=== PATIENT | female | born 1935 | race Caucasian/White ===

== ENCOUNTER 2016-05-03 14:49 | Emergency (ER) | payer MEDICARE, BC ==
[2016-05-03] MEDS ORDERED: Sodium Chloride 0.9% 10 ML Syringe FLUSH PRN ×2 (15:26)
--- NOTE | 2016-05-03 15:37 | EDM.PDOC ---
ED HISTORY OF PRESENT ILLNESS - General Chief Complaint: Respiratory Problem Stated Complaint: OXYGEN LEVELS/SHORT OF BREATH Time Seen by Provider: 05/03/16 15:07 Source: Reports: Patient, Family, Old records, RN notes reviewed History Limitations: Reports: No limitations - History of Present Illness INITIAL COMMENTS - FREE TEXT/NARRATIVE: 80-year-old female presents emergency department today with complaint of increasing shortness of breath and weak again she was recently admitted to the [facility] including intubation for hypoxia and respiratory failure thought to be due to pneumonia also new diagnosed atrial fibrillation and possible small segmental pulmonary embolism she is currently on anticoagulation medication of apixaban. She states she has had about a 40 pound weight gain over the last month and particularly over the last couple of days it has been 20 pounds predominantly in her lower extremities, she denies any pain only complains of shortness of breath and increasing oxygen demand, echocardiogram done March of 2016 shows overall ejection fraction 60-65% however moderate enlarged left atrium with left ventricular diastolic dysfunction grade 1 - Related Data Allergies/ADRs: Allergies Allergy/AdvReac Type Severity Reaction Status Date / Time nickel Allergy Itching Verified 04/05/16 12:45 Sulfa (Sulfonamide Allergy Swelling Verified 04/05/16 12:05 Antibiotics) Home Meds: Home Meds Zolpidem [Ambien] 1 tab PO BEDTIME 04/05/16 [History] Apixaban [Eliquis] 5 mg PO BID 05/03/16 [History] Ascorbic Acid 500 mg PO DAILY 05/03/16 [History] Cholecalciferol (Vitamin D3) [Vitamin D] 1,000 unit PO DAILY 05/03/16 [History] Garlic 1,000 mg PO DAILY 05/03/16 [History] Metoprolol Tartrate 12.5 mg PO DAILY 05/03/16 [History] Nystatin 100,000 units PO QID 05/03/16 [History] [place]-3 Fatty Acids [Fish Oil] 1,000 mg PO DAILY 05/03/16 [History] Past Medical History HEENT History: Reports: Impaired vision Cardiovascular History: Reports: Hypertension Respiratory History: Reports: Intubation, previous, Pneumonia, recurrent Musculoskeletal History: Reports: Fracture Endocrine/Metabolic History: Reports: Obesity/BMI 30+ Oncologic (Cancer) History: Reports: Breast - Past Surgical History Musculoskeletal Surgical History: Reports: Knee replacement Oncologic Surgical History: Reports: Mastectomy Social & Family History - Tobacco Use Smoking Status *Q: Never Smoker - Caffeine Use Caffeine Use: Reports: None - Recreational Drug Use Recreational Drug Use: No ED ROS GENERAL - Review of Systems Review Of Systems: See Below Constitutional: Reports: weight gain. Denies: fever, chills Respiratory: Reports: shortness of breath. Denies: wheezing, cough, sputum Cardiovascular: Reports: Dyspnea on exertion. Denies: Chest pain GI/Abdominal: Reports: No symptoms : Reports: no symptoms Musculoskeletal: Reports: no symptoms Skin: Reports: no symptoms Neurological: Reports: no symptoms ED EXAM, GENERAL - Physical Exam Exam: See Below Free Text/Narrative:: General: Obese female, not in any distress, alert and oriented x3 HEENT: head is atraumatic normocephalic, eyes pupils equal round reactive to light and accommodation sclera clear no conjunctivitis appreciated. Ears tympanic membranes clear and oh landmarks and light reflex are present bilaterally canals are clear. Nose no septal deviation, nares are clear, no blood present. Mouth mucosa is moist and pink no erythema or exudate noted in soft palate, tongue is midline uvula is midline, dentition is intact. Neck: Supple no thyromegaly no tracheal deviation. Nodes: Cervical nodes subclavicular nodes nontender no palpable lymphadenopathy noted. Lungs: Breath sounds decreased with crackles in the bases bilaterally CV: Irregularly irregular rate and rhythm S1 and S2 appreciated no murmurs rubs or gallops noted. Abdomen: Soft, nontender, obese, no palpable masses or organomegaly appreciated , no distention no guarding bowel sounds are present, Neuro: Cranial nerves II through XII grossly intact Skin: Warm and dry, intact Extremities: +3 edema noted bilaterally, +2 pedal pulses bilaterally Course - Vital Signs Last Recorded V/S: Last Vital Signs Temp 97.7 F 05/03/16 15:10 Pulse 93 05/03/16 15:10 Resp 16 05/03/16 15:10 BP 122/64 05/03/16 15:53 Pulse Ox 70 L 05/03/16 15:10 - Orders/Labs/Meds Orders: Active Orders 24 hr Category Date Time Status EKG Documentation Completion [RC] ASDIRECTED Care 05/03/16 15:28 Active Peripheral IV Care [RC] . DIRECTED Care 05/03/16 15:27 Active Chest 1V Frontal [CR] Urgent Exams 05/03/16 15:26 Taken Sodium Chloride 0.9% [Saline Flush] Med 05/03/16 15:26 Active 10 ml FLUSH ASDIRECTED PRN Sodium Chloride 0.9% [Saline Flush] Med 05/03/16 15:26 Active 10 ml FLUSH ASDIRECTED PRN Peripheral IV Insertion Adult [OM.PC] Urgent Oth 05/03/16 15:26 Ordered EKG 12 Lead [EK] Urgent Ther 05/03/16 15:26 Ordered Medication Orders Sodium Chloride (Saline Flush) 10 ml FLUSH ASDIRECTED PRN PRN Reason: Keep Vein Open Last Admin: 05/03/16 15:55 Dose: 10 ml Sodium Chloride (Saline Flush) 10 ml FLUSH ASDIRECTED PRN PRN Reason: Keep Vein Open Last Admin: 05/03/16 15:55 Dose: 10 ml Labs: Laboratory Tests 05/03/16 05/03/16 05/03/16 Range/Units 15:39 15:39 15:39 WBC 6.8 (4.5-11.0) K/uL RBC 3.95 (3.30-5.50) M/uL Hgb 11.4 L (12.0-15.0) g/dL Hct 37.0 (36.0-48.0) % MCV 94 (80-98) fL MCH 29 (27-31) pg MCHC 31 L (32-36) % Plt Count 181 (150-400) K/uL Neut % (Auto) 68 H (36-66) % Lymph % (Auto) 19 L (24-44) % [place] % (Auto) 9 H (2-6) % Eos % (Auto) 3 (2-4) % Baso % (Auto) 1 (0-1) % Sodium 137 L (140-148) mmol/L Potassium 4.5 (3.6-5.2) mmol/L Chloride 103 (100-108) mmol/L Carbon Dioxide 28 (21-32) mmol/L Anion Gap 10.5 (5.0-14.0) mmol/L BUN 13 (7-18) mg/dL Creatinine 1.0 (0.6-1.0) mg/dL Est Cr Clr Drug Dosing 35.49 mL/min Estimated GFR (MDRD) 53 L (>60) Glucose 106 (74-106) mg/dL Calcium 8.2 L (8.5-10.1) mg/dL Total Bilirubin 0.5 D (0.2-1.0) mg/dL AST 20 (15-37) U/L ALT 21 (12-78) U/L Alkaline Phosphatase 69 (46-116) U/L Troponin I < 0.017 (0.000-0.056) ng/mL [id number] Pept 3919 H (5-450) pg/mL Total Protein 6.5 (6.4-8.2) g/dL Albumin 2.7 L (3.4-5.0) g/dL Globulin 3.8 H (2.3-3.5) g/dL Albumin/Globulin Ratio 0.7 L (1.2-2.2) Urine Color Urine Appearance Urine pH (4.5-8.0) Ur Specific [place] (1.008-1.030) Urine Protein (NEGATIVE) mg/dL Urine Glucose (UA) (NEGATIVE) mg/dL Urine Ketones (NEGATIVE) mg/dL Urine Occult Blood (NEGATIVE) Urine Nitrite (NEGATIVE) Urine Bilirubin (NEGATIVE) Urine Urobilinogen (NORMAL) mg/dL Ur Leukocyte Esterase (NEGATIVE) Urine RBC (0-5) Urine WBC (0-5) Ur Epithelial Cells Amorphous Sediment Urine Bacteria Urine Mucus 05/03/16 Range/Units 16:39 WBC (4.5-11.0) K/uL RBC (3.30-5.50) M/uL Hgb (12.0-15.0) g/dL Hct (36.0-48.0) % MCV (80-98) fL MCH (27-31) pg MCHC (32-36) % Plt Count (150-400) K/uL Neut % (Auto) (36-66) % Lymph % (Auto) (24-44) % [place] % (Auto) (2-6) % Eos % (Auto) (2-4) % Baso % (Auto) (0-1) % Sodium (140-148) mmol/L Potassium (3.6-5.2) mmol/L Chloride (100-108) mmol/L Carbon Dioxide (21-32) mmol/L Anion Gap (5.0-14.0) mmol/L BUN (7-18) mg/dL Creatinine (0.6-1.0) mg/dL Est Cr Clr Drug Dosing mL/min Estimated GFR (MDRD) (>60) Glucose (74-106) mg/dL Calcium (8.5-10.1) mg/dL Total Bilirubin (0.2-1.0) mg/dL AST (15-37) U/L ALT (12-78) U/L Alkaline Phosphatase (46-116) U/L Troponin I (0.000-0.056) ng/mL Oic-Z-Kxyrjjujpxu Pept (5-450) pg/mL Total Protein (6.4-8.2) g/dL Albumin (3.4-5.0) g/dL Globulin (2.3-3.5) g/dL Albumin/Globulin Ratio (1.2-2.2) Urine Color Yellow Urine Appearance Clear Urine pH 5.0 (4.5-8.0) Ur Specific [place] 1.015 (1.008-1.030) Urine Protein Negative (NEGATIVE) mg/dL Urine Glucose (UA) Normal (NEGATIVE) mg/dL Urine Ketones Negative (NEGATIVE) mg/dL Urine Occult Blood Negative (NEGATIVE) Urine Nitrite Negative (NEGATIVE) Urine Bilirubin Negative (NEGATIVE) Urine Urobilinogen Normal (NORMAL) mg/dL Ur Leukocyte Esterase Negative (NEGATIVE) Urine RBC 0-5 (0-5) Urine WBC 0-5 (0-5) Ur Epithelial Cells Many Amorphous Sediment Not seen Urine Bacteria Not seen Urine Mucus Not seen Meds: Medications Generic Name Dose Route Start Last Admin Trade Name Freq PRN Reason Stop Dose Admin Sodium Chloride 10 ml 05/03/16 15:26 05/03/16 15:55 Saline Flush FLUSH 10 ml ASDIRECTED PRN Administration Keep Vein Open Sodium Chloride 10 ml 05/03/16 15:26 05/03/16 15:55 Saline Flush FLUSH 10 ml ASDIRECTED PRN Administration Keep Vein Open Discontinued Medications Generic Name Dose Route Start Last Admin Trade Name Freq PRN Reason Stop Dose Admin Furosemide 40 mg 05/03/16 15:38 05/03/16 15:53 Lasix IVPUSH 05/03/16 15:39 40 mg ONETIME ONE Administration Furosemide 20 mg 05/03/16 16:44 Lasix IVPUSH 05/03/16 16:45 ONETIME ONE Departure - Departure Time of Disposition: 16:53 Disposition: Home, Self-Care 01 Condition: good Clinical Impression: Heart failure with preserved ejection fraction Forms: ED Department Discharge Additional Instructions: Take Lasix 40 mg in the morning and then about 6 hours later and take another 20 mg, plan is to recheck your potassium on Tuesday at which time you should have a quick review with the nurse practitioner, call or return to the ED with worsening symptoms continue using oxygen - My Orders Last 24 Hours: My Active Orders 05/03/16 15:26 Chest 1V Frontal [CR] Urgent Sodium Chloride 0.9% [Saline Flush] 10 ml FLUSH ASDIRECTED PRN Sodium Chloride 0.9% [Saline Flush] 10 ml FLUSH ASDIRECTED PRN Peripheral IV Insertion Adult [OM.PC] Urgent EKG 12 Lead [EK] Urgent 05/03/16 15:27 Peripheral IV Care [RC] . DIRECTED 05/03/16 15:28 EKG Documentation Completion [RC] ASDIRECTED - Assessment/Plan Last 24 Hours: My Active Orders 05/03/16 15:26 Chest 1V Frontal [CR] Urgent Sodium Chloride 0.9% [Saline Flush] 10 ml FLUSH ASDIRECTED PRN Sodium Chloride 0.9% [Saline Flush] 10 ml FLUSH ASDIRECTED PRN Peripheral IV Insertion Adult [OM.PC] Urgent EKG 12 Lead [EK] Urgent 05/03/16 15:27 Peripheral IV Care [RC] . DIRECTED 05/03/16 15:28 EKG Documentation Completion [RC] ASDIRECTED Plan: Assessment Acuity = acute Site and laterality = fluid overload secondary to preserved ejection fraction heart failure diastolic dysfunction Etiology = medications had been stopped after discharge from hospital of [facility] Manifestations = hypoxia, shortness of breath, weight gain Location of injury = home Lab values = hemoglobin 11.4 consistent normochromic anemia sodium low at 137 consistent hyponatremia BNP elevated at 3919 albumin low at 2.7 consistent hypoalbuminemia urinalysis unremarkable EKG demonstrates atrial fibrillation chest x-ray consistent with fluid overload resolving ARDS pattern Plan She had good response to 60 mg Lasix provided IV plan is to discharge home 40 mg of Lasix in the morning 20 mg in the p.m. recheck electrolytes on Tuesday followed by the nurse practitioner to reevaluate on Tuesday Patient was in agreement with the plan all questions were answered, they were instructed to return to the emergency department or call for worsening symptoms. This note was dictated using [employer] voice recognition software please call with any questions.
[2016-05-03] MEDS ORDERED: Furosemide 40 MG/4 ML VIAL IVPUSH ONE (15:38)
[2016-05-03] MEDS ORDERED: Furosemide 20 MG/2 ML VIAL IVPUSH ONE (16:44)
[2016-05-03 17:33] VITALS: BP 138/83
--- NOTE | 2016-05-04 09:04 | CR ---
Portable chest Comparison: 05 April 2016. There is cardiac enlargement with pulmonary vascular engorgement. There is diffuse increase of the i nterstitial markings. There are no significant effusions. Impression: 1. CHF with interstitial edema.
== END 2016-05-03 17:30 | disposition home or self-care (01) ==
LOC: JP.ED 14:49
DX: I11.0 Hypertensive heart disease with heart failure (principal); I50.30 Unspecified diastolic (congestive) heart failure; Z88.2 Allergy status to sulfonamides; Z79.899 Other long term (current) drug therapy; Z98.890 Other specified postprocedural states
CPT/HCPCS: 36415; 71010; 80053; 81001; 83880; 84484; 85025; 87804; 93005; 96374; 96376; 99285; J1940; J7050; 93010; 99284

== ENCOUNTER 2016-07-11 07:36 | Emergency (ER) | payer MEDICARE, BC ==
--- NOTE | 2016-07-11 08:40 | EDM.PDOC ---
ED HPI GENERAL MEDICAL PROBLEM - General Chief Complaint: Lower Extremity Injury/Pain Stated Complaint: LT LEG PAIN/HAS BLOOD CLOT ISSUES Time Seen by Provider: 07/11/16 08:29 Source of Information: Reports: Patient, Old Records, RN Notes Reviewed History Limitations: Reports: No Limitations - History of Present Illness INITIAL COMMENTS - FREE TEXT/NARRATIVE: 80-year-old female presents emergency department day complaint of pain in her left knee, it started early this morning pain will wax and wane it is in the anterior portion of the knee she denies any trauma however she is concerned about a blood clot she is on anticoagulation medication Left Leg Pain Score (Numeric/FACES): 8 - Related Data Allergies Allergy/AdvReac Type Severity Reaction Status Date / Time nickel Allergy Itching Verified 07/11/16 08:02 Sulfa (Sulfonamide Allergy Swelling Verified 07/11/16 08:02 Antibiotics) Home Meds: Home Meds Zolpidem [Ambien] 1 tab PO BEDTIME 04/05/16 [History] Apixaban [Eliquis] 5 mg PO BID 05/03/16 [History] Ascorbic Acid 500 mg PO DAILY 05/03/16 [History] Cholecalciferol (Vitamin D3) [Vitamin D] 1,000 unit PO DAILY 05/03/16 [History] Garlic 1,000 mg PO DAILY 05/03/16 [History] Metoprolol Tartrate 12.5 mg PO DAILY 05/03/16 [History] Nystatin 100,000 units PO QID 05/03/16 [History] [place]-3 Fatty Acids [Fish Oil] 1,000 mg PO DAILY 05/03/16 [History] Furosemide [Lasix] 40 mg PO BID 07/11/16 [History] Omeprazole 20 mg PO ASDIRECTED 07/11/16 [History] Potassium Chloride [Klor-Con 10] 30 meq PO BID 07/11/16 [History] Past Medical History HEENT History: Reports: Impaired Vision Cardiovascular History: Reports: Afib, Blood Clots/VTE/DVT, Heart Failure, Hypertension, Other (See Below) Other Cardiovascular History: mitral regurgitation Respiratory History: Reports: Intubation, Previous, PE, Pneumonia, Recurrent, Sleep Apnea, Other (See Below) 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: Reports: Musculoskeletal History: Reports: Arthritis, Fracture Other Musculoskeletal History: left arm Other Psychiatric History: insomnia Endocrine/Metabolic History: Reports: Obesity/BMI 30+ Oncologic (Cancer) History: Reports: Breast - Infectious Disease History Infectious Disease History: Reports: C-Difficile, Measles - Past Surgical History Musculoskeletal Surgical History: Reports: Knee Replacement Other Musculoskeletal Surgeries/Procedures:: right and left Oncologic Surgical History: Reports: Mastectomy Other Oncologic Surgeries/Procedures: right Social & Family History - Tobacco Use Smoking Status *Q: Never Smoker - Caffeine Use Caffeine Use: Reports: Coffee - Recreational Drug Use Recreational Drug Use: No Review of Systems - Review of Systems Review Of Systems: See Below Respiratory: Reports: No Symptoms Cardiovascular: Reports: No Symptoms Musculoskeletal: Reports: Joint Pain (Knee pain left) Trauma Exam - Physical Exam Exam: See Below Text/Narrative:: Examination of left lower extremity I appreciate any erythema she has marked edema in the lower extremity ,pedal pulses 2+ full range of motion of the knee she is tender to palpation of the inferior aspect of the patella no significant joint line tenderness varus valgus maneuvers are negative Exam Limited By: No Limitations General Appearance: Reports: Alert, WD/WN, No Apparent Distress Course - Vital Signs Last Recorded V/S: Last Vital Signs Temp 96.8 F 07/11/16 07:57 Pulse 82 07/11/16 07:57 Resp 20 07/11/16 07:57 BP 180/97 H 07/11/16 07:57 Pulse Ox 97 07/11/16 07:57 - Orders/Labs/Meds Orders: Active Orders 24 hr Category Date Time Status Knee 3V Lt [CR] Stat Exams 07/11/16 08:38 Taken Labs: Laboratory Tests 07/11/16 07/11/16 07/11/16 Range/Units 08:38 09:00 09:00 WBC 7.3 (4.5-11.0) K/uL RBC 4.75 (3.30-5.50) M/uL Hgb 13.8 D (12.0-15.0) g/dL Hct 42.7 (36.0-48.0) % MCV 90 (80-98) fL MCH 29 (27-31) pg MCHC 32 (32-36) % Plt Count 173 (150-400) K/uL Neut % (Auto) 63 (36-66) % Lymph % (Auto) 25 (24-44) % [place] % (Auto) 9 H (2-6) % Eos % (Auto) 3 (2-4) % Baso % (Auto) 1 (0-1) % D-Dimer, Quantitative 193 (0.0-400.0) ng/mL Sodium 139 L (140-148) mmol/L Potassium 4.2 (3.6-5.2) mmol/L Chloride 102 (100-108) mmol/L Carbon Dioxide 31 (21-32) mmol/L Anion Gap 10.2 (5.0-14.0) mmol/L BUN 22 H (7-18) mg/dL Creatinine 1.1 H (0.6-1.0) mg/dL Est Cr Clr Drug Dosing 38.19 mL/min Estimated GFR (MDRD) 48 L (>60) Glucose 120 H (74-106) mg/dL Calcium 8.7 (8.5-10.1) mg/dL Meds: Medications Discontinued Medications Generic Name Dose Route Start Last Admin Trade Name [place] PRN Reason Stop Dose Admin Acetaminophen 650 mg 07/11/16 08:56 07/11/16 09:08 Tylenol PO 07/11/16 08:57 650 mg NOW ONE Administration Ketorolac Tromethamine 60 mg 07/11/16 09:47 07/11/16 09:56 Toradol IM 07/11/16 09:48 60 mg ONETIME ONE Administration Departure - Departure Time of Disposition: 10:04 Disposition: Home, Self-Care 01 Condition: good Clinical Impression: Knee pain Qualifiers: Laterality: left Chronicity: acute Qualified Code(s): M25.562 - Pain in left knee - Discharge Information Forms: ED Department Discharge Additional Instructions: Continue to use Tylenol for main pain control supplement with ibuprofen if needed, Please followup with your primary care provider in 3-5 days if not better, please call return to the emergency department with worsening of symptoms. - My Orders Last 24 Hours: My Active Orders 07/11/16 08:38 Knee 3V Lt [CR] Stat - Assessment/Plan Last 24 Hours: My Active Orders 07/11/16 08:38 Knee 3V Lt [CR] Stat Plan: Assessment Acuity = acute Site and laterality = left knee pain complicated patient with known history of knee replacement as well as congestive heart failure and history of pulmonary embolism Etiology = unclear etiology Manifestations = none Location of injury = home Lab values = CBC unremarkable, creatinine elevated at 1.1 consistent chronic renal failure stage GIIIB knee film I did review films myself I cannot appreciate any acute process, the official read from radiology is pending Plan I did review blood work and x-ray results with her she received good relief from a combination of Toradol and Tylenol she is going to try NSAIDs and Tylenol at home followup with primary care in 3-5 days if no improvement Patient was in agreement with the plan all questions were answered, they were instructed to return to the emergency department or call for worsening symptoms. This note was dictated using [employer] voice recognition software please call with any questions.
[2016-07-11] MEDS ORDERED: Acetaminophen 325 MG Tab PO ONE (08:56)
[2016-07-11] MEDS ORDERED: Ketorolac 60 MG/2 ML SDV IM ONE (09:47)
[2016-07-11 10:04] VITALS: BP 161/89
--- NOTE | 2016-07-12 09:50 | CR ---
Knee 3V Lt HISTORY: ant pain FINDINGS: Bony structures are diffusely osteopenic. No acute fracture or dislocation is identified. Left total knee arthroplasty is demonstrated with patellar resurfacing. No loosening other complicat ion can be seen. There is no evidence for joint effusion. IMPRESSION: Left total knee arthroplasty. Osteopenia. No fracture or other acute left knee abnormali ty is identified.
== END 2016-07-11 10:27 | disposition home or self-care (01) ==
LOC: JP.ED 07:36
DX: M25.562 Pain in left knee (principal); I50.9 Heart failure, unspecified; I10 Essential (primary) hypertension; I48.91 Unspecified atrial fibrillation; K21.9 Gastro-esophageal reflux disease without esophagitis; E66.9 Obesity, unspecified; Z68.41 Body mass index [BMI] 40.0-44.9, adult; Z86.711 Personal history of pulmonary embolism; Z85.3 Personal history of malignant neoplasm of breast; Z86.718 Personal history of other venous thrombosis and embolism; Z96.651 Presence of right artificial knee joint; Z96.652 Presence of left artificial knee joint; Z90.11 Acquired absence of right breast and nipple; Z79.899 Other long term (current) drug therapy; Z88.2 Allergy status to sulfonamides; Z91.048 Other nonmedicinal substance allergy status
CPT/HCPCS: 36415; 73562; 80048; 85025; 85379; 96372; 99284; A9270; J1885; 99283

== ENCOUNTER 2016-09-10 18:01 | Emergency (ER) | payer MEDICARE, BC ==
[2016-09-10 18:19] VITALS: BP 149/93
[2016-09-10] MEDS ORDERED: Diphtheria,Pertussis(Acell),Tetanus Vaccine 0.5 ML SDV IM ONE (18:51)
[2016-09-10] MEDS ORDERED: Lidocaine 1% with EPINEPHrine 1:100,000 50 ML MDV INFILT ONE (18:53)
[2016-09-10] MEDS ORDERED: Bacitracin Oint 1 GM U/D Packet TOP ONE (18:54)
--- NOTE | 2016-09-10 19:02 | EDM.PDOC ---
ED HPI GENERAL MEDICAL PROBLEM - General Chief Complaint: Laceration Stated Complaint: FELL, LACERATION TO BACK OF LEFT HAND Time Seen by Provider: 09/10/16 18:40 Source of Information: Reports: Patient History Limitations: Reports: No Limitations - History of Present Illness INITIAL COMMENTS - FREE TEXT/NARRATIVE: 81 yo female presents to ER post fall causing skin tear to her left hand and left arm. She did not hit her head. She tripped while walking up stairs and carrying photo albums. Radha is anticoagulanted. bleeding is controled. She is in need of tetanus update Left Hand Pain Score (Numeric/FACES): 5 - Related Data Allergies Allergy/AdvReac Type Severity Reaction Status Date / Time nickel Allergy Itching Verified 07/11/16 08:02 Sulfa (Sulfonamide Allergy Swelling Verified 07/11/16 08:02 Antibiotics) Home Meds: Home Meds Zolpidem [Ambien] 1 tab PO BEDTIME 04/05/16 [History] Apixaban [Eliquis] 5 mg PO BID 05/03/16 [History] Ascorbic Acid 500 mg PO DAILY 05/03/16 [History] Cholecalciferol (Vitamin D3) [Vitamin D] 1,000 unit PO DAILY 05/03/16 [History] Garlic 1,000 mg PO DAILY 05/03/16 [History] Metoprolol Tartrate 12.5 mg PO DAILY 05/03/16 [History] Nystatin 100,000 units PO QID 05/03/16 [History] [place]-3 Fatty Acids [Fish Oil] 1,000 mg PO DAILY 05/03/16 [History] Furosemide [Lasix] 40 mg PO BID 07/11/16 [History] Omeprazole 20 mg PO ASDIRECTED 07/11/16 [History] Potassium Chloride [Klor-Con 10] 30 meq PO BID 07/11/16 [History] Past Medical History HEENT History: Reports: Impaired Vision Cardiovascular History: Reports: Afib, Blood Clots/VTE/DVT, Heart Failure, Hypertension, Other (See Below) Other Cardiovascular History: mitral regurgitation Respiratory History: Reports: Intubation, Previous, PE, Pneumonia, Recurrent, Sleep Apnea, Other (See Below) 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: Musculoskeletal History: Reports: Arthritis, Fracture Other Musculoskeletal History: left arm Other Psychiatric History: insomnia Endocrine/Metabolic History: Reports: Obesity/BMI 30+ Oncologic (Cancer) History: Reports: Breast - Infectious Disease History Infectious Disease History: Reports: C-Difficile, Measles - Past Surgical History Musculoskeletal Surgical History: Reports: Knee Replacement Other Musculoskeletal Surgeries/Procedures:: right and left Oncologic Surgical History: Reports: Mastectomy Other Oncologic Surgeries/Procedures: right Social & Family History - Tobacco Use Smoking Status *Q: Never Smoker - Caffeine Use Caffeine Use: Reports: Coffee - Recreational Drug Use Recreational Drug Use: No ED ROS GENERAL - Review of Systems Review Of Systems: See Below Constitutional: Denies: Fever, Chills Respiratory: Denies: Shortness of Breath, Wheezing Cardiovascular: Denies: Chest Pain ED EXAM, SKIN/RASH Exam: See Below Exam Limited By: No Limitations General Appearance: Alert, WD/WN, No Apparent Distress Respiratory/Chest: No Respiratory Distress Skin: Warm, Dry, No Rash Location, Skin: Upper Extremity, Left (pie shaped skin tear dorsum of hand and posterior distal lower arm) ED SKIN PROCEDURES - Laceration/Wound Repair Left Posterior Hand Lac/Wound length In cm: 10 (5cm x 5 cm pie shape) Appearance: Superficial Distal NVT: Neuro & Vascular Intact Anesthetic Type: Local Local Anesthesia - Lidocaine (Xylocaine): 1% With EPI Local Anesthetic Volume: 3cc Skin Prep: Chlorhexidine (Hibiciens), Saline, Sterile Drape Saline Irrigation (cc's): 250 Exploration/Debridement/Repair: Wound Explored, in a Bloodless Field, Explored to Base, Minimal Debridement, Foreign Material Removed (grass and dirt) Closed with: Sutures Suture Size: other (5-0) # of Sutures: 12 Suture Type: Nylon, Interrupted, Simple Sterile Dressing Applied: Nurse Tetanus Status Addressed: Yes Complications: No Course - Vital Signs Last Recorded V/S: Last Vital Signs Temp 37.1 C 09/10/16 18:21 Pulse 70 09/10/16 18:21 Resp 16 09/10/16 18:21 BP 149/93 H 09/10/16 18:21 Pulse Ox 93 L 09/10/16 18:21 - Orders/Labs/Meds Orders: Active Orders 24 hr Category Date Time Status Vaccines to be Administered [RC] PER UNIT ROUTINE Care 09/10/16 18:51 Active Meds: Medications Discontinued Medications Generic Name Dose Route Start Last Admin Trade Name Eneida PRN Reason Stop Dose Admin Bacitracin 1 dose 09/10/16 18:54 Bacitracin Oint 1 Gm TOP 09/10/16 18:55 ONETIME ONE Diphtheria/Tetanus/Acell Pertussis 0.5 ml 09/10/16 18:51 Adacel IM 09/10/16 18:52 .ONCE ONE Lidocaine/Epinephrine 3 ml 09/10/16 18:53 Xylocaine 1% With Epinephrine 1:100,000 INFILT 09/10/16 18:54 ONETIME ONE - Re-Assessments/Exams Free Text/Narrative Re-Assessment/Exam: 09/10/16 20:07 as pt sits on trauma cot she has mild stiff bilateral knees, she was able to walk without difficulty after fall. Departure - Departure Time of Disposition: 20:11 Disposition: Home, Self-Care 01 Condition: Good Clinical Impression: Skin tear of forearm without complication Qualifiers: Encounter type: initial encounter Laterality: left Qualified Code(s): S51.812A - Laceration without foreign body of left forearm, initial encounter Laceration of hand Qualifiers: Encounter type: initial encounter Foreign body presence: with foreign body Laterality: left Qualified Code(s): S61.422A - Laceration with foreign body of left hand, initial encounter - Discharge Information Forms: ED Department Discharge Additional Instructions: sutures out in 7 days ice hand and knees for pain observe for signs of infection - fire engine red, purulent drainage or increase in pain no soaking hand or swimming until sutures removed - My Orders Last 24 Hours: My Active Orders 09/10/16 18:51 Vaccines to be Administered [RC] PER UNIT ROUTINE - Assessment/Plan Last 24 Hours: My Active Orders 09/10/16 18:51 Vaccines to be Administered [RC] PER UNIT ROUTINE
[2016-09-10] MEDS ORDERED: Acetaminophen 500 MG Tab PO ONE (20:34)
== END 2016-09-10 20:50 | disposition home or self-care (01) ==
LOC: JP.ED 18:01
DX: S61.412A Laceration without foreign body of left hand, initial encounter (principal); S51.812A Laceration without foreign body of left forearm, initial encounter; W10.9XXA Fall (on) (from) unspecified stairs and steps, initial encounter; Z23 Encounter for immunization; I50.9 Heart failure, unspecified; I48.91 Unspecified atrial fibrillation; I10 Essential (primary) hypertension; I34.0 Nonrheumatic mitral (valve) insufficiency; G47.30 Sleep apnea, unspecified; K21.9 Gastro-esophageal reflux disease without esophagitis; Z86.711 Personal history of pulmonary embolism; Z87.01 Personal history of pneumonia (recurrent); Z85.3 Personal history of malignant neoplasm of breast; Z87.09 Personal history of other diseases of the respiratory system; Z79.01 Long term (current) use of anticoagulants; Z79.899 Other long term (current) drug therapy; Z91.09 Other allergy status, other than to drugs and biological substances; Z88.2 Allergy status to sulfonamides
CPT/HCPCS: 12004; 90471; 90715; 99283; A9270; 12002

== ENCOUNTER 2017-01-28 14:59 | Emergency (ER) | payer MEDICARE, BC ==
--- NOTE | 2017-01-28 15:35 | EDM.PDOC ---
ED HPI GENERAL MEDICAL PROBLEM - General Chief Complaint: Respiratory Problem Stated Complaint: CHEST PAIN, SOB Time Seen by Provider: 01/28/17 15:26 Source of Information: Reports: Patient, Family, RN Notes Reviewed History Limitations: Reports: No Limitations - History of Present Illness INITIAL COMMENTS - FREE TEXT/NARRATIVE: 81-year-old female presents emergency department day complaint of shortness of breath she states over the last week or so she's been increasingly more short of breath was being evaluated in clinic today by the heart failure clinic and was sent to the emergency department for further evaluation. She denies any fevers nausea vomiting chest pain no other or GI symptomatology, she does not feel she has gained any significant weight has noticed increased edema around her ankles does have a history of diastolic heart failure uses Lasix 40 mg by mouth twice a day was recently started on metolazone - Related Data Allergies Allergy/AdvReac Type Severity Reaction Status Date / Time nickel Allergy Itching Verified 07/11/16 08:02 Sulfa (Sulfonamide Allergy Swelling Verified 07/11/16 08:02 Antibiotics) Home Meds: Home Meds Zolpidem [Ambien] 1 tab PO BEDTIME 04/05/16 [History] Apixaban [Eliquis] 5 mg PO BID 05/03/16 [History] Ascorbic Acid 500 mg PO DAILY 05/03/16 [History] Cholecalciferol (Vitamin D3) [Vitamin D] 1,000 unit PO DAILY 05/03/16 [History] Garlic 1,000 mg PO DAILY 05/03/16 [History] Metoprolol Tartrate 12.5 mg PO BID 05/03/16 [History] Nystatin 100,000 units PO QID 05/03/16 [History] [place]-3 Fatty Acids [Fish Oil] 1,000 mg PO DAILY 05/03/16 [History] Furosemide [Lasix] 40 mg PO BID 07/11/16 [History] Omeprazole 20 mg PO ASDIRECTED 07/11/16 [History] Potassium Chloride [Klor-Con 10] 30 meq PO BID 07/11/16 [History] Metolazone 5 mg PO DAILY 01/28/17 [History] Past Medical History HEENT History: Reports: Impaired Vision Cardiovascular History: Reports: Afib, Blood Clots/VTE/DVT, Heart Failure, Hypertension, Other (See Below) Other Cardiovascular History: mitral regurgitation Respiratory History: Reports: Intubation, Previous, PE, Pneumonia, Recurrent, Sleep Apnea, Other (See Below) 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: Musculoskeletal History: Reports: Arthritis, Fracture Other Musculoskeletal History: left arm Other Psychiatric History: insomnia Endocrine/Metabolic History: Reports: Obesity/BMI 30+ Oncologic (Cancer) History: Reports: Breast - Infectious Disease History Infectious Disease History: Reports: Chicken Pox, Measles, Mumps - Past Surgical History Musculoskeletal Surgical History: Reports: Knee Replacement Other Musculoskeletal Surgeries/Procedures:: right and left Oncologic Surgical History: Reports: Mastectomy Other Oncologic Surgeries/Procedures: right Social & Family History - Tobacco Use Smoking Status *Q: Never Smoker - Caffeine Use Caffeine Use: Reports: Coffee - Recreational Drug Use Recreational Drug Use: No ED ROS GENERAL - Review of Systems Review Of Systems: See Below Constitutional: Reports: No Symptoms HEENT: Reports: No Symptoms Respiratory: Reports: Shortness of Breath Cardiovascular: Reports: Dyspnea on Exertion, Edema. Denies: Chest Pain GI/Abdominal: Reports: No Symptoms : Reports: No Symptoms Musculoskeletal: Reports: No Symptoms Skin: Reports: No Symptoms Neurological: Reports: No Symptoms Psychiatric: Reports: No Symptoms ED EXAM, GENERAL - Physical Exam Exam: See Below Free Text/Narrative:: General: Female, not in any distress, alert and oriented x3 HEENT: head is atraumatic normocephalic, eyes pupils equal round reactive to light, sclera clear no conjunctivitis appreciated. Ears tympanic membranes clear and oh landmarks and light reflex are present bilaterally canals are clear. Nose no septal deviation, nares are clear, no blood present. Mouth mucosa is moist and pink no erythema or exudate noted in soft palate, tongue is midline uvula is midline, dentures in place. Neck: Supple no thyromegaly no tracheal deviation. Nodes: Cervical nodes subclavicular nodes nontender no palpable lymphadenopathy noted. Lungs: clear to auscultation bilaterally with symmetrical respirations, no adventitious noise appreciated. CV: Irregularly irregular rate and rhythm S1 and S2 appreciated no murmurs rubs or gallops noted. Abdomen: Soft, nontender, no palpable masses or organomegaly appreciated, no distention no guarding bowel sounds are present . Neuro: Cranial nerves II through XII grossly intact Skin: Warm and dry, intact Extremities: +2 pitting edema bilaterally Course - Vital Signs Last Recorded V/S: Last Vital Signs Temp 97.5 F 01/28/17 15:15 Pulse 70 01/28/17 17:55 Resp 13 01/28/17 17:55 BP 137/89 01/28/17 17:55 Pulse Ox 97 01/28/17 17:55 - Orders/Labs/Meds Orders: Active Orders 24 hr Category Date Time Status Cardiac Monitoring [RC] .As Directed Care 01/28/17 15:31 Active EKG Documentation Completion [RC] ASDIRECTED Care 01/28/17 15:32 Active Peripheral IV Care [RC] . DIRECTED Care 01/28/17 16:19 Active Chest 2V [CR] Stat Exams 01/28/17 15:32 Taken Potassium Chloride 20 meq Med 01/28/17 16:45 Active Lidocaine 1% [Xylocaine 1%] 2 ml Sodium Chloride 0.9% [Normal Saline] 100 ml IV ONETIME Potassium Chloride [Klor-Con M20] Med 01/28/17 19:00 Ordered 40 meq PO ONETIME Sodium Chloride 0.9% [Saline Flush] Med 01/28/17 16:18 Active 10 ml FLUSH ASDIRECTED PRN Peripheral IV Insertion Adult [OM.PC] Urgent Oth 01/28/17 16:18 Ordered EKG 12 Lead [EK] Stat Ther 01/28/17 15:32 Ordered Medication Orders Potassium Chloride 20 meq/Lidocaine HCl 2 ml/ Sodium Chloride 112 mls @ 56 mls/ hr IV ONETIME ONE Stop: 01/28/17 18:44 Last Admin: 01/28/17 16:39 Dose: 56 mls/hr Potassium Chloride (Klor-Con M20) 40 meq PO ONETIME TYLER Sodium Chloride (Saline Flush) 10 ml FLUSH ASDIRECTED PRN PRN Reason: Keep Vein Open Last Admin: 01/28/17 16:48 Dose: 10 ml Labs: Laboratory Tests 01/28/17 01/28/17 01/28/17 Range/Units 15:31 15:43 16:18 WBC 8.4 (4.5-11.0) K/uL RBC 4.65 (3.30-5.50) M/uL Hgb 13.8 (12.0-15.0) g/dL Hct 42.0 (36.0-48.0) % MCV 90 (80-98) fL MCH 30 (27-31) pg MCHC 33 (32-36) % Plt Count 190 (150-400) K/uL Neut % (Auto) 66 (36-66) % Lymph % (Auto) 20 L (24-44) % [place] % (Auto) 11 H (2-6) % Eos % (Auto) 2 (2-4) % Baso % (Auto) 0 (0-1) % Sodium 137 L (140-148) mmol/L Potassium 2.5 L* (3.6-5.2) mmol/L Chloride 93 L (100-108) mmol/L Carbon Dioxide 36 H (21-32) mmol/L Anion Gap 10.5 (5.0-14.0) mmol/L BUN 24 H (7-18) mg/dL Creatinine 1.4 H (0.6-1.0) mg/dL Est Cr Clr Drug Dosing 28.36 mL/min Estimated GFR (MDRD) 36 L (>60) Glucose 216 H (74-106) mg/dL Calcium 9.1 (8.5-10.1) mg/dL Magnesium 2.3 (1.8-2.4) mg/dL Total Bilirubin 0.6 (0.2-1.0) mg/dL AST 28 (15-37) U/L ALT 26 (12-78) U/L Alkaline Phosphatase 109 (46-116) U/L Troponin I < 0.017 (0.000-0.056) ng/mL NT-Pro-B Natriuret Pep 2488 H (5-450) pg/mL Total Protein 7.3 (6.4-8.2) g/dL Albumin 3.2 L (3.4-5.0) g/dL Globulin 4.1 H (2.3-3.5) g/dL Albumin/Globulin Ratio 0.8 L (1.2-2.2) Meds: Medications Generic Name Dose Route Start Last Admin Trade Name Freq PRN Reason Stop Dose Admin Potassium Chloride 20 meq/ 112 mls @ 56 mls/hr 01/28/17 16:45 01/28/17 16:39 Lidocaine HCl 2 ml/ Sodium IV 01/28/17 18:44 56 mls/hr Chloride ONETIME ONE Administration Potassium Chloride 40 meq 12/01/17 19:00 Klor-Con M20 PO ONETIME TYLER Sodium Chloride 10 ml 01/28/17 16:18 01/28/17 16:48 Saline Flush FLUSH 10 ml ASDIRECTED PRN Administration Keep Vein Open Discontinued Medications Generic Name Dose Route Start Last Admin Trade Name Freq PRN Reason Stop Dose Admin Bumetanide 2 mg 01/28/17 16:18 01/28/17 16:36 Bumex IVPUSH 01/28/17 16:19 2 mg ONETIME ONE Administration Bumetanide Confirm 01/28/17 16:33 01/28/17 16:35 Bumex Administered 01/28/17 16:34 Not Given Dose 1 mg .ROUTE .STK-MED ONE Potassium Chloride 40 meq 01/28/17 16:22 01/28/17 16:36 Klor-Con M20 PO 01/28/17 16:23 40 meq ONETIME ONE Administration Potassium Chloride 40 meq 01/28/17 17:46 01/28/17 17:54 Klor-Con M20 PO 01/28/17 17:47 40 meq ONETIME ONE Administration Departure - Departure Time of Disposition: 18:03 Disposition: Home, Self-Care 01 Condition: Fair Clinical Impression: Heart failure with preserved ejection fraction - Discharge Information Referrals: Franc Skelton MD [Primary Care Provider] - Forms: ED Department Discharge Additional Instructions: Continue on your regular medications, start your metolazone that has been prescribed increase your potassium from 30 mEq twice a day to 40 mEq twice a day , follow-up with your primary care provider next week to recheck electrolytes - My Orders Last 24 Hours: My Active Orders 01/28/17 15:31 Cardiac Monitoring [RC] .As Directed 01/28/17 15:32 EKG Documentation Completion [RC] ASDIRECTED Chest 2V [CR] Stat EKG 12 Lead [EK] Stat 01/28/17 16:18 Sodium Chloride 0.9% [Saline Flush] 10 ml FLUSH ASDIRECTED PRN Peripheral IV Insertion Adult [OM.PC] Urgent 01/28/17 16:19 Peripheral IV Care [RC] . DIRECTED 01/28/17 16:45 Potassium Chloride 20 meq Lidocaine 1% [Xylocaine 1%] 2 ml Sodium Chloride 0.9 % [Normal Saline] 100 ml IV ONETIME 01/28/17 19:00 Potassium Chloride [Klor-Con M20] 40 meq PO ONETIME - Assessment/Plan Last 24 Hours: My Active Orders 01/28/17 15:31 Cardiac Monitoring [RC] .As Directed 01/28/17 15:32 EKG Documentation Completion [RC] ASDIRECTED Chest 2V [CR] Stat EKG 12 Lead [EK] Stat 01/28/17 16:18 Sodium Chloride 0.9% [Saline Flush] 10 ml FLUSH ASDIRECTED PRN Peripheral IV Insertion Adult [OM.PC] Urgent 01/28/17 16:19 Peripheral IV Care [RC] . DIRECTED 01/28/17 16:45 Potassium Chloride 20 meq Lidocaine 1% [Xylocaine 1%] 2 ml Sodium Chloride 0.9 % [Normal Saline] 100 ml IV ONETIME 01/28/17 19:00 Potassium Chloride [Klor-Con M20] 40 meq PO ONETIME Plan: Assessment Acuity = acute Site and laterality = exacerbation of diastolic heart failure Etiology = fluid overload Manifestations = none Location of injury = Home Lab values = CBC within normal limits potassium low at 2.5 consistent hypokalemia creatinine elevated at 1.4 consistent with chronic renal failure stage G IIIB BNP elevated at 2488 consistent with fluid overload type pattern albumin low at 3.2 consistent hypoalbuminemia EKG demonstrates atrial fibrillation there is no ST changes, chest x-ray shows no acute process I did review films myself I cannot appreciate any acute process, the official read from radiology is pending Plan I did review lab work and EKG results with her she did receive 40 mEq potassium over the period time that she was here 3 also received 20 mEq potassium IV and 2 mg of Lasix. Keep follow appointment with primary care provider in 3-5 days if not better . Currently on potassium 30 mEq twice a day will increase this to 40 mEq twice a day have her follow-up with her primary care provider next week to recheck lab work Patient was in agreement with the plan all questions were answered, they were instructed to return to the emergency department or call for worsening symptoms. This note was dictated using [employer] voice recognition software please call with any questions.
[2017-01-28] MEDS ORDERED: Potassium Chloride 20 MEQ in Premix Bag 1 BAG IV ONE (16:18)
[2017-01-28] MEDS ORDERED: Sodium Chloride 0.9% 10 ML Syringe FLUSH PRN (16:18)
[2017-01-28] MEDS ORDERED: Bumetanide 1 MG/4 ML MDV IVPUSH ONE (16:18)
[2017-01-28] MEDS ORDERED: Potassium Chloride 20 MEQ Tab.ER PO ONE ×2 (16:22→17:46)
[2017-01-28] MEDS ORDERED: Bumetanide 1 MG/4 ML MDV ONE (16:33)
[2017-01-28] MEDS ORDERED: Potassium Chloride 20 MEQ, Lidocaine 1% 2 ML in Sodium Chloride 0.9% 100 ML IV ONE (16:45)
[2017-01-28 17:55] VITALS: BP 137/89
[2017-01-28] MEDS ORDERED: Potassium Chloride 20 MEQ Tab.ER PO SCH (19:00)
--- NOTE | 2017-01-31 08:42 | CR ---
Chest 2V INDICATION: Chest Pain COMPARISON: CT 08/11/2016 FINDINGS: Two views. Cardiomegaly unchanged. No infiltrates or pleural effusions. No signs of pulm onary edema. IMPRESSION: Nothing acute. Stable cardiomegaly.
== END 2017-01-28 19:25 | disposition home or self-care (01) ==
LOC: JP.ED 14:59
DX: I11.0 Hypertensive heart disease with heart failure (principal); I50.30 Unspecified diastolic (congestive) heart failure; Z88.2 Allergy status to sulfonamides; Z91.09 Other allergy status, other than to drugs and biological substances; Z79.899 Other long term (current) drug therapy
CPT/HCPCS: 36415; 71020; 80053; 83735; 83880; 84484; 85025; 93005; 96361; 96374; 99285; A9270; J3480; J7030; J7050; 93010; S0171

== ENCOUNTER 2017-06-23 09:15 | Inpatient (IN) | payer MEDICARE, BC ==
[2017-06-23] MEDS ORDERED: Sodium Chloride 0.9% 10 ML Syringe FLUSH PRN (10:11)
[2017-06-23] MEDS ORDERED: Ondansetron 4 MG Tab.DIS PO ONE (10:12)
--- NOTE | 2017-06-23 10:19 | EDM.PDOC ---
ED HPI GENERAL MEDICAL PROBLEM - General Chief Complaint: Respiratory Problem Stated Complaint: NAUSea Time Seen by Provider: 06/23/17 10:05 Source of Information: Reports: Patient, Family, Old Records, RN History Limitations: Reports: No Limitations - History of Present Illness INITIAL COMMENTS - FREE TEXT/NARRATIVE: 81 yo female here with increased SOB, and pain with inspiration in her back. Has not had a fever. Is using her oxygen around the clock, was just at night before. Cough was once productive of some blood tinged sputum. No recent injury. More weak than normal. Has nausea, vomiting, and diarrhea also since last night. Has not communicated with her provider. Here with her son. Lives alone and was doing well alone until her recent illness. Onset: Gradual Onset Date: 06/21/17 Duration: Day(s): (2), Constant Location: Reports: Chest (pain in back with breathing) Quality: Reports: Pressure Severity: Moderate Improves with: Reports: Other (not breathing) Worsens with: Reports: Breathing Context: Reports: Other (unknown) Associated Symptoms: Reports: Cough, Loss of Appetite, Nausea/Vomiting, Shortness of Breath, Other (diarrhea). Denies: Fever/Chills, Rash Treatments GROCERY MANAGER: Reports: Other (see below) (none) Back Pain Score (Numeric/FACES): 5 - Related Data Allergies Allergy/AdvReac Type Severity Reaction Status Date / Time nickel Allergy Itching Verified 07/11/16 08:02 Sulfa (Sulfonamide Allergy Swelling Verified 07/11/16 08:02 Antibiotics) Home Meds: Home Meds Zolpidem [Ambien] 1 tab PO BEDTIME 04/05/16 [History] Apixaban [Eliquis] 5 mg PO BID 05/03/16 [History] Ascorbic Acid 500 mg PO DAILY 05/03/16 [History] Cholecalciferol (Vitamin D3) [Vitamin D] 1,000 unit PO DAILY 05/03/16 [History] Garlic 1,000 mg PO DAILY 05/03/16 [History] Metoprolol Tartrate 12.5 mg PO BID 05/03/16 [History] Nystatin 100,000 units PO QID 05/03/16 [History] [place]-3 Fatty Acids [Fish Oil] 1,000 mg PO DAILY 05/03/16 [History] Furosemide [Lasix] 40 mg PO BID 07/11/16 [History] Omeprazole 20 mg PO ASDIRECTED 07/11/16 [History] Potassium Chloride [Klor-Con 10] 30 meq PO BID 07/11/16 [History] Metolazone 5 mg PO DAILY 01/28/17 [History] Past Medical History HEENT History: Reports: Impaired Vision, Other (See Below) Other HEENT History: sore throat Cardiovascular History: Reports: Afib, Blood Clots/VTE/DVT, Heart Failure, Hypertension, Other (See Below) Other Cardiovascular History: mitral regurgitation Respiratory History: Reports: Intubation, Previous, PE, Pneumonia, Recurrent, Sleep Apnea, Other (See Below) 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: Musculoskeletal History: Reports: Arthritis, Fracture Other Musculoskeletal History: left arm Other Psychiatric History: insomnia Endocrine/Metabolic History: Reports: Obesity/BMI 30+ Oncologic (Cancer) History: Reports: Breast Dermatologic History: Reports: Other (See Below) Other Dermatologic History: reddness lower L leg - Infectious Disease History Infectious Disease History: Reports: Chicken Pox, Measles, Mumps - Past Surgical History Musculoskeletal Surgical History: Reports: Knee Replacement Other Musculoskeletal Surgeries/Procedures:: right and left Oncologic Surgical History: Reports: Mastectomy Other Oncologic Surgeries/Procedures: right Social & Family History - Tobacco Use Smoking Status *Q: Never Smoker - Caffeine Use Caffeine Use: Reports: None - Recreational Drug Use Recreational Drug Use: No ED ROS GENERAL - Review of Systems Review Of Systems: See Below Constitutional: Reports: Malaise, Weakness, Decreased Appetite HEENT: Reports: No Symptoms Respiratory: Reports: Shortness of Breath, Pleuritic Chest Pain, Cough, Hemoptysis (small amount.) Cardiovascular: Reports: No Symptoms Endocrine: Reports: No Symptoms GI/Abdominal: Reports: Diarrhea, Nausea, Vomiting. Denies: Black Stool, Bloody Stool, Constipation, Distension, Flatus, Hematemesis, Hematochezia, Melena : Reports: No Symptoms Musculoskeletal: Reports: Back Pain Skin: Reports: No Symptoms Neurological: Reports: No Symptoms ED EXAM, GENERAL - Physical Exam Exam: See Below Exam Limited By: No Limitations General Appearance: Alert, WD/WN, No Apparent Distress, Obese Eye Exam: Bilateral Eye: Normal Inspection Ears: Normal External Exam, Normal Canal, Hearing Grossly Normal Ear Exam: Bilateral Ear: Auricle Normal, Canal Normal Nose: Normal Inspection, Normal Mucosa Throat/Mouth: Normal Inspection, Normal Lips, Normal Teeth, Normal Oropharynx, Normal Voice, No Airway Compromise Head: Atraumatic, Normocephalic Neck: Normal Inspection Respiratory/Chest: No Respiratory Distress, No Accessory Muscle Use, Rales (at bases) Cardiovascular: Regular Rate, Rhythm GI/Abdominal: Normal Bowel Sounds, Soft, Non-Tender, No Distention Back Exam: Normal Inspection. No: CVA Tenderness (R), CVA Tenderness (L) Extremities: Normal Inspection, Normal Range of Motion, Non-Tender, Pedal Edema (bilaterally, chronic) Neurological: Alert, Oriented, CN II-XII Intact, Normal Cognition Psychiatric: Normal Affect, Normal Mood Skin Exam: Warm, Dry, Intact, Normal Color, No Rash EKG INTERPRETATION EKG Date: 06/23/17 Time: 10:50 Rhythm: A-Fib Rate (Beats/Min): 88 [place]: Normal P-Wave: Absent QRS: Normal ST-T: Normal QT: Normal Comparison: Change From Previous EKG (Rate increase is the only change.) Course - Vital Signs Text/Narrative:: Good pain relief with Toradol 15 mg IV, good nausea relief with Zofran ODT [address] Javier here to assess 12:30p Last Recorded V/S: Last Vital Signs Temp 37.2 C 06/23/17 09:36 Pulse 66 06/23/17 11:12 Resp 16 06/23/17 11:12 BP 84/27 L 06/23/17 11:12 Pulse Ox 92 L 06/23/17 11:12 - Orders/Labs/Meds Orders: Active Orders 24 hr Category Date Time Status EKG Documentation Completion [RC] ASDIRECTED Care 06/23/17 10:21 Active CULTURE URINE [RM] Stat Lab 06/23/17 12:26 Ordered UA W/MICROSCOPIC [URIN] Stat Lab 06/23/17 12:26 Ordered Lactated Ringers [Ringers, Lactated] 1,000 ml Med 06/23/17 11:15 Active IV ASDIRECTED Sodium Chloride 0.9% [Saline Flush] Med 06/23/17 10:11 Active 10 ml FLUSH ASDIRECTED PRN Saline Lock Insert [OM.PC] Routine Oth 06/23/17 10:11 Ordered EKG 12 Lead [EK] Routine Ther 06/23/17 10:21 Ordered Medication Orders Lactated Ringer's (Ringers, Lactated) 1,000 mls @ 125 mls/hr IV ASDIRECTED TYLER Last Admin: 06/23/17 11:09 Dose: 125 mls/hr Sodium Chloride (Saline Flush) 10 ml FLUSH ASDIRECTED PRN PRN Reason: Keep Vein Open Last Admin: 06/23/17 10:22 Dose: 10 ml Labs: Laboratory Tests 06/23/17 06/23/17 06/23/17 Range/Units 10:25 10:25 10:25 WBC 26.3 H (4.5-11.0) K/uL RBC 3.83 (3.30-5.50) M/uL Hgb 11.1 L D (12.0-15.0) g/dL Hct 36.3 (36.0-48.0) % MCV 95 (80-98) fL MCH 29 (27-31) pg MCHC 31 L (32-36) % Plt Count 170 (150-400) K/uL D-Dimer, Quantitative 2550 H (0.0-400.0) ng/mL Sodium 136 L (140-148) mmol/L Potassium 4.5 (3.6-5.2) mmol/L Chloride 100 (100-108) mmol/L Carbon Dioxide 23 (21-32) mmol/L Anion Gap 17.5 H (5.0-14.0) mmol/L BUN 31 H (7-18) mg/dL Creatinine 2.5 H D (0.6-1.0) mg/dL Est Cr Clr Drug Dosing 15.88 mL/min Estimated GFR (MDRD) 18 L (>60) Glucose 175 H (74-106) mg/dL Calcium 8.4 L (8.5-10.1) mg/dL Troponin I 0.047 (0.000-0.056) ng/mL C-Reactive Protein (0.0-0.3) mg/dL 06/23/17 Range/Units 10:48 WBC (4.5-11.0) K/uL RBC (3.30-5.50) M/uL Hgb (12.0-15.0) g/dL Hct (36.0-48.0) % MCV (80-98) fL MCH (27-31) pg MCHC (32-36) % Plt Count (150-400) K/uL D-Dimer, Quantitative (0.0-400.0) ng/mL Sodium (140-148) mmol/L Potassium (3.6-5.2) mmol/L Chloride (100-108) mmol/L Carbon Dioxide (21-32) mmol/L Anion Gap (5.0-14.0) mmol/L BUN (7-18) mg/dL Creatinine (0.6-1.0) mg/dL Est Cr Clr Drug Dosing mL/min Estimated GFR (MDRD) (>60) Glucose (74-106) mg/dL Calcium (8.5-10.1) mg/dL Troponin I (0.000-0.056) ng/mL C-Reactive Protein 5.14 H (0.0-0.3) mg/dL Meds: Medications Generic Name Dose Route Start Last Admin Trade Name Freq PRN Reason Stop Dose Admin Lactated Ringer's 1,000 mls @ 125 mls/hr 06/23/17 11:15 06/23/17 11:09 Ringers, Lactated IV 125 mls/hr ASDIRECTED TYLER Administration Sodium Chloride 10 ml 06/23/17 10:11 06/23/17 10:22 Saline Flush FLUSH 10 ml ASDIRECTED PRN Administration Keep Vein Open Discontinued Medications Generic Name Dose Route Start Last Admin Trade Name Freq PRN Reason Stop Dose Admin Ketorolac Tromethamine 15 mg 06/23/17 10:46 06/23/17 11:05 Toradol IVPUSH 06/23/17 10:47 15 mg ONETIME ONE Administration Ondansetron HCl 4 mg 06/23/17 10:12 06/23/17 10:18 Zofran Odt PO 06/23/17 10:13 4 mg ONETIME ONE Administration - Radiology Interpretation Free Text/Narrative:: CXR-cardiomegaly, no failure, no infiltrates Bilateral venous dopplers-negative for DVT Departure - Departure Time of Disposition: 12:45 Disposition: Admitted As Inpatient 66 Condition: Fair Clinical Impression: Elevated d-dimer UTI (urinary tract infection) Qualifiers: Urinary tract infection type: site unspecified Hematuria presence: without hematuria Qualified Code(s): N39.0 - Urinary tract infection, site not specified Elevated WBC count Qualifiers: Leukocytosis type: unspecified Qualified Code(s): D72.829 - Elevated white blood cell count, unspecified Chronic renal failure Qualifiers: Chronic kidney disease stage: stage 4 (severe) Qualified Code(s): N18.4 - Chronic kidney disease, stage 4 (severe) - Discharge Information Referrals: Franc Skelton MD [Primary Care Provider] - Forms: ED Department Discharge - My Orders Last 24 Hours: My Active Orders 06/23/17 10:11 Sodium Chloride 0.9% [Saline Flush] 10 ml FLUSH ASDIRECTED PRN Saline Lock Insert [OM.PC] Routine 06/23/17 10:21 EKG Documentation Completion [RC] ASDIRECTED EKG 12 Lead [EK] Routine 06/23/17 11:15 Lactated Ringers [Ringers, Lactated] 1,000 ml IV ASDIRECTED 06/23/17 12:26 CULTURE URINE [RM] Stat UA W/MICROSCOPIC [URIN] Stat - Assessment/Plan Last 24 Hours: My Active Orders 06/23/17 10:11 Sodium Chloride 0.9% [Saline Flush] 10 ml FLUSH ASDIRECTED PRN Saline Lock Insert [OM.PC] Routine 06/23/17 10:21 EKG Documentation Completion [RC] ASDIRECTED EKG 12 Lead [EK] Routine 06/23/17 11:15 Lactated Ringers [Ringers, Lactated] 1,000 ml IV ASDIRECTED 06/23/17 12:26 CULTURE URINE [RM] Stat UA W/MICROSCOPIC [URIN] Stat
[2017-06-23] MEDS ORDERED: Ketorolac 30 MG/ML SDV IVPUSH ONE (10:46)
--- NOTE | 2017-06-23 11:09 | CR ---
Chest 1V Frontal HISTORY: SOB, pain with breathing COMPARISON: 07/14/2012 FINDINGS: Lungs appear clear and normally aerated. Heart size appears mildly enlarged. This may be accentuated by the AP technique. No vascular redistribution or pleural fluid can be seen. 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 Anterolateral osteophytes can seen along the thoracic s pine. IMPRESSION: Possible mild cardiomegaly without evidence for decompensation. No other acute chest abnormality is i dentified. Chronic rotator cuff tear changes both shoulders are noted.
[2017-06-23] MEDS ORDERED: Lactated Ringers 1,000 ML IV SCH (11:15)
--- NOTE | 2017-06-23 12:04 | US ---
VL Duplex Lwr Ext Veins Comp HISTORY: high d-dimer FINDINGS: Deep venous system of the right and left lower extremity demonstrates normal blood flow and compressi bility throughout. Normal Doppler waveform variation is seen with respiration and calf compression. N o color flow abnormality can be seen. IMPRESSION: No sonographic evidence for DVT in either the right or left lower extremity.
[2017-06-23] MEDS ORDERED: cefTRIAXone 1 GM in Sodium Chloride 0.9% 50 ML IV ONE ×2 (12:27→13:45)
[2017-06-23] MEDS ORDERED: Sodium Chloride 0.9% 500 ML IV SCH (13:15)
--- NOTE | 2017-06-23 13:27 | PCM.HP ---
H&P History of Present Illness - General Date of Service: 06/23/17 Admit Problem/Dx: Admission Diagnosis/Problem Admission Diagnosis/Problem Acute cystitis without hematuria Source of Information: Patient, Provider History Limitations: Reports: No Limitations - History of Present Illness Initial Comments - Free Text/Narative: Radha presents to the emergency room today with right-sided upper back pain as well as nausea with vomiting and diarrhea. She first noticed a deep achy moderate pain in her right upper back yesterday. She did not take anything at home. Pain has been stable and not getting any worse. Worse when she does take a deep breath. Last night she had onset of nausea with vomiting and diarrhea but she has not had any abdominal pain. Nausea and vomiting are better now that she's in the emergency room. She hasn't noticed any fevers. She does feel more short of breath than usual. She has noticed increased urinary frequency but no dysuria. She has also noticed increased discoloration of her left leg over the past few days. The leg does not hurt. Workup in the emergency room was suggestive of a urinary tract infection. She has significant leukocytosis and acute kidney injury. Blood pressure is on the low side but is responding to fluids. She is not tachycardic. She will be admitted for further management. Back Pain Score (Numeric/FACES): 5 - Related Data Allergies/Adverse Reactions: Allergies Allergy/AdvReac Type Severity Reaction Status Date / Time nickel Allergy Itching Verified 07/11/16 08:02 Sulfa (Sulfonamide Allergy Swelling Verified 07/11/16 08:02 Antibiotics) Home Medications: Home Meds Zolpidem [Ambien] 10 mg PO BEDTIME PRN 04/05/16 [History] Apixaban [Eliquis] 5 mg PO BID 05/03/16 [History] Ascorbic Acid 500 mg PO DAILY 05/03/16 [History] Cholecalciferol (Vitamin D3) [Vitamin D] 1,000 unit PO DAILY 05/03/16 [History] Garlic 1,000 mg PO DAILY 05/03/16 [History] Metoprolol Tartrate 12.5 mg PO BID 05/03/16 [History] Nystatin 100,000 units PO QID PRN 05/03/16 [History] [place]-3 Fatty Acids [Fish Oil] 1,000 mg PO DAILY 05/03/16 [History] Furosemide [Lasix] 80 mg PO DAILY 07/11/16 [History] Omeprazole 20 mg PO ASDIRECTED 07/11/16 [History] Potassium Chloride [Klor-Con 10] 10 meq PO ASDIRECTED 07/11/16 [History] Metolazone 5 mg PO DAILY 01/28/17 [History] Spironolactone [Aldactone] 12.5 mg PO DAILY 06/23/17 [History] Past Medical History HEENT History: Reports: Impaired Vision, Other (See Below) Other HEENT History: sore throat Cardiovascular History: Reports: Afib, Blood Clots/VTE/DVT, Heart Failure, Hypertension, Other (See Below) Other Cardiovascular History: mitral regurgitation Respiratory History: Reports: Intubation, Previous, PE, Pneumonia, Recurrent, Sleep Apnea, Other (See Below) 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: Musculoskeletal History: Reports: Arthritis, Fracture Other Musculoskeletal History: left arm Other Psychiatric History: insomnia Endocrine/Metabolic History: Reports: Obesity/BMI 30+ Oncologic (Cancer) History: Reports: Breast Dermatologic History: Reports: Other (See Below) Other Dermatologic History: reddness lower L leg - Infectious Disease History Infectious Disease History: Reports: Chicken Pox, Measles, Mumps - Past Surgical History Musculoskeletal Surgical History: Reports: Knee Replacement Other Musculoskeletal Surgeries/Procedures:: right and left Oncologic Surgical History: Reports: Mastectomy Other Oncologic Surgeries/Procedures: right Social & Family History - Family History Cardiac: Reports: CAD (dad in his late 80's) - Tobacco Use Smoking Status *Q: Never Smoker - Caffeine Use Caffeine Use: Reports: None - Alcohol Use Alcohol Use History: No - Recreational Drug Use Recreational Drug Use: No H&P Review of Systems - Review of Systems: Review Of Systems: See Below Free Text/Narrative: A complete 12 point review of systems was obtained. Pertinent positives and negatives are noted in the history of present illness. All other systems were reviewed and were negative except as noted. Exam - Exam Exam: See Below - Vital Signs Vital Signs: Last Vital Signs Temp 37.2 C 06/23/17 09:36 Pulse 66 06/23/17 11:12 Resp 16 06/23/17 11:12 BP 84/27 L 06/23/17 11:12 Pulse Ox 92 L 06/23/17 11:12 Weight: 139.2 kg - Exam Quality Assessment: Supplemental Oxygen General: Alert, Oriented, Cooperative. No: Mild Distress HEENT: Conjunctiva Clear. No: Mucosa Moist & [place] (dry), Scleral Icterus Neck: Supple, Trachea Midline. No: Lymphadenopathy Lungs: Clear to Auscultation, Normal Respiratory Effort Cardiovascular: Regular Rate, Regular Rhythm. No: Gallop/S3 GI/Abdominal Exam: Normal Bowel Sounds, Soft, Non-Tender, No Distention Back Exam: Muscle Spasm. No: Normal Inspection, Full Range of Motion Extremities: Redness (left leg), Other (massive lymphedema both legs). No: Increased Warmth Skin: Warm, Dry Neuro Extensive - Mental Status: Alert, Oriented x3, Nl Response to Commands Neuro Extensive - Motor, Sensory, Reflexes: CN II-XII Intact. No: Dysarthria, Abnormal Motor, Tremor Psychiatric: Alert, Normal Affect - Patient Data Lab Results Last 24 hrs: Laboratory Results - last 24 hr 06/23/17 06/23/17 06/23/17 Range/Units 10:25 10:25 10:25 WBC 26.3 H (4.5-11.0) K/uL RBC 3.83 (3.30-5.50) M/uL Hgb 11.1 L D (12.0-15.0) g/dL Hct 36.3 (36.0-48.0) % MCV 95 (80-98) fL MCH 29 (27-31) pg MCHC 31 L (32-36) % Plt Count 170 (150-400) K/uL D-Dimer, Quantitative 2550 H (0.0-400.0) ng/mL Sodium 136 L (140-148) mmol/L Potassium 4.5 (3.6-5.2) mmol/L Chloride 100 (100-108) mmol/L Carbon Dioxide 23 (21-32) mmol/L Anion Gap 17.5 H (5.0-14.0) mmol/L BUN 31 H (7-18) mg/dL Creatinine 2.5 H D (0.6-1.0) mg/dL Est Cr Clr Drug Dosing 15.88 mL/min Estimated GFR (MDRD) 18 L (>60) Glucose 175 H (74-106) mg/dL Calcium 8.4 L (8.5-10.1) mg/dL Troponin I 0.047 (0.000-0.056) ng/mL C-Reactive Protein (0.0-0.3) mg/dL Urine Color Urine Appearance Urine pH (4.5-8.0) Ur Specific [place] (1.008-1.030) Urine Protein (NEGATIVE) mg/dL Urine Glucose (UA) (NEGATIVE) mg/dL Urine Ketones (NEGATIVE) mg/dL Urine Occult Blood (NEGATIVE) Urine Nitrite (NEGATIVE) Urine Bilirubin (NEGATIVE) Urine Urobilinogen (NORMAL) mg/dL Ur Leukocyte Esterase (NEGATIVE) Urine RBC (0-5) Urine WBC (0-5) Ur Epithelial Cells Amorphous Sediment Urine Bacteria Urine Mucus 06/23/17 06/23/17 Range/Units 10:48 12:30 WBC (4.5-11.0) K/uL RBC (3.30-5.50) M/uL Hgb (12.0-15.0) g/dL Hct (36.0-48.0) % MCV (80-98) fL MCH (27-31) pg MCHC (32-36) % Plt Count (150-400) K/uL D-Dimer, Quantitative (0.0-400.0) ng/mL Sodium (140-148) mmol/L Potassium (3.6-5.2) mmol/L Chloride (100-108) mmol/L Carbon Dioxide (21-32) mmol/L Anion Gap (5.0-14.0) mmol/L BUN (7-18) mg/dL Creatinine (0.6-1.0) mg/dL Est Cr Clr Drug Dosing mL/min Estimated GFR (MDRD) (>60) Glucose (74-106) mg/dL Calcium (8.5-10.1) mg/dL Troponin I (0.000-0.056) ng/mL C-Reactive Protein 5.14 H (0.0-0.3) mg/dL Urine Color Yellow Urine Appearance Turbid Urine pH 5.0 (4.5-8.0) Ur Specific [place] 1.020 (1.008-1.030) Urine Protein 30 H (NEGATIVE) mg/dL Urine Glucose (UA) Normal (NEGATIVE) mg/dL Urine Ketones Negative (NEGATIVE) mg/dL Urine Occult Blood Large (NEGATIVE) Urine Nitrite Positive H (NEGATIVE) Urine Bilirubin Negative (NEGATIVE) Urine Urobilinogen Normal (NORMAL) mg/dL Ur Leukocyte Esterase Large (NEGATIVE) Urine RBC 40-50 H (0-5) Urine WBC Packed H (0-5) Ur Epithelial Cells Not seen Amorphous Sediment Not seen Urine Bacteria Many Urine Mucus Few Result Diagrams: 06/23/17 10:25 06/23/17 10:25 Imaging Impressions Last 24 hrs: Chest x-ray - images personally reviewed - cardiomegaly is noted. There is no mass, infiltrate or effusion. *Q Meaningful Use (ADM) - VTE Risk Assess *Q Each Risk Factor Represents 1 Point: Swollen Legs, Current, Obesity ( BMI > 25 kg/m2), Congestive heart failure (CHF) Total Score 1 Point Risk Factors: 3 Each Risk Factor Represents 2 Points: None Total Score 2 Point Risk Factors: 0 Each Risk Factor Represents 3 Points: Age 75 Years or Greater Total Score 3 Point Risk Factors: 3 Each Risk Factor Represents 5 Points: None Total Score 5 Point Risk Factors: 0 Venous Thromboembolism Risk Factor Score *Q: 6 - Problem List (1) UTI (urinary tract infection) SNOMED Code(s): 29868065 ICD Code: N39.0 - URINARY TRACT INFECTION, SITE NOT SPECIFIED Status: Acute Current Visit: Yes Qualifiers: Urinary tract infection type: site unspecified Hematuria presence: without hematuria Qualified Code(s): N39.0 - Urinary tract infection, site not specified (2) Acute kidney injury SNOMED Code(s): 13780774 ICD Code: N17.9 - ACUTE KIDNEY FAILURE, UNSPECIFIED Status: Acute Current Visit: Yes (3) Heart failure with preserved ejection fraction SNOMED Code(s): 96169172 ICD Code: I50.30 - UNSPECIFIED DIASTOLIC (CONGESTIVE) HEART FAILURE Status : Chronic Current Visit: No Problem List Initiated/Reviewed/Updated: Yes Orders Last 24hrs: Active Orders 24 hr Category Date Time Status Patient Status Manage Transfer [TRANSFER] Routine ADT 06/23/17 13:09 Active EKG Documentation Completion [RC] ASDIRECTED Care 06/23/17 10:21 Active CULTURE URINE [RM] Stat Lab 06/23/17 12:30 Ordered UA W/MICROSCOPIC [URIN] Stat Lab 06/23/17 12:30 Ordered Lactated Ringers [Ringers, Lactated] 1,000 ml Med 06/23/17 11:15 Active IV ASDIRECTED Sodium Chloride 0.9% [Normal Saline] 500 ml Med 06/23/17 13:15 Active IV ASDIRECTED Sodium Chloride 0.9% [Saline Flush] Med 06/23/17 10:11 Active 10 ml FLUSH ASDIRECTED PRN Saline Lock Insert [OM.PC] Routine Oth 06/23/17 10:11 Ordered Resuscitation Status Routine Resus Stat 06/23/17 13:13 Ordered EKG 12 Lead [EK] Routine Ther 06/23/17 10:21 Ordered Medication Orders Lactated Ringer's (Ringers, Lactated) 1,000 mls @ 125 mls/hr IV ASDIRECTED TYLER Last Admin: 06/23/17 11:09 Dose: 125 mls/hr Sodium Chloride (Normal Saline) 500 mls @ 500 mls/hr IV ASDIRECTED TYLER Stop: 06/23/17 14:16 Sodium Chloride (Saline Flush) 10 ml FLUSH ASDIRECTED PRN PRN Reason: Keep Vein Open Last Admin: 06/23/17 10:22 Dose: 10 ml Assessment/Plan Comment:: ASSESSMENT AND PLAN - Acute cystitis without hematuria - preceding symptoms including increased frequency. She is hypotensive but I suspect this is from over diuresis rather than sepsis. No recent antibiotics. Nausea and vomiting likely secondary to the infection. -Ceftriaxone -Gentle IV fluids -Follow-up cultures Acute kidney injury - I suspect this is secondary to overdiuresis and intravascular volume depletion. I don't believe that she is septic at this time. -IV fluids -Hold diuretics -Repeat labs in the morning Heart failure with preserved ejection fraction - Most recent echocardiogram was one month ago. Patient has obvious increase in total body water but appears to be intravascularly volume depleted. Swelling is more likely lymphedema then heart failure edema. -Hold diuretics as above -Wrap legs with Jose Alfredo wraps -Continue beta teresa Pleuritic right upper back pain - significant muscle spasm noted on examination. D-dimer is elevated and pulmonary embolism was considered but extremely unlikely given that she is on a DOAC. Unable to perform CT pulmonary angiogram because of kidney function. She is not significantly hypoxic or tachycardic at this time. -Heating pad -Pain control Chronic atrial fibrillation - Currently rate controlled. She is on apixaban. -Continue home medications Maintenance issues - - DVT prophylaxis - apixaban - GI prophylaxis - PPI - Nutrition - low sodium - Abdullahi catheter - not indicated CODE STATUS - full code Admission justification - This patient will be admitted for inpatient services and is medically appropriate meeting medical necessity for inpatient admission as outlined in my documentation. I reasonably expect the patient will require inpatient services that span a period time over 2 midnights. I reasonably expect this patient to be discharged or transferred within 96 hours after admission to the [facility]. Disposition - anticipate discharge home after the hospital stay Primary care physician - Dr. Costa Javier M.D.
[2017-06-23] MEDS ORDERED: Ondansetron 4 MG Tab.DIS PO PRN (13:43)
[2017-06-23] MEDS ORDERED: Ondansetron 4 MG/2 ML SDV IV PRN (13:43)
[2017-06-23] MEDS ORDERED: Acetaminophen 325 MG Tab PO PRN (13:43)
[2017-06-23] MEDS: Sodium Chloride 0.9% 1,000 ML IV SCH (14:25)
[2017-06-23] MEDS ORDERED: Nystatin Topical Powder 15 GM Bottle TOP SCH (16:45)
[2017-06-23] MEDS: oxyCODONE 5 MG Tab PO PRN (18:48)
[2017-06-23] MEDS: Metoprolol Tartrate 25 MG Tab PO SCH (20:44)
[2017-06-23] MEDS: Apixaban 5 MG Tab PO SCH (20:44)
[2017-06-23] MEDS: Nystatin Topical Powder 15 GM Bottle TOP SCH (20:52)
[2017-06-23] MEDS: Zolpidem 5 MG Tab PO PRN (22:58)
[2017-06-24] MEDS: Sodium Chloride 0.9% 1,000 ML IV SCH ×2 (01:31→11:09)
[2017-06-24] MEDS ORDERED: Sodium Chloride 0.9% 1,000 ML IV ONE (02:51)
[2017-06-24] MEDS: Apixaban 5 MG Tab PO SCH (08:07)
[2017-06-24] MEDS: Metoprolol Tartrate 25 MG Tab PO SCH ×2 (08:07→20:50)
[2017-06-24] MEDS: Nystatin Topical Powder 15 GM Bottle TOP SCH ×3 (08:07→20:52)
[2017-06-24] MEDS: cefTRIAXone 1 GM in Sodium Chloride 0.9% 50 ML IV SCH (13:31)
--- NOTE | 2017-06-24 13:42 | PCM.PN ---
- General Info Date of Service: 06/24/17 Functional Status: Reports: Pain Controlled, Tolerating Diet - Review of Systems General: Reports: Weakness. Denies: Fever Musculoskeletal: Denies: Neck Pain Systems Review Comment:: There were no acute events overnight. Urine output has been minimal and blood pressure has remained on the low side but does seem to get a little better each time she gets a fluid bolus. She feels tired. She does not have abdominal pain. Leg swelling is similar to baseline. She has not had fevers. Urine culture is growing a gram-negative rylie with identification pending. - Patient Data Vitals - Most Recent: Last Vital Signs Temp 37.3 C 06/24/17 12:00 Pulse 88 06/24/17 12:00 Resp 20 06/24/17 12:00 BP 101/47 L 06/24/17 12:00 Pulse Ox 92 L 06/24/17 12:00 Weight - Most Recent: 139.2 kg I&O - Last 24 Hours: Intake & Output 06/23/17 06/24/17 06/24/17 22:59 06:59 14:59 Intake Total 240 2405 Output Total 450 Balance -210 2405 Lab Results Last 24 Hours: Laboratory Results - last 24 hr 06/24/17 06/24/17 Range/Units 05:48 05:48 WBC 24.8 H (4.5-11.0) K/uL RBC 3.37 (3.30-5.50) M/uL Hgb 9.8 L (12.0-15.0) g/dL Hct 32.3 L (36.0-48.0) % MCV 96 (80-98) fL MCH 29 (27-31) pg MCHC 30 L (32-36) % Plt Count 127 L (150-400) K/uL Sodium 130 L (140-148) mmol/L Potassium 4.8 (3.6-5.2) mmol/L Chloride 98 L (100-108) mmol/L Carbon Dioxide 24 (21-32) mmol/L Anion Gap 12.8 (5.0-14.0) mmol/L BUN 46 H (7-18) mg/dL Creatinine 3.3 H (0.6-1.0) mg/dL Est Cr Clr Drug Dosing 12.03 mL/min Estimated GFR (MDRD) 13 L (>60) Glucose 122 H (74-106) mg/dL Calcium 8.0 L (8.5-10.1) mg/dL [facility] Results Last 24 Hours: Microbiology 06/23/17 12:30 Urine Culture - Preliminary Urine, Catheterized Med Orders - Current: Current Medications Acetaminophen (Tylenol) 650 mg PO Q4H PRN PRN Reason: Pain (Mild 1-3)/fever Apixaban (Eliquis) 2.5 mg PO BID [facility] Ceftriaxone Sodium 1 gm/ (Sodium Chloride) 50 mls @ 100 mls/hr IV Q24H [facility] Last Admin: 06/24/17 13:31 Dose: 100 mls/hr Sodium Chloride (Normal Saline) 1,000 mls @ 125 mls/hr IV ASDIRECTED [facility] Last Admin: 06/24/17 11:09 Dose: 125 mls/hr Sodium Chloride (Normal Saline) 500 [facility]ls [facility]: 06/24/17 14:46 Metoprolol Tartrate (Lopressor) 12.5 mg PO BID [facility] Last Admin: 06/24/17 08:07 Dose: 12.5 mg Nystatin (Nystop) 0 gm TOP TID [facility] Last Admin: 06/24/17 08:07 Dose: 1 applic Ondansetron HCl (Zofran Odt) 4 mg PO Q6H PRN PRN Reason: Nausea able to take PO Ondansetron HCl (Zofran) 4 mg IV Q6H PRN PRN Reason: Nausea/Vomiting Last Admin: 06/23/17 16:29 Dose: 4 mg Oxycodone HCl (Oxycodone) 5 mg PO Q4H PRN PRN Reason: Pain (moderate 4-6) Last Admin: 06/23/17 18:48 Dose: 5 mg Zolpidem Tartrate (Ambien) 10 mg PO BEDTIME PRN PRN Reason: Sleep Last Admin: 06/23/17 22:58 Dose: 10 mg Discontinued Medications Apixaban (Eliquis) 5 mg PO BID [facility] Last Admin: 06/24/17 08:07 Dose: 5 mg Lactated Ringer's (Ringers, Lactated) 1,000 mls @ 125 mls/hr IV ASDIRECTED [facility] Last Admin: 06/23/17 11:09 Dose: 125 mls/hr Sodium Chloride (Normal Saline) 500 mls @ 500 mls/hr IV ASDIRECTED [facility] Stop: 06/23/17 14:16 Ceftriaxone Sodium 1 gm/ (Sodium Chloride) 50 mls @ 100 mls/hr IV ONETIME ONE Stop: 06/23/17 14:14 Last Admin: 06/23/17 14:26 Dose: 100 mls/hr Sodium Chloride (Normal Saline) 1,000 mls @ 500 mls/hr IV .BOLUS ONE Stop: 06/24/17 04:50 Last Admin: 06/24/17 03:08 Dose: 500 mls/hr Ketorolac Tromethamine (Toradol) 15 mg IVPUSH ONETIME ONE Stop: 06/23/17 10:47 Last Admin: 06/23/17 11:05 Dose: 15 mg Nystatin (Nystop) 0 gm TOP TID [facility] Ondansetron HCl (Zofran Odt) 4 mg PO ONETIME ONE Stop: 06/23/17 10:13 Last Admin: 06/23/17 10:18 Dose: 4 mg Sodium Chloride (Saline Flush) 10 ml FLUSH ASDIRECTED PRN PRN Reason: Keep Vein Open Last Admin: 06/23/17 10:22 Dose: 10 ml - Exam Quality Assessment: Supplemental Oxygen General: Alert, Oriented, Cooperative, No Acute Distress Neck: Supple Lungs: Clear to Auscultation, Normal Respiratory Effort Cardiovascular: Regular Rate, Regular Rhythm GI/Abdominal Exam: Soft, No Distention Extremities: Pedal Edema (massive bilateral lymphedema), Increased Warmth (left leg to the knee) Psy/Mental Status: Alert, Normal Affect - Problem List & Annotations (1) UTI (urinary tract infection) SNOMED Code(s): 01705403 Code(s): N39.0 - URINARY TRACT INFECTION, SITE NOT SPECIFIED Status: Acute Current Visit: Yes Qualifiers: Urinary tract infection type: site unspecified Hematuria presence: without hematuria Qualified Code(s): N39.0 - Urinary tract infection, site not specified (2) Acute kidney injury SNOMED Code(s): 99641844 Code(s): N17.9 - ACUTE KIDNEY FAILURE, UNSPECIFIED Status: Acute Current Visit: Yes (3) Heart failure with preserved ejection fraction SNOMED Code(s): 82959143 Code(s): I50.30 - UNSPECIFIED DIASTOLIC (CONGESTIVE) HEART FAILURE Status: Chronic Current Visit: No - Problem List Review Problem List Initiated/Reviewed/Updated: Yes - My Orders Last 24 Hours: My Active Orders 06/23/17 13:13 Resuscitation Status Routine 06/23/17 13:43 Patient Status [ADT] Routine Jose Alfredo Bandage [RC] DAILY Communication Order [RC] DAILY Intake and Output [RC] QSHIFT Notify Provider Vital Signs [RC] ASDIRECTED Oxygen Therapy [RC] PRN Up With Assistance [RC] ASDIRECTED Vital Signs [RC] Q4H Acetaminophen [Tylenol] 650 mg PO Q4H PRN Ondansetron [Zofran ODT] 4 mg PO Q6H PRN Ondansetron [Zofran] 4 mg IV Q6H PRN Sodium Chloride 0.9% [Normal Saline] 1,000 ml IV ASDIRECTED Zolpidem [Ambien] 10 mg PO BEDTIME PRN oxyCODONE 5 mg PO Q4H PRN Heat Therapy [OM.PC] Routine 06/23/17 16:45 Nystatin [Nystop] 0 gm TOP TID 06/23/17 21:00 Metoprolol Tartrate [Lopressor] 12.5 mg PO BID 06/23/17 Dinner 2 Gram Sodium Diet [DIET] 06/24/17 07:00 PT Evaluation and Treatment [CONS] Routine 06/24/17 13:00 cefTRIAXone [Rocephin] 1 gm Sodium Chloride 0.9% [Normal Saline] 50 ml IV Q24H 06/24/17 13:45 Sodium Chloride 0.9% [Normal Saline] 500 ml IV ASDIRECTED 06/24/17 21:00 Apixaban [Eliquis] 2.5 mg PO BID 06/25/17 05:00 BASIC METABOLIC PANEL,BMP [CHEM] Timed CBC W/O DIFF,HEMOGRAM [HEME] Timed (1) - Plan Plan:: ASSESSMENT AND PLAN - Acute cystitis without hematuria - preceding symptoms including increased frequency. Blood pressure slowly improving. Fatigue likely secondary to infection. Culture has a gram-negative rylie growing but identification is pending. -Ceftriaxone -Gentle IV fluids -Follow-up cultures Acute kidney injury - I suspect this is secondary to overdiuresis and intravascular volume depletion. Creatinine up a bit today and UOP has not been great. -IV fluid bolus -continue gentle IV fluids -Hold diuretics -Repeat labs in the morning Heart failure with preserved ejection fraction - Patient has obvious increase in total body water but appears to be intravascularly volume depleted. Swelling is more likely massive chronic lymphedema then heart failure edema. -Hold diuretics as above -Wrap legs with Jose Alfredo wraps -Continue beta teresa Pleuritic right upper back pain - significant muscle spasm noted on examination. Patient has not had additional discomfort after one dose of pain medication yesterday. -Heating pad -Pain control Chronic atrial fibrillation - Currently rate controlled. She is on apixaban. -Continue home medications -Dose of apixaban will be decreased based on renal function Maintenance issues - - DVT prophylaxis - apixaban - GI prophylaxis - PPI - Nutrition - low sodium - Abdullahi catheter - not indicated Disposition - anticipate discharge home vs possibly the NH after the hospital stay Bennie Javier M.D.
[2017-06-24] MEDS ORDERED: Sodium Chloride 0.9% 500 ML IV SCH (13:45)
[2017-06-24] MEDS ORDERED: Sodium Chloride 0.9% 1,000 ML IV SCH (16:45)
[2017-06-24] MEDS: Apixaban 2.5 MG Tab PO SCH (20:52)
[2017-06-24] MEDS: Zolpidem 5 MG Tab PO PRN (22:46)
[2017-06-25] MEDS: Sodium Chloride 0.9% 1,000 ML IV SCH (03:43)
[2017-06-25] MEDS: Nystatin Topical Powder 15 GM Bottle TOP SCH ×3 (10:08→21:27)
[2017-06-25] MEDS: Apixaban 2.5 MG Tab PO SCH ×2 (10:09→21:27)
--- NOTE | 2017-06-25 10:13 | PCM.PN ---
- General Info Date of Service: 06/25/17 Functional Status: Reports: Pain Controlled, Tolerating Diet - Review of Systems General: Reports: Weakness, Fatigue. Denies: Fever Cardiovascular: Reports: Edema Systems Review Comment:: There were no acute events overnight. Blood pressure remains on the low side of normal. Urine output has been minimal but she is having some small incontinent voids. Heart rate stable. Patient feels tired but does not endorse any pain. Creatinine level has risen again from yesterday. - Patient Data Vitals - Most Recent: Last Vital Signs Temp 36.9 C 06/25/17 07:59 Pulse 82 06/25/17 07:59 Resp 20 06/25/17 07:59 BP 105/70 06/25/17 07:59 Pulse Ox 99 06/25/17 07:59 Weight - Most Recent: 139.2 kg I&O - Last 24 Hours: Intake & Output 06/24/17 06/25/17 06/25/17 22:59 06:59 14:59 Intake Total 4623 2012 Output Total 100 Balance 4623 2012 Lab Results Last 24 Hours: Laboratory Results - last 24 hr 06/25/17 06/25/17 Range/Units 04:50 04:50 WBC 22.9 H (4.5-11.0) K/uL RBC 3.49 (3.30-5.50) M/uL Hgb 10.0 L (12.0-15.0) g/dL Hct 33.2 L (36.0-48.0) % MCV 95 (80-98) fL MCH 29 (27-31) pg MCHC 30 L (32-36) % Plt Count 132 L (150-400) K/uL Sodium 131 L (140-148) mmol/L Potassium 5.1 (3.6-5.2) mmol/L Chloride 97 L (100-108) mmol/L Carbon Dioxide 21 (21-32) mmol/L Anion Gap 18.1 H (5.0-14.0) mmol/L BUN 56 H (7-18) mg/dL Creatinine 4.1 H* (0.6-1.0) mg/dL Est Cr Clr Drug Dosing 9.67 mL/min Estimated GFR (MDRD) 10 L (>60) Glucose 127 H (74-106) mg/dL Calcium 8.2 L (8.5-10.1) mg/dL [facility] Results Last 24 Hours: Microbiology 06/23/17 12:30 Urine Culture - Final Urine, Catheterized Escherichia Coli Med Orders - Current: Current Medications Acetaminophen (Tylenol) 650 mg PO Q4H PRN PRN Reason: Pain (Mild 1-3)/fever Apixaban (Eliquis) 2.5 mg PO BID [facility] Last Admin: 06/25/17 10:09 Dose: 2.5 mg Ceftriaxone Sodium 1 gm/ (Sodium Chloride) 50 mls @ 100 mls/hr IV Q24H [facility] Stop: 06/25/17 15:00 Last Admin: 06/24/17 13:31 Dose: 100 mls/hr Metoprolol Tartrate (Lopressor) 12.5 mg PO BID [facility] Last Admin: 06/24/17 20:50 Dose: 12.5 mg Nystatin (Nystop) 0 gm TOP TID [facility] Last Admin: 06/25/17 10:08 Dose: 1 applic Ondansetron HCl (Zofran Odt) 4 mg PO Q6H PRN PRN Reason: Nausea able to take PO Last Admin: 06/24/17 15:10 Dose: 4 mg Ondansetron HCl (Zofran) 4 mg IV Q6H PRN PRN Reason: Nausea/Vomiting Last Admin: 06/23/17 16:29 Dose: 4 mg Oxycodone HCl (Oxycodone) 5 mg PO Q4H PRN PRN Reason: Pain (moderate 4-6) Last Admin: 06/23/17 18:48 Dose: 5 mg Zolpidem Tartrate (Ambien) 10 mg PO BEDTIME PRN PRN Reason: Sleep Last Admin: 06/24/17 22:46 Dose: 10 mg Discontinued Medications Apixaban (Eliquis) 5 mg PO BID [facility] Last Admin: 06/24/17 08:07 Dose: 5 mg Lactated Ringer's (Ringers, Lactated) 1,000 mls @ 125 mls/hr IV ASDIRECTED [facility] Last Admin: 06/23/17 11:09 Dose: 125 mls/hr Sodium Chloride (Normal Saline) 500 mls @ 500 mls/hr IV ASDIRECTED [facility] Stop: 06/23/17 14:16 Ceftriaxone Sodium 1 gm/ (Sodium Chloride) 50 mls @ 100 mls/hr IV ONETIME ONE Stop: 06/23/17 14:14 Last Admin: 06/23/17 14:26 Dose: 100 mls/hr Sodium Chloride (Normal Saline) 1,000 mls @ 125 mls/hr IV ASDIRECTED [facility] Last Admin: 06/25/17 03:43 Dose: 125 mls/hr Sodium Chloride (Normal Saline) 1,000 mls @ 500 mls/hr IV .BOLUS ONE Stop: 06/24/17 04:50 Last Admin: 06/24/17 03:08 Dose: 500 mls/hr Sodium Chloride (Normal Saline) 500 mls @ 500 mls/hr IV ASDIRECTED [facility] Stop: 06/24/17 14:46 Last Admin: 06/24/17 13:51 Dose: 500 mls/hr Sodium Chloride (Normal Saline) 1,000 mls @ 500 mls/hr IV ASDIRECTED [facility] Stop: 06/24/17 18:46 Last Admin: 06/24/17 16:53 Dose: 500 mls/hr Ketorolac Tromethamine (Toradol) 15 mg IVPUSH ONETIME ONE Stop: 06/23/17 10:47 Last Admin: 06/23/17 11:05 Dose: 15 mg Nystatin (Nystop) 0 gm TOP TID [facility] Ondansetron HCl (Zofran Odt) 4 mg PO ONETIME ONE Stop: 06/23/17 10:13 Last Admin: 06/23/17 10:18 Dose: 4 mg Sodium Chloride (Saline Flush) 10 ml FLUSH ASDIRECTED PRN PRN Reason: Keep Vein Open Last Admin: 06/23/17 10:22 Dose: 10 ml - Exam Quality Assessment: Supplemental Oxygen General: Alert, Oriented, Cooperative, No Acute Distress Neck: Supple Lungs: Clear to Auscultation, Normal Respiratory Effort Cardiovascular: Regular Rate, Regular Rhythm GI/Abdominal Exam: Soft, No Distention Extremities: Pedal Edema Skin: Warm, Dry, Other (venous stasis changes left leg) Psy/Mental Status: Alert, Normal Affect - Problem List & Annotations (1) UTI (urinary tract infection) SNOMED Code(s): 52557755 Code(s): N39.0 - URINARY TRACT INFECTION, SITE NOT SPECIFIED Status: Acute Current Visit: Yes Qualifiers: Urinary tract infection type: site unspecified Hematuria presence: without hematuria Qualified Code(s): N39.0 - Urinary tract infection, site not specified (2) Acute kidney injury SNOMED Code(s): 54963337 Code(s): N17.9 - ACUTE KIDNEY FAILURE, UNSPECIFIED Status: Acute Current Visit: Yes (3) Heart failure with preserved ejection fraction SNOMED Code(s): 82832045 Code(s): I50.30 - UNSPECIFIED DIASTOLIC (CONGESTIVE) HEART FAILURE Status: Chronic Current Visit: No - Problem List Review Problem List Initiated/Reviewed/Updated: Yes - My Orders Last 24 Hours: My Active Orders 06/24/17 13:00 cefTRIAXone [Rocephin] 1 gm Sodium Chloride 0.9% [Normal Saline] 50 ml IV Q24H 06/24/17 21:00 Apixaban [Eliquis] 2.5 mg PO BID 06/25/17 10:09 Renal Ltd [US] Routine Convert IV to Saline Lock [OM.PC] Routine 06/25/17 10:10 Urinary Catheter Assessment [RC] ASDIRECTED 06/25/17 10:11 SEDIMENTATION RATE MANUAL [HEME] Routine 06/25/17 10:15 Insert Abdullahi Catheter [Insert Urinary Catheter] [OM.PC] Q24H 06/26/17 05:00 BASIC METABOLIC PANEL,BMP [CHEM] Timed CBC W/O DIFF,HEMOGRAM [HEME] Timed (1) - Plan Plan:: ASSESSMENT AND PLAN - Acute cystitis without hematuria - preceding symptoms including increased frequency. Fatigue likely secondary to infection. Culture growing pansensitive Escherichia coli. -Ceftriaxone for one more dose then discontinue antibiotics Acute kidney injury - I suspect this is secondary to overdiuresis and intravascular volume depletion with acute tubular necrosis. Urine output seems to be slowly picking up. We have provided adequate volume resuscitation and IV fluids will be discontinued today. -Place Abdullahi catheter for strict intake and output monitoring -Renal ultrasound to rule out bilateral obstruction -Hold diuretics -Repeat labs in the morning Heart failure with preserved ejection fraction - Patient has obvious increase in total body water but appears to be intravascularly volume depleted. Swelling is more likely massive chronic lymphedema rather than heart failure edema. -Hold diuretics as above -Wrap legs with Jose Alfredo wraps -Hold beta teresa today Pleuritic right upper back pain - significant muscle spasm noted on examination. Pain has not recurred. -Heating pad -Pain control Chronic atrial fibrillation - Currently rate controlled. She is on apixaban. -Continue home medications -Dose of apixaban will be decreased based on renal function Maintenance issues - - DVT prophylaxis - apixaban - GI prophylaxis - not indicated - Nutrition - low sodium - Abdullahi catheter - not indicated Disposition - anticipate discharge home vs possibly the NH after the hospital stay. If kidney function has not improved she may need transfer for nephrology evaluation and possibly dialysis. Bennie Javier M.D.
[2017-06-25] MEDS: Metoprolol Tartrate 25 MG Tab PO SCH (10:16)
[2017-06-25] MEDS: cefTRIAXone 1 GM in Sodium Chloride 0.9% 50 ML IV SCH (12:25)
[2017-06-25] MEDS: Zolpidem 5 MG Tab PO PRN (21:29)
[2017-06-26] MEDS ORDERED: Benzocaine/Cetylpyridinium/Menthol Lozenge MUCMEM PRN (02:44)
[2017-06-26] MEDS: Nystatin Topical Powder 15 GM Bottle TOP SCH ×3 (10:22→20:30)
[2017-06-26] MEDS: Apixaban 2.5 MG Tab PO SCH ×2 (10:22→20:30)
--- NOTE | 2017-06-26 11:20 | PCM.PN ---
- General Info Date of Service: 06/26/17 Functional Status: Reports: Pain Controlled, Tolerating Diet - Review of Systems General: Reports: Fatigue Gastrointestinal: Denies: Abdominal Pain Systems Review Comment:: There were no acute events overnight. Urine output has picked up nicely and she had 1.5 L of fluid in less than 24 hours. She has not received any diuretics. She continues to feel fatigued. She does not complain of shortness of breath or abdominal pain. Edema is stable. Creatinine is slightly better today. Blood pressure still on the low side of normal. - Patient Data Vitals - Most Recent: Last Vital Signs Temp 37.9 C 06/26/17 07:14 Pulse 88 06/26/17 07:14 Resp 18 06/26/17 07:14 BP 104/54 L 06/26/17 07:14 Pulse Ox 92 L 06/26/17 07:14 Weight - Most Recent: 139.2 kg I&O - Last 24 Hours: Intake & Output 06/25/17 06/26/17 06/26/17 22:59 06:59 14:59 Intake Total 1080 Output Total 100 825 Balance 980 -825 Lab Results Last 24 Hours: Laboratory Results - last 24 hr 06/26/17 06/26/17 Range/Units 04:32 04:32 WBC 19.1 H (4.5-11.0) K/uL RBC 3.44 (3.30-5.50) M/uL Hgb 10.0 L (12.0-15.0) g/dL Hct 32.1 L (36.0-48.0) % MCV 93 (80-98) fL MCH 29 (27-31) pg MCHC 31 L (32-36) % Plt Count 126 L (150-400) K/uL Sodium 131 L (140-148) mmol/L Potassium 4.7 (3.6-5.2) mmol/L Chloride 100 (100-108) mmol/L Carbon Dioxide 22 (21-32) mmol/L Anion Gap 13.7 (5.0-14.0) mmol/L BUN 61 H (7-18) mg/dL Creatinine 3.5 H (0.6-1.0) mg/dL Est Cr Clr Drug Dosing 11.32 mL/min Estimated GFR (MDRD) 13 L (>60) Glucose 120 H (74-106) mg/dL Calcium 7.9 L (8.5-10.1) mg/dL [facility] Results Last 24 Hours: Microbiology 06/23/17 12:30 Urine Culture - Final Urine, Catheterized Escherichia Coli Med Orders - Current: Current Medications Acetaminophen (Tylenol) 650 mg PO Q4H PRN PRN Reason: Pain (Mild 1-3)/fever Apixaban (Eliquis) 2.5 mg PO BID [facility] Last Admin: 06/26/17 10:22 Dose: 2.5 mg Benzocaine/Menthol (Cepacol Sore Throat) 1 lozenge MUCMEM Q1H PRN PRN Reason: Sore Throat Last Admin: 06/26/17 03:11 Dose: 1 lozenge Metoprolol Tartrate (Lopressor) 12.5 mg PO BID [facility] Last Admin: 06/25/17 10:16 Dose: Not Given Nystatin (Nystop) 0 gm TOP TID [facility] Last Admin: 06/26/17 10:22 Dose: 1 applic Ondansetron HCl (Zofran Odt) 4 mg PO Q6H PRN PRN Reason: Nausea able to take PO Last Admin: 06/24/17 15:10 Dose: 4 mg Ondansetron HCl (Zofran) 4 mg IV Q6H PRN PRN Reason: Nausea/Vomiting Last Admin: 06/23/17 16:29 Dose: 4 mg Oxycodone HCl (Oxycodone) 5 mg PO Q4H PRN PRN Reason: Pain (moderate 4-6) Last Admin: 06/23/17 18:48 Dose: 5 mg Discontinued Medications Apixaban (Eliquis) 5 mg PO BID [facility] Last Admin: 06/24/17 08:07 Dose: 5 mg Lactated Ringer's (Ringers, Lactated) 1,000 mls @ 125 mls/hr IV ASDIRECTED [facility] Last Admin: 06/23/17 11:09 Dose: 125 mls/hr Sodium Chloride (Normal Saline) 500 mls @ 500 mls/hr IV ASDIRECTED [facility] Stop: 06/23/17 14:16 Ceftriaxone Sodium 1 gm/ (Sodium Chloride) 50 mls @ 100 mls/hr IV ONETIME ONE Stop: 06/23/17 14:14 Last Admin: 06/23/17 14:26 Dose: 100 mls/hr Ceftriaxone Sodium 1 gm/ (Sodium Chloride) 50 mls @ 100 mls/hr IV Q24H [facility] Stop: 06/25/17 15:00 Last Admin: 06/25/17 12:25 Dose: 100 mls/hr Sodium Chloride (Normal Saline) 1,000 mls @ 125 mls/hr IV ASDIRECTED [facility] Last Admin: 06/25/17 03:43 Dose: 125 mls/hr Sodium Chloride (Normal Saline) 1,000 mls @ 500 mls/hr IV .BOLUS ONE Stop: 06/24/17 04:50 Last Admin: 06/24/17 03:08 Dose: 500 mls/hr Sodium Chloride (Normal Saline) 500 mls @ 500 mls/hr IV ASDIRECTED [facility] Stop: 06/24/17 14:46 Last Admin: 06/24/17 13:51 Dose: 500 mls/hr Sodium Chloride (Normal Saline) 1,000 mls @ 500 mls/hr IV ASDIRECTED [facility] Stop: 06/24/17 18:46 Last Admin: 06/24/17 16:53 Dose: 500 mls/hr Ketorolac Tromethamine (Toradol) 15 mg IVPUSH ONETIME ONE Stop: 06/23/17 10:47 Last Admin: 06/23/17 11:05 Dose: 15 mg Nystatin (Nystop) 0 gm TOP TID [facility] Ondansetron HCl (Zofran Odt) 4 mg PO ONETIME ONE Stop: 06/23/17 10:13 Last Admin: 06/23/17 10:18 Dose: 4 mg Sodium Chloride (Saline Flush) 10 ml FLUSH ASDIRECTED PRN PRN Reason: Keep Vein Open Last Admin: 06/23/17 10:22 Dose: 10 ml Zolpidem Tartrate (Ambien) 10 mg PO BEDTIME PRN PRN Reason: Sleep Last Admin: 06/25/17 21:29 Dose: 10 mg - Exam Quality Assessment: Supplemental Oxygen General: Alert, Oriented, Cooperative, No Acute Distress Neck: Supple Lungs: Clear to Auscultation, Normal Respiratory Effort Cardiovascular: Regular Rate, Regular Rhythm GI/Abdominal Exam: No Distention, Other (obese) Extremities: Pedal Edema (Lymphedema from feet to the waist bilaterally), Increased Warmth (Left leg) Skin: Warm, Dry. No: Rash Psy/Mental Status: Alert, Normal Affect - Problem List & Annotations (1) UTI (urinary tract infection) SNOMED Code(s): 75104120 Code(s): N39.0 - URINARY TRACT INFECTION, SITE NOT SPECIFIED Status: Acute Current Visit: Yes Qualifiers: Urinary tract infection type: site unspecified Hematuria presence: without hematuria Qualified Code(s): N39.0 - Urinary tract infection, site not specified (2) Acute kidney injury SNOMED Code(s): 31867046 Code(s): N17.9 - ACUTE KIDNEY FAILURE, UNSPECIFIED Status: Acute Current Visit: Yes (3) Heart failure with preserved ejection fraction SNOMED Code(s): 87452665 Code(s): I50.30 - UNSPECIFIED DIASTOLIC (CONGESTIVE) HEART FAILURE Status: Chronic Current Visit: No - Problem List Review Problem List Initiated/Reviewed/Updated: Yes - My Orders Last 24 Hours: My Active Orders 06/26/17 02:44 Benzocaine/Cetylpyrd/Menthol [Cepacol Sore Throat] 1 lozenge MUCMEM Q1H PRN 06/26/17 11:16 Zolpidem [Ambien] 5 mg PO BEDTIME PRN 06/27/17 05:00 BASIC METABOLIC PANEL,BMP [CHEM] Timed CBC W/O DIFF,HEMOGRAM [HEME] Timed (1) - Plan Plan:: ASSESSMENT AND PLAN - Acute cystitis without hematuria - preceding symptoms including increased frequency. Fatigue likely secondary to infection. Culture growing pansensitive Escherichia coli. -Course of antibiotics has been completed Acute kidney injury - I suspect this is secondary to overdiuresis and intravascular volume depletion with acute tubular necrosis. Urine output improved overnight and creatinine level is now trending down. Sedimentation rate is elevated and does raise some concern for vasculitis though could be related to the urinary tract infection. No strong evidence for vasculitis at this time. No evidence for obstruction based on renal ultrasound yesterday. -Continue Abdullahi catheter, try to remove tomorrow -Hold diuretics -Repeat labs in the morning Heart failure with preserved ejection fraction - Patient has obvious increase in total body water but was intravascularly volume depleted. Swelling is more likely massive chronic lymphedema rather than heart failure edema. She is now volume replete. -Hold diuretics as above -Wrap legs with Jose Alfredo wraps -Hold beta teresa today Pleuritic right upper back pain - significant muscle spasm noted on examination. Pain has not recurred. -Heating pad -Pain control Chronic atrial fibrillation - Currently rate controlled. She is on apixaban. -Continue home medications -Dose of apixaban will be decreased based on renal function Maintenance issues - - DVT prophylaxis - apixaban - GI prophylaxis - not indicated - Nutrition - low sodium - Abdullahi catheter - not indicated Disposition - anticipate discharge home vs possibly the NH after the hospital stay. If kidney function does not continue to improve she may need transfer for nephrology evaluation and possibly dialysis. Bennie Javier M.D.
[2017-06-26] MEDS: Zolpidem 5 MG Tab PO PRN (20:32)
[2017-06-26] MEDS ORDERED: Magnesium Hydroxide 400 MG/5 ML Susp 30 ML Cup PO PRN (23:24)
[2017-06-27] MEDS: Apixaban 2.5 MG Tab PO SCH ×2 (08:04→20:34)
[2017-06-27] MEDS: Metoprolol Tartrate 25 MG Tab PO SCH ×2 (08:04→20:34)
[2017-06-27] MEDS: Nystatin Topical Powder 15 GM Bottle TOP SCH ×3 (08:05→20:35)
--- NOTE | 2017-06-27 10:12 | US ---
Renal Comp CLINICAL HISTORY: Acute kidney injury, rule out obstruction. COMPARISON: None. TECHNIQUE: Multiple sonographic images were obtained through the kidneys in the sagittal and transver se projections. Right kidney measures 10.3 x 4.4 x 5.0 cm. Cortical thickness is 1.5 cm. There is a 1.2 x 1.4 x 1.1 c m cyst in the upper pole. Left kidney measures 12.3 x 5.6 x 5.5 cm. Cortical thickness is 1.6 cm. There is no mass, stones or hydronephrosis. Bladder was empty. There is a Abdullahi catheter in place. IMPRESSION: Small simple cyst upper pole right kidney
--- NOTE | 2017-06-27 12:22 | PCM.PN ---
- General Info Date of Service: 06/27/17 Subjective Update: Ms. Saleh has remained stable overnight, renal function has further improved since yesterday. Remains very weak and has significant difficulty with transfers. Denies significant shortness of breath, appetite has been good. Functional Status: Reports: Tolerating Diet, Urinating - Review of Systems General: Reports: Weakness. Denies: Fever, Chills Pulmonary: Reports: No Symptoms Cardiovascular: Reports: Edema. Denies: Chest Pain, Palpitations, Dyspnea on Exertion, Orthopnea, PND, Lightheadedness Gastrointestinal: Reports: No Symptoms - Patient Data Vitals - Most Recent: Last Vital Signs Temp 99.8 F 06/27/17 07:00 Pulse 84 06/27/17 08:04 Resp 20 06/27/17 07:00 BP 128/67 06/27/17 08:04 Pulse Ox 96 06/27/17 07:00 Weight - Most Recent: 336 lb 1.6 oz I&O - Last 24 Hours: Intake & Output 06/26/17 06/27/17 06/27/17 22:59 06:59 14:59 Intake Total 960 237 Output Total 500 1000 Balance 460 -763 Lab Results Last 24 Hours: Laboratory Results - last 24 hr 06/27/17 06/27/17 Range/Units 05:40 05:40 WBC 15.4 H (4.5-11.0) K/uL RBC 3.52 (3.30-5.50) M/uL Hgb 10.2 L (12.0-15.0) g/dL Hct 32.7 L (36.0-48.0) % MCV 93 (80-98) fL MCH 29 (27-31) pg MCHC 31 L (32-36) % Plt Count 144 L (150-400) K/uL Sodium 135 L (140-148) mmol/L Potassium 4.4 (3.6-5.2) mmol/L Chloride 102 (100-108) mmol/L Carbon Dioxide 23 (21-32) mmol/L Anion Gap 14.4 H (5.0-14.0) mmol/L BUN 49 H (7-18) mg/dL Creatinine 2.2 H (0.6-1.0) mg/dL Est Cr Clr Drug Dosing 18.02 mL/min Estimated GFR (MDRD) 21 L (>60) Glucose 118 H (74-106) mg/dL Calcium 8.2 L (8.5-10.1) mg/dL Med Orders - Current: Current Medications Acetaminophen (Tylenol) 650 mg PO Q4H PRN PRN Reason: Pain (Mild 1-3)/fever Apixaban (Eliquis) 2.5 mg PO BID [facility] [place] Last Admin: 06/27/17 08:04 Dose: 2.5 mg Benzocaine/Menthol (Cepacol Sore Throat) 1 lozenge MUCMEM Q1H PRN PRN Reason: Sore Throat Last Admin: 06/26/17 03:11 Dose: 1 lozenge Furosemide (Lasix) 80 mg PO DAILY [facility] [place] Magnesium Hydroxide (Milk Of Magnesia) 30 ml PO BID PRN PRN Reason: Constipation Last Admin: 06/26/17 23:48 Dose: 30 ml Metoprolol Tartrate (Lopressor) 12.5 mg PO BID [facility] [place] Last Admin: 06/27/17 08:04 Dose: 12.5 mg Nystatin (Nystop) 0 gm TOP TID [facility] [place] Last Admin: 06/27/17 08:05 Dose: 1 applic Ondansetron HCl (Zofran Odt) 4 mg PO Q6H PRN PRN Reason: Nausea able to take PO Last Admin: 06/24/17 15:10 Dose: 4 mg Ondansetron HCl (Zofran) 4 mg IV Q6H PRN PRN Reason: Nausea/Vomiting Last Admin: 06/23/17 16:29 Dose: 4 mg Oxycodone HCl (Oxycodone) 5 mg PO Q4H PRN PRN Reason: Pain (moderate 4-6) Last Admin: 06/23/17 18:48 Dose: 5 mg Zolpidem Tartrate (Ambien) 5 mg PO BEDTIME PRN PRN Reason: Sleep Last Admin: 06/26/17 20:32 Dose: 5 mg Discontinued Medications Apixaban (Eliquis) 5 mg PO BID [facility] [place] Last Admin: 06/24/17 08:07 Dose: 5 mg Lactated Ringer's (Ringers, Lactated) 1,000 mls @ 125 mls/hr IV ASDIRECTED [facility] [place] Last Admin: 06/23/17 11:09 Dose: 125 mls/hr Sodium Chloride (Normal Saline) 500 mls @ 500 mls/hr IV ASDIRECTED [facility] Stop: 06/23/17 14:16 Ceftriaxone Sodium 1 gm/ (Sodium Chloride) 50 mls @ 100 mls/hr IV ONETIME ONE Stop: 06/23/17 14:14 Last Admin: 06/23/17 14:26 Dose: 100 mls/hr Ceftriaxone Sodium 1 gm/ (Sodium Chloride) 50 mls @ 100 mls/hr IV Q24H [facility] Stop: 06/25/17 15:00 Last Admin: 06/25/17 12:25 Dose: 100 mls/hr Sodium Chloride (Normal Saline) 1,000 mls @ 125 mls/hr IV ASDIRECTED [facility] [place] Last Admin: 06/25/17 03:43 Dose: 125 mls/hr Sodium Chloride (Normal Saline) 1,000 mls @ 500 mls/hr IV .BOLUS ONE Stop: 06/24/17 04:50 Last Admin: 06/24/17 03:08 Dose: 500 mls/hr Sodium Chloride (Normal Saline) 500 mls @ 500 mls/hr IV ASDIRECTED [facility] [place] Stop: 06/24/17 14:46 Last Admin: 06/24/17 13:51 Dose: 500 mls/hr Sodium Chloride (Normal Saline) 1,000 mls @ 500 mls/hr IV ASDIRECTED [facility] [place] Stop: 06/24/17 18:46 Last Admin: 06/24/17 16:53 Dose: 500 mls/hr Ketorolac Tromethamine (Toradol) 15 mg IVPUSH ONETIME ONE Stop: 06/23/17 10:47 Last Admin: 06/23/17 11:05 Dose: 15 mg Nystatin (Nystop) 0 gm TOP TID [facility] [place] Ondansetron HCl (Zofran Odt) 4 mg PO ONETIME ONE Stop: 06/23/17 10:13 Last Admin: 06/23/17 10:18 Dose: 4 mg Sodium Chloride (Saline Flush) 10 ml FLUSH ASDIRECTED PRN PRN Reason: Keep Vein Open Last Admin: 06/23/17 10:22 Dose: 10 ml Zolpidem Tartrate (Ambien) 10 mg PO BEDTIME PRN PRN Reason: Sleep Last Admin: 06/25/17 21:29 Dose: 10 mg - Exam Quality Assessment: DVT Prophylaxis General: Alert, Oriented, Cooperative, No Acute Distress Lungs: Clear to Auscultation, Normal Respiratory Effort Cardiovascular: Regular Rate, No Murmurs, Irregular Rhythm GI/Abdominal Exam: Soft, Non-Tender, No Organomegaly, No Distention Extremities: Pedal Edema. No: Non-Tender Skin: Warm, Dry - Problem List Review Problem List Initiated/Reviewed/Updated: Yes - My Orders Last 24 Hours: My Active Orders 06/27/17 09:42 Consult to Physical Therapy [PT Evaluation and Treatment] [CONS] Routine 06/27/17 12:15 Furosemide [Lasix] 80 mg PO DAILY 06/28/17 05:00 BASIC METABOLIC PANEL,BMP [CHEM] Timed CBC WITH AUTO DIFF [HEME] Timed - Plan Plan:: ASSESSMENT AND PLAN - Acute cystitis without hematuria - preceding symptoms including increased frequency. Fatigue likely secondary to infection. Culture growing pansensitive Escherichia coli. -Course of antibiotics has been completed Acute kidney injury - I suspect this is secondary to overdiuresis and intravascular volume depletion with acute tubular necrosis. Urine output has remained fairly good since yesterday, with further improvement in creatinine. -Continue Abdullahi catheter, try to remove tomorrow -Resume furosemide 80 mg by mouth daily -Repeat labs in the morning Lymphedema - Patient has obvious increase in total body water but was intravascularly volume depleted. Swelling is more likely massive chronic lymphedema rather than heart failure edema. She is now volume replete. -PT consult for assistance in management of lymphedema -Resume furosemide -Wrap legs with Jose Alfredo wraps Pleuritic right upper back pain- resolved Chronic atrial fibrillation - Currently rate controlled. She is on apixaban. -Continue home medications -Dose of apixaban will be decreased based on renal function Maintenance issues - - DVT prophylaxis - apixaban - GI prophylaxis - not indicated - Nutrition - low sodium - Abdullahi catheter - not indicated Disposition - anticipate discharge home vs possibly the NH after the hospital stay. If kidney function does not continue to improve she may need transfer for nephrology evaluation and possibly dialysis.
[2017-06-27] MEDS: Furosemide 40 MG Tab PO SCH (13:19)
[2017-06-28] MEDS: Zolpidem 5 MG Tab PO PRN ×2 (00:31→21:48)
[2017-06-28] MEDS: oxyCODONE 5 MG Tab PO PRN ×3 (00:31→21:48)
[2017-06-28] MEDS: Furosemide 40 MG Tab PO SCH (08:24)
[2017-06-28] MEDS: Apixaban 2.5 MG Tab PO SCH ×2 (08:24→21:45)
[2017-06-28] MEDS: Metoprolol Tartrate 25 MG Tab PO SCH ×2 (08:26→21:45)
[2017-06-28] MEDS: Nystatin Topical Powder 15 GM Bottle TOP SCH ×3 (08:26→21:46)
[2017-06-28] MEDS: Potassium Chloride 10 MEQ Cap.ER PO SCH ×2 (08:31→17:34)
[2017-06-28] MEDS: Pantoprazole 40 MG Tab.CR PO SCH (08:31)
[2017-06-28] MEDS: Metolazone 2.5 MG Tab PO SCH (08:32)
--- NOTE | 2017-06-28 12:35 | PCM.PN ---
- General Info Date of Service: 06/28/17 Subjective Update: Ms. Saleh has been stable overnight, excellent diuresis yesterday with resumption of diuretic therapy. Further improvement today noted in creatinine and GFR. Denies significant shortness of breath, appetite has been adequate. - Review of Systems General: Reports: Weakness. Denies: Fever, Chills Cardiovascular: Reports: Edema. Denies: Chest Pain, Palpitations, Dyspnea on Exertion, Orthopnea, PND, Lightheadedness Gastrointestinal: Reports: No Symptoms - Patient Data Vitals - Most Recent: Last Vital Signs Temp 99.2 F 06/28/17 11:05 Pulse 73 06/28/17 11:05 Resp 18 06/28/17 11:05 BP 139/65 06/28/17 11:05 Pulse Ox 98 06/28/17 11:05 Weight - Most Recent: 336 lb 1.6 oz I&O - Last 24 Hours: Intake & Output 06/27/17 06/28/17 06/28/17 22:59 06:59 14:59 Intake Total 600 480 210 Output Total 1300 1750 25 Balance -700 -1270 185 Lab Results Last 24 Hours: Laboratory Results - last 24 hr 06/28/17 06/28/17 Range/Units 04:45 04:45 WBC 11.9 H (4.5-11.0) K/uL RBC 3.39 (3.30-5.50) M/uL Hgb 9.8 L (12.0-15.0) g/dL Hct 31.3 L (36.0-48.0) % MCV 92 (80-98) fL MCH 29 (27-31) pg MCHC 31 L (32-36) % Plt Count 157 (150-400) K/uL Neut % (Auto) 80 H (36-66) % Lymph % (Auto) 10 L (24-44) % Bremer % (Auto) 9 H (2-6) % Eos % (Auto) 1 L (2-4) % Baso % (Auto) 0 (0-1) % Sodium 136 L (140-148) mmol/L Potassium 4.0 (3.6-5.2) mmol/L Chloride 102 (100-108) mmol/L Carbon Dioxide 26 (21-32) mmol/L Anion Gap 12.0 (5.0-14.0) mmol/L BUN 42 H (7-18) mg/dL Creatinine 1.7 H (0.6-1.0) mg/dL Est Cr Clr Drug Dosing 23.32 mL/min Estimated GFR (MDRD) 29 L (>60) Glucose 108 H (74-106) mg/dL Calcium 7.9 L (8.5-10.1) mg/dL Med Orders - Current: Current Medications Acetaminophen (Tylenol) 650 mg PO Q4H PRN PRN Reason: Pain (Mild 1-3)/fever Apixaban (Eliquis) 2.5 mg PO BID [facility] Last Admin: 06/28/17 08:24 Dose: 2.5 mg Benzocaine/Menthol (Cepacol Sore Throat) 1 lozenge MUCMEM Q1H PRN PRN Reason: Sore Throat Last Admin: 06/26/17 03:11 Dose: 1 lozenge Furosemide (Lasix) 80 mg PO DAILY [facility] Last Admin: 06/28/17 08:24 Dose: 80 mg Magnesium Hydroxide (Milk Of Magnesia) 30 ml PO BID PRN PRN Reason: Constipation Last Admin: 06/26/17 23:48 Dose: 30 ml Metolazone (Zaroxolyn) 5 mg PO DAILY [facility] Last Admin: 06/28/17 08:32 Dose: 5 mg Metoprolol Tartrate (Lopressor) 12.5 mg PO BID [facility] Last Admin: 06/28/17 08:26 Dose: 12.5 mg Nystatin (Nystop) 0 gm TOP TID [facility] Last Admin: 06/28/17 08:26 Dose: 1 applic Ondansetron HCl (Zofran Odt) 4 mg PO Q6H PRN PRN Reason: Nausea able to take PO Last Admin: 06/24/17 15:10 Dose: 4 mg Ondansetron HCl (Zofran) 4 mg IV Q6H PRN PRN Reason: Nausea/Vomiting Last Admin: 06/23/17 16:29 Dose: 4 mg Oxycodone HCl (Oxycodone) 5 mg PO Q4H PRN PRN Reason: Pain (moderate 4-6) Last Admin: 06/28/17 10:59 Dose: 5 mg Pantoprazole Sodium (Protonix) 40 mg PO DAILY@0730 [facility] Last Admin: 06/28/17 08:31 Dose: 40 mg Potassium Chloride (Potassium Chloride) 10 meq PO BIDMEALS [facility] Last Admin: 06/28/17 08:31 Dose: 10 meq Zolpidem Tartrate (Ambien) 5 mg PO BEDTIME PRN PRN Reason: Sleep Last Admin: 06/28/17 00:31 Dose: 5 mg Discontinued Medications Apixaban (Eliquis) 5 mg PO BID [facility] Last Admin: 06/24/17 08:07 Dose: 5 mg Lactated Ringer's (Ringers, Lactated) 1,000 mls @ 125 mls/hr IV ASDIRECTED [facility] Last Admin: 06/23/17 11:09 Dose: 125 mls/hr Sodium Chloride (Normal Saline) 500 mls @ 500 mls/hr IV ASDIRECTED [facility] Stop: 06/23/17 14:16 Ceftriaxone Sodium 1 gm/ (Sodium Chloride) 50 mls @ 100 mls/hr IV ONETIME ONE Stop: 06/23/17 14:14 Last Admin: 06/23/17 14:26 Dose: 100 mls/hr Ceftriaxone Sodium 1 gm/ (Sodium Chloride) 50 mls @ 100 mls/hr IV Q24H [facility] Stop: 06/25/17 15:00 Last Admin: 06/25/17 12:25 Dose: 100 mls/hr Sodium Chloride (Normal Saline) 1,000 mls @ 125 mls/hr IV ASDIRECTED [facility] Last Admin: 06/25/17 03:43 Dose: 125 mls/hr Sodium Chloride (Normal Saline) 1,000 mls @ 500 mls/hr IV .BOLUS ONE Stop: 06/24/17 04:50 Last Admin: 06/24/17 03:08 Dose: 500 mls/hr Sodium Chloride (Normal Saline) 500 mls @ 500 mls/hr IV ASDIRECTED [facility] Stop: 06/24/17 14:46 Last Admin: 06/24/17 13:51 Dose: 500 mls/hr Sodium Chloride (Normal Saline) 1,000 mls @ 500 mls/hr IV ASDIRECTED [facility] Stop: 06/24/17 18:46 Last Admin: 06/24/17 16:53 Dose: 500 mls/hr Ketorolac Tromethamine (Toradol) 15 mg IVPUSH ONETIME ONE Stop: 06/23/17 10:47 Last Admin: 06/23/17 11:05 Dose: 15 mg Nystatin (Nystop) 0 gm TOP TID [facility] Ondansetron HCl (Zofran Odt) 4 mg PO ONETIME ONE Stop: 06/23/17 10:13 Last Admin: 06/23/17 10:18 Dose: 4 mg Sodium Chloride (Saline Flush) 10 ml FLUSH ASDIRECTED PRN PRN Reason: Keep Vein Open Last Admin: 06/23/17 10:22 Dose: 10 ml Zolpidem Tartrate (Ambien) 10 mg PO BEDTIME PRN PRN Reason: Sleep Last Admin: 06/25/17 21:29 Dose: 10 mg - Exam Quality Assessment: DVT Prophylaxis General: Alert, Oriented, Cooperative, No Acute Distress Lungs: Clear to Auscultation, Normal Respiratory Effort Cardiovascular: Regular Rate, Regular Rhythm, No Murmurs GI/Abdominal Exam: Soft, Non-Tender, No Organomegaly, No Distention Extremities: Pedal Edema. No: Non-Tender Skin: Warm, Dry, Intact - Problem List Review Problem List Initiated/Reviewed/Updated: Yes - My Orders Last 24 Hours: My Active Orders 06/27/17 12:15 Furosemide [Lasix] 80 mg PO DAILY 06/28/17 09:00 Metolazone [Zaroxolyn] 5 mg PO DAILY Pantoprazole [ProTONIX] 40 mg PO DAILY@0730 Potassium Chloride 10 meq PO BIDMEALS 06/29/17 05:00 BASIC METABOLIC PANEL,BMP [CHEM] Timed CBC WITH AUTO DIFF [HEME] Timed - Plan Plan:: ASSESSMENT AND PLAN - Acute cystitis without hematuria - preceding symptoms including increased frequency. Fatigue likely secondary to infection. Culture growing pansensitive Escherichia coli. -Course of antibiotics has been completed Acute kidney injury - I suspect this is secondary to overdiuresis and intravascular volume depletion with acute tubular necrosis. Excellent urine output over the past 24 hours, further improvement in creatinine and GFR. -Continue Abdullahi catheter, try to remove tomorrow -Furosemide 80 mg by mouth daily -Resume Metolozone 5 mg by mouth daily -Repeat labs in the morning Lymphedema - Patient has obvious increase in total body water but was intravascularly volume depleted. Swelling is more likely massive chronic lymphedema rather than heart failure edema. She is now volume replete. -PT consult for assistance in management of lymphedema, will need to be obtained as an outpatient -Resume furosemide -Wrap legs with Jose Alfredo wraps Pleuritic right upper back pain- resolved Chronic atrial fibrillation - Currently rate controlled. She is on apixaban. -Continue home medications -Dose of apixaban will be decreased based on renal function Maintenance issues - - DVT prophylaxis - apixaban - GI prophylaxis - not indicated - Nutrition - low sodium - Abdullahi catheter - not indicated Disposition - anticipate discharge to custodial tomorrow
[2017-06-29] MEDS: Nystatin Topical Powder 15 GM Bottle TOP SCH (08:27)
[2017-06-29] MEDS: Potassium Chloride 10 MEQ Cap.ER PO SCH (08:28)
[2017-06-29] MEDS: Metolazone 2.5 MG Tab PO SCH (08:28)
[2017-06-29] MEDS: Apixaban 2.5 MG Tab PO SCH (08:28)
[2017-06-29] MEDS: Pantoprazole 40 MG Tab.CR PO SCH (08:28)
[2017-06-29] MEDS: Furosemide 40 MG Tab PO SCH (08:28)
[2017-06-29] MEDS: Metoprolol Tartrate 25 MG Tab PO SCH (08:29)
[2017-06-29] MEDS ORDERED: Potassium Chloride 20 MEQ Tab.ER PO ONE (09:00)
[2017-06-29] MEDS ORDERED: Spironolactone 25 MG Tab PO SCH (09:00)
[2017-06-29] MEDS: oxyCODONE 5 MG Tab PO PRN (10:19)
--- NOTE | 2017-06-29 10:50 | PCM.DCSUM1 ---
Discharge Summary - Hospital Course Brief History: Ms. Saleh is an 81-year-old woman who was admitted through the emergency department with nausea, vomiting, diarrhea and increased weakness with acute kidney injury. - Discharge Data Discharge Date: 06/29/17 Discharge Disposition: DC/Tfer to SNF 03 Condition: Fair - Discharge Diagnosis/Problem(s) (1) Lymphedema of both lower extremities SNOMED Code(s): 94573423281118479 ICD Code: I89.0 - LYMPHEDEMA, NOT ELSEWHERE CLASSIFIED Status: Acute Current Visit: Yes (2) UTI (urinary tract infection) SNOMED Code(s): 81635619 ICD Code: N39.0 - URINARY TRACT INFECTION, SITE NOT SPECIFIED Status: Acute Current Visit: Yes Qualifiers: Urinary tract infection type: site unspecified Hematuria presence: without hematuria Qualified Code(s): N39.0 - Urinary tract infection, site not specified (3) Chronic renal failure SNOMED Code(s): 97311490, 624000875 ICD Code: N18.9 - CHRONIC KIDNEY DISEASE, UNSPECIFIED Status: Acute Current Visit: Yes Qualifiers: Chronic kidney disease stage: stage 4 (severe) Qualified Code(s): N18.4 - Chronic kidney disease, stage 4 (severe) (4) Acute kidney injury SNOMED Code(s): 61855707 ICD Code: N17.9 - ACUTE KIDNEY FAILURE, UNSPECIFIED Status: Acute Current Visit: Yes (5) Heart failure with preserved ejection fraction SNOMED Code(s): 09296262 ICD Code: I50.30 - UNSPECIFIED DIASTOLIC (CONGESTIVE) HEART FAILURE Status : Chronic Current Visit: No (6) Morbid obesity with BMI of 50.0-59.9, adult SNOMED Code(s): 251464119 ICD Code: E66.01 - MORBID (SEVERE) OBESITY DUE TO EXCESS CALORIES; Z68.43 - BODY MASS INDEX (BMI) 50-59.9 , ADULT Status: Chronic Current Visit: No - Patient Summary/Data Consults: Consultations 06/24/17 07:00 PT Evaluation and Treatment [CONS] Routine Please Evaluate and Treat. PT Reason for Consult: Strengthening This query below is only for informational purposes and is not editable. 06/27/17 09:42 Consult to Physical Therapy [PT Evaluation and Treatment] [CONS] Routine Please Evaluate and Treat. PT Reason for Consult: Lymphedema This query below is only for informational purposes and is not editable. Admission Diagnosis/Problem: Acute cystitis without hematuria Hospital Course: Radha presented to the emergency room with right-sided upper back pain as well as nausea with vomiting and diarrhea. She first noticed a deep achy moderate pain in her right upper back 24 hours prior to admission. She did not take anything at home. Pain has been stable and not getting any worse. Worse when she does take a deep breath. On the evening prior to admission, she had onset of nausea with vomiting and diarrhea but she has not had any abdominal pain. Nausea and vomiting are better in the emergency room. She hasn't noticed any fevers. She does feel more short of breath than usual. She has noticed increased urinary frequency but no dysuria. She has also noticed increased discoloration of her left leg over the past few days. The leg does not hurt. Workup in the emergency room was suggestive of a urinary tract infection. She has significant leukocytosis and acute kidney injury. Blood pressure is on the low side but is responding to fluids. She is not tachycardic. She was admitted for further management. She was initially given IV fluids for hydration because of the acute kidney injury, took a few days for renal function to improve and then she was placed back on diuretic therapy because of her marked peripheral and lymphedema both lower extremities. By the time of discharge renal function had returned to baseline. She was treated with 3 days of IV Rocephin for management of her urinary tract infection, culture grew out pansensitive Escherichia coli. And back on diuretic therapy she had an excellent diuresis over. 2 days prior to discharge and will be discharged with the same regimen. She will be scheduled for an outpatient appointment with physical therapy for further management of her significant lymphedema in both lower extremities. White blood cell count had normalized by the time of discharge. Follow-up labs including a BMP and magnesium will be obtained in 5 days after discharge. She will remain on a low- sodium diet and activity will be as tolerated. Follow-up with primary care will be at the long term as needed. - Patient Instructions Diet: Low Sodium Activity: As Tolerated Other/Special Instructions: Daily physical therapy and occupational therapy while at the long term. Follow-up lab on Tuesday, July 04; BMP and magnesium levels. - Discharge Plan Home Medications: Home Meds Zolpidem [Ambien] 10 mg PO BEDTIME PRN 04/05/16 [History] Apixaban [Eliquis] 5 mg PO BID 05/03/16 [History] Ascorbic Acid 500 mg PO DAILY 05/03/16 [History] Cholecalciferol (Vitamin D3) [Vitamin D] 1,000 unit PO DAILY 05/03/16 [History] Garlic 1,000 mg PO DAILY 05/03/16 [History] Metoprolol Tartrate 12.5 mg PO BID 05/03/16 [History] Nystatin 100,000 units PO QID PRN 05/03/16 [History] [place]-3 Fatty Acids [Fish Oil] 1,000 mg PO DAILY 05/03/16 [History] Furosemide [Lasix] 80 mg PO DAILY 07/11/16 [History] Omeprazole 20 mg PO ASDIRECTED 07/11/16 [History] Potassium Chloride [Klor-Con 10] 10 meq PO ASDIRECTED 07/11/16 [History] Metolazone 5 mg PO DAILY 01/28/17 [History] Spironolactone [Aldactone] 12.5 mg PO DAILY 06/23/17 [History] Referrals: Franc Skelton MD [Primary Care Provider] - - Discharge Summary/Plan Comment DC Time >30 min.: No - Patient Data Vitals - Most Recent: Last Vital Signs Temp 96.5 F 06/29/17 09:04 Pulse 81 06/29/17 09:04 Resp 12 06/29/17 09:04 BP 132/74 06/29/17 09:04 Pulse Ox 90 L 06/29/17 09:04 Weight - Most Recent: 315 lb 12.8 oz I&O - Last 24 hours: Intake & Output 06/28/17 06/29/17 06/29/17 22:59 06:59 14:59 Intake Total 840 880 Output Total 2150 300 200 Balance -1310 -300 680 Lab Results - Last 24 hrs: Laboratory Results - last 24 hr 06/29/17 06/29/17 Range/Units 05:55 05:55 WBC 11.2 H (4.5-11.0) K/uL RBC 3.62 (3.30-5.50) M/uL Hgb 10.6 L (12.0-15.0) g/dL Hct 33.7 L (36.0-48.0) % MCV 93 (80-98) fL MCH 29 (27-31) pg MCHC 32 (32-36) % Plt Count 192 (150-400) K/uL Neut % (Auto) 78 H (36-66) % Lymph % (Auto) 9 L (24-44) % Charlton % (Auto) 10 H (2-6) % Eos % (Auto) 2 (2-4) % Baso % (Auto) 0 (0-1) % Sodium 137 L (140-148) mmol/L Potassium 3.4 L (3.6-5.2) mmol/L Chloride 100 (100-108) mmol/L Carbon Dioxide 30 (21-32) mmol/L Anion Gap 10.4 (5.0-14.0) mmol/L BUN 38 H (7-18) mg/dL Creatinine 1.6 H (0.6-1.0) mg/dL Est Cr Clr Drug Dosing 24.77 mL/min Estimated GFR (MDRD) 31 L (>60) Glucose 139 H (74-106) mg/dL Calcium 8.2 L (8.5-10.1) mg/dL Med Orders - Current: Current Medications Acetaminophen (Tylenol) 650 mg PO Q4H PRN PRN Reason: Pain (Mild 1-3)/fever Last Admin: 06/29/17 10:20 Dose: 650 mg Apixaban (Eliquis) 2.5 mg PO BID COUNTS INCLUDE 234 BEDS AT THE [facility] Last Admin: 06/29/17 08:28 Dose: 2.5 mg Benzocaine/Menthol (Cepacol Sore Throat) 1 lozenge MUCMEM Q1H PRN PRN Reason: Sore Throat Last Admin: 06/26/17 03:11 Dose: 1 lozenge Furosemide (Lasix) 80 mg PO DAILY COUNTS INCLUDE 234 BEDS AT THE [facility] Last Admin: 06/29/17 08:28 Dose: 80 mg Magnesium Hydroxide (Milk Of Magnesia) 30 ml PO BID PRN PRN Reason: Constipation Last Admin: 06/26/17 23:48 Dose: 30 ml Metolazone (Zaroxolyn) 5 mg PO DAILY COUNTS INCLUDE 234 BEDS AT THE [facility] Last Admin: 06/29/17 08:28 Dose: 5 mg Metoprolol Tartrate (Lopressor) 12.5 mg PO BID COUNTS INCLUDE 234 BEDS AT THE [facility] Last Admin: 06/29/17 08:29 Dose: 12.5 mg Nystatin (Nystop) 0 gm TOP TID COUNTS INCLUDE 234 BEDS AT THE [facility] Last Admin: 06/29/17 08:27 Dose: 1 applic Ondansetron HCl (Zofran Odt) 4 mg PO Q6H PRN PRN Reason: Nausea able to take PO Last Admin: 06/24/17 15:10 Dose: 4 mg Ondansetron HCl (Zofran) 4 mg IV Q6H PRN PRN Reason: Nausea/Vomiting Last Admin: 06/23/17 16:29 Dose: 4 mg Oxycodone HCl (Oxycodone) 5 mg PO Q4H PRN PRN Reason: Pain (moderate 4-6) Last Admin: 06/29/17 10:19 Dose: 5 mg Pantoprazole Sodium (Protonix) 40 mg PO DAILY@0730 COUNTS INCLUDE 234 BEDS AT THE [facility] Last Admin: 06/29/17 08:28 Dose: 40 mg Potassium Chloride (Potassium Chloride) 10 meq PO BIDMEALS COUNTS INCLUDE 234 BEDS AT THE [facility] Last Admin: 06/29/17 08:28 Dose: 10 meq Spironolactone (Aldactone) 12.5 mg PO DAILY COUNTS INCLUDE 234 BEDS AT THE [facility] Last Admin: 06/29/17 08:28 Dose: 12.5 mg Zolpidem Tartrate (Ambien) 5 mg PO BEDTIME PRN PRN Reason: Sleep Last Admin: 06/28/17 21:48 Dose: 5 mg Discontinued Medications Apixaban (Eliquis) 5 mg PO BID COUNTS INCLUDE 234 BEDS AT THE [facility] Last Admin: 06/24/17 08:07 Dose: 5 mg Lactated Ringer's (Ringers, Lactated) 1,000 mls @ 125 mls/hr IV ASDIRECTED COUNTS INCLUDE 234 BEDS AT THE [facility] Last Admin: 06/23/17 11:09 Dose: 125 mls/hr Sodium Chloride (Normal Saline) 500 mls @ 500 mls/hr IV ASDIRECTED COUNTS INCLUDE 234 BEDS AT THE [facility] Stop: 06/23/17 14:16 Ceftriaxone Sodium 1 gm/ (Sodium Chloride) 50 mls @ 100 mls/hr IV ONETIME ONE Stop: 06/23/17 14:14 Last Admin: 06/23/17 14:26 Dose: 100 mls/hr Ceftriaxone Sodium 1 gm/ (Sodium Chloride) 50 mls @ 100 mls/hr IV Q24H COUNTS INCLUDE 234 BEDS AT THE [facility] Stop: 06/25/17 15:00 Last Admin: 06/25/17 12:25 Dose: 100 mls/hr Sodium Chloride (Normal Saline) 1,000 mls @ 125 mls/hr IV ASDIRECTED TYLER Last Admin: 06/25/17 03:43 Dose: 125 mls/hr Sodium Chloride (Normal Saline) 1,000 mls @ 500 mls/hr IV .BOLUS ONE Stop: 06/24/17 04:50 Last Admin: 06/24/17 03:08 Dose: 500 mls/hr Sodium Chloride (Normal Saline) 500 mls @ 500 mls/hr IV ASDIRECTED TYLER Stop: 06/24/17 14:46 Last Admin: 06/24/17 13:51 Dose: 500 mls/hr Sodium Chloride (Normal Saline) 1,000 mls @ 500 mls/hr IV ASDIRECTED TYLER Stop: 06/24/17 18:46 Last Admin: 06/24/17 16:53 Dose: 500 mls/hr Ketorolac Tromethamine (Toradol) 15 mg IVPUSH ONETIME ONE Stop: 06/23/17 10:47 Last Admin: 06/23/17 11:05 Dose: 15 mg Nystatin (Nystop) 0 gm TOP TID TYLER Ondansetron HCl (Zofran Odt) 4 mg PO ONETIME ONE Stop: 06/23/17 10:13 Last Admin: 06/23/17 10:18 Dose: 4 mg Potassium Chloride (Klor-Con M20) 40 meq PO ONETIME ONE Stop: 06/29/17 09:01 Last Admin: 06/29/17 08:27 Dose: 40 meq Sodium Chloride (Saline Flush) 10 ml FLUSH ASDIRECTED PRN PRN Reason: Keep Vein Open Last Admin: 06/23/17 10:22 Dose: 10 ml Zolpidem Tartrate (Ambien) 10 mg PO BEDTIME PRN PRN Reason: Sleep Last Admin: 06/25/17 21:29 Dose: 10 mg - Exam Quality Assessment: Reports: DVT Prophylaxis General: Reports: Alert, Oriented, Cooperative Lungs: Reports: Clear to Auscultation, Normal Respiratory Effort Cardiovascular: Reports: Regular Rate, No Murmurs, Irregular Rhythm GI/Abdominal Exam: Soft, Non-Tender, No Organomegaly, No Distention Extremities: Pedal Edema. No: Non-Tender Skin: Reports: Warm, Dry
[2017-06-29 11:18] VITALS: BP 128/75
== END 2017-06-29 11:35 | DRG 690 ==
LOC: JP.ED 09:15 → JP.MS 13:09
PROVIDERS: ADMIT Internal Medicine; ATTEND Hospitalist
DX: N39.0 Urinary tract infection, site not specified (principal); D72.829 Elevated white blood cell count, unspecified; I13.0 Hypertensive heart and chronic kidney disease with heart failure and stage 1 through stage 4 chronic kidney disease, or unspecified chronic kidney disease; I50.30 Unspecified diastolic (congestive) heart failure; N18.4 Chronic kidney disease, stage 4 (severe); N17.9 Acute kidney failure, unspecified; B96.20 Unspecified Escherichia coli [E. coli] as the cause of diseases classified elsewhere; I48.2 Chronic atrial fibrillation; R79.1 Abnormal coagulation profile; R11.2 Nausea with vomiting, unspecified; Z99.81 Dependence on supplemental oxygen; M54.89 Other dorsalgia; E66.01 Morbid (severe) obesity due to excess calories; I89.0 Lymphedema, not elsewhere classified; Z85.3 Personal history of malignant neoplasm of breast; M19.90 Unspecified osteoarthritis, unspecified site; K21.9 Gastro-esophageal reflux disease without esophagitis; Z87.01 Personal history of pneumonia (recurrent); Z86.718 Personal history of other venous thrombosis and embolism; H54.7 Unspecified visual loss; Z96.653 Presence of artificial knee joint, bilateral; Z90.11 Acquired absence of right breast and nipple; Z88.2 Allergy status to sulfonamides; Z79.01 Long term (current) use of anticoagulants; Z91.048 Other nonmedicinal substance allergy status
CPT/HCPCS: 36415; 71045 ×2; 80048; 81001; 84484; 85027; 85379; 86140; 87086; 87088; 87186; 93005; 93970 ×2; 99284; 99285; A9270; J1885; J7050; J7120; 76770; 76770-26; 85025; 85651; 93010; 97110-GP; 97162-GP; 97530-GP; J0696; J2405; J7040

== ENCOUNTER 2017-11-14 08:33 | Inpatient (IN) | payer MEDICARE, BC ==
[2017-11-14] MEDS ORDERED: Sodium Chloride 0.9% 10 ML Syringe FLUSH PRN ×2 (09:45→14:22)
--- NOTE | 2017-11-14 09:52 | EDM.PDOC ---
ED HPI GENERAL MEDICAL PROBLEM - General Chief Complaint: Respiratory Problem Stated Complaint: URINARY PROBLEMS Time Seen by Provider: 11/14/17 09:35 Source of Information: Reports: Patient, Family, Old Records, RN Notes Reviewed History Limitations: Reports: No Limitations - History of Present Illness INITIAL COMMENTS - FREE TEXT/NARRATIVE: 82-year-old female presents to the emergency department today with complaint of shortness of breath she has a known history of atrial fibrillation on Eliquis as well as congestive heart failure and bilateral lymphedema. She states over the last couple days she's had increasing more short of breath and has a 40 pound weight gain as well did have fever last night up to 99.0 continues to have cough - Related Data Allergies Allergy/AdvReac Type Severity Reaction Status Date / Time nickel Allergy Itching Verified 07/11/16 08:02 Sulfa (Sulfonamide Allergy Swelling Verified 07/11/16 08:02 Antibiotics) Home Meds: Home Meds Zolpidem [Ambien] 10 mg PO BEDTIME PRN 04/05/16 [History] Apixaban [Eliquis] 5 mg PO BID 05/03/16 [History] Ascorbic Acid 500 mg PO DAILY 05/03/16 [History] Cholecalciferol (Vitamin D3) [Vitamin D] 1,000 unit PO DAILY 05/03/16 [History] Garlic 1,000 mg PO DAILY 05/03/16 [History] Metoprolol Tartrate 12.5 mg PO BID 05/03/16 [History] Nystatin 100,000 units PO QID PRN 05/03/16 [History] [place]-3 Fatty Acids [Fish Oil] 1,000 mg PO DAILY 05/03/16 [History] Furosemide [Lasix] 80 mg PO DAILY 07/11/16 [History] Omeprazole 20 mg PO BEDTIME 07/11/16 [History] Potassium Chloride [Klor-Con 10] 30 meq PO BID 07/11/16 [History] metOLazone [Metolazone] 5 mg PO DAILY 01/28/17 [History] Spironolactone [Aldactone] 12.5 mg PO DAILY 06/23/17 [History] Past Medical History HEENT History: Reports: Impaired Vision, Other (See Below) Other HEENT History: sore throat Cardiovascular History: Reports: Afib, Blood Clots/VTE/DVT, Heart Failure, Hypertension, Other (See Below) Other Cardiovascular History: mitral regurgitation Respiratory History: Reports: Intubation, Previous, PE, Pneumonia, Recurrent, Sleep Apnea, Other (See Below) 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 2L Gastrointestinal History: Reports: GERD [employer] History: Reports: Musculoskeletal History: Reports: Arthritis, Fracture Other Musculoskeletal History: left arm Other Psychiatric History: insomnia Endocrine/Metabolic History: Reports: Obesity/BMI 30+ Oncologic (Cancer) History: Reports: Breast Dermatologic History: Reports: Other (See Below) Other Dermatologic History: reddness lower L leg - Infectious Disease History Infectious Disease History: Reports: Chicken Pox, Measles, Mumps - Past Surgical History Musculoskeletal Surgical History: Reports: Knee Replacement Other Musculoskeletal Surgeries/Procedures:: right and left Oncologic Surgical History: Reports: Mastectomy Other Oncologic Surgeries/Procedures: right Social & Family History - Family History Cardiac: Reports: CAD - Tobacco Use Smoking Status *Q: Never Smoker - Caffeine Use Caffeine Use: Reports: Coffee Other Caffeine Use: regular coffee in a.m. - one cup - Recreational Drug Use Recreational Drug Use: No ED ROS GENERAL - Review of Systems Review Of Systems: See Below (Rhythm) Constitutional: Reports: Fever, Weakness HEENT: Reports: No Symptoms Respiratory: Reports: Shortness of Breath, Cough Cardiovascular: Reports: Dyspnea on Exertion GI/Abdominal: Reports: No Symptoms : Reports: No Symptoms Musculoskeletal: Reports: No Symptoms Skin: Reports: No Symptoms Neurological: Reports: No Symptoms ED EXAM, GENERAL - Physical Exam Exam: See Below Free Text/Narrative:: General: Obese female, not in any distress, alert and oriented x3 HEENT: head is atraumatic normocephalic, eyes pupils equal round reactive to light, sclera clear no conjunctivitis appreciated. Ears right tympanic membranes clear and oh left tympanic memory blocked by cerumen. Nose no septal deviation, nares are clear, no blood present. Mouth mucosa is dry and pink no erythema or exudate noted in soft palate, tongue is midline uvula is midline, dentition is intact. Neck: Supple no thyromegaly no tracheal deviation. Nodes: Cervical nodes subclavicular nodes nontender no palpable lymphadenopathy noted. Lungs: clear to auscultation bilaterally with symmetrical respirations, no adventitious noise appreciated. CV: Regular rate and rhythm S1 and S2 appreciated no murmurs rubs or gallops noted. Abdomen: Soft, obese, nontender, no palpable masses or organomegaly appreciated , no distention no guarding bowel sounds are present, [scars ]. Neuro: Cranial nerves II through XII grossly intact Skin: Warm and dry, intact Extremities: Marked edema lower extremities +4, pedal pulse is +2. Course - Vital Signs Last Recorded V/S: Last Vital Signs Temp 96.7 F 11/14/17 09:25 Pulse 73 11/14/17 09:25 Resp 20 11/14/17 09:25 BP 106/63 11/14/17 09:25 Pulse Ox 97 11/14/17 09:25 - Orders/Labs/Meds Orders: Active Orders 24 hr Category Date Time Status Cardiac Monitoring [RC] .As Directed Care 11/14/17 09:45 Active EKG Documentation Completion [RC] ASDIRECTED Care 11/14/17 09:47 Active Peripheral IV Care [RC] . DIRECTED Care 11/14/17 09:46 Active CLOSTRIDIUM DIFFICILE BY PCR [RM] Stat Lab 11/14/17 11:52 Ordered CULTURE STOOL + SHIGATOX [RM] Stat Lab 11/14/17 11:52 Ordered WBC, STOOL [OP] Stat Lab 11/14/17 11:52 Ordered Lactated Ringers [Ringers, Lactated] 1,000 ml Med 11/14/17 11:59 Ordered IV BOLUS Sodium Chloride 0.9% [Saline Flush] Med 11/14/17 09:45 Active 10 ml FLUSH ASDIRECTED PRN Peripheral IV Insertion Adult [OM.PC] Stat Oth 11/14/17 09:45 Ordered Saline Lock Insert [OM.PC] Stat Oth 11/14/17 09:45 Ordered EKG 12 Lead [EK] Stat Ther 11/14/17 09:47 Ordered Medication Orders Lactated Ringer's (Ringers, Lactated) 1,000 mls @ 999 mls/hr IV BOLUS ONE Stop: 11/14/17 12:59 Sodium Chloride (Saline Flush) 10 ml FLUSH ASDIRECTED PRN PRN Reason: Keep Vein Open Last Admin: 11/14/17 09:55 Dose: 10 ml Labs: Laboratory Tests 11/14/17 11/14/17 11/14/17 Range/Units 09:55 09:55 09:55 WBC 24.4 H (4.5-11.0) K/uL RBC 3.81 (3.30-5.50) M/uL Hgb 10.9 L (12.0-15.0) g/dL Hct 34.6 L (36.0-48.0) % MCV 91 (80-98) fL MCH 29 (27-31) pg MCHC 32 (32-36) % Plt Count 177 (150-400) K/uL Add Manual Diff Yes Neutrophils % (Manual) 83 H (36-66) % Band Neutrophils % 12 H (5-11) % Lymphocytes % (Manual) 3 L (24-44) % Monocytes % (Manual) 2 (2-6) % Puncture Site Lt radial ABG pH 7.399 (7.350-7.450) ABG pCO2 34.1 L (35.0-42.0) mmHg ABG pO2 79.3 (75.0-100.0) mmHg ABG HCO3 20.6 L (22.0-26.0) mmol/L ABG Total CO2 19.1 L (21.0-25.0) mmol/L ABG O2 Saturation 95.4 (95.0-98.0) % ABG O2 Content 13.8 L (15.0-23.0) %vol ABG Base Excess -3.1 mm/L ABG Hemoglobin 10.5 L (12.0-16.0) g/dL ABG Oxyhemoglobin 93.4 % ABG Carboxyhemoglobin 1.4 (0.0-1.6) % ABG Methemoglobin 0.7 % Wilson Test Pass O2 Delivery Device Nasal cannula Oxygen Flow Rate L Sodium 132 L (140-148) mmol/L Potassium 4.8 (3.6-5.2) mmol/L Chloride 99 L (100-108) mmol/L Carbon Dioxide 25 (21-32) mmol/L Anion Gap 12.8 (5.0-14.0) mmol/L BUN 37 H (7-18) mg/dL Creatinine 3.0 H D (0.6-1.0) mg/dL Est Cr Clr Drug Dosing 13.01 mL/min Estimated GFR (MDRD) 15 L (>60) Glucose 116 H (74-106) mg/dL Lactic Acid (0.4-2.0) mmol/L Calcium 8.7 (8.5-10.1) mg/dL Total Bilirubin 1.7 H D (0.2-1.0) mg/dL AST 28 (15-37) U/L ALT 17 (12-78) U/L Alkaline Phosphatase 88 (46-116) U/L Troponin I 0.045 (0.000-0.056) ng/mL NT-Pro-B Natriuret Pep 10926 H (5-450) pg/mL Total Protein 7.2 (6.4-8.2) g/dL Albumin 3.0 L (3.4-5.0) g/dL Globulin 4.2 H (2.3-3.5) g/dL Albumin/Globulin Ratio 0.7 L (1.2-2.2) Urine Color Urine Appearance Urine pH (4.5-8.0) Ur Specific Perkins (1.008-1.030) Urine Protein (NEGATIVE) mg/dL Urine Glucose (UA) (NEGATIVE) mg/dL Urine Ketones (NEGATIVE) mg/dL Urine Occult Blood (NEGATIVE) Urine Nitrite (NEGATIVE) Urine Bilirubin (NEGATIVE) Urine Urobilinogen (NORMAL) mg/dL Ur Leukocyte Esterase (NEGATIVE) Urine RBC (0-5) Urine WBC (0-5) Ur Epithelial Cells Amorphous Sediment Urine Bacteria Urine Mucus 11/14/17 11/14/17 Range/Units 09:55 11:29 WBC (4.5-11.0) K/uL RBC (3.30-5.50) M/uL Hgb (12.0-15.0) g/dL Hct (36.0-48.0) % MCV (80-98) fL MCH (27-31) pg MCHC (32-36) % Plt Count (150-400) K/uL Add Manual Diff Neutrophils % (Manual) (36-66) % Band Neutrophils % (5-11) % Lymphocytes % (Manual) (24-44) % Monocytes % (Manual) (2-6) % Puncture Site ABG pH (7.350-7.450) ABG pCO2 (35.0-42.0) mmHg ABG pO2 (75.0-100.0) mmHg ABG HCO3 (22.0-26.0) mmol/L ABG Total CO2 (21.0-25.0) mmol/L ABG O2 Saturation (95.0-98.0) % ABG O2 Content (15.0-23.0) %vol ABG Base Excess mm/L ABG Hemoglobin (12.0-16.0) g/dL ABG Oxyhemoglobin % ABG Carboxyhemoglobin (0.0-1.6) % ABG Methemoglobin % Wilson Test O2 Delivery Device Oxygen Flow Rate L Sodium (140-148) mmol/L Potassium (3.6-5.2) mmol/L Chloride (100-108) mmol/L Carbon Dioxide (21-32) mmol/L Anion Gap (5.0-14.0) mmol/L BUN (7-18) mg/dL Creatinine (0.6-1.0) mg/dL Est Cr Clr Drug Dosing mL/min Estimated GFR (MDRD) (>60) Glucose (74-106) mg/dL Lactic Acid 1.8 (0.4-2.0) mmol/L Calcium (8.5-10.1) mg/dL Total Bilirubin (0.2-1.0) mg/dL AST (15-37) U/L ALT (12-78) U/L Alkaline Phosphatase (46-116) U/L Troponin I (0.000-0.056) ng/mL NT-Pro-B Natriuret Pep (5-450) pg/mL Total Protein (6.4-8.2) g/dL Albumin (3.4-5.0) g/dL Globulin (2.3-3.5) g/dL Albumin/Globulin Ratio (1.2-2.2) Urine Color Yellow Urine Appearance Turbid Urine pH 5.0 (4.5-8.0) Ur Specific [place] 1.020 (1.008-1.030) Urine Protein 500 H (NEGATIVE) mg/dL Urine Glucose (UA) Normal (NEGATIVE) mg/dL Urine Ketones Negative (NEGATIVE) mg/dL Urine Occult Blood Negative (NEGATIVE) Urine Nitrite Negative (NEGATIVE) Urine Bilirubin Small (NEGATIVE) Urine Urobilinogen 1 (NORMAL) mg/dL Ur Leukocyte Esterase Negative (NEGATIVE) Urine RBC Not seen (0-5) Urine WBC 0-5 (0-5) Ur Epithelial Cells Many Amorphous Sediment Many Urine Bacteria Many Urine Mucus Few Meds: Medications Generic Name Dose Route Start Last Admin Trade Name Freq PRN Reason Stop Dose Admin Lactated Ringer's 1,000 mls @ 999 mls/hr 11/14/17 11:59 Ringers, Lactated IV 11/14/17 12:59 BOLUS ONE Sodium Chloride 10 ml 11/14/17 09:45 11/14/17 09:55 Saline Flush FLUSH 10 ml ASDIRECTED PRN Administration Keep Vein Open Departure - Departure Time of Disposition: 12:07 Disposition: Admitted As Inpatient 66 Condition: Fair Clinical Impression: SOB (shortness of breath) - Discharge Information Referrals: Franc Skelton MD [Primary Care Provider] - Forms: ED Department Discharge - My Orders Last 24 Hours: My Active Orders 11/14/17 09:45 Cardiac Monitoring [RC] .As Directed Sodium Chloride 0.9% [Saline Flush] 10 ml FLUSH ASDIRECTED PRN Peripheral IV Insertion Adult [OM.PC] Stat Saline Lock Insert [OM.PC] Stat 11/14/17 09:46 Peripheral IV Care [RC] . DIRECTED 11/14/17 09:47 EKG Documentation Completion [RC] ASDIRECTED EKG 12 Lead [EK] Stat 11/14/17 11:52 CLOSTRIDIUM DIFFICILE BY PCR [RM] Stat CULTURE STOOL + SHIGATOX [RM] Stat WBC, STOOL [OP] Stat 11/14/17 11:59 Lactated Ringers [Ringers, Lactated] 1,000 ml IV BOLUS - Assessment/Plan Last 24 Hours: My Active Orders 11/14/17 09:45 Cardiac Monitoring [RC] .As Directed Sodium Chloride 0.9% [Saline Flush] 10 ml FLUSH ASDIRECTED PRN Peripheral IV Insertion Adult [OM.PC] Stat Saline Lock Insert [OM.PC] Stat 11/14/17 09:46 Peripheral IV Care [RC] . DIRECTED 11/14/17 09:47 EKG Documentation Completion [RC] ASDIRECTED EKG 12 Lead [EK] Stat 11/14/17 11:52 CLOSTRIDIUM DIFFICILE BY PCR [RM] Stat CULTURE STOOL + SHIGATOX [RM] Stat WBC, STOOL [OP] Stat 11/14/17 11:59 Lactated Ringers [Ringers, Lactated] 1,000 ml IV BOLUS Plan: Assessment Acuity = acute Site and laterality = shortness of breath with weight gain concern for exacerbation of congestive heart failure also new onset diarrhea of unclear etiology Etiology = unknown etiology Manifestations = none Location of injury = Home Lab values = WBC elevated at 24.4 consistent leukocytosis hemoglobin low at 10.9 consistent normochromic anemia ABG reveals pH 7.39 PCO2 34.1 and a bicarbonate of 20.6 sodium low at 132 consistent hyponatremia creatinine elevated 3.0 with a WN a 37 consistent with acute renal failure stage G for lactic acid normal at 1.8 total bilirubin elevated 1.7 consistent hyperbilirubinemia BNP elevated 20,000 158 consistent fluid overload type pattern albumin low at 3.0 consistent hypoalbuminemia urinalysis reveals many bacteria however no WBCs, EKG reveals atrial fibrillation, chest x-ray reveals pulmonary hypertension versus congestive heart failure type pattern Plan Called discussed case with hospitalist crown ironer he agreed to come and evaluate the patient emergency department for admission This note was dictated using [employer] voice recognition software please call with any questions on syntax or grammar.
--- NOTE | 2017-11-14 10:13 | CR ---
CHEST: Portable CLINICAL HISTORY:SOB COMPARISON:May FINDINGS: Heart is enlarged. Pulmonary vascularity is mildly cephalized. There is mild prominence in interstitial markings. No effusions are seen.. IMPRESSION: Cardiomegaly with pulmonary vascular cephalization may represent some pulmonary venous h ypertension and mild CHF
[2017-11-14] MEDS ORDERED: Lactated Ringers 1,000 ML IV ONE (11:59)
--- NOTE | 2017-11-14 12:35 | PCM.HP ---
H&P History of Present Illness - General Date of Service: 11/14/17 Admit Problem/Dx: Admission Diagnosis/Problem Admission Diagnosis/Problem Colitis Source of Information: Patient, Old Records, Provider, RN Notes Reviewed History Limitations: Reports: No Limitations - History of Present Illness Initial Comments - Free Text/Narative: Ms. Saleh is an 82-year-old woman who was admitted through the emergency department with weakness, diarrhea, and nausea secondary to colitis. She felt well until a few days ago when she developed progressive symptoms of weakness associated with profuse watery diarrhea, intermittent nausea with vomiting. On evaluation in the emergency department there is no evidence of urinary tract infection or pulmonary infection. White blood cell count is elevated and stool studies are pending. Her creatinine is elevated from baseline and she is felt to have dehydration with intravascular volume depletion. White blood cell count is also found to be elevated, she reports low-grade temperature elevation last night at home. - Related Data Allergies/Adverse Reactions: Allergies Allergy/AdvReac Type Severity Reaction Status Date / Time nickel Allergy Itching Verified 07/11/16 08:02 Sulfa (Sulfonamide Allergy Swelling Verified 07/11/16 08:02 Antibiotics) Home Medications: Home Meds Zolpidem [Ambien] 10 mg PO BEDTIME PRN 04/05/16 [History] Apixaban [Eliquis] 5 mg PO BID 05/03/16 [History] Ascorbic Acid 500 mg PO DAILY 05/03/16 [History] Cholecalciferol (Vitamin D3) [Vitamin D] 1,000 unit PO DAILY 05/03/16 [History] Garlic 1,000 mg PO DAILY 05/03/16 [History] Metoprolol Tartrate 12.5 mg PO BID 05/03/16 [History] [place]-3 Fatty Acids [Fish Oil] 1,000 mg PO DAILY 05/03/16 [History] Furosemide [Lasix] 80 mg PO DAILY 07/11/16 [History] Omeprazole 20 mg PO BEDTIME 07/11/16 [History] Potassium Chloride [Klor-Con 10] 30 meq PO BID 07/11/16 [History] metOLazone [Metolazone] 5 mg PO DAILY 01/28/17 [History] Spironolactone [Aldactone] 12.5 mg PO DAILY 06/23/17 [History] Past Medical History HEENT History: Reports: Impaired Vision, Other (See Below) Other HEENT History: sore throat Cardiovascular History: Reports: Afib, Blood Clots/VTE/DVT, Heart Failure, Hypertension, Other (See Below) Other Cardiovascular History: mitral regurgitation Respiratory History: Reports: Intubation, Previous, PE, Pneumonia, Recurrent, Sleep Apnea, Other (See Below) 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 2L Gastrointestinal History: Reports: [employer] History: Reports: Musculoskeletal History: Reports: Arthritis, Fracture Other Musculoskeletal History: left arm Other Psychiatric History: insomnia Endocrine/Metabolic History: Reports: Obesity/BMI 30+ Oncologic (Cancer) History: Reports: Breast Dermatologic History: Reports: Other (See Below) Other Dermatologic History: reddness lower L leg - Infectious Disease History Infectious Disease History: Reports: Chicken Pox, Measles, Mumps - Past Surgical History Musculoskeletal Surgical History: Reports: Knee Replacement Other Musculoskeletal Surgeries/Procedures:: right and left Oncologic Surgical History: Reports: Mastectomy Other Oncologic Surgeries/Procedures: right Social & Family History - Family History Cardiac: Reports: CAD - Tobacco Use Smoking Status *Q: Never Smoker - Caffeine Use Caffeine Use: Reports: Coffee Other Caffeine Use: regular coffee in a.m. - one cup - Recreational Drug Use Recreational Drug Use: No H&P Review of Systems - Review of Systems: Review Of Systems: See Below General: Reports: Fever, Chills, Weakness, Diaphoresis, Decreased Appetite HEENT: Reports: No Symptoms Pulmonary: Reports: No Symptoms Cardiovascular: Reports: Edema. Denies: Chest Pain, Palpitations, Dyspnea on Exertion, Orthopnea, PND, Lightheadedness Gastrointestinal: Reports: Diarrhea, Decreased Appetite, Nausea, Vomiting. Denies: Abdominal Pain, Black Stool, Bloody Stool, Difficulty Swallowing, Distension, Hematemesis Genitourinary: Reports: No Symptoms Musculoskeletal: Reports: No Symptoms Skin: Reports: No Symptoms Psychiatric: Reports: No Symptoms Neurological: Reports: No Symptoms Hematologic/Lymphatic: Reports: No Symptoms Immunologic: Reports: No Symptoms Exam - Exam Exam: See Below - Vital Signs Vital Signs: Last Vital Signs Temp 96.7 F 11/14/17 09:25 Pulse 73 11/14/17 09:25 Resp 20 11/14/17 09:25 BP 106/63 11/14/17 09:25 Pulse Ox 97 11/14/17 09:25 Weight: 250 lb - Exam Quality Assessment: DVT Prophylaxis General: Alert, Oriented, Mild Distress HEENT: Conjunctiva Clear, Hearing Intact, Normal Nasal Septum, Posterior Pharynx Clear, Pupils Equal. No: Mucosa Moist & [place] Neck: Supple, Trachea Midline, +2 Carotid Pulse wo Bruit Lungs: Clear to Auscultation, Normal Respiratory Effort Cardiovascular: Regular Rate, Normal S1, Normal S2, Irregular Rhythm. No: Systolic Murmur, Diastolic Murmur GI/Abdominal Exam: Soft, Non-Tender, No Organomegaly, No Distention Back Exam: Normal Inspection, Full Range of Motion Extremities: Non-Tender, Pedal Edema Skin: Warm, Dry Neurological: Cranial Nerves Intact, Strength Equal Bilateral, Normal Speech, Normal Tone, Sensation Intact. No: Focal Deficit Neuro Extensive - Mental Status: Alert, Oriented x3, Normal Mood/Affect, Normal Cognition, Memory Intact - Patient Data Lab Results Last 24 hrs: Laboratory Results - last 24 hr 11/14/17 11/14/17 11/14/17 Range/Units 09:55 09:55 09:55 WBC 24.4 H (4.5-11.0) K/uL RBC 3.81 (3.30-5.50) M/uL Hgb 10.9 L (12.0-15.0) g/dL Hct 34.6 L (36.0-48.0) % MCV 91 (80-98) fL MCH 29 (27-31) pg MCHC 32 (32-36) % Plt Count 177 (150-400) K/uL Add Manual Diff Yes Neutrophils % (Manual) 83 H (36-66) % Band Neutrophils % 12 H (5-11) % Lymphocytes % (Manual) 3 L (24-44) % Monocytes % (Manual) 2 (2-6) % Puncture Site Lt radial ABG pH 7.399 (7.350-7.450) ABG pCO2 34.1 L (35.0-42.0) mmHg ABG pO2 79.3 (75.0-100.0) mmHg ABG HCO3 20.6 L (22.0-26.0) mmol/L ABG Total CO2 19.1 L (21.0-25.0) mmol/L ABG O2 Saturation 95.4 (95.0-98.0) % ABG O2 Content 13.8 L (15.0-23.0) %vol ABG Base Excess -3.1 mm/L ABG Hemoglobin 10.5 L (12.0-16.0) g/dL ABG Oxyhemoglobin 93.4 % ABG Carboxyhemoglobin 1.4 (0.0-1.6) % ABG Methemoglobin 0.7 % Wilson Test Pass O2 Delivery Device Nasal cannula Oxygen Flow Rate L Sodium 132 L (140-148) mmol/L Potassium 4.8 (3.6-5.2) mmol/L Chloride 99 L (100-108) mmol/L Carbon Dioxide 25 (21-32) mmol/L Anion Gap 12.8 (5.0-14.0) mmol/L BUN 37 H (7-18) mg/dL Creatinine 3.0 H D (0.6-1.0) mg/dL Est Cr Clr Drug Dosing 13.01 mL/min Estimated GFR (MDRD) 15 L (>60) Glucose 116 H (74-106) mg/dL Lactic Acid (0.4-2.0) mmol/L Calcium 8.7 (8.5-10.1) mg/dL Total Bilirubin 1.7 H D (0.2-1.0) mg/dL AST 28 (15-37) U/L ALT 17 (12-78) U/L Alkaline Phosphatase 88 (46-116) U/L Troponin I 0.045 (0.000-0.056) ng/mL NT-Pro-B Natriuret Pep 55941 H (5-450) pg/mL Total Protein 7.2 (6.4-8.2) g/dL Albumin 3.0 L (3.4-5.0) g/dL Globulin 4.2 H (2.3-3.5) g/dL Albumin/Globulin Ratio 0.7 L (1.2-2.2) Urine Color Urine Appearance Urine pH (4.5-8.0) Ur Specific Lexa (1.008-1.030) Urine Protein (NEGATIVE) mg/dL Urine Glucose (UA) (NEGATIVE) mg/dL Urine Ketones (NEGATIVE) mg/dL Urine Occult Blood (NEGATIVE) Urine Nitrite (NEGATIVE) Urine Bilirubin (NEGATIVE) Urine Urobilinogen (NORMAL) mg/dL Ur Leukocyte Esterase (NEGATIVE) Urine RBC (0-5) Urine WBC (0-5) Ur Epithelial Cells Amorphous Sediment Urine Bacteria Urine Mucus 11/14/17 11/14/17 Range/Units 09:55 11:29 WBC (4.5-11.0) K/uL RBC (3.30-5.50) M/uL Hgb (12.0-15.0) g/dL Hct (36.0-48.0) % MCV (80-98) fL MCH (27-31) pg MCHC (32-36) % Plt Count (150-400) K/uL Add Manual Diff Neutrophils % (Manual) (36-66) % Band Neutrophils % (5-11) % Lymphocytes % (Manual) (24-44) % Monocytes % (Manual) (2-6) % Puncture Site ABG pH (7.350-7.450) ABG pCO2 (35.0-42.0) mmHg ABG pO2 (75.0-100.0) mmHg ABG HCO3 (22.0-26.0) mmol/L ABG Total CO2 (21.0-25.0) mmol/L ABG O2 Saturation (95.0-98.0) % ABG O2 Content (15.0-23.0) %vol ABG Base Excess mm/L ABG Hemoglobin (12.0-16.0) g/dL ABG Oxyhemoglobin % ABG Carboxyhemoglobin (0.0-1.6) % ABG Methemoglobin % Wilson Test O2 Delivery Device Oxygen Flow Rate L Sodium (140-148) mmol/L Potassium (3.6-5.2) mmol/L Chloride (100-108) mmol/L Carbon Dioxide (21-32) mmol/L Anion Gap (5.0-14.0) mmol/L BUN (7-18) mg/dL Creatinine (0.6-1.0) mg/dL Est Cr Clr Drug Dosing mL/min Estimated GFR (MDRD) (>60) Glucose (74-106) mg/dL Lactic Acid 1.8 (0.4-2.0) mmol/L Calcium (8.5-10.1) mg/dL Total Bilirubin (0.2-1.0) mg/dL AST (15-37) U/L ALT (12-78) U/L Alkaline Phosphatase (46-116) U/L Troponin I (0.000-0.056) ng/mL NT-Pro-B Natriuret Pep (5-450) pg/mL Total Protein (6.4-8.2) g/dL Albumin (3.4-5.0) g/dL Globulin (2.3-3.5) g/dL Albumin/Globulin Ratio (1.2-2.2) Urine Color Yellow Urine Appearance Turbid Urine pH 5.0 (4.5-8.0) Ur Specific Lexa 1.020 (1.008-1.030) Urine Protein 500 H (NEGATIVE) mg/dL Urine Glucose (UA) Normal (NEGATIVE) mg/dL Urine Ketones Negative (NEGATIVE) mg/dL Urine Occult Blood Negative (NEGATIVE) Urine Nitrite Negative (NEGATIVE) Urine Bilirubin Small (NEGATIVE) Urine Urobilinogen 1 (NORMAL) mg/dL Ur Leukocyte Esterase Negative (NEGATIVE) Urine RBC Not seen (0-5) Urine WBC 0-5 (0-5) Ur Epithelial Cells Many Amorphous Sediment Many Urine Bacteria Many Urine Mucus Few Result Diagrams: 11/14/17 09:55 11/14/17 09:55 [place] Results Last 24 hrs: Microbiology 11/14/17 11:53 Stool for WBCs - Final Stool / Feces *Q Meaningful Use (ADM) - VTE *Q VTE Pharmacological Contraindications *Q: High INR Value - VTE Risk Assess *Q Each Risk Factor Represents 1 Point: Swollen Legs, Current, Obesity ( BMI > 25 kg/m2) Total Score 1 Point Risk Factors: 2 Each Risk Factor Represents 2 Points: None Total Score 2 Point Risk Factors: 0 Each Risk Factor Represents 3 Points: Age 75 Years or Greater Total Score 3 Point Risk Factors: 3 Each Risk Factor Represents 5 Points: None Total Score 5 Point Risk Factors: 0 Venous Thromboembolism Risk Factor Score *Q: 5 Problem List Initiated/Reviewed/Updated: Yes Orders Last 24hrs: Active Orders 24 hr Category Date Time Status Patient Status Manage Transfer [TRANSFER] Routine ADT 11/14/17 12:27 Active Cardiac Monitoring [RC] .As Directed Care 11/14/17 09:45 Active EKG Documentation Completion [RC] ASDIRECTED Care 11/14/17 09:47 Active Peripheral IV Care [RC] . DIRECTED Care 11/14/17 09:46 Active CLOSTRIDIUM DIFFICILE BY PCR [] Stat Lab 11/14/17 11:53 Received CULTURE STOOL + SHIGATOX [RM] Stat Lab 11/14/17 11:53 Received Ciprofloxacin in D5W [Cipro in D5W 400 MG/200 ML] 400 Med 11/14/17 13:00 Active mg Premix Bag 1 bag IV Q12H Lactated Ringers [Ringers, Lactated] 1,000 ml Med 11/14/17 11:59 Active IV BOLUS Sodium Chloride 0.9% [Saline Flush] Med 11/14/17 09:45 Active 10 ml FLUSH ASDIRECTED PRN metroNIDAZOLE/Normal Saline [Flagyl 500 MG in NS 100 ML Med 11/14/17 14:00 Active ] 500 mg Premix Bag 1 bag IV Q8HR Peripheral IV Insertion Adult [OM.PC] Stat Oth 11/14/17 09:45 Ordered Saline Lock Insert [OM.PC] Stat Oth 11/14/17 09:45 Ordered Resuscitation Status Routine Resus Stat 11/14/17 12:29 Ordered EKG 12 Lead [EK] Stat Ther 11/14/17 09:47 Ordered Medication Orders Lactated Ringer's (Ringers, Lactated) 1,000 mls @ 999 mls/hr IV BOLUS ONE Stop: 11/14/17 12:59 Last Admin: 11/14/17 12:14 Dose: 999 mls/hr Ciprofloxacin/Dextrose 400 mg/ (Premix) 200 mls @ 200 mls/hr IV Q12H [facility] Metronidazole 500 mg/ Premix 100 mls @ 100 mls/hr IV Q8HR [facility] Sodium Chloride (Saline Flush) 10 ml FLUSH ASDIRECTED PRN PRN Reason: Keep Vein Open Last Admin: 11/14/17 09:55 Dose: 10 ml Assessment/Plan Comment:: ASSESSMENT AND PLAN COLITIS-likely cause of current symptoms including diarrhea with associated dehydration, intermittent nausea and vomiting. She reports low-grade temperature elevation at home last night and on evaluation in the emergency department his found to have moderate leukocytosis. -IV fluids for hydration -Stool studies pending -IV ciprofloxacin and metronidazole ACUTE ON CHRONIC RENAL INSUFFICIENCY-at baseline has chronic kidney disease stage III, creatinine elevated from baseline, likely secondary to dehydration and intravascular volume depletion. -IV fluids for hydration -Closely monitor urine output -Reassess creatinine level in a.m. CHRONIC LYMPHEDEMA -Hold diuretic therapy until renal function stabilizes -IV diuretics when renal function returns to baseline ATRIAL FIBRILLATION WITH CONTROLLED VENTRICULAR RESPONSE -Continue outpatient management including chronic anticoagulation MAINTENANCE ISSUES -DVT prophylaxis; anticoagulation for atrial fibrillation should provide adequate DVT prophylaxis -GI prophylaxis; not indicated -Abdullahi catheter; not indicated -Nutrition; 2 g sodium diet -Nicotine dependence; not required CODE STATUS-FULL CODE ADMISSION STATUS-patient will be admitted to inpatient status, expect at least a 2 night hospital stay for evaluation and management of problems as outlined above. At the time of this admission I do not reasonably expected evaluation and management of this problem will require more than a 96 hour hospital stay. DISPOSITION-anticipate discharge to home after the hospital stay. PRIMARY CARE PROVIDER-Dr. Skelton
[2017-11-14] MEDS ORDERED: Ciprofloxacin in D5W 400 MG in Premix Bag 1 BAG IV SCH ×2 (13:00)
[2017-11-14] MEDS ORDERED: metroNIDAZOLE/Normal Saline 500 MG in Premix Bag 1 BAG IV SCH (14:00)
[2017-11-14] MEDS ORDERED: Ondansetron 4 MG/2 ML SDV IV PRN (14:22)
[2017-11-14] MEDS: Metoprolol Tartrate 25 MG Tab PO SCH (20:44)
[2017-11-14] MEDS: Apixaban 2.5 MG Tab PO SCH (20:44)
[2017-11-14] MEDS: Pantoprazole 40 MG Tab.CR PO SCH (20:45)
[2017-11-14] MEDS ORDERED: Apixaban 5 MG Tab PO SCH (21:00)
[2017-11-14] MEDS: metroNIDAZOLE/Normal Saline 500 MG in Premix Bag 1 BAG IV SCH (21:09)
[2017-11-14] MEDS: Acetaminophen 325 MG Tab PO PRN (22:15)
[2017-11-14] MEDS: Zolpidem 5 MG Tab PO PRN (22:16)
[2017-11-14] MEDS: Sodium Chloride 0.9% 1,000 ML IV SCH (23:15)
[2017-11-15] MEDS: metroNIDAZOLE/Normal Saline 500 MG in Premix Bag 1 BAG IV SCH ×3 (05:07→21:58)
[2017-11-15] MEDS: Metoprolol Tartrate 25 MG Tab PO SCH (11:36)
[2017-11-15] MEDS: Sodium Chloride 0.9% 1,000 ML IV SCH (11:46)
[2017-11-15] MEDS: Apixaban 2.5 MG Tab PO SCH ×2 (11:47→21:58)
[2017-11-15] MEDS ORDERED: Ciprofloxacin in D5W 400 MG in Premix Bag 1 BAG IV SCH ×2 (13:00)
[2017-11-15] MEDS ORDERED: Sodium Chloride 0.9% 1,000 ML IV SCH (14:30)
--- NOTE | 2017-11-15 14:55 | PCM.PN ---
- General Info Date of Service: 11/15/17 Subjective Update: Ms. Saleh has had poor urine output since admission yesterday despite IV fluids, there has been increase in creatinine. Yesterday with the resultant decrease in renal function. She is sleepy and very tired today. Diarrhea has improved significantly and she denies any nausea or vomiting. Functional Status: Reports: Tolerating Diet - Review of Systems General: Reports: Weakness. Denies: Fever, Chills Pulmonary: Reports: No Symptoms Cardiovascular: Reports: Edema. Denies: Chest Pain, Palpitations, Dyspnea on Exertion, Orthopnea, PND Gastrointestinal: Denies: Abdominal Pain, Decreased Appetite, Diarrhea, Difficulty Swallowing, Nausea, Vomiting - Patient Data Vitals - Most Recent: Last Vital Signs Temp 98.3 F 11/15/17 11:00 Pulse 78 11/15/17 11:00 Resp 20 11/15/17 11:00 BP 88/54 L 11/15/17 11:00 Pulse Ox 92 L 11/15/17 11:00 Weight - Most Recent: 250 lb I&O - Last 24 Hours: Intake & Output 11/14/17 11/15/17 11/15/17 22:59 06:59 14:59 Intake Total 464 540 Balance 464 540 Lab Results Last 24 Hours: Laboratory Results - last 24 hr 11/15/17 11/15/17 Range/Units 04:50 04:50 WBC 19.2 H (4.5-11.0) K/uL RBC 3.34 (3.30-5.50) M/uL Hgb 9.4 L (12.0-15.0) g/dL Hct 30.2 L (36.0-48.0) % MCV 90 (80-98) fL MCH 28 (27-31) pg MCHC 31 L (32-36) % Plt Count 152 (150-400) K/uL Neut % (Auto) 90 H (36-66) % Lymph % (Auto) 6 L (24-44) % [place] % (Auto) 4 (2-6) % Eos % (Auto) 0 L (2-4) % Baso % (Auto) 0 (0-1) % Sodium 134 L (140-148) mmol/L Potassium 4.3 (3.6-5.2) mmol/L Chloride 100 (100-108) mmol/L Carbon Dioxide 24 (21-32) mmol/L Anion Gap 14.3 H (5.0-14.0) mmol/L BUN 48 H (7-18) mg/dL Creatinine 3.7 H* (0.6-1.0) mg/dL Est Cr Clr Drug Dosing 10.55 mL/min Estimated GFR (MDRD) 12 L (>60) Glucose 94 (74-106) mg/dL Calcium 8.1 L (8.5-10.1) mg/dL Magnesium 1.9 (1.8-2.4) mg/dL [place] Results Last 24 Hours: Microbiology 11/14/17 11:53 Stool Culture - Preliminary Stool / Feces NORMAL ENTERIC LUCAS 1 DAY Shiga Toxin I - Final NEGATIVE FOR SHIGA TOXIN 1 Shiga Toxin II - Final NEGATIVE FOR SHIGA TOXIN 2 Clostridium difficile (PCR) - Final NEGATIVE CDIFF TOXIN 11/14/17 11:53 Stool for WBCs - Final Stool / Feces Med Orders - Current: Current Medications Acetaminophen (Tylenol) 650 mg PO Q4H PRN PRN Reason: Pain (Mild 1-3)/fever Last Admin: 11/14/17 22:15 Dose: 650 mg Apixaban (Eliquis) 2.5 mg PO BID [facility] Last Admin: 11/15/17 11:47 Dose: 2.5 mg Ciprofloxacin/Dextrose 400 mg/ (Premix) 200 mls @ 200 mls/hr IV Q24H [facility] Last Admin: 11/15/17 12:09 Dose: 200 mls/hr Metronidazole 500 mg/ Premix 100 mls @ 100 mls/hr IV Q8HR [facility] Last Admin: 11/15/17 14:06 Dose: 100 mls/hr Sodium Chloride (Normal Saline) 1,000 mls @ 75 mls/hr IV ASDIRECTED [facility] Ondansetron HCl (Zofran) 4 mg IV Q4H PRN PRN Reason: Nausea/Vomiting Oxycodone HCl (Oxycodone) 5 mg PO Q4H PRN PRN Reason: Pain (moderate 4-6) Pantoprazole Sodium (Protonix) 40 mg PO BEDTIME [facility] Last Admin: 11/14/17 20:45 Dose: 40 mg Sodium Chloride (Saline Flush) 10 ml FLUSH ASDIRECTED PRN PRN Reason: Keep Vein Open Zolpidem Tartrate (Ambien) 10 mg PO BEDTIME PRN PRN Reason: Sleep Last Admin: 11/14/17 22:16 Dose: 10 mg Discontinued Medications Lactated Ringer's (Ringers, Lactated) 1,000 mls @ 999 mls/hr IV BOLUS ONE Stop: 11/14/17 12:59 Last Admin: 11/14/17 12:14 Dose: 999 mls/hr Ciprofloxacin/Dextrose 400 mg/ (Premix) 200 mls @ 200 mls/hr IV Q12H [facility] Last Admin: 11/14/17 13:10 Dose: 200 mls/hr Metronidazole 500 mg/ Premix 100 mls @ 100 mls/hr IV Q8HR [facility] Last Admin: 11/14/17 13:12 Dose: 100 mls/hr Sodium Chloride (Normal Saline) 1,000 mls @ 125 mls/hr IV ASDIRECTED [facility] Last Admin: 11/15/17 11:46 Dose: 125 mls/hr Metoprolol Tartrate (Lopressor) 12.5 mg PO BID [facility] Last Admin: 11/15/17 11:36 Dose: Not Given Sodium Chloride (Saline Flush) 10 ml FLUSH ASDIRECTED PRN PRN Reason: Keep Vein Open Last Admin: 11/14/17 09:55 Dose: 10 ml - Exam Quality Assessment: Supplemental Oxygen, DVT Prophylaxis General: Alert, Oriented, Cooperative, Mild Distress Lungs: Clear to Auscultation, Normal Respiratory Effort Cardiovascular: Regular Rate, No Murmurs, Irregular Rhythm GI/Abdominal Exam: Soft, Non-Tender, No Organomegaly, No Distention Extremities: Non-Tender, Pedal Edema Skin: Warm, Dry - Problem List Review Problem List Initiated/Reviewed/Updated: Yes - My Orders Last 24 Hours: My Active Orders 11/14/17 14:22 Patient Status [ADT] Routine Ambulate [RC] QID Communication Order [RC] DAILY Height and Weight [RC] DAILY Intake and Output [RC] QSHIFT Notify Provider Vital Signs [RC] ASDIRECTED Oxygen Therapy [RC] PRN Peripheral IV Care [RC] Q12H Up With Assistance [RC] ASDIRECTED Up to Chair [RC] QID VTE/DVT Education [RC] Per Unit Routine Vital Signs [RC] Q4H OT Evaluation and Treatment [CONS] Routine PT Evaluation and Treatment [CONS] Routine Acetaminophen [Tylenol] 650 mg PO Q4H PRN Ondansetron [Zofran] 4 mg IV Q4H PRN Sodium Chloride 0.9% [Saline Flush] 10 ml FLUSH ASDIRECTED PRN Zolpidem [Ambien] 10 mg PO BEDTIME PRN oxyCODONE 5 mg PO Q4H PRN Peripheral IV Insertion Adult [OM.PC] Routine VTE Pharmacological Contraindications [AST] Per Unit Routine 11/14/17 21:00 Apixaban [Eliquis] 2.5 mg PO BID Pantoprazole [ProTONIX] 40 mg PO BEDTIME 11/14/17 22:00 metroNIDAZOLE/Normal Saline [Flagyl 500 MG in NS 100 ML] 500 mg Premix Bag 1 bag IV Q8HR 11/15/17 13:00 Ciprofloxacin in D5W [Cipro in D5W 400 MG/200 ML] 400 mg Premix Bag 1 bag IV Q24H 11/15/17 14:19 Urinary Catheter Assessment [RC] ASDIRECTED 11/15/17 14:30 Abdullaih Catheter Insertion [Insert Urinary Catheter] [OM.PC] Q24H Sodium Chloride 0.9% [Normal Saline] 1,000 ml IV ASDIRECTED 11/16/17 05:00 BASIC METABOLIC PANEL,BMP [CHEM] Timed CBC WITH AUTO DIFF [HEME] Timed - Plan Plan:: ASSESSMENT AND PLAN COLITIS-no significant nausea or diarrhea since admission, stool studies negative thus far. Tolerated low-sodium diet this morning without significant difficulty -IV fluids for hydration, decrease rate to 75 mL per hour -IV ciprofloxacin and metronidazole ACUTE ON CHRONIC RENAL INSUFFICIENCY-at baseline has chronic kidney disease stage III, creatinine elevated from baseline, likely secondary to dehydration and intravascular volume depletion. Further increase in creatinine over the past 24 hours, hopefully we'll see some stabilization by tomorrow and improved urine output. -IV fluids for hydration, decrease rate as above -Closely monitor urine output with Abdullahi catheter -Reassess creatinine level in a.m. CHRONIC LYMPHEDEMA -Hold diuretic therapy until renal function stabilizes -IV diuretics when renal function returns to baseline ATRIAL FIBRILLATION WITH CONTROLLED VENTRICULAR RESPONSE -Continue outpatient management including chronic anticoagulation MAINTENANCE ISSUES -DVT prophylaxis; anticoagulation for atrial fibrillation should provide adequate DVT prophylaxis -GI prophylaxis; not indicated -Abdullahi catheter; not indicated -Nutrition; 2 g sodium diet -Nicotine dependence; not required CODE STATUS-FULL CODE ADMISSION STATUS-patient will be admitted to inpatient status, expect at least a 2 night hospital stay for evaluation and management of problems as outlined above. At the time of this admission I do not reasonably expected evaluation and management of this problem will require more than a 96 hour hospital stay. DISPOSITION-anticipate discharge to home after the hospital stay. PRIMARY CARE PROVIDER-Dr. Skelton
[2017-11-15] MEDS: Pantoprazole 40 MG Tab.CR PO SCH (21:58)
[2017-11-15] MEDS: Zolpidem 5 MG Tab PO PRN (22:01)
[2017-11-16] MEDS: metroNIDAZOLE/Normal Saline 500 MG in Premix Bag 1 BAG IV SCH (06:15)
[2017-11-16] MEDS: Apixaban 2.5 MG Tab PO SCH ×2 (09:42→21:24)
[2017-11-16] MEDS ORDERED: Vancomycin 1 GM SDV IV SCH (13:00)
[2017-11-16] MEDS: Piperacillin/Tazobactam 2.25 GM in Sodium Chloride 0.9% 50 ML IV SCH ×2 (13:27→21:25)
[2017-11-16] MEDS: Lactobacillus Rhamnosus GG (Probiotic) Cap PO SCH ×2 (14:04→21:24)
--- NOTE | 2017-11-16 17:13 | PCM.PN ---
- General Info Date of Service: 11/16/17 Subjective Update: Ms. Saleh reported increased pain in her right lower extremity when seen this morning, on evaluation there is in erythema involving the calf and extending into the thigh consistent with a cellulitis. She has remained afebrile and her white blood cell count has shown further improvement over the last 24 hours. Renal function remains poor but has not worsened over the last 24 hours and her urine output does seem to be picking up Functional Status: Reports: Pain Controlled, Tolerating Diet - Review of Systems General: Reports: Weakness. Denies: Fever, Chills Pulmonary: Reports: No Symptoms Cardiovascular: Reports: No Symptoms Gastrointestinal: Reports: No Symptoms Musculoskeletal: Reports: Leg Pain - Patient Data Vitals - Most Recent: Last Vital Signs Temp 98.3 F 11/16/17 13:32 Pulse 82 11/16/17 13:32 Resp 18 11/16/17 13:32 BP 93/52 L 11/16/17 13:34 Pulse Ox 100 11/16/17 13:32 Weight - Most Recent: 250 lb I&O - Last 24 Hours: Intake & Output 11/16/17 11/16/17 11/16/17 06:59 14:59 22:59 Intake Total 1515 670 Output Total 495 Balance 1020 670 Lab Results Last 24 Hours: Laboratory Results - last 24 hr 11/16/17 11/16/17 Range/Units 06:00 06:00 WBC 14.6 H (4.5-11.0) K/uL RBC 3.51 (3.30-5.50) M/uL Hgb 9.9 L (12.0-15.0) g/dL Hct 31.5 L (36.0-48.0) % MCV 90 (80-98) fL MCH 28 (27-31) pg MCHC 31 L (32-36) % Plt Count 155 (150-400) K/uL Neut % (Auto) 87 H (36-66) % Lymph % (Auto) 7 L (24-44) % [place] % (Auto) 5 (2-6) % Eos % (Auto) 1 L (2-4) % Baso % (Auto) 0 (0-1) % Sodium 132 L (140-148) mmol/L Potassium 4.1 (3.6-5.2) mmol/L Chloride 100 (100-108) mmol/L Carbon Dioxide 23 (21-32) mmol/L Anion Gap 13.1 (5.0-14.0) mmol/L BUN 52 H (7-18) mg/dL Creatinine 3.8 H* (0.6-1.0) mg/dL Est Cr Clr Drug Dosing 10.27 mL/min Estimated GFR (MDRD) 11 L (>60) Glucose 144 H (74-106) mg/dL Calcium 8.3 L (8.5-10.1) mg/dL Med Orders - Current: Current Medications Acetaminophen (Tylenol) 650 mg PO Q4H PRN PRN Reason: Pain (Mild 1-3)/fever Last Admin: 11/14/17 22:15 Dose: 650 mg Apixaban (Eliquis) 2.5 mg PO BID [facility] Last Admin: 11/16/17 09:42 Dose: 2.5 mg Piperacillin Sod/Tazobactam (Sod 2.25 gm/ Sodium Chloride) 50 mls @ 100 mls/hr IV Q8H [facility] Last Admin: 11/16/17 13:27 Dose: 100 mls/hr Vancomycin HCl 1.5 gm/ Sodium (Chloride) 250 mls @ 167 mls/hr IV ONETIME ONE Stop: 11/16/17 17:29 Last Admin: 11/16/17 16:03 Dose: 167 mls/hr Lactobacillus Rhamnosus (Culturelle) 1 cap PO BID [facility] Last Admin: 11/16/17 14:04 Dose: 1 cap Ondansetron HCl (Zofran) 4 mg IV Q4H PRN PRN Reason: Nausea/Vomiting Oxycodone HCl (Oxycodone) 5 mg PO Q4H PRN PRN Reason: Pain (moderate 4-6) Pantoprazole Sodium (Protonix) 40 mg PO BEDTIME [facility] Last Admin: 11/15/17 21:58 Dose: 40 mg Sodium Chloride (Saline Flush) 10 ml FLUSH ASDIRECTED PRN PRN Reason: Keep Vein Open Zolpidem Tartrate (Ambien) 10 mg PO BEDTIME PRN PRN Reason: Sleep Last Admin: 11/15/17 22:01 Dose: 10 mg Discontinued Medications Lactated Ringer's (Ringers, Lactated) 1,000 mls @ 999 mls/hr IV BOLUS ONE Stop: 11/14/17 12:59 Last Admin: 11/14/17 12:14 Dose: 999 mls/hr Ciprofloxacin/Dextrose 400 mg/ (Premix) 200 mls @ 200 mls/hr IV Q12H [facility] Last Admin: 11/14/17 13:10 Dose: 200 mls/hr Metronidazole 500 mg/ Premix 100 mls @ 100 mls/hr IV Q8HR [facility] Last Admin: 11/14/17 13:12 Dose: 100 mls/hr Sodium Chloride (Normal Saline) 1,000 mls @ 125 mls/hr IV ASDIRECTED [facility] Last Admin: 11/15/17 11:46 Dose: 125 mls/hr Ciprofloxacin/Dextrose 400 mg/ (Premix) 200 mls @ 200 mls/hr IV Q24H [facility] Last Admin: 11/15/17 12:09 Dose: 200 mls/hr Metronidazole 500 mg/ Premix 100 mls @ 100 mls/hr IV Q8HR [facility] Last Admin: 11/16/17 06:15 Dose: 100 mls/hr Sodium Chloride (Normal Saline) 1,000 mls @ 75 mls/hr IV ASDIRECTED [facility] Last Admin: 11/15/17 21:58 Dose: 75 mls/hr Metoprolol Tartrate (Lopressor) 12.5 mg PO BID [facility] Last Admin: 11/15/17 11:36 Dose: Not Given Sodium Chloride (Saline Flush) 10 ml FLUSH ASDIRECTED PRN PRN Reason: Keep Vein Open Last Admin: 11/14/17 09:55 Dose: 10 ml - Exam Quality Assessment: Urine Catheter, DVT Prophylaxis General: Alert, Oriented, Cooperative, Mild Distress Lungs: Clear to Auscultation, Normal Respiratory Effort Cardiovascular: Regular Rate, Regular Rhythm, No Murmurs GI/Abdominal Exam: Soft, Non-Tender, No Organomegaly, No Distention Extremities: Pedal Edema, Increased Warmth Skin: Warm, Dry - Problem List Review Problem List Initiated/Reviewed/Updated: Yes - My Orders Last 24 Hours: My Active Orders 11/16/17 12:33 Convert IV to Saline Lock [OM.PC] Routine 11/16/17 13:30 Lactobacillus Rhamnosus GG [Culturelle] 1 cap PO BID 11/16/17 14:00 Piperacillin/Tazobactam [Zosyn] 2.25 gm Sodium Chloride 0.9% [Normal Saline] 50 ml IV Q8H 11/16/17 16:00 Vancomycin 1.5 gm Sodium Chloride 0.9% [Normal Saline] 250 ml IV ONETIME 11/17/17 05:00 BASIC METABOLIC PANEL,BMP [CHEM] Timed CBC WITH AUTO DIFF [HEME] Timed 11/18/17 13:00 VANCOMYCIN TROUGH [CHEM] Routine - Plan Plan:: ASSESSMENT AND PLAN COLITIS-essentially resolved with no further symptoms -Saline lock IV CELLULITIS RIGHT LEG-this has developed over the past 24 hours with significant erythema involving the calf and extending into the posterior thigh -Discontinue IV Flagyl and ciprofloxacin -IV vancomycin and Zosyn ACUTE ON CHRONIC RENAL INSUFFICIENCY-at baseline has chronic kidney disease stage III, creatinine level has plateaued over the past 24 hours and urine output improved. -Closely monitor urine output with Abdullahi catheter -Reassess creatinine level in a.m. CHRONIC LYMPHEDEMA -Hold diuretic therapy until renal function stabilizes -IV diuretics when renal function returns to baseline ATRIAL FIBRILLATION WITH CONTROLLED VENTRICULAR RESPONSE -Continue outpatient management including chronic anticoagulation MAINTENANCE ISSUES -DVT prophylaxis; anticoagulation for atrial fibrillation should provide adequate DVT prophylaxis -GI prophylaxis; not indicated -Abdullahi catheter; not indicated -Nutrition; 2 g sodium diet -Nicotine dependence; not required CODE STATUS-FULL CODE ADMISSION STATUS-patient will be admitted to inpatient status, expect at least a 2 night hospital stay for evaluation and management of problems as outlined above. At the time of this admission I do not reasonably expected evaluation and management of this problem will require more than a 96 hour hospital stay. DISPOSITION-anticipate discharge to home after the hospital stay. PRIMARY CARE PROVIDER-Dr. Skelton
[2017-11-16] MEDS: Pantoprazole 40 MG Tab.CR PO SCH (21:24)
[2017-11-16] MEDS: Zolpidem 5 MG Tab PO PRN (21:27)
[2017-11-17] MEDS: Acetaminophen 325 MG Tab PO PRN ×3 (00:04→23:53)
[2017-11-17] MEDS: Piperacillin/Tazobactam 2.25 GM in Sodium Chloride 0.9% 50 ML IV SCH ×3 (05:08→21:03)
[2017-11-17] MEDS: Lactobacillus Rhamnosus GG (Probiotic) Cap PO SCH ×2 (09:21→21:03)
[2017-11-17] MEDS: Apixaban 2.5 MG Tab PO SCH ×2 (09:22→21:03)
[2017-11-17] MEDS ORDERED: Furosemide 40 MG/4 ML VIAL IVPUSH ONE (12:31)
[2017-11-17] MEDS ORDERED: Potassium Chloride 20 MEQ Tab.ER PO ONE (12:33)
--- NOTE | 2017-11-17 12:37 | PCM.PN ---
- General Info Date of Service: 11/17/17 Subjective Update: Ms. Saleh has been stable since yesterday, right leg is less swollen and erythematous. Vital signs have been stable and she has remained afebrile. Renal function is showing some improvement in her white blood cell count is further improved from yesterday. Functional Status: Reports: Pain Controlled, Tolerating Diet - Review of Systems General: Reports: Weakness. Denies: Fever, Chills Pulmonary: Reports: No Symptoms Cardiovascular: Reports: No Symptoms Gastrointestinal: Reports: No Symptoms Musculoskeletal: Reports: Other (Erythema right lower leg, improved in the thigh ) - Patient Data Vitals - Most Recent: Last Vital Signs Temp 98.7 F 11/17/17 11:00 Pulse 91 11/17/17 11:00 Resp 20 11/17/17 11:00 BP 111/55 L 11/17/17 11:00 Pulse Ox 100 11/17/17 11:00 Weight - Most Recent: 250 lb I&O - Last 24 Hours: Intake & Output 11/16/17 11/17/17 11/17/17 22:59 06:59 14:59 Intake Total 740 600 600 Output Total 1000 1100 Balance -260 -500 600 Lab Results Last 24 Hours: Laboratory Results - last 24 hr 11/17/17 11/17/17 Range/Units 04:50 04:50 WBC 13.5 H (4.5-11.0) K/uL RBC 3.50 (3.30-5.50) M/uL Hgb 9.8 L (12.0-15.0) g/dL Hct 31.2 L (36.0-48.0) % MCV 89 (80-98) fL MCH 28 (27-31) pg MCHC 31 L (32-36) % Plt Count 159 (150-400) K/uL Neut % (Auto) 82 H (36-66) % Lymph % (Auto) 8 L (24-44) % [place] % (Auto) 8 H (2-6) % Eos % (Auto) 2 (2-4) % Baso % (Auto) 0 (0-1) % Sodium 131 L (140-148) mmol/L Potassium 3.7 (3.6-5.2) mmol/L Chloride 100 (100-108) mmol/L Carbon Dioxide 21 (21-32) mmol/L Anion Gap 13.7 (5.0-14.0) mmol/L BUN 46 H (7-18) mg/dL Creatinine 2.8 H (0.6-1.0) mg/dL Est Cr Clr Drug Dosing 13.94 mL/min Estimated GFR (MDRD) 16 L (>60) Glucose 155 H (74-106) mg/dL Calcium 8.2 L (8.5-10.1) mg/dL [place] Results Last 24 Hours: Microbiology 11/14/17 11:53 Stool Culture - Final Stool / Feces NORMAL ENTERIC LUCAS. NO SALMONELLA, SHIGELLA, CAMPYLOBACTER OR E.COLI O157 ISOLATED. Shiga Toxin I - Final NEGATIVE FOR SHIGA TOXIN 1 Shiga Toxin II - Final NEGATIVE FOR SHIGA TOXIN 2 Clostridium difficile (PCR) - Final NEGATIVE CDIFF TOXIN Med Orders - Current: Current Medications Acetaminophen (Tylenol) 650 mg PO Q4H PRN PRN Reason: Pain (Mild 1-3)/fever Last Admin: 11/17/17 00:04 Dose: 650 mg Apixaban (Eliquis) 2.5 mg PO BID [facility] Last Admin: 11/17/17 09:22 Dose: 2.5 mg Furosemide (Lasix) 80 mg IVPUSH NOW ONE Stop: 11/17/17 12:32 Furosemide (Lasix) 80 mg IVPUSH NOW ONE Stop: 11/18/17 07:01 Piperacillin Sod/Tazobactam (Sod 2.25 gm/ Sodium Chloride) 50 mls @ 100 mls/hr IV Q8H [facility] Last Admin: 11/17/17 05:08 Dose: 100 mls/hr Lactobacillus Rhamnosus (Culturelle) 1 cap PO BID [facility] Last Admin: 11/17/17 09:21 Dose: 1 cap Non-Formulary Medication (Metolazone [Metolazone]) 5 mg PO DAILY [facility] Ondansetron HCl (Zofran) 4 mg IV Q4H PRN PRN Reason: Nausea/Vomiting Oxycodone HCl (Oxycodone) 5 mg PO Q4H PRN PRN Reason: Pain (moderate 4-6) Pantoprazole Sodium (Protonix) 40 mg PO BEDTIME [facility] Last Admin: 11/16/17 21:24 Dose: 40 mg Potassium Chloride (Klor-Con M20) 40 meq PO ONETIME ONE Stop: 11/17/17 12:34 Sodium Chloride (Saline Flush) 10 ml FLUSH ASDIRECTED PRN PRN Reason: Keep Vein Open Zolpidem Tartrate (Ambien) 10 mg PO BEDTIME PRN PRN Reason: Sleep Last Admin: 11/16/17 21:27 Dose: 10 mg Discontinued Medications Lactated Ringer's (Ringers, Lactated) 1,000 mls @ 999 mls/hr IV BOLUS ONE Stop: 11/14/17 12:59 Last Admin: 11/14/17 12:14 Dose: 999 mls/hr Ciprofloxacin/Dextrose 400 mg/ (Premix) 200 mls @ 200 mls/hr IV Q12H [facility] Last Admin: 11/14/17 13:10 Dose: 200 mls/hr Metronidazole 500 mg/ Premix 100 mls @ 100 mls/hr IV Q8HR [facility] Last Admin: 11/14/17 13:12 Dose: 100 mls/hr Sodium Chloride (Normal Saline) 1,000 mls @ 125 mls/hr IV ASDIRECTED [facility] Last Admin: 11/15/17 11:46 Dose: 125 mls/hr Ciprofloxacin/Dextrose 400 mg/ (Premix) 200 mls @ 200 mls/hr IV Q24H [facility] Last Admin: 11/15/17 12:09 Dose: 200 mls/hr Metronidazole 500 mg/ Premix 100 mls @ 100 mls/hr IV Q8HR [facility] Last Admin: 11/16/17 06:15 Dose: 100 mls/hr Sodium Chloride (Normal Saline) 1,000 mls @ 75 mls/hr IV ASDIRECTED [facility] Last Admin: 11/15/17 21:58 Dose: 75 mls/hr Vancomycin HCl 1.5 gm/ Sodium (Chloride) 250 mls @ 167 mls/hr IV ONETIME ONE Stop: 11/16/17 17:29 Last Admin: 11/16/17 16:03 Dose: 167 mls/hr Metoprolol Tartrate (Lopressor) 12.5 mg PO BID [facility] Last Admin: 11/15/17 11:36 Dose: Not Given Sodium Chloride (Saline Flush) 10 ml FLUSH ASDIRECTED PRN PRN Reason: Keep Vein Open Last Admin: 11/14/17 09:55 Dose: 10 ml - Exam Quality Assessment: Supplemental Oxygen General: Alert, Oriented, Cooperative, Mild Distress Lungs: Clear to Auscultation, Normal Respiratory Effort Cardiovascular: Regular Rate, Regular Rhythm, No Murmurs GI/Abdominal Exam: Soft, Non-Tender, No Organomegaly, No Distention Extremities: Pedal Edema, Redness - Problem List Review Problem List Initiated/Reviewed/Updated: Yes - My Orders Last 24 Hours: My Active Orders 11/16/17 12:33 Convert IV to Saline Lock [OM.PC] Routine 11/16/17 13:30 Lactobacillus Rhamnosus GG [Culturelle] 1 cap PO BID 11/16/17 14:00 Piperacillin/Tazobactam [Zosyn] 2.25 gm Sodium Chloride 0.9% [Normal Saline] 50 ml IV Q8H 11/17/17 12:31 Furosemide [Lasix] 80 mg IVPUSH NOW ONE 11/17/17 12:33 Potassium Chloride [Klor-Con M20] 40 meq PO ONETIME ONE 11/18/17 05:00 BASIC METABOLIC PANEL,BMP [CHEM] Timed CBC WITH AUTO DIFF [HEME] Timed MAGNESIUM [CHEM] Timed 11/18/17 07:00 Furosemide [Lasix] 80 mg IVPUSH NOW ONE 11/18/17 09:00 metOLazone [Metolazone] 5 mg PO DAILY 11/18/17 13:00 VANCOMYCIN TROUGH [CHEM] Routine - Plan Plan:: ASSESSMENT AND PLAN COLITIS-essentially resolved with no further symptoms -Saline lock IV CELLULITIS RIGHT LEG-improved since yesterday with current management -IV vancomycin and Zosyn ACUTE ON CHRONIC RENAL INSUFFICIENCY-at baseline has chronic kidney disease stage III, renal function has improved since yesterday -Closely monitor urine output with Abdullahi catheter -Reassess creatinine level in a.m. CHRONIC LYMPHEDEMA -Furosemide 80 mg IV now and again in a.m. ATRIAL FIBRILLATION WITH CONTROLLED VENTRICULAR RESPONSE -Continue outpatient management including chronic anticoagulation MAINTENANCE ISSUES -DVT prophylaxis; anticoagulation for atrial fibrillation should provide adequate DVT prophylaxis -GI prophylaxis; not indicated -Abdullahi catheter; not indicated -Nutrition; 2 g sodium diet -Nicotine dependence; not required CODE STATUS-FULL CODE ADMISSION STATUS-patient will be admitted to inpatient status, expect at least a 2 night hospital stay for evaluation and management of problems as outlined above. At the time of this admission I do not reasonably expected evaluation and management of this problem will require more than a 96 hour hospital stay. DISPOSITION-anticipate discharge to home after the hospital stay. PRIMARY CARE PROVIDER-Dr. Skelton
--- NOTE | 2017-11-17 20:06 | PCM.SN ---
- Free Text/Narrative Note: Time: 20:00 call from 2 [facility] S/O: request Benadryl for sleep, Mrs. Saleh usually takes Benadryl for sleep. A: Insomnia P: Benadryl 50 mg at bedtime. continue present plan of care.
[2017-11-17] MEDS: diphenhydrAMINE 25 MG Cap PO PRN (21:02)
[2017-11-17] MEDS: Pantoprazole 40 MG Tab.CR PO SCH (21:03)
[2017-11-17] MEDS: Zolpidem 5 MG Tab PO PRN (21:09)
[2017-11-18] MEDS: Piperacillin/Tazobactam 2.25 GM in Sodium Chloride 0.9% 50 ML IV SCH ×2 (05:44→14:51)
[2017-11-18] MEDS ORDERED: Furosemide 40 MG/4 ML VIAL IVPUSH ONE (07:00)
[2017-11-18] MEDS: Apixaban 2.5 MG Tab PO SCH ×2 (08:55→20:23)
[2017-11-18] MEDS: Metolazone 2.5 MG Tab PO SCH (08:56)
[2017-11-18] MEDS: Lactobacillus Rhamnosus GG (Probiotic) Cap PO SCH ×2 (08:56→20:24)
[2017-11-18] MEDS: oxyCODONE 5 MG Tab PO PRN ×2 (08:56→19:44)
--- NOTE | 2017-11-18 13:01 | PCM.PN ---
- General Info Date of Service: 11/18/17 Subjective Update: Ms. Saleh has been fairly stable since yesterday and has experienced excellent diuresis thus far. Continues to have erythema and marked edema of the right lower extremity. Activity level seems to be improving with overall energy and she is been able to walk short distances. Functional Status: Reports: Pain Controlled, Tolerating Diet, Ambulating - Review of Systems General: Reports: Weakness. Denies: Fever, Chills Pulmonary: Reports: No Symptoms Cardiovascular: Reports: Dyspnea on Exertion, Edema. Denies: Chest Pain, Palpitations, Orthopnea, PND Gastrointestinal: Reports: No Symptoms - Patient Data Vitals - Most Recent: Last Vital Signs Temp 97.9 F 11/18/17 10:49 Pulse 100 11/18/17 10:49 Resp 18 11/18/17 10:49 BP 140/67 11/18/17 10:49 Pulse Ox 96 11/18/17 10:49 Weight - Most Recent: 250 lb I&O - Last 24 Hours: Intake & Output 11/17/17 11/18/17 11/18/17 22:59 06:59 14:59 Intake Total 480 240 240 Output Total 3000 1600 2200 Balance -8050 -1360 -1960 Lab Results Last 24 Hours: Laboratory Results - last 24 hr 11/18/17 11/18/17 Range/Units 04:39 04:39 WBC 10.7 (4.5-11.0) K/uL RBC 3.43 (3.30-5.50) M/uL Hgb 9.5 L (12.0-15.0) g/dL Hct 30.4 L (36.0-48.0) % MCV 89 (80-98) fL MCH 28 (27-31) pg MCHC 31 L (32-36) % Plt Count 158 (150-400) K/uL Neut % (Auto) 71 H (36-66) % Lymph % (Auto) 12 L (24-44) % [place] % (Auto) 14 H (2-6) % Eos % (Auto) 3 (2-4) % Baso % (Auto) 0 (0-1) % Sodium 139 L (140-148) mmol/L Potassium 3.7 (3.6-5.2) mmol/L Chloride 107 (100-108) mmol/L Carbon Dioxide 24 (21-32) mmol/L Anion Gap 11.7 (5.0-14.0) mmol/L BUN 38 H (7-18) mg/dL Creatinine 2.2 H (0.6-1.0) mg/dL Est Cr Clr Drug Dosing 17.74 mL/min Estimated GFR (MDRD) 21 L (>60) Glucose 124 H (74-106) mg/dL Calcium 8.1 L (8.5-10.1) mg/dL Magnesium 1.8 (1.8-2.4) mg/dL Med Orders - Current: Current Medications Acetaminophen (Tylenol) 650 mg PO Q4H PRN PRN Reason: Pain (Mild 1-3)/fever Last Admin: 11/17/17 23:53 Dose: 650 mg Apixaban (Eliquis) 2.5 mg PO BID [facility] Last Admin: 11/18/17 08:55 Dose: 2.5 mg Diphenhydramine HCl (Benadryl) 50 mg PO BEDTIME PRN PRN Reason: Itching Last Admin: 11/17/17 21:02 Dose: 50 mg Furosemide (Lasix) 60 mg IVPUSH Q12H [facility] Piperacillin Sod/Tazobactam (Sod 2.25 gm/ Sodium Chloride) 50 mls @ 100 mls/hr IV Q8H [facility] Last Admin: 11/18/17 05:44 Dose: 100 mls/hr Lactobacillus Rhamnosus (Culturelle) 1 cap PO BID [facility] Last Admin: 11/18/17 08:56 Dose: 1 cap Metolazone (Zaroxolyn) 5 mg PO DAILY [facility] Last Admin: 11/18/17 08:56 Dose: 5 mg Ondansetron HCl (Zofran) 4 mg IV Q4H PRN PRN Reason: Nausea/Vomiting Oxycodone HCl (Oxycodone) 5 mg PO Q4H PRN PRN Reason: Pain (moderate 4-6) Last Admin: 11/18/17 08:56 Dose: 5 mg Pantoprazole Sodium (Protonix) 40 mg PO BEDTIME [facility] Last Admin: 11/17/17 21:03 Dose: 40 mg Potassium Chloride (Klor-Con M20) 40 meq PO ONETIME ONE Stop: 11/18/17 12:55 Sodium Chloride (Saline Flush) 10 ml FLUSH ASDIRECTED PRN PRN Reason: Keep Vein Open Zolpidem Tartrate (Ambien) 10 mg PO BEDTIME PRN PRN Reason: Sleep Last Admin: 11/17/17 21:09 Dose: 10 mg Discontinued Medications Furosemide (Lasix) 80 mg IVPUSH NOW ONE Stop: 11/17/17 12:32 Last Admin: 11/17/17 12:55 Dose: 80 mg Furosemide (Lasix) 80 mg IVPUSH NOW ONE Stop: 11/18/17 07:01 Last Admin: 11/18/17 07:14 Dose: 80 mg Lactated Ringer's (Ringers, Lactated) 1,000 mls @ 999 mls/hr IV BOLUS ONE Stop: 11/14/17 12:59 Last Admin: 11/14/17 12:14 Dose: 999 mls/hr Ciprofloxacin/Dextrose 400 mg/ (Premix) 200 mls @ 200 mls/hr IV Q12H [facility] Last Admin: 11/14/17 13:10 Dose: 200 mls/hr Metronidazole 500 mg/ Premix 100 mls @ 100 mls/hr IV Q8HR [facility] Last Admin: 11/14/17 13:12 Dose: 100 mls/hr Sodium Chloride (Normal Saline) 1,000 mls @ 125 mls/hr IV ASDIRECTED [facility] Last Admin: 11/15/17 11:46 Dose: 125 mls/hr Ciprofloxacin/Dextrose 400 mg/ (Premix) 200 mls @ 200 mls/hr IV Q24H [facility] Last Admin: 11/15/17 12:09 Dose: 200 mls/hr Metronidazole 500 mg/ Premix 100 mls @ 100 mls/hr IV Q8HR [facility] Last Admin: 11/16/17 06:15 Dose: 100 mls/hr Sodium Chloride (Normal Saline) 1,000 mls @ 75 mls/hr IV ASDIRECTED [facility] Last Admin: 11/15/17 21:58 Dose: 75 mls/hr Vancomycin HCl 1.5 gm/ Sodium (Chloride) 250 mls @ 167 mls/hr IV ONETIME ONE Stop: 11/16/17 17:29 Last Admin: 11/16/17 16:03 Dose: 167 mls/hr Metoprolol Tartrate (Lopressor) 12.5 mg PO BID [facility] Last Admin: 11/15/17 11:36 Dose: Not Given Potassium Chloride (Klor-Con M20) 40 meq PO ONETIME ONE Stop: 11/17/17 12:34 Last Admin: 11/17/17 12:54 Dose: 40 meq Sodium Chloride (Saline Flush) 10 ml FLUSH ASDIRECTED PRN PRN Reason: Keep Vein Open Last Admin: 11/14/17 09:55 Dose: 10 ml - Exam Quality Assessment: Urine Catheter, DVT Prophylaxis. No: Supplemental Oxygen General: Alert, Oriented, Cooperative, Mild Distress Lungs: Clear to Auscultation, Normal Respiratory Effort Cardiovascular: Regular Rate, No Murmurs, Irregular Rhythm GI/Abdominal Exam: Soft, Non-Tender, No Organomegaly, No Distention Extremities: Pedal Edema - Problem List Review Problem List Initiated/Reviewed/Updated: Yes - My Orders Last 24 Hours: My Active Orders 11/18/17 09:00 metOLazone [Zaroxolyn] 5 mg PO DAILY 11/18/17 12:54 Potassium Chloride [Klor-Con M20] 40 meq PO ONETIME ONE 11/18/17 13:00 VANCOMYCIN TROUGH [CHEM] Routine 11/18/17 19:00 Furosemide [Lasix] 60 mg IVPUSH Q12H 11/19/17 05:00 BASIC METABOLIC PANEL,BMP [CHEM] Timed - Plan Plan:: ASSESSMENT AND PLAN COLITIS-essentially resolved with no further symptoms -Saline lock IV CELLULITIS RIGHT LEG-improved since yesterday with current management -IV vancomycin -Discontinue IV Zosyn ACUTE ON CHRONIC RENAL INSUFFICIENCY-there improvement in renal function, excellent diuresis thus far -Closely monitor urine output with Abdullahi catheter -Reassess creatinine level in a.m. CHRONIC LYMPHEDEMA -Furosemide 60 mg IV every 12 hours ATRIAL FIBRILLATION WITH CONTROLLED VENTRICULAR RESPONSE -Continue outpatient management including chronic anticoagulation MAINTENANCE ISSUES -DVT prophylaxis; anticoagulation for atrial fibrillation should provide adequate DVT prophylaxis -GI prophylaxis; not indicated -Abdullahi catheter; not indicated -Nutrition; 2 g sodium diet -Nicotine dependence; not required CODE STATUS-FULL CODE ADMISSION STATUS-patient will be admitted to inpatient status, expect at least a 2 night hospital stay for evaluation and management of problems as outlined above. At the time of this admission I do not reasonably expected evaluation and management of this problem will require more than a 96 hour hospital stay. DISPOSITION-anticipate discharge to home after the hospital stay. PRIMARY CARE PROVIDER-Dr. Skelton
[2017-11-18] MEDS ORDERED: Potassium Chloride 20 MEQ Tab.ER PO ONE (13:30)
[2017-11-18] MEDS ORDERED: Furosemide 40 MG/4 ML VIAL IVPUSH SCH (19:00)
[2017-11-18] MEDS: Pantoprazole 40 MG Tab.CR PO SCH (20:24)
[2017-11-18] MEDS: Zolpidem 5 MG Tab PO PRN (20:24)
[2017-11-18] MEDS: oxyCODONE 5 MG Tab PO SCH (23:44)
[2017-11-19] MEDS: oxyCODONE 5 MG Tab PO SCH ×5 (04:03→19:26)
[2017-11-19] MEDS: Metolazone 2.5 MG Tab PO SCH (08:23)
[2017-11-19] MEDS: Apixaban 2.5 MG Tab PO SCH ×2 (08:23→20:15)
[2017-11-19] MEDS: Lactobacillus Rhamnosus GG (Probiotic) Cap PO SCH ×2 (08:23→20:15)
[2017-11-19] MEDS ORDERED: Lisinopril 10 MG Tab PO SCH (09:00)
[2017-11-19] MEDS ORDERED: Potassium Chloride 20 MEQ Tab.ER PO ONE ×2 (10:00→17:00)
[2017-11-19] MEDS: Potassium Chloride 20 MEQ, Lidocaine 1% 2 ML in Sodium Chloride 0.9% 100 ML IV SCH ×2 (10:09→12:19)
--- NOTE | 2017-11-19 11:20 | PCM.PN ---
- General Info Date of Service: 11/19/17 Subjective Update: Ms. Saleh has shown further improvement since yesterday, excellent diuresis with further improvement in renal function. Peripheral edema appears to be improved with wrinkling of the skin especially on the right lower extremity. Persistent erythema likely secondary to underlying infection. She did have significant pain last night but that's been better since narcotics have been scheduled for ongoing management of pain. Functional Status: Reports: Tolerating Diet - Review of Systems General: Reports: Weakness. Denies: Fever, Chills Pulmonary: Reports: No Symptoms Cardiovascular: Reports: Edema. Denies: Chest Pain, Palpitations, Dyspnea on Exertion, Orthopnea, PND, Lightheadedness Gastrointestinal: Reports: No Symptoms - Patient Data Vitals - Most Recent: Last Vital Signs Temp 99.3 F 11/19/17 07:00 Pulse 94 11/19/17 07:00 Resp 18 11/19/17 07:00 BP 121/74 11/19/17 07:00 Pulse Ox 96 11/19/17 07:00 Weight - Most Recent: 324 lb 6.4 oz I&O - Last 24 Hours: Intake & Output 11/18/17 11/19/17 11/19/17 22:59 06:59 14:59 Output Total 3000 3300 1700 Balance -3000 -3300 -1700 Lab Results Last 24 Hours: Laboratory Results - last 24 hr 11/18/17 11/19/17 Range/Units 13:04 05:46 Sodium 136 L (140-148) mmol/L Potassium 3.2 L (3.6-5.2) mmol/L Chloride 99 L (100-108) mmol/L Carbon Dioxide 29 (21-32) mmol/L Anion Gap 11.2 (5.0-14.0) mmol/L BUN 29 H (7-18) mg/dL Creatinine 1.8 H (0.6-1.0) mg/dL Est Cr Clr Drug Dosing 21.68 mL/min Estimated GFR (MDRD) 27 L (>60) Glucose 112 H (74-106) mg/dL Calcium 8.3 L (8.5-10.1) mg/dL Vancomycin Trough 5.0 L (10.0-20.0) ug/mL Med Orders - Current: Current Medications Acetaminophen (Tylenol) 650 mg PO Q4H PRN PRN Reason: Pain (Mild 1-3)/fever Last Admin: 11/17/17 23:53 Dose: 650 mg Apixaban (Eliquis) 2.5 mg PO BID [facility] Last Admin: 11/19/17 08:23 Dose: 2.5 mg Diphenhydramine HCl (Benadryl) 50 mg PO BEDTIME PRN PRN Reason: Itching Last Admin: 11/17/17 21:02 Dose: 50 mg Furosemide 20 mg/ Furosemide (40 mg) 60 mg IV Q12H [facility] Last Admin: 11/19/17 06:16 Dose: 60 mg Vancomycin HCl 1.5 gm/ Sodium (Chloride) 250 mls @ 167 mls/hr IV Q24H [facility] Last Admin: 11/18/17 15:00 Dose: 167 mls/hr Potassium Chloride 20 meq/Lidocaine HCl 2 ml/ Sodium Chloride 112 mls @ 56 mls/ hr IV Q2H [facility] Stop: 11/19/17 13:59 Last Admin: 11/19/17 10:09 Dose: 56 mls/hr Lactobacillus Rhamnosus (Culturelle) 1 cap PO BID [facility] Last Admin: 11/19/17 08:23 Dose: 1 cap Metolazone (Zaroxolyn) 5 mg PO DAILY [facility] Last Admin: 11/19/17 08:23 Dose: 5 mg Ondansetron HCl (Zofran) 4 mg IV Q4H PRN PRN Reason: Nausea/Vomiting Oxycodone HCl (Oxycodone) 5 mg PO Q4H [facility] Last Admin: 11/19/17 07:35 Dose: 5 mg Pantoprazole Sodium (Protonix) 40 mg PO BEDTIME [facility] Last Admin: 11/18/17 20:24 Dose: 40 mg Potassium Chloride (Klor-Con M20) 40 meq PO ONETIME ONE Stop: 11/19/17 17:01 Sodium Chloride (Saline Flush) 10 ml FLUSH ASDIRECTED PRN PRN Reason: Keep Vein Open Zolpidem Tartrate (Ambien) 10 mg PO BEDTIME PRN PRN Reason: Sleep Last Admin: 11/18/17 20:24 Dose: 10 mg Discontinued Medications Furosemide (Lasix) 80 mg IVPUSH NOW ONE Stop: 11/17/17 12:32 Last Admin: 11/17/17 12:55 Dose: 80 mg Furosemide (Lasix) 80 mg IVPUSH NOW ONE Stop: 11/18/17 07:01 Last Admin: 11/18/17 07:14 Dose: 80 mg Lactated Ringer's (Ringers, Lactated) 1,000 mls @ 999 mls/hr IV BOLUS ONE Stop: 11/14/17 12:59 Last Admin: 11/14/17 12:14 Dose: 999 mls/hr Ciprofloxacin/Dextrose 400 mg/ (Premix) 200 mls @ 200 mls/hr IV Q12H [facility] Last Admin: 11/14/17 13:10 Dose: 200 mls/hr Metronidazole 500 mg/ Premix 100 mls @ 100 mls/hr IV Q8HR [facility] Last Admin: 11/14/17 13:12 Dose: 100 mls/hr Sodium Chloride (Normal Saline) 1,000 mls @ 125 mls/hr IV ASDIRECTED [facility] Last Admin: 11/15/17 11:46 Dose: 125 mls/hr Ciprofloxacin/Dextrose 400 mg/ (Premix) 200 mls @ 200 mls/hr IV Q24H [facility] Last Admin: 11/15/17 12:09 Dose: 200 mls/hr Metronidazole 500 mg/ Premix 100 mls @ 100 mls/hr IV Q8HR [facility] Last Admin: 11/16/17 06:15 Dose: 100 mls/hr Sodium Chloride (Normal Saline) 1,000 mls @ 75 mls/hr IV ASDIRECTED [facility] Last Admin: 11/15/17 21:58 Dose: 75 mls/hr Piperacillin Sod/Tazobactam (Sod 2.25 gm/ Sodium Chloride) 50 mls @ 100 mls/hr IV Q8H [facility] Last Admin: 11/18/17 14:51 Dose: 100 mls/hr Vancomycin HCl 1.5 gm/ Sodium (Chloride) 250 mls @ 167 mls/hr IV ONETIME ONE Stop: 11/16/17 17:29 Last Admin: 11/16/17 16:03 Dose: 167 mls/hr Lisinopril (Prinivil) 10 mg PO BID [facility] Metoprolol Tartrate (Lopressor) 12.5 mg PO BID [facility] Last Admin: 11/15/17 11:36 Dose: Not Given Oxycodone HCl (Oxycodone) 5 mg PO Q4H PRN PRN Reason: Pain (moderate 4-6) Last Admin: 11/18/17 19:44 Dose: 5 mg Potassium Chloride (Klor-Con M20) 40 meq PO ONETIME ONE Stop: 11/17/17 12:34 Last Admin: 11/17/17 12:54 Dose: 40 meq Potassium Chloride (Klor-Con M20) 40 meq PO ONETIME ONE Stop: 11/18/17 13:31 Last Admin: 11/18/17 14:51 Dose: 40 meq Potassium Chloride (Klor-Con M20) 40 meq PO ONETIME ONE Stop: 11/19/17 10:01 Last Admin: 11/19/17 10:08 Dose: 40 meq Sodium Chloride (Saline Flush) 10 ml FLUSH ASDIRECTED PRN PRN Reason: Keep Vein Open Last Admin: 11/14/17 09:55 Dose: 10 ml - Exam Quality Assessment: DVT Prophylaxis General: Alert, Oriented, Cooperative, Mild Distress Lungs: Clear to Auscultation, Normal Respiratory Effort Cardiovascular: Regular Rate, Regular Rhythm, No Murmurs GI/Abdominal Exam: Soft, Non-Tender, No Organomegaly, No Distention Extremities: Pedal Edema - Problem List Review Problem List Initiated/Reviewed/Updated: Yes - My Orders Last 24 Hours: My Active Orders 11/18/17 15:00 Vancomycin 1.5 gm Sodium Chloride 0.9% [Normal Saline] 250 ml IV Q24H 11/18/17 18:30 Furosemide [Lasix] 60 mg IV Q12H 11/19/17 00:00 oxyCODONE 5 mg PO Q4H 11/19/17 10:00 Potassium Chloride 20 meq Lidocaine 1% [Xylocaine 1%] 2 ml Sodium Chloride 0.9 % [Normal Saline] 100 ml IV Q2H 11/19/17 17:00 Potassium Chloride [Klor-Con M20] 40 meq PO ONETIME ONE 11/20/17 05:00 BASIC METABOLIC PANEL,BMP [CHEM] Timed INR,PT,PROTHROMBIN TIME [COAG] Timed 11/20/17 14:30 VANCOMYCIN TROUGH [CHEM] Timed - Plan Plan:: ASSESSMENT AND PLAN COLITIS-essentially resolved with no further symptoms -Saline lock IV CELLULITIS RIGHT LEG-erythema in the right leg appears to be stable to modestly improved compared to yesterday, marked improvement in edema -IV vancomycin ACUTE ON CHRONIC RENAL INSUFFICIENCY- further improvement in renal function, excellent diuresis thus far -Closely monitor urine output with Abdullahi catheter -Reassess creatinine level in a.m. CHRONIC LYMPHEDEMA -Furosemide 60 mg IV every 12 hours ATRIAL FIBRILLATION WITH CONTROLLED VENTRICULAR RESPONSE -Continue outpatient management including chronic anticoagulation MAINTENANCE ISSUES -DVT prophylaxis; anticoagulation for atrial fibrillation should provide adequate DVT prophylaxis -GI prophylaxis; not indicated -Abdullahi catheter; not indicated -Nutrition; 2 g sodium diet -Nicotine dependence; not required CODE STATUS-FULL CODE ADMISSION STATUS-patient will be admitted to inpatient status, expect at least a 2 night hospital stay for evaluation and management of problems as outlined above. At the time of this admission I do not reasonably expected evaluation and management of this problem will require more than a 96 hour hospital stay. DISPOSITION-anticipate discharge to home after the hospital stay. PRIMARY CARE PROVIDER-Dr. Skelton
[2017-11-19] MEDS: Zolpidem 5 MG Tab PO PRN (20:15)
[2017-11-19] MEDS: Acetaminophen 325 MG Tab PO PRN (20:15)
[2017-11-19] MEDS: Pantoprazole 40 MG Tab.CR PO SCH (20:15)
[2017-11-20] MEDS: oxyCODONE 5 MG Tab PO SCH ×3 (00:17→08:21)
[2017-11-20] MEDS: diphenhydrAMINE 25 MG Cap PO PRN ×2 (05:32→21:17)
[2017-11-20] MEDS: Lactobacillus Rhamnosus GG (Probiotic) Cap PO SCH ×2 (08:21→20:57)
[2017-11-20] MEDS: Apixaban 2.5 MG Tab PO SCH ×2 (08:21→20:58)
[2017-11-20] MEDS: Metolazone 2.5 MG Tab PO SCH (08:22)
--- NOTE | 2017-11-20 11:41 | PCM.PN ---
- General Info Date of Service: 11/20/17 Subjective Update: Ms. Saleh has been stable since yesterday with further good diuresis. In general she reports that she is feeling better with less pain in her legs and improved energy level. Vital signs have been stable and she has remained afebrile. Functional Status: Reports: Tolerating Diet - Review of Systems General: Reports: Weakness. Denies: Fever, Chills Pulmonary: Reports: No Symptoms Cardiovascular: Reports: Edema. Denies: Chest Pain, Palpitations, Dyspnea on Exertion, Orthopnea, PND Gastrointestinal: Reports: No Symptoms - Patient Data Vitals - Most Recent: Last Vital Signs Temp 99.0 F 11/20/17 10:24 Pulse 110 H 11/20/17 10:24 Resp 18 11/20/17 10:24 BP 134/82 11/20/17 10:24 Pulse Ox 95 11/20/17 10:24 Weight - Most Recent: 316 lb 6.4 oz I&O - Last 24 Hours: Intake & Output 11/19/17 11/20/17 11/20/17 22:59 06:59 14:59 Intake Total 590 120 Output Total 1050 2700 1450 Balance -460 -2700 -1330 Lab Results Last 24 Hours: Laboratory Results - last 24 hr 11/20/17 11/20/17 Range/Units 04:20 04:20 PT 13.1 H (9.5-12.0) sec INR 1.20 (0.80-1.20) Sodium 135 L (140-148) mmol/L Potassium 3.2 L (3.6-5.2) mmol/L Chloride 96 L (100-108) mmol/L Carbon Dioxide 33 H (21-32) mmol/L Anion Gap 9.2 (5.0-14.0) mmol/L BUN 27 H (7-18) mg/dL Creatinine 1.7 H (0.6-1.0) mg/dL Est Cr Clr Drug Dosing 22.96 mL/min Estimated GFR (MDRD) 29 L (>60) Glucose 117 H (74-106) mg/dL Calcium 8.2 L (8.5-10.1) mg/dL Med Orders - Current: Current Medications Acetaminophen (Tylenol) 650 mg PO Q4H PRN PRN Reason: Pain (Mild 1-3)/fever Last Admin: 11/19/17 20:15 Dose: 650 mg Apixaban (Eliquis) 2.5 mg PO BID [facility] Last Admin: 11/20/17 08:21 Dose: 2.5 mg Diphenhydramine HCl (Benadryl) 50 mg PO BEDTIME PRN PRN Reason: Itching Last Admin: 11/20/17 05:32 Dose: 50 mg Furosemide 20 mg/ Furosemide (40 mg) 60 mg IV Q12H [facility] Last Admin: 11/20/17 05:34 Dose: 60 mg Vancomycin HCl 1.5 gm/ Sodium (Chloride) 250 mls @ 167 mls/hr IV Q24H [facility] Last Admin: 11/19/17 16:20 Dose: 167 mls/hr Lactobacillus Rhamnosus (Culturelle) 1 cap PO BID [facility] Last Admin: 11/20/17 08:21 Dose: 1 cap Metolazone (Zaroxolyn) 5 mg PO DAILY [facility] Last Admin: 11/20/17 08:22 Dose: 5 mg Ondansetron HCl (Zofran) 4 mg IV Q4H PRN PRN Reason: Nausea/Vomiting Oxycodone HCl (Oxycodone) 5 mg PO Q4H [facility] Last Admin: 11/20/17 08:21 Dose: 5 mg Pantoprazole Sodium (Protonix) 40 mg PO BEDTIME [facility] Last Admin: 11/19/17 20:15 Dose: 40 mg Potassium Chloride (Klor-Con M20) 40 meq PO Q6H [facility] Stop: 11/21/17 04:01 Sodium Chloride (Saline Flush) 10 ml FLUSH ASDIRECTED PRN PRN Reason: Keep Vein Open Zolpidem Tartrate (Ambien) 10 mg PO BEDTIME PRN PRN Reason: Sleep Last Admin: 11/19/17 20:15 Dose: 10 mg Discontinued Medications Furosemide (Lasix) 80 mg IVPUSH NOW ONE Stop: 11/17/17 12:32 Last Admin: 11/17/17 12:55 Dose: 80 mg Furosemide (Lasix) 80 mg IVPUSH NOW ONE Stop: 11/18/17 07:01 Last Admin: 11/18/17 07:14 Dose: 80 mg Lactated Ringer's (Ringers, Lactated) 1,000 mls @ 999 mls/hr IV BOLUS ONE Stop: 11/14/17 12:59 Last Admin: 11/14/17 12:14 Dose: 999 mls/hr Ciprofloxacin/Dextrose 400 mg/ (Premix) 200 mls @ 200 mls/hr IV Q12H [facility] Last Admin: 11/14/17 13:10 Dose: 200 mls/hr Metronidazole 500 mg/ Premix 100 mls @ 100 mls/hr IV Q8HR [facility] Last Admin: 11/14/17 13:12 Dose: 100 mls/hr Sodium Chloride (Normal Saline) 1,000 mls @ 125 mls/hr IV ASDIRECTED [facility] Last Admin: 11/15/17 11:46 Dose: 125 mls/hr Ciprofloxacin/Dextrose 400 mg/ (Premix) 200 mls @ 200 mls/hr IV Q24H [facility] Last Admin: 11/15/17 12:09 Dose: 200 mls/hr Metronidazole 500 mg/ Premix 100 mls @ 100 mls/hr IV Q8HR [facility] Last Admin: 11/16/17 06:15 Dose: 100 mls/hr Sodium Chloride (Normal Saline) 1,000 mls @ 75 mls/hr IV ASDIRECTED [facility] Last Admin: 11/15/17 21:58 Dose: 75 mls/hr Piperacillin Sod/Tazobactam (Sod 2.25 gm/ Sodium Chloride) 50 mls @ 100 mls/hr IV Q8H [facility] Last Admin: 11/18/17 14:51 Dose: 100 mls/hr Vancomycin HCl 1.5 gm/ Sodium (Chloride) 250 mls @ 167 mls/hr IV ONETIME ONE Stop: 11/16/17 17:29 Last Admin: 11/16/17 16:03 Dose: 167 mls/hr Potassium Chloride 20 meq/Lidocaine HCl 2 ml/ Sodium Chloride 112 mls @ 56 mls/ hr IV Q2H [facility] Stop: 11/19/17 13:59 Last Admin: 11/19/17 12:19 Dose: 56 mls/hr Lisinopril (Prinivil) 10 mg PO BID [facility] Metoprolol Tartrate (Lopressor) 12.5 mg PO BID [facility] Last Admin: 11/15/17 11:36 Dose: Not Given Oxycodone HCl (Oxycodone) 5 mg PO Q4H PRN PRN Reason: Pain (moderate 4-6) Last Admin: 11/18/17 19:44 Dose: 5 mg Potassium Chloride (Klor-Con M20) 40 meq PO ONETIME ONE Stop: 11/17/17 12:34 Last Admin: 11/17/17 12:54 Dose: 40 meq Potassium Chloride (Klor-Con M20) 40 meq PO ONETIME ONE Stop: 11/18/17 13:31 Last Admin: 11/18/17 14:51 Dose: 40 meq Potassium Chloride (Klor-Con M20) 40 meq PO ONETIME ONE Stop: 11/19/17 10:01 Last Admin: 11/19/17 10:08 Dose: 40 meq Potassium Chloride (Klor-Con M20) 40 meq PO ONETIME ONE Stop: 11/19/17 17:01 Last Admin: 11/19/17 17:51 Dose: 40 meq Sodium Chloride (Saline Flush) 10 ml FLUSH ASDIRECTED PRN PRN Reason: Keep Vein Open Last Admin: 11/14/17 09:55 Dose: 10 ml - Exam Quality Assessment: Urine Catheter, DVT Prophylaxis General: Alert, Oriented, Cooperative, No Acute Distress Lungs: Clear to Auscultation, Normal Respiratory Effort Cardiovascular: Regular Rate, No Murmurs, Irregular Rhythm GI/Abdominal Exam: Soft, Non-Tender, No Organomegaly, No Distention Extremities: Non-Tender, Pedal Edema - Problem List Review Problem List Initiated/Reviewed/Updated: Yes - My Orders Last 24 Hours: My Active Orders 11/20/17 10:00 Potassium Chloride [Klor-Con M20] 40 meq PO Q6H 11/20/17 14:30 VANCOMYCIN TROUGH [CHEM] Routine 11/21/17 05:00 BASIC METABOLIC PANEL,BMP [CHEM] Timed MAGNESIUM [CHEM] Timed - Plan Plan:: ASSESSMENT AND PLAN COLITIS-essentially resolved with no further symptoms -Saline lock IV CELLULITIS RIGHT LEG-further improvement in edema and erythema -Discontinue IV vancomycin -Cefazolin 1 g IV now, then 500 mg IV every 12 hours, based on current creatinine clearance ACUTE ON CHRONIC RENAL INSUFFICIENCY- further improvement in renal function, excellent diuresis thus far -Discontinue Abdullahi catheter -Reassess creatinine level in a.m. CHRONIC LYMPHEDEMA -Furosemide 40 mg IV every 12 hours ATRIAL FIBRILLATION WITH CONTROLLED VENTRICULAR RESPONSE -Continue outpatient management including chronic anticoagulation MAINTENANCE ISSUES -DVT prophylaxis; anticoagulation for atrial fibrillation should provide adequate DVT prophylaxis -GI prophylaxis; not indicated -Abdullahi catheter; not indicated -Nutrition; 2 g sodium diet -Nicotine dependence; not required CODE STATUS-FULL CODE ADMISSION STATUS-patient will be admitted to inpatient status, expect at least a 2 night hospital stay for evaluation and management of problems as outlined above. At the time of this admission I do not reasonably expected evaluation and management of this problem will require more than a 96 hour hospital stay. DISPOSITION-anticipate discharge to home after the hospital stay. PRIMARY CARE PROVIDER-Dr. Skelton
[2017-11-20] MEDS ORDERED: ceFAZolin 1 GM in Premix Bag 1 BAG IV ONE (12:00)
[2017-11-20] MEDS: Potassium Chloride 20 MEQ Tab.ER PO SCH ×3 (12:10→22:19)
[2017-11-20] MEDS: oxyCODONE 5 MG Tab PO PRN ×2 (12:10→21:12)
[2017-11-20] MEDS: Furosemide 40 MG/4 ML VIAL IV SCH (19:45)
[2017-11-20] MEDS: Pantoprazole 40 MG Tab.CR PO SCH (20:58)
[2017-11-20] MEDS: Zolpidem 5 MG Tab PO PRN (21:17)
[2017-11-21] MEDS: Potassium Chloride 20 MEQ Tab.ER PO SCH ×3 (05:10→20:10)
[2017-11-21] MEDS: Furosemide 40 MG/4 ML VIAL IV SCH ×2 (07:52→19:58)
[2017-11-21] MEDS: Lactobacillus Rhamnosus GG (Probiotic) Cap PO SCH ×2 (08:08→20:09)
[2017-11-21] MEDS: oxyCODONE 5 MG Tab PO PRN ×4 (08:08→22:02)
[2017-11-21] MEDS: Metolazone 2.5 MG Tab PO SCH (08:08)
[2017-11-21] MEDS: Apixaban 2.5 MG Tab PO SCH ×2 (08:08→20:10)
[2017-11-21] MEDS: Acetaminophen 325 MG Tab PO PRN (10:52)
[2017-11-21] MEDS: Magnesium Sulfate/Water 2 GM in Premix Bag 1 BAG IV SCH ×3 (12:17→22:39)
--- NOTE | 2017-11-21 12:22 | PCM.PN ---
- General Info Date of Service: 11/21/17 Functional Status: Reports: Pain Controlled - Review of Systems General: Reports: Weakness Pulmonary: Denies: Shortness of Breath Cardiovascular: Reports: Edema Gastrointestinal: Reports: Nausea Musculoskeletal: Reports: Leg Pain (right thigh) Systems Review Comment:: There were no acute events overnight. Patient reports nausea that started about 45 minutes ago but does not have abdominal pain or diarrhea. She reports that she hurts all over but when further questioned she says mostly it's her right medial thigh above the knee. She had another excellent day of diuresis yesterday. Lower extremity edema is improved but still significant. Kidney function slightly better again today. - Patient Data Vitals - Most Recent: Last Vital Signs Temp 37.0 C 11/21/17 07:52 Pulse 110 H 11/21/17 07:52 Resp 20 11/21/17 07:52 BP 119/91 H 11/21/17 07:52 Pulse Ox 93 L 11/21/17 07:52 Weight - Most Recent: 140.205 kg I&O - Last 24 Hours: Intake & Output 11/20/17 11/21/17 11/21/17 22:59 06:59 14:59 Intake Total 170 50 Balance 170 50 Lab Results Last 24 Hours: Laboratory Results - last 24 hr 11/20/17 11/21/17 Range/Units 16:36 05:54 Sodium 135 L (140-148) mmol/L Potassium 3.2 L (3.6-5.2) mmol/L Chloride 94 L (100-108) mmol/L Carbon Dioxide 34 H (21-32) mmol/L Anion Gap 10.2 (5.0-14.0) mmol/L BUN 25 H (7-18) mg/dL Creatinine 1.6 H (0.6-1.0) mg/dL Est Cr Clr Drug Dosing 24.39 mL/min Estimated GFR (MDRD) 31 L (>60) Glucose 115 H (74-106) mg/dL Calcium 8.1 L (8.5-10.1) mg/dL Magnesium 1.3 L (1.8-2.4) mg/dL Vancomycin Trough 15.3 (10.0-20.0) ug/mL Med Orders - Current: Current Medications Acetaminophen (Tylenol) 650 mg PO Q4H PRN PRN Reason: Pain (Mild 1-3)/fever Last Admin: 11/21/17 10:52 Dose: 650 mg Apixaban (Eliquis) 2.5 mg PO BID [facility] Last Admin: 11/21/17 08:08 Dose: 2.5 mg Diphenhydramine HCl (Benadryl) 50 mg PO BEDTIME PRN PRN Reason: Itching Last Admin: 11/20/17 21:17 Dose: 50 mg Furosemide (Lasix) 40 mg IV Q12H [facility] Last Admin: 11/21/17 07:52 Dose: 40 mg Cefazolin Sodium 500 mg/ (Sodium Chloride) 50 mls @ 100 mls/hr IV Q12H [facility] Last Admin: 11/21/17 10:29 Dose: 100 mls/hr Magnesium Sulfate 2 gm/ Premix 50 mls @ 25 mls/hr IV Q6H [facility] Stop: 11/22/17 05:59 Last Admin: 11/21/17 12:17 Dose: 25 mls/hr Lactobacillus Rhamnosus (Culturelle) 1 cap PO BID [facility] Last Admin: 11/21/17 08:08 Dose: 1 cap Metolazone (Zaroxolyn) 5 mg PO DAILY [facility] Last Admin: 11/21/17 08:08 Dose: 5 mg Metoprolol Tartrate (Lopressor) 12.5 mg PO BID [facility] Ondansetron HCl (Zofran) 4 mg IV Q4H PRN PRN Reason: Nausea/Vomiting Oxycodone HCl (Oxycodone) 5 mg PO Q4H PRN PRN Reason: Pain Last Admin: 11/21/17 08:08 Dose: 5 mg Pantoprazole Sodium (Protonix) 40 mg PO BEDTIME [facility] Last Admin: 11/20/17 20:58 Dose: 40 mg Potassium Chloride (Klor-Con M20) 40 meq PO BID [facility] Last Admin: 11/21/17 10:36 Dose: 40 meq Sodium Chloride (Saline Flush) 10 ml FLUSH ASDIRECTED PRN PRN Reason: Keep Vein Open Zolpidem Tartrate (Ambien) 10 mg PO BEDTIME PRN PRN Reason: Sleep Last Admin: 11/20/17 21:17 Dose: 10 mg Discontinued Medications Furosemide (Lasix) 80 mg IVPUSH NOW ONE Stop: 11/17/17 12:32 Last Admin: 11/17/17 12:55 Dose: 80 mg Furosemide (Lasix) 80 mg IVPUSH NOW ONE Stop: 11/18/17 07:01 Last Admin: 11/18/17 07:14 Dose: 80 mg Furosemide 20 mg/ Furosemide (40 mg) 60 mg IV Q12H [facility] Last Admin: 11/20/17 05:34 Dose: 60 mg Lactated Ringer's (Ringers, Lactated) 1,000 mls @ 999 mls/hr IV BOLUS ONE Stop: 11/14/17 12:59 Last Admin: 11/14/17 12:14 Dose: 999 mls/hr Ciprofloxacin/Dextrose 400 mg/ (Premix) 200 mls @ 200 mls/hr IV Q12H [facility] Last Admin: 11/14/17 13:10 Dose: 200 mls/hr Metronidazole 500 mg/ Premix 100 mls @ 100 mls/hr IV Q8HR [facility] Last Admin: 11/14/17 13:12 Dose: 100 mls/hr Sodium Chloride (Normal Saline) 1,000 mls @ 125 mls/hr IV ASDIRECTED [facility] Last Admin: 11/15/17 11:46 Dose: 125 mls/hr Ciprofloxacin/Dextrose 400 mg/ (Premix) 200 mls @ 200 mls/hr IV Q24H [facility] Last Admin: 11/15/17 12:09 Dose: 200 mls/hr Metronidazole 500 mg/ Premix 100 mls @ 100 mls/hr IV Q8HR [facility] Last Admin: 11/16/17 06:15 Dose: 100 mls/hr Sodium Chloride (Normal Saline) 1,000 mls @ 75 mls/hr IV ASDIRECTED [facility] Last Admin: 11/15/17 21:58 Dose: 75 mls/hr Piperacillin Sod/Tazobactam (Sod 2.25 gm/ Sodium Chloride) 50 mls @ 100 mls/hr IV Q8H [facility] Last Admin: 11/18/17 14:51 Dose: 100 mls/hr Vancomycin HCl 1.5 gm/ Sodium (Chloride) 250 mls @ 167 mls/hr IV ONETIME ONE Stop: 11/16/17 17:29 Last Admin: 11/16/17 16:03 Dose: 167 mls/hr Vancomycin HCl 1.5 gm/ Sodium (Chloride) 250 mls @ 167 mls/hr IV Q24H [facility] Last Admin: 11/19/17 16:20 Dose: 167 mls/hr Potassium Chloride 20 meq/Lidocaine HCl 2 ml/ Sodium Chloride 112 mls @ 56 mls/ hr IV Q2H [facility] Stop: 11/19/17 13:59 Last Admin: 11/19/17 12:19 Dose: 56 mls/hr Cefazolin Sodium/Dextrose 1 gm (/ Premix) 50 mls @ 100 mls/hr IV ONETIME ONE Stop: 11/20/17 12:29 Last Admin: 11/20/17 12:11 Dose: 100 mls/hr Lisinopril (Prinivil) 10 mg PO BID [facility] Metoprolol Tartrate (Lopressor) 12.5 mg PO BID [facility] Last Admin: 11/15/17 11:36 Dose: Not Given Oxycodone HCl (Oxycodone) 5 mg PO Q4H PRN PRN Reason: Pain (moderate 4-6) Last Admin: 11/18/17 19:44 Dose: 5 mg Oxycodone HCl (Oxycodone) 5 mg PO Q4H [facility] Last Admin: 11/20/17 08:21 Dose: 5 mg Potassium Chloride (Klor-Con M20) 40 meq PO ONETIME ONE Stop: 11/17/17 12:34 Last Admin: 11/17/17 12:54 Dose: 40 meq Potassium Chloride (Klor-Con M20) 40 meq PO ONETIME ONE Stop: 11/18/17 13:31 Last Admin: 11/18/17 14:51 Dose: 40 meq Potassium Chloride (Klor-Con M20) 40 meq PO ONETIME ONE Stop: 11/19/17 10:01 Last Admin: 11/19/17 10:08 Dose: 40 meq Potassium Chloride (Klor-Con M20) 40 meq PO ONETIME ONE Stop: 11/19/17 17:01 Last Admin: 11/19/17 17:51 Dose: 40 meq Potassium Chloride (Klor-Con M20) 40 meq PO Q6H [facility] Stop: 11/21/17 04:01 Last Admin: 11/21/17 05:10 Dose: 40 meq Sodium Chloride (Saline Flush) 10 ml FLUSH ASDIRECTED PRN PRN Reason: Keep Vein Open Last Admin: 11/14/17 09:55 Dose: 10 ml - Exam Quality Assessment: Supplemental Oxygen General: Alert, Oriented, Cooperative, No Acute Distress Lungs: Clear to Auscultation, Normal Respiratory Effort Cardiovascular: Regular Rate, Regular Rhythm GI/Abdominal Exam: Soft, No Distention Extremities: Pedal Edema (pitting edema to the knee bilaterally and to the waist posteriorly ) Skin: Warm, Dry, Rash (erythema right lower leg below the knee ) Psy/Mental Status: Alert, Normal Affect - Problem List Review Problem List Initiated/Reviewed/Updated: Yes - My Orders Last 24 Hours: My Active Orders 11/21/17 09:00 Potassium Chloride [Klor-Con M20] 40 meq PO BID 11/21/17 10:00 Magnesium Sulfate/Water [Magnesium Sulfate 2 GM in Water 50 ML] 2 gm Premix Bag 1 bag IV Q6H 11/21/17 12:17 Dressing Change [Wound Care] [RC] DAILY 11/21/17 21:00 Metoprolol Tartrate [Lopressor] 12.5 mg PO BID - Plan Plan:: ASSESSMENT AND PLAN COLITIS - essentially resolved with no further symptoms. Etiology not entirely clear. -Saline lock IV CELLULITIS RIGHT LEG - ongoing improvement in both swelling and erythema. She is not having fevers. -Cefazolin 500 mg IV every 12 hours, based on current creatinine clearance Transitioned to oral antibiotics tomorrow- ACUTE ON CHRONIC RENAL INSUFFICIENCY - further improvement in kidney function and still responding well to diuretics. -Continue intake and output monitoring -Reassess creatinine level in a.m. CHRONIC LYMPHEDEMA - Slowly improving, should be able to transition to oral medications tomorrow -Furosemide 40 mg IV every 12 hours ATRIAL FIBRILLATION WITH CONTROLLED VENTRICULAR RESPONSE -Continue outpatient management including chronic anticoagulation MAINTENANCE ISSUES -DVT prophylaxis; anticoagulation for atrial fibrillation should provide adequate DVT prophylaxis -GI prophylaxis; not indicated -Abdullahi catheter; not indicated -Nutrition; 2 g sodium diet DISPOSITION - anticipate discharge to care home after the hospital stay. Bennie Javier M.D.
[2017-11-21] MEDS: Metoprolol Tartrate 25 MG Tab PO SCH (20:10)
[2017-11-21] MEDS: Pantoprazole 40 MG Tab.CR PO SCH (20:11)
[2017-11-22] MEDS: Magnesium Sulfate/Water 2 GM in Premix Bag 1 BAG IV SCH (03:35)
[2017-11-22] MEDS: oxyCODONE 5 MG Tab PO PRN ×2 (08:05→12:35)
[2017-11-22] MEDS: Furosemide 40 MG/4 ML VIAL IV SCH (08:08)
[2017-11-22] MEDS: Apixaban 2.5 MG Tab PO SCH (10:12)
[2017-11-22] MEDS: Lactobacillus Rhamnosus GG (Probiotic) Cap PO SCH (10:12)
[2017-11-22] MEDS: Metoprolol Tartrate 25 MG Tab PO SCH (10:13)
[2017-11-22] MEDS: Potassium Chloride 20 MEQ Tab.ER PO SCH (10:13)
[2017-11-22] MEDS: Metolazone 2.5 MG Tab PO SCH (10:16)
[2017-11-22 13:19] VITALS: BP 95/43
--- NOTE | 2017-11-22 13:59 | PCM.DCSUM1 ---
Discharge Summary - Hospital Course Brief History: 82 -year-old female with history of morbid obesity with a BMI greater than 50, chronic heart failure with preserved ejection fraction and chronic lymphedema who presented with diarrhea, weakness and lethargy. Workup in the emergency room suggested colitis with acute kidney injury and dehydration. She was admitted for further management. Diagnosis: Stroke: No - Discharge Data Discharge Date: 11/22/17 Discharge Disposition: DC/Tfer to [facility] 03 Condition: Good - Discharge Diagnosis/Problem(s) (1) Heart failure with preserved ejection fraction SNOMED Code(s): 59932477 ICD Code: I50.30 - UNSPECIFIED DIASTOLIC (CONGESTIVE) HEART FAILURE Status : Acute (2) Acute kidney injury SNOMED Code(s): 92730215 ICD Code: N17.9 - ACUTE KIDNEY FAILURE, UNSPECIFIED Status: Acute (3) Lymphedema of both lower extremities SNOMED Code(s): 55569520271227366 ICD Code: I89.0 - LYMPHEDEMA, NOT ELSEWHERE CLASSIFIED Status: Acute (4) Cellulitis of right lower extremity without foot SNOMED Code(s): 665693754 ICD Code: L03.115 - CELLULITIS OF RIGHT LOWER LIMB Status: Acute (5) Colitis SNOMED Code(s): 37471094 ICD Code: K52.9 - NONINFECTIVE GASTROENTERITIS AND COLITIS, UNSPECIFIED Status: Acute - Patient Summary/Data Consults: Consultations 11/14/17 14:22 OT Evaluation and Treatment [CONS] Routine Please Evaluate and Treat. OT Reason for Consult: Lymphedema This query below is only for informational purposes and is not editable. PT Evaluation and Treatment [CONS] Routine Please Evaluate and Treat. PT Reason for Consult: Weakness This query below is only for informational purposes and is not editable. Hospital Course: Radha presented to the emergency room with weakness, diarrhea and fever. Workup in the emergency room suggested acute colitis with acute kidney injury and significant dehydration. She also had worsening of her chronic lymphedema. She was started on IV fluids as well as ciprofloxacin and metronidazole for management of the colitis. Stool studies were obtained and revealed mild fecal leukocytes but Clostridium difficile testing as well as stool culture testing was unremarkable. Her diarrhea resolved within a couple of days of being on antibiotics and she did not have additional fevers. Her kidney function remains significantly decreased from baseline even after couple of days but urine output did start to pick remover. On hospital day 2 she was noted to have increased pain as well as erythema in her right lower extremity. Cellulitis was suspected and she was started on broad-spectrum antibiotic therapy including vancomycin and Pipericillin/Tazobactam. Over the next 24 hours she had improvement in the erythema and pain in the leg. Kidney function has started to improve as well so diuresis for the lymphedema was initiated. Over the next several days she had ongoing improvement in her right lower extremity cellulitis. Her diarrhea resolved so the ciprofloxacin and metronidazole were discontinued. She also had impressive diuresis and improvement in her chronic lymphedema. Over several days we are able to remove nearly 40 pounds of fluid via the diuresis. Her kidney function slowly and steadily improved even with the diuresis. She was transitioned from broad-spectrum antibiotics to cefazolin for management of her cellulitis. She had even further improvement in the cellulitis as well as the lymphedema. She has not had any recurrence of the fever. Her kidney function has steadily improved to the point that it's nearly back to baseline. Given her generalized weakness resulting from the acute infections it was thought that she would best be served by going to [facility] for [facility]acute [facility]. She has been transitioned to oral antibiotics for management of the cellulitis and will need 7 additional days of treatment. She's been tolerating wrapping of her lower extremities for management of her lymphedema. She did have an area of skin breakdown on the right thigh because of the significant swelling with a bullae that formed and later was deroofed. We have been managing this with dressing changes and pain has been well managed. She had some hypokalemia off and on throughout the hospital stay which has improved with replacement. At this point I believe she is safe for outpatient management and will be discharged to the [facility]. She should have her potassium checked in a few days to make sure that her hypokalemia has not returned. She will be following up with Dr. Skelton in 1-2 weeks. - Patient Instructions Diet: Low Sodium Activity: As Tolerated Showering/Bathing: May Shower Notify Provider of: Fever, Increased Pain, Nausea and/or Vomiting Other/Special Instructions: 1. You were in the hospital for management of decompensated diastolic congestive heart failure and acute kidney injury as well as cellulitis of the right lower leg. Your condition has been improving with aggressive diuresis as well as antibiotic therapy. To help with the lower extremity edema and diastolic heart failure, I recommend that you continue to wrap your legs as outlined below. I have provided a list of medications for your review but no significant changes were made. You do need 1 more week of antibiotics to treat the lower extremity cellulitis. 2. Referral to physical and occupational therapy for strengthening in the setting of generalized weakness following acute decompensation of heart failure. 3. Wound care - please remove the dressing from the distal right thigh and cleanse the area with saline. Pat the area dry and then cover the open area of skin with a nonadherent dressing. Secure these dressings with Kerlix. Dressing changes should be performed daily and as needed if they are soiled. 4. Code status - FULL CODE. 5. BMP on 11/25 Dx: hypokalemia. 6. Lymphedema management: each morning place Jose Alfredo wraps on both lower legs. Started at the feet and wrap up to the knee. The Jose Alfredo wraps should be left in place during the day but can be removed at bedtime at night. Additionally, the you should elevate your legs for at least one half hour four times per day to aid in venous return. 7. Seek medical attention if you develop fever greater than 101, you gain more than 5 pounds in 2 days or if you develop sudden shortness of breath. - Discharge Plan *PRESCRIPTION DRUG MONITORING PROGRAM REVIEWED*: Not Applicable *COPY OF PRESCRIPTION DRUG MONITORING REPORT IN PATIENT CROW: Not Applicable Prescriptions/Med Rec: Acetaminophen [Tylenol] 650 mg PO Q4H PRN #200 tablet PRN Reason: Pain (Mild 1-3)/fever cephALEXin [Cephalexin] 500 mg PO BID #14 capsule Lactobacillus Rhamnosus GG [Culturelle] 1 cap PO BID #30 cap Potassium Chloride [Klor-Con M20] 40 meq PO BID #120 tab.er Zolpidem Tartrate 10 mg PO BEDTIME PRN #30 tablet PRN Reason: Sleep Home Medications: Home Meds Apixaban [Eliquis] 5 mg PO BID 05/03/16 [History] Ascorbic Acid 500 mg PO DAILY 05/03/16 [History] Cholecalciferol (Vitamin D3) [Vitamin D] 1,000 unit PO DAILY 05/03/16 [History] Garlic 1,000 mg PO DAILY 05/03/16 [History] Metoprolol Tartrate 12.5 mg PO BID 05/03/16 [History] [place]-3 Fatty Acids [Fish Oil] 1,000 mg PO DAILY 05/03/16 [History] Furosemide [Lasix] 80 mg PO DAILY 07/11/16 [History] Omeprazole 20 mg PO BEDTIME 07/11/16 [History] metOLazone [Metolazone] 5 mg PO DAILY 01/28/17 [History] Spironolactone [Aldactone] 12.5 mg PO DAILY 06/23/17 [History] diphenhydrAMINE [Benadryl] 50 mg PO BEDTIME PRN 11/17/17 [History] Acetaminophen [Tylenol] 650 mg PO Q4H PRN #200 tablet 11/22/17 [Rx] Lactobacillus Rhamnosus GG [Culturelle] 1 cap PO BID #30 cap 11/22/17 [Rx] Potassium Chloride [Klor-Con M20] 40 meq PO BID #120 tab.er 11/22/17 [Rx] Zolpidem Tartrate 10 mg PO BEDTIME PRN #30 tablet 11/22/17 [Rx] cephALEXin [Cephalexin] 500 mg PO BID #14 capsule 11/22/17 [Rx] Patient Handouts: Heart Failure Action Plan, Living With Heart Failure Referrals: Franc Skelton MD [Primary Care Provider] - (1-2 weeks - follow-up hospital stay for diastolic heart failure) - Patient Data Vitals - Most Recent: Last Vital Signs Temp 37.1 C 11/22/17 08:12 Pulse 88 11/22/17 10:13 Resp 18 11/22/17 08:12 BP 110/57 L 11/22/17 10:13 Pulse Ox 94 L 11/22/17 08:12 Weight - Most Recent: 140.795 kg I&O - Last 24 hours: Intake & Output 11/21/17 11/22/17 11/22/17 22:59 06:59 14:59 Intake Total 1490 650 286 Output Total 100 Balance 1490 550 286 Med Orders - Current: Current Medications Acetaminophen (Tylenol) 650 mg PO Q4H PRN PRN Reason: Pain (Mild 1-3)/fever Last Admin: 11/21/17 10:52 Dose: 650 mg Apixaban (Eliquis) 2.5 mg PO BID [facility] Last Admin: 11/22/17 10:12 Dose: 2.5 mg Diphenhydramine HCl (Benadryl) 50 mg PO BEDTIME PRN PRN Reason: Itching Last Admin: 11/20/17 21:17 Dose: 50 mg Furosemide (Lasix) 40 mg IV Q12H [facility] Last Admin: 11/22/17 08:08 Dose: 40 mg Cefazolin Sodium 0.5 gm/ (Sodium Chloride) 50 mls @ 100 mls/hr IV Q12H [facility] Last Admin: 11/22/17 10:28 Dose: 100 mls/hr Lactobacillus Rhamnosus (Culturelle) 1 cap PO BID [facility] Last Admin: 11/22/17 10:12 Dose: 1 cap Metolazone (Zaroxolyn) 5 mg PO DAILY [facility] Last Admin: 11/22/17 10:16 Dose: 5 mg Metoprolol Tartrate (Lopressor) 12.5 mg PO BID [facility] Last Admin: 11/22/17 10:13 Dose: 12.5 mg Ondansetron HCl (Zofran) 4 mg IV Q4H PRN PRN Reason: Nausea/Vomiting Oxycodone HCl (Oxycodone) 5 mg PO Q4H PRN PRN Reason: Pain Last Admin: 11/22/17 12:35 Dose: 5 mg Pantoprazole Sodium (Protonix) 40 mg PO BEDTIME [facility] Last Admin: 11/21/17 20:11 Dose: 40 mg Potassium Chloride (Klor-Con M20) 40 meq PO BID [facility] Last Admin: 11/22/17 10:13 Dose: 40 meq Sodium Chloride (Saline Flush) 10 ml FLUSH ASDIRECTED PRN PRN Reason: Keep Vein Open Last Admin: 11/22/17 08:14 Dose: 10 ml Zolpidem Tartrate (Ambien) 10 mg PO BEDTIME PRN PRN Reason: Sleep Last Admin: 11/20/17 21:17 Dose: 10 mg Discontinued Medications Furosemide (Lasix) 80 mg IVPUSH NOW ONE Stop: 11/17/17 12:32 Last Admin: 11/17/17 12:55 Dose: 80 mg Furosemide (Lasix) 80 mg IVPUSH NOW ONE Stop: 11/18/17 07:01 Last Admin: 11/18/17 07:14 Dose: 80 mg Furosemide 20 mg/ Furosemide (40 mg) 60 mg IV Q12H [facility] Last Admin: 11/20/17 05:34 Dose: 60 mg Lactated Ringer's (Ringers, Lactated) 1,000 mls @ 999 mls/hr IV BOLUS ONE Stop: 11/14/17 12:59 Last Admin: 11/14/17 12:14 Dose: 999 mls/hr Ciprofloxacin/Dextrose 400 mg/ (Premix) 200 mls @ 200 mls/hr IV Q12H [facility] Last Admin: 11/14/17 13:10 Dose: 200 mls/hr Metronidazole 500 mg/ Premix 100 mls @ 100 mls/hr IV Q8HR [facility] Last Admin: 11/14/17 13:12 Dose: 100 mls/hr Sodium Chloride (Normal Saline) 1,000 mls @ 125 mls/hr IV ASDIRECTED [facility] Last Admin: 11/15/17 11:46 Dose: 125 mls/hr Ciprofloxacin/Dextrose 400 mg/ (Premix) 200 mls @ 200 mls/hr IV Q24H [facility] Last Admin: 11/15/17 12:09 Dose: 200 mls/hr Metronidazole 500 mg/ Premix 100 mls @ 100 mls/hr IV Q8HR [facility] Last Admin: 11/16/17 06:15 Dose: 100 mls/hr Sodium Chloride (Normal Saline) 1,000 mls @ 75 mls/hr IV ASDIRECTED [facility] Last Admin: 11/15/17 21:58 Dose: 75 mls/hr Piperacillin Sod/Tazobactam (Sod 2.25 gm/ Sodium Chloride) 50 mls @ 100 mls/hr IV Q8H [facility] Last Admin: 11/18/17 14:51 Dose: 100 mls/hr Vancomycin HCl 1.5 gm/ Sodium (Chloride) 250 mls @ 167 mls/hr IV ONETIME ONE Stop: 11/16/17 17:29 Last Admin: 11/16/17 16:03 Dose: 167 mls/hr Vancomycin HCl 1.5 gm/ Sodium (Chloride) 250 mls @ 167 mls/hr IV Q24H [facility] Last Admin: 11/19/17 16:20 Dose: 167 mls/hr Potassium Chloride 20 meq/Lidocaine HCl 2 ml/ Sodium Chloride 112 mls @ 56 mls/ hr IV Q2H [facility] Stop: 11/19/17 13:59 Last Admin: 11/19/17 12:19 Dose: 56 mls/hr Cefazolin Sodium/Dextrose 1 gm (/ Premix) 50 mls @ 100 mls/hr IV ONETIME ONE Stop: 11/20/17 12:29 Last Admin: 11/20/17 12:11 Dose: 100 mls/hr Cefazolin Sodium 500 mg/ (Sodium Chloride) 50 mls @ 100 mls/hr IV Q12H [facility] Last Admin: 11/21/17 10:29 Dose: 100 mls/hr Magnesium Sulfate 2 gm/ Premix 50 mls @ 25 mls/hr IV Q6H [facility] Stop: 11/22/17 05:59 Last Admin: 11/22/17 03:35 Dose: 25 mls/hr Lisinopril (Prinivil) 10 mg PO BID [facility] Metoprolol Tartrate (Lopressor) 12.5 mg PO BID [facility] Last Admin: 11/15/17 11:36 Dose: Not Given Oxycodone HCl (Oxycodone) 5 mg PO Q4H PRN PRN Reason: Pain (moderate 4-6) Last Admin: 11/18/17 19:44 Dose: 5 mg Oxycodone HCl (Oxycodone) 5 mg PO Q4H [facility] Last Admin: 11/20/17 08:21 Dose: 5 mg Potassium Chloride (Klor-Con M20) 40 meq PO ONETIME ONE Stop: 11/17/17 12:34 Last Admin: 11/17/17 12:54 Dose: 40 meq Potassium Chloride (Klor-Con M20) 40 meq PO ONETIME ONE Stop: 11/18/17 13:31 Last Admin: 11/18/17 14:51 Dose: 40 meq Potassium Chloride (Klor-Con M20) 40 meq PO ONETIME ONE Stop: 11/19/17 10:01 Last Admin: 11/19/17 10:08 Dose: 40 meq Potassium Chloride (Klor-Con M20) 40 meq PO ONETIME ONE Stop: 11/19/17 17:01 Last Admin: 11/19/17 17:51 Dose: 40 meq Potassium Chloride (Klor-Con M20) 40 meq PO Q6H [facility] Stop: 11/21/17 04:01 Last Admin: 11/21/17 05:10 Dose: 40 meq Sodium Chloride (Saline Flush) 10 ml FLUSH ASDIRECTED PRN PRN Reason: Keep Vein Open Last Admin: 11/14/17 09:55 Dose: 10 ml - Exam Quality Assessment: Denies: Supplemental Oxygen General: Reports: Alert, Oriented, Cooperative, No Acute Distress Neck: Reports: Supple Lungs: Reports: Normal Respiratory Effort Cardiovascular: Reports: Regular Rate, Irregular Rhythm GI/Abdominal Exam: Soft, No Distention Extremities: Pedal Edema Skin: Reports: Warm, Dry, Other (chronic venous stasis of both legs from mid nelson distally. Mild erythema extending above the mention on the right) Psy/Mental Status: Reports: Alert, Normal Affect *Q Meaningful Use (DIS) - VTE *Q VTE Pharmacological Contraindications *Q: High INR Value
== END 2017-11-22 13:35 | DRG 392 ==
LOC: JP.ED 08:33 → JP.MS 12:27
PROVIDERS: ADMIT Hospitalist; ATTEND Internal Medicine
DX: K52.9 Noninfective gastroenteritis and colitis, unspecified (principal); I50.32 Chronic diastolic (congestive) heart failure; N17.9 Acute kidney failure, unspecified; Z68.43 Body mass index [BMI] 50.0-59.9, adult; L03.115 Cellulitis of right lower limb; E86.0 Dehydration; I48.91 Unspecified atrial fibrillation; E86.9 Volume depletion, unspecified; N18.3 Chronic kidney disease, stage 3 (moderate); I89.0 Lymphedema, not elsewhere classified; Z86.718 Personal history of other venous thrombosis and embolism; Z86.711 Personal history of pulmonary embolism; Z99.81 Dependence on supplemental oxygen; E66.01 Morbid (severe) obesity due to excess calories; R53.1 Weakness; R19.7 Diarrhea, unspecified; Z79.01 Long term (current) use of anticoagulants; G47.00 Insomnia, unspecified; M19.90 Unspecified osteoarthritis, unspecified site; Z96.659 Presence of unspecified artificial knee joint; Z85.3 Personal history of malignant neoplasm of breast; K21.9 Gastro-esophageal reflux disease without esophagitis; Z87.01 Personal history of pneumonia (recurrent); H54.7 Unspecified visual loss; Z88.2 Allergy status to sulfonamides; Z91.048 Other nonmedicinal substance allergy status; Z90.11 Acquired absence of right breast and nipple
CPT/HCPCS: 36415; 36600; 71045 ×2; 80053; 81001; 82803; 83605; 83880; 84484; 85025; 87046; 87493; 87899 ×2; 89055; 93005; 93010; 99285; J7050; J7120; 51702; 80048; 80202; 83735; 85610; 97110-GP; 97163-GP; 97530-GP; A9270-GY; J0690; J0744; J1940; J2543; J3370; J3475; J3480; J3490; J7030

== ENCOUNTER 2018-03-12 10:43 | Emergency (ER) | payer MEDICARE, BC ==
[2018-03-12 11:17] VITALS: BP 145/98
--- NOTE | 2018-03-12 12:20 | EDM.PDOC ---
ED HPI GENERAL MEDICAL PROBLEM - General Chief Complaint: Lower Extremity Injury/Pain Stated Complaint: LEFT LEG BLEEDING Time Seen by Provider: 03/12/18 11:50 - History of Present Illness INITIAL COMMENTS - FREE TEXT/NARRATIVE: 82 yo presents with concerns of bleeding from the left calf. She not sure how this happened. Has bled through several stockings. Is on elquis for a-fib. She is also concerned of possible fungal infection in the skin folds of her calf. - Related Data Allergies Allergy/AdvReac Type Severity Reaction Status Date / Time nickel Allergy Itching Verified 07/11/16 08:02 Sulfa (Sulfonamide Allergy Swelling Verified 07/11/16 08:02 Antibiotics) Home Meds: Home Meds Apixaban [Eliquis] 5 mg PO BID 05/03/16 [History] Ascorbic Acid 500 mg PO DAILY 05/03/16 [History] Cholecalciferol (Vitamin D3) [Vitamin D] 1,000 unit PO DAILY 05/03/16 [History] Garlic 1,000 mg PO DAILY 05/03/16 [History] Metoprolol Tartrate 12.5 mg PO BID 05/03/16 [History] [place]-3 Fatty Acids [Fish Oil] 1,000 mg PO DAILY 05/03/16 [History] Furosemide [Lasix] 80 mg PO DAILY 07/11/16 [History] Omeprazole 20 mg PO BEDTIME 07/11/16 [History] diphenhydrAMINE [Benadryl] 50 mg PO BEDTIME PRN 11/17/17 [History] Acetaminophen [Tylenol] 650 mg PO Q4H PRN #200 tablet 11/22/17 [Rx] Lactobacillus Rhamnosus GG [Culturelle] 1 cap PO BID #30 cap 11/22/17 [Rx] Potassium Chloride [Klor-Con M20] 40 meq PO BID #120 tab.er 11/22/17 [Rx] Zolpidem Tartrate 10 mg PO BEDTIME PRN #30 tablet 11/22/17 [Rx] hydrOXYzine HCl [hydrOXYzine] 1 tab PO ACDINNER PRN 03/12/18 [History] Past Medical History HEENT History: Reports: Impaired Vision, Other (See Below) Other HEENT History: sore throat Cardiovascular History: Reports: Afib, Blood Clots/VTE/DVT, Heart Failure, Hypertension, Other (See Below) Other Cardiovascular History: mitral regurgitation Respiratory History: Reports: Intubation, Previous, PE, Pneumonia, Recurrent, Sleep Apnea, Other (See Below) 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: Musculoskeletal History: Reports: Arthritis, Fracture Other Musculoskeletal History: left arm Other Psychiatric History: insomnia Endocrine/Metabolic History: Reports: Obesity/BMI 30+ Oncologic (Cancer) History: Reports: Breast Dermatologic History: Reports: Other (See Below) Other Dermatologic History: reddness lower L leg - Infectious Disease History Infectious Disease History: Reports: Chicken Pox, Measles, Mumps - Past Surgical History Musculoskeletal Surgical History: Reports: Knee Replacement Other Musculoskeletal Surgeries/Procedures:: right and left Oncologic Surgical History: Reports: Mastectomy Other Oncologic Surgeries/Procedures: right Social & Family History - Family History Cardiac: Reports: CAD - Tobacco Use Smoking Status *Q: Never Smoker - Caffeine Use Caffeine Use: Reports: Coffee Other Caffeine Use: regular coffee in a.m. - one cup Review of Systems - Review of Systems Review Of Systems: See Below Constitutional: Reports: No Symptoms Eyes: Reports: No Symptoms Ears: Reports: No Symptoms Nose: Reports: No Symptoms Mouth/Throat: Reports: No Symptoms Respiratory: Reports: No Symptoms Cardiovascular: Reports: No Symptoms GI/Abdominal: Reports: No Symptoms Genitourinary: Reports: No Symptoms Musculoskeletal: Reports: No Symptoms Skin: Reports: Bruising, Lesions Neurological: Reports: No Symptoms ED EXAM, GENERAL - Physical Exam Exam: See Below Exam Limited By: No Limitations General Appearance: Alert, WD/WN Ears: Normal External Exam Nose: Normal Inspection, Normal Mucosa Throat/Mouth: Normal Inspection Head: Atraumatic, Normocephalic Neck: Normal Inspection Respiratory/Chest: No Respiratory Distress Cardiovascular: Normal Peripheral Pulses GI/Abdominal: Soft, Non-Tender Back Exam: Normal Inspection Extremities: Other (bleeding from superficial vein left posterior calf. erythema in the skin folds of calf) Neurological: Alert, Oriented Psychiatric: Normal Affect Skin Exam: Rash Course - Vital Signs Last Recorded V/S: Last Vital Signs Temp 36.7 C 03/12/18 11:18 Pulse 77 03/12/18 11:18 Resp 21 H 03/12/18 11:18 BP 145/98 H 03/12/18 11:18 Pulse Ox 93 L 03/12/18 11:18 - Re-Assessments/Exams Free Text/Narrative Re-Assessment/Exam: 82 yo on elquis presents with concerns of bleeding from superficial vein of the left calf. Bleeding stopped with direct pressure. Silver nitrate cauterization performed. Have recommended antifungal power for within skin folds. Referral to PCP as I question whether elquis is appropriate for her given diminished renal function. 03/12/18 12:19 Departure - Departure Time of Disposition: 12:21 Disposition: Home, Self-Care 01 Condition: Good Clinical Impression: Venous bleed - Discharge Information *PRESCRIPTION DRUG MONITORING PROGRAM REVIEWED*: No *COPY OF PRESCRIPTION DRUG MONITORING REPORT IN PATIENT CROW: No Referrals: Franc Skelton MD [Primary Care Provider] - Forms: ED Department Discharge Additional Instructions: We have controlled the bleeding from your calf We recommend you apply to antifungal powder in the skin folds of your leg, these are available over the counter at the drug store. Please follow up with your primary doctor as discussed regarding your anticoagulation.
== END 2018-03-12 12:56 | disposition home or self-care (01) ==
LOC: JP.ED 10:43
DX: R58 Hemorrhage, not elsewhere classified (principal); I48.91 Unspecified atrial fibrillation; I11.0 Hypertensive heart disease with heart failure; I50.9 Heart failure, unspecified; K21.9 Gastro-esophageal reflux disease without esophagitis; Z88.8 Allergy status to other drugs, medicaments and biological substances; Z79.01 Long term (current) use of anticoagulants; Z79.899 Other long term (current) drug therapy; Z88.2 Allergy status to sulfonamides
CPT/HCPCS: 99283

== ENCOUNTER 2018-04-03 14:39 | Emergency (ER) | payer MEDICARE, BC ==
[2018-04-03] MEDS ORDERED: Sodium Chloride 0.9% 10 ML Syringe FLUSH PRN (15:46)
[2018-04-03] MEDS ORDERED: Bumetanide 1 MG/4 ML MDV IVPUSH ONE ×2 (15:49→17:51)
--- NOTE | 2018-04-03 15:52 | EDM.PDOC ---
ED HPI GENERAL MEDICAL PROBLEM - General Chief Complaint: General Stated Complaint: SOB, FLUID Time Seen by Provider: 04/03/18 15:32 Source of Information: Reports: Patient, Family, Old Records, RN Notes Reviewed History Limitations: Reports: No Limitations - History of Present Illness INITIAL COMMENTS - FREE TEXT/NARRATIVE: 82-year-old female presents to the emergency department today with complaint of shortness of breath, she has known history of chronic diastolic heart failure. She states she's had a weight gain of approximately 30 pounds over the last couple of weeks, she's noticed it mainly in her legs. She has not had any fevers chest pain nausea or vomiting. She was in to visit her director of reservations today discussed the possibility of starting Zaroxolyn however because of her complaint of shortness of breath he recommended that she report to the emergency department for further evaluation. Also had a known history of chronic renal failure she did have lab work done today which revealed a creatinine of 2.07 GFR proximally 23% urinalysis is also done consistent with urinary tract infection positive nitrates greater than 100 WBCs and well is rbc' s with many bacteria cultures pending - Related Data Allergies Allergy/AdvReac Type Severity Reaction Status Date / Time nickel Allergy Itching Verified 04/03/18 15:10 Sulfa (Sulfonamide Allergy Swelling Verified 04/03/18 15:10 Antibiotics) Home Meds: Home Meds Apixaban [Eliquis] 2.5 mg PO BID 05/03/16 [History] Ascorbic Acid 500 mg PO DAILY 05/03/16 [History] Cholecalciferol (Vitamin D3) [Vitamin D] 1,000 unit PO DAILY 05/03/16 [History] Garlic 1,000 mg PO DAILY 05/03/16 [History] Metoprolol Tartrate 12.5 mg PO BID 05/03/16 [History] [place]-3 Fatty Acids [Fish Oil] 1,000 mg PO DAILY 05/03/16 [History] Furosemide [Lasix] 160 mg PO DAILY 07/11/16 [History] Omeprazole 20 mg PO BEDTIME 07/11/16 [History] diphenhydrAMINE [Benadryl] 50 mg PO BEDTIME PRN 11/17/17 [History] Acetaminophen [Tylenol] 650 mg PO Q4H PRN #200 tablet 11/22/17 [Rx] Lactobacillus Rhamnosus GG [Culturelle] 1 cap PO BID #30 cap 11/22/17 [Rx] Zolpidem Tartrate 10 mg PO BEDTIME PRN #30 tablet 11/22/17 [Rx] hydrOXYzine HCl [hydrOXYzine] 1 tab PO ACDINNER PRN 03/12/18 [History] Bumetanide [Bumex] 2 mg PO BID #60 tab 04/03/18 [Rx] Past Medical History HEENT History: Reports: Impaired Vision, Other (See Below) Other HEENT History: sore throat Cardiovascular History: Reports: Afib, Blood Clots/VTE/DVT, Heart Failure ( Diastolic), Hypertension, Other (See Below) Other Cardiovascular History: mitral regurgitation Respiratory History: Reports: Intubation, Previous, PE, Pneumonia, Recurrent, Sleep Apnea, Other (See Below) 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: Musculoskeletal History: Reports: Arthritis, Fracture Other Musculoskeletal History: left arm Psychiatric History: Reports: Depression Other Psychiatric History: insomnia Endocrine/Metabolic History: Reports: Obesity/BMI 30+ Hematologic History: Reports: Blood Transfusion(s) Oncologic (Cancer) History: Reports: Breast Dermatologic History: Reports: Other (See Below) Other Dermatologic History: reddness lower L leg - Infectious Disease History Infectious Disease History: Reports: Chicken Pox, Measles, Mumps - Past Surgical History Head Surgeries/Procedures: Reports: None HEENT Surgical History: Reports: None Cardiovascular Surgical History: Reports: None Respiratory Surgical History: Reports: None GI Surgical History: Reports: None Endocrine Surgical History: Reports: None Musculoskeletal Surgical History: Reports: Carpal Tunnel, Knee Replacement Other Musculoskeletal Surgeries/Procedures:: right and left Oncologic Surgical History: Reports: Mastectomy Other Oncologic Surgeries/Procedures: right Dermatological Surgical History: Reports: None Social & Family History - Family History Cardiac: Reports: CAD - Tobacco Use Smoking Status *Q: Never Smoker Second Hand Smoke Exposure: No - Caffeine Use Caffeine Use: Reports: Coffee Other Caffeine Use: regular coffee in a.m. - one cup - Recreational Drug Use Recreational Drug Use: No ED ROS GENERAL - Review of Systems Review Of Systems: See Below Constitutional: Reports: No Symptoms, Weight Gain Respiratory: Reports: Shortness of Breath. Denies: Cough, Sputum Cardiovascular: Reports: Dyspnea on Exertion, Edema GI/Abdominal: Reports: No Symptoms : Reports: No Symptoms Musculoskeletal: Reports: No Symptoms Skin: Reports: No Symptoms ED EXAM, GENERAL - Physical Exam Exam: See Below Exam Limited By: No Limitations General Appearance: Alert, WD/WN, No Apparent Distress Respiratory/Chest: No Respiratory Distress, Lungs Clear, Normal Breath Sounds, No Accessory Muscle Use Cardiovascular: Regular Rate, Rhythm, No Murmur Extremities: Other ([place] edema bilaterally) Course - Vital Signs Last Recorded V/S: Last Vital Signs Temp 97.3 F 04/03/18 15:11 Pulse 63 04/03/18 17:32 Resp 17 04/03/18 17:32 BP 148/70 H 04/03/18 17:32 Pulse Ox 98 04/03/18 17:32 - Orders/Labs/Meds Orders: Active Orders 24 hr Category Date Time Status Dietary Supplements [RC] BIDMEALS Care 04/03/18 15:53 Active Peripheral IV Care [RC] . DIRECTED Care 04/03/18 15:46 Active Chest 1V Frontal [CR] Urgent Exams 04/03/18 15:46 Taken Sodium Chloride 0.9% [Saline Flush] Med 04/03/18 15:46 Active 10 ml FLUSH ASDIRECTED PRN Peripheral IV Insertion Adult [OM.PC] Urgent Oth 04/03/18 15:46 Ordered Medication Orders Sodium Chloride (Saline Flush) 10 ml FLUSH ASDIRECTED PRN PRN Reason: Keep Vein Open Last Admin: 04/03/18 16:10 Dose: 10 ml Labs: Laboratory Tests 04/03/18 04/03/18 Range/Units 15:55 15:55 WBC 7.4 (4.5-11.0) K/uL RBC 3.09 L (3.30-5.50) M/uL Hgb 9.0 L (12.0-15.0) g/dL Hct 29.2 L (36.0-48.0) % MCV 95 (80-98) fL MCH 29 (27-31) pg MCHC 31 L (32-36) % Plt Count 214 (150-400) K/uL Neut % (Auto) 71 H (36-66) % Lymph % (Auto) 18 L (24-44) % [place] % (Auto) 9 H (2-6) % Eos % (Auto) 2 (2-4) % Baso % (Auto) 1 (0-1) % Troponin I < 0.017 (0.000-0.056) ng/mL Meds: Medications Generic Name Dose Route Start Last Admin Trade Name Freq PRN Reason Stop Dose Admin Sodium Chloride 10 ml 04/03/18 15:46 04/03/18 16:10 Saline Flush FLUSH 10 ml ASDIRECTED PRN Administration Keep Vein Open Discontinued Medications Generic Name Dose Route Start Last Admin Trade Name Freq PRN Reason Stop Dose Admin Bumetanide 2 mg 04/03/18 15:49 04/03/18 16:07 Bumex IVPUSH 04/03/18 15:50 2 mg ONETIME ONE Administration Bumetanide 2 mg 04/03/18 17:51 Bumex IVPUSH 04/03/18 17:52 ONETIME ONE Ceftriaxone Sodium 1 gm/ 50 mls @ 100 mls/hr 04/03/18 15:53 04/03/18 16:09 Sodium Chloride IV 04/03/18 16:22 100 mls/hr ONETIME ONE Administration Departure - Departure Time of Disposition: 17:55 Disposition: Home, Self-Care 01 Condition: Fair Clinical Impression: Chronic diastolic CHF (congestive heart failure) - Discharge Information Prescriptions: Bumetanide [Bumex] 2 mg PO BID #60 tab Referrals: Franc Skelton MD [Primary Care Provider] - Forms: ED Department Discharge Additional Instructions: stop your Lasix, start the Bumex 2 mg in the morning 2 mg in the afternoon, recommend follow-up in the clinic 1-2 days to recheck your electrolytes and to see how your breathing and weight loss are doing, Dr. Nix did talk about starting Zaroxolyn as well - My Orders Last 24 Hours: My Active Orders 04/03/18 15:46 Peripheral IV Care [RC] . DIRECTED Chest 1V Frontal [CR] Urgent Sodium Chloride 0.9% [Saline Flush] 10 ml FLUSH ASDIRECTED PRN Peripheral IV Insertion Adult [OM.PC] Urgent 04/03/18 15:53 Dietary Supplements [RC] BIDMEALS - Assessment/Plan Last 24 Hours: My Active Orders 04/03/18 15:46 Peripheral IV Care [RC] . DIRECTED Chest 1V Frontal [CR] Urgent Sodium Chloride 0.9% [Saline Flush] 10 ml FLUSH ASDIRECTED PRN Peripheral IV Insertion Adult [OM.PC] Urgent 04/03/18 15:53 Dietary Supplements [RC] BIDMEALS Plan: Assessment Acuity = acute on chronic Site and laterality = diastolic congestive heart failure Etiology = unknown etiology Manifestations = dyspnea and weight gain Location of injury = Home Lab values = hemoglobin low at 9.0 consistent normochromic anemia troponin was negative chest x-ray shows no acute process stable cardiomegaly Plan She had good success with 2 mg of Bumex IV she was given prior dose of Bumex IV to discharge of 2 mg, recommend stopping the Lasix which time we'll switch to Bumex 2 mg by mouth twice a day she will follow-up in the clinic in the next 1- 2 days for reevaluation and electrolyte check This note was dictated using [employer] voice recognition software please call with any questions on syntax or grammar.
[2018-04-03] MEDS ORDERED: cefTRIAXone 1 GM in Sodium Chloride 0.9% 50 ML IV ONE (15:53)
[2018-04-03 17:33] VITALS: BP 148/70
== END 2018-04-03 19:08 | disposition home or self-care (01) ==
LOC: JP.ED 14:39
DX: I13.0 Hypertensive heart and chronic kidney disease with heart failure and stage 1 through stage 4 chronic kidney disease, or unspecified chronic kidney disease (principal); I50.32 Chronic diastolic (congestive) heart failure; N18.9 Chronic kidney disease, unspecified; I48.91 Unspecified atrial fibrillation; K21.9 Gastro-esophageal reflux disease without esophagitis; Z88.2 Allergy status to sulfonamides; Z79.01 Long term (current) use of anticoagulants; Z79.899 Other long term (current) drug therapy
CPT/HCPCS: 36415; 71045; 84484; 85025; 96365; 96375; 96376; 99285; J0696; J3490; J7050

== ENCOUNTER 2018-04-04 15:25 | Inpatient (IN) | payer MEDICARE, BC ==
[2018-04-04] MEDS ORDERED: Sodium Chloride 0.9% 10 ML Syringe FLUSH PRN ×2 (16:56→19:29)
[2018-04-04] MEDS ORDERED: Bumetanide 2.5 MG/10 ML MDV IVPUSH ONE (17:53)
--- NOTE | 2018-04-04 17:57 | EDM.PDOC ---
ED HPI GENERAL MEDICAL PROBLEM - General Chief Complaint: General Stated Complaint: HERE YESTERDAY NOT DOING WELL Time Seen by Provider: 04/04/18 16:52 Source of Information: Reports: Patient, Old Records, RN Notes Reviewed History Limitations: Reports: No Limitations - History of Present Illness INITIAL COMMENTS - FREE TEXT/NARRATIVE: 82-year-old female presents to the emergency department for increasing shortness of breath and weight gain, I did have the opportunity to evaluate her yesterday same complaint we stop the Lasix she did receive 4 mg of IV Bumex 2 with good results is changed her to oral Bumex unfortunately she is not had any significant urine output today - Related Data Allergies Allergy/AdvReac Type Severity Reaction Status Date / Time nickel Allergy Itching Verified 04/04/18 16:27 Sulfa (Sulfonamide Allergy Swelling Verified 04/04/18 16:27 Antibiotics) Home Meds: Home Meds Apixaban [Eliquis] 2.5 mg PO BID 05/03/16 [History] Ascorbic Acid 500 mg PO DAILY 05/03/16 [History] Cholecalciferol (Vitamin D3) [Vitamin D] 1,000 unit PO DAILY 05/03/16 [History] Garlic 1,000 mg PO DAILY 05/03/16 [History] Metoprolol Tartrate 12.5 mg PO BID 05/03/16 [History] [place]-3 Fatty Acids [Fish Oil] 1,000 mg PO DAILY 05/03/16 [History] Furosemide [Lasix] 160 mg PO DAILY 07/11/16 [History] Omeprazole 20 mg PO BEDTIME 07/11/16 [History] diphenhydrAMINE [Benadryl] 50 mg PO BEDTIME PRN 11/17/17 [History] Acetaminophen [Tylenol] 650 mg PO Q4H PRN #200 tablet 11/22/17 [Rx] Lactobacillus Rhamnosus GG [Culturelle] 1 cap PO BID #30 cap 11/22/17 [Rx] Zolpidem Tartrate 10 mg PO BEDTIME PRN #30 tablet 11/22/17 [Rx] hydrOXYzine HCl [hydrOXYzine] 1 tab PO ACDINNER PRN 03/12/18 [History] Bumetanide [Bumex] 2 mg PO BID #60 tab 04/03/18 [Rx] Nitrofurantoin Monohyd/M-Cryst [Macrobid 100 mg Capsule] 100 mg PO BID #14 capsule 04/03/18 [Rx] Bumetanide 2 mg PO BID 04/04/18 [History] Nitrofurantoin [place]/Macrocryst [Nitrofurantoin [place]-MCR] 100 mg PO BID 04/04/18 [History] Past Medical History HEENT History: Reports: Impaired Vision, Other (See Below) Other HEENT History: sore throat Cardiovascular History: Reports: Afib, Blood Clots/VTE/DVT, Heart Failure, Hypertension, Other (See Below) Other Cardiovascular History: mitral regurgitation Respiratory History: Reports: Intubation, Previous, PE, Pneumonia, Recurrent, Sleep Apnea, Other (See Below) 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: Musculoskeletal History: Reports: Arthritis, Fracture Other Musculoskeletal History: left arm Psychiatric History: Reports: Depression Other Psychiatric History: insomnia Endocrine/Metabolic History: Reports: Obesity/BMI 30+ Hematologic History: Reports: Blood Transfusion(s) Oncologic (Cancer) History: Reports: Breast Dermatologic History: Reports: Other (See Below) Other Dermatologic History: reddness lower L leg - Infectious Disease History Infectious Disease History: Reports: Chicken Pox, Measles, Mumps - Past Surgical History HEENT Surgical History: Reports: None Musculoskeletal Surgical History: Reports: Carpal Tunnel, Knee Replacement Other Musculoskeletal Surgeries/Procedures:: right and left Oncologic Surgical History: Reports: Mastectomy Other Oncologic Surgeries/Procedures: right Social & Family History - Family History Cardiac: Reports: CAD - Tobacco Use Smoking Status *Q: Never Smoker Second Hand Smoke Exposure: No - Caffeine Use Caffeine Use: Reports: Coffee Other Caffeine Use: 2 cups per week - Recreational Drug Use Recreational Drug Use: No ED ROS GENERAL - Review of Systems Review Of Systems: See Below Constitutional: Reports: No Symptoms, Weakness, Weight Gain Respiratory: Reports: Shortness of Breath Cardiovascular: Reports: Dyspnea on Exertion. Denies: Chest Pain ED EXAM, GENERAL - Physical Exam Exam: See Below Exam Limited By: No Limitations General Appearance: Alert, WD/WN, No Apparent Distress Respiratory/Chest: No Respiratory Distress, Lungs Clear, Normal Breath Sounds, No Accessory Muscle Use Cardiovascular: Regular Rate, Rhythm, No Murmur, Other (Marketed edema) Course - Vital Signs Last Recorded V/S: Last Vital Signs Temp 96.8 F 04/04/18 16:35 Pulse 71 04/04/18 17:42 Resp 16 04/04/18 17:42 BP 145/73 H 04/04/18 17:42 Pulse Ox 96 04/04/18 17:42 - Orders/Labs/Meds Orders: Active Orders 24 hr Category Date Time Status Peripheral IV Care [RC] . DIRECTED Care 04/04/18 16:57 Active Sodium Chloride 0.9% [Saline Flush] Med 04/04/18 16:56 Active 10 ml FLUSH ASDIRECTED PRN Peripheral IV Insertion Adult [OM.PC] Urgent Oth 04/04/18 16:56 Ordered Medication Orders Sodium Chloride (Saline Flush) 10 ml FLUSH ASDIRECTED PRN PRN Reason: Keep Vein Open Labs: Laboratory Tests 04/04/18 04/04/18 04/04/18 Range/Units 17:10 17:10 17:10 WBC 8.3 (4.5-11.0) K/uL RBC 3.19 L (3.30-5.50) M/uL Hgb 9.4 L (12.0-15.0) g/dL Hct 30.0 L (36.0-48.0) % MCV 94 (80-98) fL MCH 30 (27-31) pg MCHC 31 L (32-36) % Plt Count 208 (150-400) K/uL Neut % (Auto) 74 H (36-66) % Lymph % (Auto) 12 L (24-44) % [place] % (Auto) 10 H (2-6) % Eos % (Auto) 4 (2-4) % Baso % (Auto) 1 (0-1) % Sodium 135 L (140-148) mmol/L Potassium 4.1 (3.6-5.2) mmol/L Chloride 97 L (100-108) mmol/L Carbon Dioxide 28 (21-32) mmol/L Anion Gap 14.1 H (5.0-14.0) mmol/L BUN 33 H D (7-18) mg/dL Creatinine 2.0 H (0.6-1.0) mg/dL Est Cr Clr Drug Dosing 19.51 mL/min Estimated GFR (MDRD) 24 L (>60) Glucose 109 H (74-106) mg/dL Calcium 9.4 D (8.5-10.1) mg/dL Troponin I < 0.017 (0.000-0.056) ng/mL Meds: Medications Generic Name Dose Route Start Last Admin Trade Name Freq PRN Reason Stop Dose Admin Sodium Chloride 10 ml 04/04/18 16:56 Saline Flush FLUSH ASDIRECTED PRN Keep Vein Open Discontinued Medications Generic Name Dose Route Start Last Admin Trade Name Freq PRN Reason Stop Dose Admin Bumetanide 4 mg 04/04/18 17:53 Bumex IVPUSH 04/04/18 17:54 ONETIME ONE Bumetanide 10 mg/ Dextrose/ 100 mls @ 5 mls/hr 04/04/18 18:00 Water IV 04/07/18 18:01 TITRATE TYLER Protocol 0.5 MG/HR Departure - Departure Time of Disposition: 17:57 Disposition: Admitted As Inpatient 66 Condition: Poor Clinical Impression: Chronic diastolic CHF (congestive heart failure) - Discharge Information Referrals: Franc Skelton MD [Primary Care Provider] - - My Orders Last 24 Hours: My Active Orders 04/04/18 16:56 Sodium Chloride 0.9% [Saline Flush] 10 ml FLUSH ASDIRECTED PRN Peripheral IV Insertion Adult [OM.PC] Urgent 04/04/18 16:57 Peripheral IV Care [RC] . DIRECTED - Assessment/Plan Last 24 Hours: My Active Orders 04/04/18 16:56 Sodium Chloride 0.9% [Saline Flush] 10 ml FLUSH ASDIRECTED PRN Peripheral IV Insertion Adult [OM.PC] Urgent 04/04/18 16:57 Peripheral IV Care [RC] . 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
--- NOTE | 2018-04-04 18:59 | PCM.HP ---
H&P History of Present Illness - General Date of Service: 04/04/18 Admit Problem/Dx: Admission Diagnosis/Problem Admission Diagnosis/Problem Congestive heart failure Source of Information: Patient, Family, Old Records, Provider, RN Notes Reviewed History Limitations: Reports: No Limitations - History of Present Illness Initial Comments - Free Text/Narative: Ms. Saleh is an 82-year-old woman who is admitted through the emergency department with increased lymphedema and shortness of breath secondary to congestive heart failure with preserved left ventricular function and underlying chronic kidney disease stage IV. She has had symptoms of increased weakness with shortness of breath and decreased appetite over the past 7 days. Over the past few weeks she has gained an estimated 30 pounds. She was seen and evaluated the emergency department yesterday, given IV Bumex and switch to oral Bumex. Despite those interventions she has had persistent symptoms with minimal urine output. - Related Data Allergies/Adverse Reactions: Allergies Allergy/AdvReac Type Severity Reaction Status Date / Time nickel Allergy Itching Verified 04/04/18 16:27 Sulfa (Sulfonamide Allergy Swelling Verified 04/04/18 16:27 Antibiotics) Home Medications: Home Meds Apixaban [Eliquis] 2.5 mg PO BID 05/03/16 [History] Ascorbic Acid 500 mg PO DAILY 05/03/16 [History] Cholecalciferol (Vitamin D3) [Vitamin D] 1,000 unit PO DAILY 05/03/16 [History] Garlic 1,000 mg PO DAILY 05/03/16 [History] Metoprolol Tartrate 12.5 mg PO BID 05/03/16 [History] [place]-3 Fatty Acids [Fish Oil] 1,000 mg PO DAILY 05/03/16 [History] Furosemide [Lasix] 160 mg PO DAILY 07/11/16 [History] Omeprazole 20 mg PO BEDTIME 07/11/16 [History] diphenhydrAMINE [Benadryl] 50 mg PO BEDTIME PRN 11/17/17 [History] Acetaminophen [Tylenol] 650 mg PO Q4H PRN #200 tablet 11/22/17 [Rx] Lactobacillus Rhamnosus GG [Culturelle] 1 cap PO BID #30 cap 11/22/17 [Rx] Zolpidem Tartrate 10 mg PO BEDTIME PRN #30 tablet 11/22/17 [Rx] hydrOXYzine HCl [hydrOXYzine] 1 tab PO ACDINNER PRN 03/12/18 [History] Bumetanide [Bumex] 2 mg PO BID #60 tab 04/03/18 [Rx] Nitrofurantoin Monohyd/M-Cryst [Macrobid 100 mg Capsule] 100 mg PO BID #14 capsule 04/03/18 [Rx] Bumetanide 2 mg PO BID 04/04/18 [History] Nitrofurantoin [place]/Macrocryst [Nitrofurantoin [place]-MCR] 100 mg PO BID 04/04/18 [History] Past Medical History HEENT History: Reports: Impaired Vision, Other (See Below) Other HEENT History: sore throat Cardiovascular History: Reports: Afib, Blood Clots/VTE/DVT, Heart Failure, Hypertension, Other (See Below) Other Cardiovascular History: mitral regurgitation Respiratory History: Reports: Intubation, Previous, PE, Pneumonia, Recurrent, Sleep Apnea, Other (See Below) 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 2L Gastrointestinal History: Reports: GERD Genitourinary History: Reports: Retention, Urinary PATIENT SVCS MGR History: Reports: Musculoskeletal History: Reports: Arthritis, Fracture Other Musculoskeletal History: left arm Psychiatric History: Reports: Depression Other Psychiatric History: insomnia Endocrine/Metabolic History: Reports: Obesity/BMI 30+ Hematologic History: Reports: Blood Transfusion(s) Oncologic (Cancer) History: Reports: Breast Dermatologic History: Reports: Other (See Below) Other Dermatologic History: reddness lower L leg - Infectious Disease History Infectious Disease History: Reports: Chicken Pox, Measles, Mumps - Past Surgical History HEENT Surgical History: Reports: None Musculoskeletal Surgical History: Reports: Carpal Tunnel, Knee Replacement Other Musculoskeletal Surgeries/Procedures:: right and left Oncologic Surgical History: Reports: Mastectomy Other Oncologic Surgeries/Procedures: right Social & Family History - Family History Cardiac: Reports: CAD - Tobacco Use Smoking Status *Q: Never Smoker Second Hand Smoke Exposure: No - Caffeine Use Caffeine Use: Reports: Coffee Other Caffeine Use: 2 cups per week - Recreational Drug Use Recreational Drug Use: No H&P Review of Systems - Review of Systems: Review Of Systems: See Below General: Reports: Weakness, Decreased Appetite, Weight Gain. Denies: Fever, Chills HEENT: Reports: No Symptoms Pulmonary: Reports: Shortness of Breath. Denies: Wheezing, Pleuritic Chest Pain , Cough, Sputum, Hemoptysis Cardiovascular: Reports: Dyspnea on Exertion, Edema. Denies: Chest Pain, Palpitations, Orthopnea, PND, Lightheadedness Gastrointestinal: Reports: No Symptoms Genitourinary: Reports: No Symptoms Musculoskeletal: Reports: No Symptoms Skin: Reports: No Symptoms Psychiatric: Reports: No Symptoms Neurological: Reports: No Symptoms Hematologic/Lymphatic: Reports: No Symptoms Immunologic: Reports: No Symptoms Exam - Exam Exam: See Below - Vital Signs Vital Signs: Last Vital Signs Temp 96.8 F 04/04/18 16:35 Pulse 71 04/04/18 17:42 Resp 16 04/04/18 17:42 BP 145/73 H 04/04/18 17:42 Pulse Ox 96 04/04/18 17:42 Weight: 294 lb 1.546 oz - Exam General: Alert, Oriented, Cooperative, Mild Distress HEENT: Conjunctiva Clear, Hearing Intact, Mucosa Moist & [place], Normal Nasal Septum, Posterior Pharynx Clear, Pupils Equal Neck: Supple, Trachea Midline, +2 Carotid Pulse wo Bruit Lungs: Clear to Auscultation, Normal Respiratory Effort Cardiovascular: Regular Rate, Normal S1, Normal S2, Irregular Rhythm, Systolic Murmur. No: Diastolic Murmur GI/Abdominal Exam: Soft, Non-Tender, No Organomegaly, No Distention Back Exam: Normal Inspection, Full Range of Motion Extremities: Non-Tender, Pedal Edema Skin: Warm, Dry Neurological: Cranial Nerves Intact, Strength Equal Bilateral, Normal Speech, Normal Tone, Sensation Intact. No: Focal Deficit Neuro Extensive - Mental Status: Alert, Oriented x3, Normal Mood/Affect, Normal Cognition, Memory Intact - Patient Data Lab Results Last 24 hrs: Laboratory Results - last 24 hr 04/04/18 04/04/18 04/04/18 Range/Units 17:10 17:10 17:10 WBC 8.3 (4.5-11.0) K/uL RBC 3.19 L (3.30-5.50) M/uL Hgb 9.4 L (12.0-15.0) g/dL Hct 30.0 L (36.0-48.0) % MCV 94 (80-98) fL MCH 30 (27-31) pg MCHC 31 L (32-36) % Plt Count 208 (150-400) K/uL Neut % (Auto) 74 H (36-66) % Lymph % (Auto) 12 L (24-44) % [place] % (Auto) 10 H (2-6) % Eos % (Auto) 4 (2-4) % Baso % (Auto) 1 (0-1) % Sodium 135 L (140-148) mmol/L Potassium 4.1 (3.6-5.2) mmol/L Chloride 97 L (100-108) mmol/L Carbon Dioxide 28 (21-32) mmol/L Anion Gap 14.1 H (5.0-14.0) mmol/L BUN 33 H D (7-18) mg/dL Creatinine 2.0 H (0.6-1.0) mg/dL Est Cr Clr Drug Dosing 19.51 mL/min Estimated GFR (MDRD) 24 L (>60) Glucose 109 H (74-106) mg/dL Calcium 9.4 D (8.5-10.1) mg/dL Troponin I < 0.017 (0.000-0.056) ng/mL Result Diagrams: 04/04/18 17:10 04/04/18 17:10 *Q Meaningful Use (ADM) - VTE *Q VTE Pharmacological Contraindications *Q: High INR Value - VTE Risk Assess *Q Each Risk Factor Represents 1 Point: Swollen Legs, Current, Obesity ( BMI > 25 kg/m2), Congestive heart failure (CHF) Total Score 1 Point Risk Factors: 3 Each Risk Factor Represents 2 Points: None Total Score 2 Point Risk Factors: 0 Each Risk Factor Represents 3 Points: Age 75 Years or Greater, History of DVT/PE Total Score 3 Point Risk Factors: 6 Each Risk Factor Represents 5 Points: None Total Score 5 Point Risk Factors: 0 Venous Thromboembolism Risk Factor Score *Q: 9 Problem List Initiated/Reviewed/Updated: Yes Orders Last 24hrs: Active Orders 24 hr Category Date Time Status Patient Status Manage Transfer [TRANSFER] Routine ADT 04/04/18 18:43 Active Peripheral IV Care [RC] . DIRECTED Care 04/04/18 16:57 Active Sodium Chloride 0.9% [Saline Flush] Med 04/04/18 16:56 Active 10 ml FLUSH ASDIRECTED PRN Peripheral IV Insertion Adult [OM.PC] Urgent Oth 04/04/18 16:56 Ordered Resuscitation Status Routine Resus Stat 04/04/18 18:47 Ordered Medication Orders Sodium Chloride (Saline Flush) 10 ml FLUSH ASDIRECTED PRN PRN Reason: Keep Vein Open Last Admin: 04/04/18 18:24 Dose: 10 ml Assessment/Plan Comment:: ASSESSMENT AND PLAN CONGESTIVE HEART FAILURE WITH PRESERVED LEFT VENTRICULAR FUNCTION- echocardiogram obtained in November showed preserved left ventricular systolic function, biatrial and right ventricular enlargement, elevated right-sided pressures, moderate mitral regurgitation. Increased symptoms of shortness of breath with increase in her lymphedema over the past several days, complicated by chronic kidney disease stage IV. -Bumex 4 mg IV given in emergency department, reassess in a.m. -Strict 2 g sodium diet LYMPHEDEMA -Use lymphedema pump while in the hospital CHRONIC KIDNEY DISEASE STAGE IV -Closely monitor urine output and renal function with attempted diuresis URINARY TRACT INFECTION-defined in the emergency department yesterday -Culture pending -Rocephin 1 g IV every 24 hours pending culture results MAINTENANCE ISSUES -DVT prophylaxis; current therapy with Eliquis should provide adequate DVT prophylaxis -GI prophylaxis; continue outpatient PPI therapy -Abdullahi catheter; not indicated -Nutrition; 2 g sodium diet -Nicotine dependence; not required CODE STATUS-FULL CODE ADMISSION STATUS-patient will be admitted to inpatient status, expect at least a 2 night hospital stay for evaluation and management of problems as outlined above. At the time of this admission I do not reasonably expected evaluation and management of this problem will require more than a 96 hour hospital stay. DISPOSITION-anticipate discharge to home after the hospital stay. PRIMARY CARE PROVIDER-Dr. Skelton
[2018-04-04] MEDS ORDERED: Ondansetron 4 MG/2 ML SDV IV PRN (19:29)
[2018-04-04] MEDS ORDERED: Acetaminophen 325 MG Tab PO PRN (19:29)
[2018-04-04] MEDS: cefTRIAXone 1 GM in Sodium Chloride 0.9% 50 ML IV SCH (20:48)
[2018-04-04] MEDS: Apixaban 5 MG Tab PO SCH (20:52)
[2018-04-04] MEDS: Lactobacillus Rhamnosus GG (Probiotic) Cap PO SCH (20:52)
[2018-04-04] MEDS: Metoprolol Tartrate 25 MG Tab PO SCH (20:54)
[2018-04-04] MEDS: Pantoprazole 40 MG Tab.CR PO SCH (20:56)
[2018-04-04] MEDS: Zolpidem 5 MG Tab PO PRN (21:42)
[2018-04-04] MEDS: oxyCODONE 5 MG Tab PO PRN (23:16)
[2018-04-05] MEDS ORDERED: Potassium Chloride 20 MEQ Tab.ER PO ONE ×2 (10:00→17:00)
[2018-04-05] MEDS: Metoprolol Tartrate 25 MG Tab PO SCH ×2 (10:30→21:41)
[2018-04-05] MEDS: Lactobacillus Rhamnosus GG (Probiotic) Cap PO SCH ×2 (10:32→21:42)
[2018-04-05] MEDS: Bumetanide 2.5 MG/10 ML MDV IVPUSH SCH ×2 (10:33→21:14)
[2018-04-05] MEDS: Apixaban 5 MG Tab PO SCH ×2 (10:33→21:42)
[2018-04-05] MEDS: Potassium Chloride 20 MEQ, Lidocaine 1% 2 ML in Sodium Chloride 0.9% 100 ML IV SCH ×2 (10:39→12:59)
--- NOTE | 2018-04-05 12:09 | PCM.PN ---
- General Info Date of Service: 04/05/18 Subjective Update: Ms. Saleh has been stable since admission and has noted improvement in both her shortness of breath as well as edema. Vital signs have remained stable and she has been afebrile. Functional Status: Reports: Pain Controlled, Tolerating Diet, Urinating - Review of Systems General: Reports: Weakness. Denies: Fever, Chills Pulmonary: Reports: Shortness of Breath. Denies: Pleuritic Chest Pain, Cough, Sputum, Hemoptysis, Wheezing Cardiovascular: Reports: Dyspnea on Exertion, Edema. Denies: Chest Pain, Palpitations, Orthopnea, PND Gastrointestinal: Reports: No Symptoms - Patient Data Vitals - Most Recent: Last Vital Signs Temp 98.8 F 04/05/18 11:25 Pulse 61 04/05/18 11:25 Resp 15 04/05/18 11:25 BP 117/52 L 04/05/18 11:25 Pulse Ox 97 04/05/18 11:25 Weight - Most Recent: 289 lb 6.413 oz I&O - Last 24 Hours: Intake & Output 04/04/18 04/05/18 04/05/18 22:59 06:59 14:59 Intake Total 180 480 Output Total 425 350 225 Balance -245 130 -225 Lab Results Last 24 Hours: Laboratory Results - last 24 hr 04/04/18 04/04/18 04/04/18 Range/Units 17:10 17:10 17:10 WBC 8.3 (4.5-11.0) K/uL RBC 3.19 L (3.30-5.50) M/uL Hgb 9.4 L (12.0-15.0) g/dL Hct 30.0 L (36.0-48.0) % MCV 94 (80-98) fL MCH 30 (27-31) pg MCHC 31 L (32-36) % Plt Count 208 (150-400) K/uL Neut % (Auto) 74 H (36-66) % Lymph % (Auto) 12 L (24-44) % [place] % (Auto) 10 H (2-6) % Eos % (Auto) 4 (2-4) % Baso % (Auto) 1 (0-1) % Sodium 135 L (140-148) mmol/L Potassium 4.1 (3.6-5.2) mmol/L Chloride 97 L (100-108) mmol/L Carbon Dioxide 28 (21-32) mmol/L Anion Gap 14.1 H (5.0-14.0) mmol/L BUN 33 H D (7-18) mg/dL Creatinine 2.0 H (0.6-1.0) mg/dL Est Cr Clr Drug Dosing 19.51 mL/min Estimated GFR (MDRD) 24 L (>60) Glucose 109 H (74-106) mg/dL Calcium 9.4 D (8.5-10.1) mg/dL Magnesium (1.8-2.4) mg/dL Troponin I < 0.017 (0.000-0.056) ng/mL 04/05/18 Range/Units 05:54 WBC (4.5-11.0) K/uL RBC (3.30-5.50) M/uL Hgb (12.0-15.0) g/dL Hct (36.0-48.0) % MCV (80-98) fL MCH (27-31) pg MCHC (32-36) % Plt Count (150-400) K/uL Neut % (Auto) (36-66) % Lymph % (Auto) (24-44) % [place] % (Auto) (2-6) % Eos % (Auto) (2-4) % Baso % (Auto) (0-1) % Sodium 137 L (140-148) mmol/L Potassium 2.9 L* (3.6-5.2) mmol/L Chloride 99 L (100-108) mmol/L Carbon Dioxide 30 (21-32) mmol/L Anion Gap 10.9 (5.0-14.0) mmol/L BUN 31 H (7-18) mg/dL Creatinine 2.0 H (0.6-1.0) mg/dL Est Cr Clr Drug Dosing 19.51 mL/min Estimated GFR (MDRD) 24 L (>60) Glucose 101 (74-106) mg/dL Calcium 8.8 (8.5-10.1) mg/dL Magnesium 1.9 D (1.8-2.4) mg/dL Troponin I (0.000-0.056) ng/mL Med Orders - Current: Current Medications Acetaminophen (Tylenol) 650 mg PO Q4H PRN PRN Reason: Pain (Mild 1-3)/fever Apixaban (Eliquis) 2.5 mg PO BID [facility] Last Admin: 04/05/18 10:33 Dose: 2.5 mg Bumetanide (Bumex) 4 mg IVPUSH Q12H [facility] Last Admin: 04/05/18 10:33 Dose: 4 mg Ceftriaxone Sodium 1 gm/ (Sodium Chloride) 50 mls @ 100 mls/hr IV Q24H [facility] Last Admin: 04/04/18 20:48 Dose: 100 mls/hr Potassium Chloride 20 meq/Lidocaine HCl 2 ml/ Sodium Chloride 112 mls @ 50 mls/ hr IV Q2H [facility] Stop: 04/05/18 13:59 Last Admin: 04/05/18 10:39 Dose: 50 mls/hr Lactobacillus Rhamnosus (Culturelle) 1 cap PO BID [facility] Last Admin: 04/05/18 10:32 Dose: 1 cap Metoprolol Tartrate (Lopressor) 12.5 mg PO BID [facility] Last Admin: 04/05/18 10:30 Dose: 12.5 mg Ondansetron HCl (Zofran) 4 mg IV Q4H PRN PRN Reason: Nausea/Vomiting Oxycodone HCl (Oxycodone) 5 mg PO Q4H PRN PRN Reason: Pain (moderate 4-6) Last Admin: 04/04/18 23:16 Dose: 5 mg Pantoprazole Sodium (Protonix) 40 mg PO BEDTIME [facility] Last Admin: 04/04/18 20:56 Dose: 40 mg Potassium Chloride (Klor-Con M20) 40 meq PO ONETIME ONE Stop: 04/05/18 17:01 Senna/Docusate Sodium (Senna Plus) 1 tab PO BID PRN PRN Reason: Constipation Sodium Chloride (Saline Flush) 10 ml FLUSH ASDIRECTED PRN PRN Reason: Keep Vein Open Zolpidem Tartrate (Ambien) 10 mg PO BEDTIME PRN PRN Reason: SLEEP Last Admin: 04/04/18 21:42 Dose: 10 mg Discontinued Medications Bumetanide (Bumex) 4 mg IVPUSH ONETIME ONE Stop: 04/04/18 17:54 Last Admin: 04/04/18 18:19 Dose: 4 mg Bumetanide 10 mg/ Dextrose/ (Water) 100 mls @ 5 mls/hr IV TITRATE [facility]; Protocol Stop: 04/07/18 18:01 Potassium Chloride (Klor-Con M20) 40 meq PO ONETIME ONE Stop: 04/05/18 10:01 Last Admin: 04/05/18 10:30 Dose: 40 meq Sodium Chloride (Saline Flush) 10 ml FLUSH ASDIRECTED PRN PRN Reason: Keep Vein Open Last Admin: 04/04/18 18:24 Dose: 10 ml - Exam Quality Assessment: Supplemental Oxygen, DVT Prophylaxis General: Alert, Oriented, Cooperative, No Acute Distress Lungs: Clear to Auscultation, Normal Respiratory Effort Cardiovascular: Regular Rate, Regular Rhythm, No Murmurs GI/Abdominal Exam: Soft, Non-Tender, No Organomegaly, No Distention Extremities: Non-Tender, Pedal Edema - Problem List Review Problem List Initiated/Reviewed/Updated: Yes - My Orders Last 24 Hours: My Active Orders 04/04/18 18:47 Resuscitation Status Routine 04/04/18 19:29 Patient Status [ADT] Routine Ambulate [RC] QID Cardiac Monitoring [RC] .As Directed Height and Weight [RC] DAILY Intake and Output [RC] QSHIFT Notify Provider Vital Signs [RC] ASDIRECTED Oxygen Therapy [RC] PRN Up to Chair [RC] QID VTE/DVT Education [RC] Per Unit Routine Vital Signs [RC] Q4H Acetaminophen [Tylenol] 650 mg PO Q4H PRN Docusate Sodium/Sennosides [Senna Plus] 1 tab PO BID PRN Ondansetron [Zofran] 4 mg IV Q4H PRN Sodium Chloride 0.9% [Saline Flush] 10 ml FLUSH ASDIRECTED PRN oxyCODONE 5 mg PO Q4H PRN Saline Lock Insert [OM.PC] Routine VTE Pharmacological Contraindications [AST] Per Unit Routine 04/04/18 19:52 Zolpidem [Ambien] 10 mg PO BEDTIME PRN 04/04/18 20:00 cefTRIAXone [Rocephin] 1 gm Sodium Chloride 0.9% [Normal Saline] 50 ml IV Q24H 04/04/18 21:00 Apixaban [Eliquis] 2.5 mg PO BID Lactobacillus Rhamnosus GG [Culturelle] 1 cap PO BID Metoprolol Tartrate [Lopressor] 12.5 mg PO BID Pantoprazole [ProTONIX] 40 mg PO BEDTIME 04/04/18 Dinner 2 Gram Sodium Diet [DIET] 04/05/18 09:00 Bumetanide [Bumex] 4 mg IVPUSH Q12H 04/05/18 10:00 Potassium Chloride 20 meq Lidocaine 1% [Xylocaine 1%] 2 ml Sodium Chloride 0.9 % [Normal Saline] 100 ml IV Q2H 04/05/18 17:00 Potassium Chloride [Klor-Con M20] 40 meq PO ONETIME ONE 04/06/18 05:00 BASIC METABOLIC PANEL,BMP [CHEM] Timed MAGNESIUM [CHEM] Timed - Plan Plan:: ASSESSMENT AND PLAN CONGESTIVE HEART FAILURE WITH PRESERVED LEFT VENTRICULAR FUNCTION- echocardiogram obtained in November showed preserved left ventricular systolic function, biatrial and right ventricular enlargement, elevated right-sided pressures, moderate mitral regurgitation. Improved shortness of breath and edema with current management. -Bumex 4 mg IV every 12 hours -Strict 2 g sodium diet LYMPHEDEMA -Use lymphedema pump while in the hospital CHRONIC KIDNEY DISEASE STAGE IV -Closely monitor urine output and renal function with attempted diuresis URINARY TRACT INFECTION-defined in the emergency department yesterday -Culture pending -Rocephin 1 g IV every 24 hours pending culture results MAINTENANCE ISSUES -DVT prophylaxis; current therapy with Eliquis should provide adequate DVT prophylaxis -GI prophylaxis; continue outpatient PPI therapy -Abdullahi catheter; not indicated -Nutrition; 2 g sodium diet -Nicotine dependence; not required CODE STATUS-FULL CODE ADMISSION STATUS-patient will be admitted to inpatient status, expect at least a 2 night hospital stay for evaluation and management of problems as outlined above. At the time of this admission I do not reasonably expected evaluation and management of this problem will require more than a 96 hour hospital stay. DISPOSITION-anticipate discharge to home after the hospital stay. PRIMARY CARE PROVIDER-Dr. Skelton
[2018-04-05] MEDS: cefTRIAXone 1 GM in Sodium Chloride 0.9% 50 ML IV SCH (21:30)
[2018-04-05] MEDS: Pantoprazole 40 MG Tab.CR PO SCH (21:42)
[2018-04-05] MEDS: Zolpidem 5 MG Tab PO PRN (21:50)
[2018-04-05] MEDS: oxyCODONE 5 MG Tab PO PRN (21:50)
[2018-04-06] MEDS ORDERED: Magnesium Sulfate/Water 2 GM in Premix Bag 1 BAG IV ONE (09:00)
[2018-04-06] MEDS ORDERED: Potassium Chloride 20 MEQ Tab.ER PO ONE (09:00)
[2018-04-06] MEDS: Metoprolol Tartrate 25 MG Tab PO SCH ×2 (10:13→20:12)
[2018-04-06] MEDS: Lactobacillus Rhamnosus GG (Probiotic) Cap PO SCH ×2 (10:13→20:13)
[2018-04-06] MEDS: Bumetanide 2.5 MG/10 ML MDV IVPUSH SCH ×2 (10:15→17:54)
[2018-04-06] MEDS: Apixaban 2.5 MG Tab PO SCH ×2 (12:05→20:12)
--- NOTE | 2018-04-06 16:34 | PCM.PN ---
- General Info Date of Service: 04/06/18 Subjective Update: Ms. Saleh reports improvement in her breathing but continues to experience significant and increased lymphedema both lower extremities. Edema seems to be fairly resistant to diuretic therapy as would be expected from lymphedema. Functional Status: Reports: Pain Controlled, Tolerating Diet, Urinating - Review of Systems General: Reports: Weakness. Denies: Fever, Chills Pulmonary: Reports: No Symptoms Cardiovascular: Reports: Edema. Denies: Chest Pain, Palpitations, Dyspnea on Exertion, Orthopnea, PND Gastrointestinal: Reports: No Symptoms - Patient Data Vitals - Most Recent: Last Vital Signs Temp 98.9 F 04/06/18 15:00 Pulse 70 04/06/18 15:00 Resp 18 04/06/18 15:00 BP 114/67 04/06/18 15:00 Pulse Ox 100 04/06/18 15:00 Weight - Most Recent: 290 lb 11.2 oz I&O - Last 24 Hours: Intake & Output 04/06/18 04/06/18 04/06/18 06:59 14:59 22:59 Intake Total 500 Output Total 340 100 Balance 160 -100 Lab Results Last 24 Hours: Laboratory Results - last 24 hr 04/06/18 Range/Units 04:50 Sodium 138 L (140-148) mmol/L Potassium 3.5 L (3.6-5.2) mmol/L Chloride 100 (100-108) mmol/L Carbon Dioxide 29 (21-32) mmol/L Anion Gap 12.5 (5.0-14.0) mmol/L BUN 30 H (7-18) mg/dL Creatinine 1.9 H (0.6-1.0) mg/dL Est Cr Clr Drug Dosing 20.51 mL/min Estimated GFR (MDRD) 25 L (>60) Glucose 123 H (74-106) mg/dL Calcium 8.6 (8.5-10.1) mg/dL Magnesium 1.7 L (1.8-2.4) mg/dL Med Orders - Current: Current Medications Acetaminophen (Tylenol) 650 mg PO Q4H PRN PRN Reason: Pain (Mild 1-3)/fever Apixaban (Eliquis) 2.5 mg PO BID [facility] Last Admin: 04/06/18 12:05 Dose: 2.5 mg Artificial Tears (Natural Balance Tears) 0 ml EYEBOTH BID [facility] Bumetanide (Bumex) 4 mg IVPUSH Q12H [facility] Ceftriaxone Sodium 1 gm/ (Sodium Chloride) 50 mls @ 100 mls/hr IV Q24H [facility] Last Admin: 04/05/18 21:30 Dose: 100 mls/hr Lactobacillus Rhamnosus (Culturelle) 1 cap PO BID [facility] Last Admin: 04/06/18 10:13 Dose: 1 cap Metolazone (Zaroxolyn) 2.5 mg PO DAILY@0800 [facility] Metolazone (Zaroxolyn) 2.5 mg PO ONETIME ONE Stop: 04/06/18 17:01 Metoprolol Tartrate (Lopressor) 12.5 mg PO BID [facility] Last Admin: 04/06/18 10:13 Dose: 12.5 mg Ondansetron HCl (Zofran) 4 mg IV Q4H PRN PRN Reason: Nausea/Vomiting Oxycodone HCl (Oxycodone) 5 mg PO Q4H PRN PRN Reason: Pain (moderate 4-6) Last Admin: 04/05/18 21:50 Dose: 5 mg Pantoprazole Sodium (Protonix) 40 mg PO BEDTIME [facility] Last Admin: 04/05/18 21:42 Dose: 40 mg Senna/Docusate Sodium (Senna Plus) 1 tab PO BID PRN PRN Reason: Constipation Sodium Chloride (Saline Flush) 10 ml FLUSH ASDIRECTED PRN PRN Reason: Keep Vein Open Zolpidem Tartrate (Ambien) 10 mg PO BEDTIME PRN PRN Reason: SLEEP Last Admin: 04/05/18 21:50 Dose: 10 mg Discontinued Medications Apixaban (Eliquis) 2.5 mg PO BID [facility] Last Admin: 04/05/18 21:42 Dose: 2.5 mg Bumetanide (Bumex) 4 mg IVPUSH ONETIME ONE Stop: 04/04/18 17:54 Last Admin: 04/04/18 18:19 Dose: 4 mg Bumetanide (Bumex) 4 mg IVPUSH Q12H [facility] Last Admin: 04/06/18 10:15 Dose: 4 mg Bumetanide 10 mg/ Dextrose/ (Water) 100 mls @ 5 mls/hr IV TITRATE [facility]; Protocol Stop: 04/07/18 18:01 Potassium Chloride 20 meq/Lidocaine HCl 2 ml/ Sodium Chloride 112 mls @ 50 mls/ hr IV Q2H [facility] Stop: 04/05/18 13:59 Last Admin: 04/05/18 12:59 Dose: 50 mls/hr Magnesium Sulfate 2 gm/ Premix 50 mls @ 25 mls/hr IV ONETIME ONE Stop: 04/06/18 10:59 Last Admin: 04/06/18 10:15 Dose: 25 mls/hr Potassium Chloride (Klor-Con M20) 40 meq PO ONETIME ONE Stop: 04/05/18 10:01 Last Admin: 04/05/18 10:30 Dose: 40 meq Potassium Chloride (Klor-Con M20) 40 meq PO ONETIME ONE Stop: 04/05/18 17:01 Last Admin: 04/05/18 16:38 Dose: 40 meq Potassium Chloride (Klor-Con M20) 40 meq PO ONETIME ONE Stop: 04/06/18 09:01 Last Admin: 04/06/18 10:13 Dose: 40 meq Sodium Chloride (Saline Flush) 10 ml FLUSH ASDIRECTED PRN PRN Reason: Keep Vein Open Last Admin: 04/04/18 18:24 Dose: 10 ml - Exam Quality Assessment: DVT Prophylaxis General: Alert, Oriented, Cooperative, Mild Distress Lungs: Clear to Auscultation, Normal Respiratory Effort Cardiovascular: Regular Rate, Regular Rhythm, No Murmurs GI/Abdominal Exam: Soft, Non-Tender, No Organomegaly, No Distention Extremities: Non-Tender, Pedal Edema - Problem List Review Problem List Initiated/Reviewed/Updated: Yes - My Orders Last 24 Hours: My Active Orders 04/06/18 09:00 Apixaban [Eliquis] 2.5 mg PO BID 04/06/18 17:00 metOLazone [Zaroxolyn] 2.5 mg PO ONETIME ONE 04/06/18 18:00 Bumetanide [Bumex] 4 mg IVPUSH Q12H 04/06/18 21:00 Hypromellose [Natural Balance Tears] See Dose Instructions EYEBOTH BID 04/07/18 05:00 BASIC METABOLIC PANEL,BMP [CHEM] Timed MAGNESIUM [CHEM] Timed 04/07/18 08:00 metOLazone [Zaroxolyn] 2.5 mg PO DAILY - Plan Plan:: ASSESSMENT AND PLAN CONGESTIVE HEART FAILURE WITH PRESERVED LEFT VENTRICULAR FUNCTION- echocardiogram obtained in November showed preserved left ventricular systolic function, biatrial and right ventricular enlargement, elevated right-sided pressures, moderate mitral regurgitation. Improved shortness of breath and edema with current management. -Bumex 4 mg IV every 12 hours -Add Zaroxolyn 2.5 mg by mouth daily -Strict 2 g sodium diet LYMPHEDEMA -Hold on use of lymphedema pump while on antibiotic therapy CHRONIC KIDNEY DISEASE STAGE IV -Closely monitor urine output and renal function with attempted diuresis URINARY TRACT INFECTION-defined in the emergency department yesterday -Culture pending -Rocephin 1 g IV every 24 hours pending culture results MAINTENANCE ISSUES -DVT prophylaxis; current therapy with Eliquis should provide adequate DVT prophylaxis -GI prophylaxis; continue outpatient PPI therapy -Abdullahi catheter; not indicated -Nutrition; 2 g sodium diet -Nicotine dependence; not required CODE STATUS-FULL CODE ADMISSION STATUS-patient will be admitted to inpatient status, expect at least a 2 night hospital stay for evaluation and management of problems as outlined above. At the time of this admission I do not reasonably expected evaluation and management of this problem will require more than a 96 hour hospital stay. DISPOSITION-anticipate discharge to home after the hospital stay. PRIMARY CARE PROVIDER-Dr. Skelton
[2018-04-06] MEDS ORDERED: Metolazone 2.5 MG Tab PO ONE (17:00)
[2018-04-06] MEDS: Hypromellose 0.4% Ophth Soln 15 ML Bottle EYEBOTH SCH (20:13)
[2018-04-06] MEDS: Pantoprazole 40 MG Tab.CR PO SCH (20:13)
[2018-04-06] MEDS: cefTRIAXone 1 GM in Sodium Chloride 0.9% 50 ML IV SCH (20:21)
[2018-04-06] MEDS: oxyCODONE 5 MG Tab PO PRN (22:27)
[2018-04-06] MEDS: Zolpidem 5 MG Tab PO PRN (22:27)
[2018-04-07] MEDS: Bumetanide 2.5 MG/10 ML MDV IVPUSH SCH ×2 (06:43→18:05)
[2018-04-07] MEDS: Metolazone 2.5 MG Tab PO SCH (07:32)
[2018-04-07] MEDS ORDERED: Potassium Chloride 20 MEQ Tab.ER PO ONE ×3 (08:30→17:00)
[2018-04-07] MEDS: Lactobacillus Rhamnosus GG (Probiotic) Cap PO SCH ×2 (09:26→20:27)
[2018-04-07] MEDS: Apixaban 2.5 MG Tab PO SCH ×2 (09:26→20:26)
[2018-04-07] MEDS: Metoprolol Tartrate 25 MG Tab PO SCH ×2 (09:27→20:28)
[2018-04-07] MEDS: Hypromellose 0.4% Ophth Soln 15 ML Bottle EYEBOTH SCH ×2 (09:28→20:26)
--- NOTE | 2018-04-07 15:44 | PCM.PN ---
- General Info Date of Service: 04/07/18 Subjective Update: Ms. Saleh reports improvement in symptoms over the past 24 hours. Leg edema seems to be improved and she denies significant shortness of breath. She is been able to be up and walking in the hallways short distances, overall remains somewhat weak. Functional Status: Reports: Tolerating Diet, Ambulating, Urinating - Review of Systems General: Reports: Weakness. Denies: Fever, Chills Pulmonary: Reports: No Symptoms Cardiovascular: Reports: Edema. Denies: Chest Pain, Palpitations, Dyspnea on Exertion, Orthopnea, PND, Lightheadedness Gastrointestinal: Reports: No Symptoms - Patient Data Vitals - Most Recent: Last Vital Signs Temp 98.3 F 04/07/18 14:47 Pulse 77 04/07/18 14:47 Resp 17 04/07/18 14:47 BP 107/70 04/07/18 14:47 Pulse Ox 95 04/07/18 14:47 Weight - Most Recent: 640 lb 7.085 oz I&O - Last 24 Hours: Intake & Output 04/07/18 04/07/18 04/07/18 06:59 14:59 22:59 Output Total 500 1000 Balance -500 -1000 Lab Results Last 24 Hours: Laboratory Results - last 24 hr 04/07/18 Range/Units 05:25 Sodium 138 L (140-148) mmol/L Potassium 3.2 L (3.6-5.2) mmol/L Chloride 100 (100-108) mmol/L Carbon Dioxide 30 (21-32) mmol/L Anion Gap 11.2 (5.0-14.0) mmol/L BUN 28 H (7-18) mg/dL Creatinine 2.0 H (0.6-1.0) mg/dL Est Cr Clr Drug Dosing 19.48 mL/min Estimated GFR (MDRD) 24 L (>60) Glucose 122 H (74-106) mg/dL Calcium 8.6 (8.5-10.1) mg/dL Magnesium 2.0 (1.8-2.4) mg/dL Med Orders - Current: Current Medications Acetaminophen (Tylenol) 650 mg PO Q4H PRN PRN Reason: Pain (Mild 1-3)/fever Apixaban (Eliquis) 2.5 mg PO BID [facility] Last Admin: 04/07/18 09:26 Dose: 2.5 mg Artificial Tears (Natural Balance Tears) 0 ml EYEBOTH BID [facility] Last Admin: 04/07/18 09:28 Dose: 2 drop Bumetanide (Bumex) 4 mg IVPUSH Q12H [facility] Last Admin: 04/07/18 06:43 Dose: 4 mg Ceftriaxone Sodium 1 gm/ (Sodium Chloride) 50 mls @ 100 mls/hr IV Q24H [facility] Last Admin: 04/06/18 20:21 Dose: 100 mls/hr Lactobacillus Rhamnosus (Culturelle) 1 cap PO BID [facility] Last Admin: 04/07/18 09:26 Dose: 1 cap Metolazone (Zaroxolyn) 2.5 mg PO DAILY@0800 [facility] Last Admin: 04/07/18 07:32 Dose: 2.5 mg Metoprolol Tartrate (Lopressor) 12.5 mg PO BID [facility] Last Admin: 04/07/18 09:27 Dose: 12.5 mg Nystatin (Nystop) 0 gm TOP QID [facility] Ondansetron HCl (Zofran) 4 mg IV Q4H PRN PRN Reason: Nausea/Vomiting Oxycodone HCl (Oxycodone) 5 mg PO Q4H PRN PRN Reason: Pain (moderate 4-6) Last Admin: 04/06/18 22:27 Dose: 5 mg Pantoprazole Sodium (Protonix) 40 mg PO BEDTIME [facility] Last Admin: 04/06/18 20:13 Dose: 40 mg Potassium Chloride (Klor-Con M20) 40 meq PO ONETIME ONE Stop: 04/07/18 17:01 Senna/Docusate Sodium (Senna Plus) 1 tab PO BID PRN PRN Reason: Constipation Sodium Chloride (Saline Flush) 10 ml FLUSH ASDIRECTED PRN PRN Reason: Keep Vein Open Zolpidem Tartrate (Ambien) 10 mg PO BEDTIME PRN PRN Reason: SLEEP Last Admin: 04/06/18 22:27 Dose: 10 mg Discontinued Medications Apixaban (Eliquis) 2.5 mg PO BID [facility] Last Admin: 04/05/18 21:42 Dose: 2.5 mg Bumetanide (Bumex) 4 mg IVPUSH ONETIME ONE Stop: 04/04/18 17:54 Last Admin: 04/04/18 18:19 Dose: 4 mg Bumetanide (Bumex) 4 mg IVPUSH Q12H [facility] Last Admin: 04/06/18 10:15 Dose: 4 mg Bumetanide 10 mg/ Dextrose/ (Water) 100 mls @ 5 mls/hr IV TITRATE [facility]; Protocol Stop: 04/07/18 18:01 Potassium Chloride 20 meq/Lidocaine HCl 2 ml/ Sodium Chloride 112 mls @ 50 mls/ hr IV Q2H [facility] Stop: 04/05/18 13:59 Last Admin: 04/05/18 12:59 Dose: 50 mls/hr Magnesium Sulfate 2 gm/ Premix 50 mls @ 25 mls/hr IV ONETIME ONE Stop: 04/06/18 10:59 Last Admin: 04/06/18 10:15 Dose: 25 mls/hr Metolazone (Zaroxolyn) 2.5 mg PO ONETIME ONE Stop: 04/06/18 17:01 Last Admin: 04/06/18 17:53 Dose: 2.5 mg Potassium Chloride (Klor-Con M20) 40 meq PO ONETIME ONE Stop: 04/05/18 10:01 Last Admin: 04/05/18 10:30 Dose: 40 meq Potassium Chloride (Klor-Con M20) 40 meq PO ONETIME ONE Stop: 04/05/18 17:01 Last Admin: 04/05/18 16:38 Dose: 40 meq Potassium Chloride (Klor-Con M20) 40 meq PO ONETIME ONE Stop: 04/06/18 09:01 Last Admin: 04/06/18 10:13 Dose: 40 meq Potassium Chloride (Klor-Con M20) 40 meq PO ONETIME ONE Stop: 04/07/18 08:31 Last Admin: 04/07/18 09:26 Dose: 40 meq Potassium Chloride (Klor-Con M20) 40 meq PO ONETIME ONE Stop: 04/07/18 12:01 Last Admin: 04/07/18 12:42 Dose: 40 meq Sodium Chloride (Saline Flush) 10 ml FLUSH ASDIRECTED PRN PRN Reason: Keep Vein Open Last Admin: 04/04/18 18:24 Dose: 10 ml - Exam Quality Assessment: DVT Prophylaxis General: Alert, Oriented, Cooperative, No Acute Distress Lungs: Clear to Auscultation, Normal Respiratory Effort Cardiovascular: Regular Rate, Regular Rhythm, No Murmurs GI/Abdominal Exam: Soft, Non-Tender, No Organomegaly, No Distention Extremities: Non-Tender, Pedal Edema - Problem List Review Problem List Initiated/Reviewed/Updated: Yes - My Orders Last 24 Hours: My Active Orders 04/06/18 18:00 Bumetanide [Bumex] 4 mg IVPUSH Q12H 04/06/18 21:00 Hypromellose [Natural Balance Tears] See Dose Instructions EYEBOTH BID 04/07/18 08:00 metOLazone [Zaroxolyn] 2.5 mg PO DAILY@0800 04/07/18 14:27 Discontinue Telemetry Monitoring [Cardiac Monitoring Discontinue] [RC] Click to Edit 04/07/18 16:00 Nystatin [Nystop] See Dose Instructions TOP QID 04/07/18 17:00 Potassium Chloride [Klor-Con M20] 40 meq PO ONETIME ONE 04/08/18 05:00 BASIC METABOLIC PANEL,BMP [CHEM] Timed MAGNESIUM [CHEM] Timed - Plan Plan:: ASSESSMENT AND PLAN CONGESTIVE HEART FAILURE WITH PRESERVED LEFT VENTRICULAR FUNCTION- echocardiogram obtained in November showed preserved left ventricular systolic function, biatrial and right ventricular enlargement, elevated right-sided pressures, moderate mitral regurgitation. Improved shortness of breath and edema with current management. -Bumex 4 mg IV every 12 hours -Zaroxolyn 2.5 mg by mouth daily -Strict 2 g sodium diet LYMPHEDEMA -Hold on use of lymphedema pump while on antibiotic therapy CHRONIC KIDNEY DISEASE STAGE IV -Closely monitor urine output and renal function with attempted diuresis URINARY TRACT INFECTION-resolved she has completed a course of antibiotic therapy MAINTENANCE ISSUES -DVT prophylaxis; current therapy with Eliquis should provide adequate DVT prophylaxis -GI prophylaxis; continue outpatient PPI therapy -Abdullahi catheter; not indicated -Nutrition; 2 g sodium diet -Nicotine dependence; not required CODE STATUS-FULL CODE ADMISSION STATUS-patient will be admitted to inpatient status, expect at least a 2 night hospital stay for evaluation and management of problems as outlined above. At the time of this admission I do not reasonably expected evaluation and management of this problem will require more than a 96 hour hospital stay. DISPOSITION-anticipate discharge to home after the hospital stay. PRIMARY CARE PROVIDER-Dr. Skelton
[2018-04-07] MEDS: Nystatin Topical Powder 15 GM Bottle TOP SCH ×2 (18:04→21:35)
[2018-04-07] MEDS: oxyCODONE 5 MG Tab PO PRN (20:26)
[2018-04-07] MEDS: Zolpidem 5 MG Tab PO PRN (20:27)
[2018-04-07] MEDS: Pantoprazole 40 MG Tab.CR PO SCH (20:28)
[2018-04-08] MEDS: Nystatin Topical Powder 15 GM Bottle TOP SCH ×2 (05:39→14:27)
[2018-04-08] MEDS: Bumetanide 2.5 MG/10 ML MDV IVPUSH SCH (06:42)
[2018-04-08] MEDS: Lactobacillus Rhamnosus GG (Probiotic) Cap PO SCH (08:39)
[2018-04-08] MEDS: Apixaban 2.5 MG Tab PO SCH (08:39)
[2018-04-08] MEDS: Metoprolol Tartrate 25 MG Tab PO SCH (08:40)
[2018-04-08] MEDS: Metolazone 2.5 MG Tab PO SCH (08:40)
[2018-04-08] MEDS: Hypromellose 0.4% Ophth Soln 15 ML Bottle EYEBOTH SCH (08:41)
[2018-04-08] MEDS ORDERED: Potassium Chloride 20 MEQ Tab.ER PO ONE (09:00)
[2018-04-08 10:32] VITALS: BP 134/57
--- NOTE | 2018-04-08 13:14 | PCM.DCSUM1 ---
Discharge Summary - Hospital Course Brief History: Ms. Saleh is an 82-year-old woman with a known history of chronic kidney disease as well as diastolic congestive heart failure and chronic lymphedema of both lower extremities. She was admitted through the emergency department with a recent history of 20 pound weight gain associated with increased shortness of breath and edema. - Discharge Data Discharge Date: 04/08/18 Discharge Disposition: Home, Self-Care 01 Condition: Fair - Discharge Diagnosis/Problem(s) (1) Morbid obesity with BMI of 50.0-59.9, adult SNOMED Code(s): 827884858 ICD Code: E66.01 - MORBID (SEVERE) OBESITY DUE TO EXCESS CALORIES; Z68.43 - BODY MASS INDEX (BMI) 50-59.9, ADULT Status: Chronic Current Visit: No (2) Chronic diastolic CHF (congestive heart failure) SNOMED Code(s): 202761665, 266339601 ICD Code: I50.32 - CHRONIC DIASTOLIC (CONGESTIVE) HEART FAILURE Status: Chronic Current Visit: Yes (3) CKD (chronic kidney disease) stage 4, GFR 15-29 ml/min SNOMED Code(s): 039068042 ICD Code: N18.4 - CHRONIC KIDNEY DISEASE, STAGE 4 (SEVERE) Status: Acute Current Visit: Yes (4) Lymphedema of both lower extremities SNOMED Code(s): 01326994220189586 ICD Code: I89.0 - LYMPHEDEMA, NOT ELSEWHERE CLASSIFIED Status: Chronic Current Visit: No (5) UTI (urinary tract infection) SNOMED Code(s): 03972238 ICD Code: N39.0 - URINARY TRACT INFECTION, SITE NOT SPECIFIED Status: Acute Current Visit: Yes - Patient Summary/Data Consults: Consultations 04/05/18 12:09 Consult to Physical Therapy [PT Evaluation and Treatment] [CONS] Routine Please Evaluate and Treat. PT Reason for Consult: WEakness This query below is only for informational purposes and is not editable. Admission Diagnosis/Problem: Congestive heart failure Hospital Course: Ms. Saleh is an 82-year-old woman who is admitted through the emergency department with increased lymphedema and shortness of breath secondary to congestive heart failure with preserved left ventricular function and underlying chronic kidney disease stage IV. She has had symptoms of increased weakness with shortness of breath and decreased appetite over the past 7 days. Over the past few weeks she has gained an estimated 20 pounds. She was seen and evaluated the emergency department yesterday, given IV Bumex and switch to oral Bumex. Despite those interventions she has had persistent symptoms with minimal urine output. On admission she was placed on a 2 g sodium diet and started on IV Bumex 4 mg twice daily. She did note initial improvement in shortness of breath but had ongoing difficulty with her lymphedema. She was seen and evaluated by physical therapy as well as occupational therapy and had both legs wrapped which over the course of hospitalization did help her significant lymphedema. Because of somewhat poor diuresis with IV Bumex despite the dose of 4 mg twice daily Zaroxolyn was added and this too would provide further benefit as far as diuresis. Potassium level was low throughout the hospital stay and she will be discharged on 20meq of oral potassium daily. She will be discharged with Bumex 4 mg twice daily and Zaroxolyn 5 mg to be taken every other day one hour before taking her morning dose of Bumex. Follow-up appointment will be scheduled with primary care provider within one week, BMP should be obtained at the time of follow-up appointment. She will be on a strict 2 g sodium diet and activity will be as tolerated. She will continue to wrap legs at home and use her lymphedema pump. - Patient Instructions Diet: Low Sodium Activity: As Tolerated Other/Special Instructions: Schedule follow-up appointment with primary care provider within one week. Laboratory tests to be obtained at the time of follow- up appointment; BMP. - Discharge Plan *PRESCRIPTION DRUG MONITORING PROGRAM REVIEWED*: Not Applicable *COPY OF PRESCRIPTION DRUG MONITORING REPORT IN PATIENT CROW: Not Applicable Prescriptions/Med Rec: metOLazone [Zaroxolyn] 5 mg PO Q48H #15 tab Potassium Chloride [K-Tab ER] 20 meq PO DAILY #30 tablet.er Home Medications: Home Meds Apixaban [Eliquis] 2.5 mg PO BID 05/03/16 [History] Ascorbic Acid 500 mg PO DAILY 05/03/16 [History] Cholecalciferol (Vitamin D3) [Vitamin D] 1,000 unit PO DAILY 05/03/16 [History] Garlic 1,000 mg PO DAILY 05/03/16 [History] Metoprolol Tartrate 12.5 mg PO BID 05/03/16 [History] [place]-3 Fatty Acids [Fish Oil] 1,000 mg PO DAILY 05/03/16 [History] Omeprazole 20 mg PO BEDTIME 07/11/16 [History] diphenhydrAMINE [Benadryl] 50 mg PO BEDTIME PRN 11/17/17 [History] Acetaminophen [Tylenol] 650 mg PO Q4H PRN #200 tablet 11/22/17 [Rx] Lactobacillus Rhamnosus GG [Culturelle] 1 cap PO BID #30 cap 11/22/17 [Rx] Zolpidem Tartrate 10 mg PO BEDTIME PRN #30 tablet 11/22/17 [Rx] hydrOXYzine HCl [hydrOXYzine] 1 tab PO ACDINNER PRN 03/12/18 [History] Bumetanide 4 mg PO BID #0 04/08/18 [Rx] Potassium Chloride [K-Tab ER] 20 meq PO DAILY #30 tablet.er 04/08/18 [Rx] metOLazone [Zaroxolyn] 5 mg PO Q48H #15 tab 04/08/18 [Rx] Patient Handouts: Heart Failure, [id number] Referrals: Franc Skelton MD [Primary Care Provider] - 04/11/18 11:30 am (Arrive 15 minutes early to register for your appointment.) - Discharge Summary/Plan Comment DC Time >30 min.: No - Patient Data Vitals - Most Recent: Last Vital Signs Temp 98.8 F 04/08/18 10:31 Pulse 85 04/08/18 10:31 Resp 18 04/08/18 10:31 BP 134/57 L 04/08/18 10:31 Pulse Ox 100 04/08/18 10:31 Weight - Most Recent: 289 lb 5 oz I&O - Last 24 hours: Intake & Output 04/07/18 04/08/18 04/08/18 22:59 06:59 14:59 Intake Total 240 Output Total 550 200 Balance -550 40 Lab Results - Last 24 hrs: Laboratory Results - last 24 hr 04/08/18 Range/Units 05:00 Sodium 137 L (140-148) mmol/L Potassium 3.3 L (3.6-5.2) mmol/L Chloride 100 (100-108) mmol/L Carbon Dioxide 30 (21-32) mmol/L Anion Gap 10.3 (5.0-14.0) mmol/L BUN 34 H (7-18) mg/dL Creatinine 2.2 H (0.6-1.0) mg/dL Est Cr Clr Drug Dosing 17.71 mL/min Estimated GFR (MDRD) 21 L (>60) Glucose 117 H (74-106) mg/dL Calcium 8.7 (8.5-10.1) mg/dL Magnesium 1.9 (1.8-2.4) mg/dL Med Orders - Current: Current Medications Acetaminophen (Tylenol) 650 mg PO Q4H PRN PRN Reason: Pain (Mild 1-3)/fever Last Admin: 04/07/18 20:27 Dose: 650 mg Apixaban (Eliquis) 2.5 mg PO BID [facility] Last Admin: 04/08/18 08:39 Dose: 2.5 mg Artificial Tears (Natural Balance Tears) 0 ml EYEBOTH BID [facility] Last Admin: 04/08/18 08:41 Dose: 2 drop Bumetanide (Bumex) 4 mg IVPUSH Q12H [facility] Last Admin: 04/08/18 06:42 Dose: 4 mg Lactobacillus Rhamnosus (Culturelle) 1 cap PO BID [facility] Last Admin: 04/08/18 08:39 Dose: 1 cap Metolazone (Zaroxolyn) 2.5 mg PO DAILY@0800 [facility] Last Admin: 04/08/18 08:40 Dose: 2.5 mg Metoprolol Tartrate (Lopressor) 12.5 mg PO BID [facility] Last Admin: 04/08/18 08:40 Dose: 12.5 mg Nystatin (Nystop) 0 gm TOP QID [facility] Last Admin: 04/08/18 05:39 Dose: Not Given Ondansetron HCl (Zofran) 4 mg IV Q4H PRN PRN Reason: Nausea/Vomiting Oxycodone HCl (Oxycodone) 5 mg PO Q4H PRN PRN Reason: Pain (moderate 4-6) Last Admin: 04/07/18 20:26 Dose: 5 mg Pantoprazole Sodium (Protonix) 40 mg PO BEDTIME [facility] Last Admin: 04/07/18 20:28 Dose: 40 mg Senna/Docusate Sodium (Senna Plus) 1 tab PO BID PRN PRN Reason: Constipation Sodium Chloride (Saline Flush) 10 ml FLUSH ASDIRECTED PRN PRN Reason: Keep Vein Open Last Admin: 04/07/18 18:05 Dose: 10 ml Zolpidem Tartrate (Ambien) 10 mg PO BEDTIME PRN PRN Reason: SLEEP Last Admin: 04/07/18 20:27 Dose: 10 mg Discontinued Medications Apixaban (Eliquis) 2.5 mg PO BID [facility] Last Admin: 04/05/18 21:42 Dose: 2.5 mg Bumetanide (Bumex) 4 mg IVPUSH ONETIME ONE Stop: 04/04/18 17:54 Last Admin: 04/04/18 18:19 Dose: 4 mg Bumetanide (Bumex) 4 mg IVPUSH Q12H [facility] Last Admin: 04/06/18 10:15 Dose: 4 mg Bumetanide 10 mg/ Dextrose/ (Water) 100 mls @ 5 mls/hr IV TITRATE [facility]; Protocol Stop: 04/07/18 18:01 Ceftriaxone Sodium 1 gm/ (Sodium Chloride) 50 mls @ 100 mls/hr IV Q24H [facility] Last Admin: 04/06/18 20:21 Dose: 100 mls/hr Potassium Chloride 20 meq/Lidocaine HCl 2 ml/ Sodium Chloride 112 mls @ 50 mls/ hr IV Q2H [facility] Stop: 04/05/18 13:59 Last Admin: 04/05/18 12:59 Dose: 50 mls/hr Magnesium Sulfate 2 gm/ Premix 50 mls @ 25 mls/hr IV ONETIME ONE Stop: 04/06/18 10:59 Last Admin: 04/06/18 10:15 Dose: 25 mls/hr Metolazone (Zaroxolyn) 2.5 mg PO ONETIME ONE Stop: 04/06/18 17:01 Last Admin: 04/06/18 17:53 Dose: 2.5 mg Potassium Chloride (Klor-Con M20) 40 meq PO ONETIME ONE Stop: 04/05/18 10:01 Last Admin: 04/05/18 10:30 Dose: 40 meq Potassium Chloride (Klor-Con M20) 40 meq PO ONETIME ONE Stop: 04/05/18 17:01 Last Admin: 04/05/18 16:38 Dose: 40 meq Potassium Chloride (Klor-Con M20) 40 meq PO ONETIME ONE Stop: 04/06/18 09:01 Last Admin: 04/06/18 10:13 Dose: 40 meq Potassium Chloride (Klor-Con M20) 40 meq PO ONETIME ONE Stop: 04/07/18 08:31 Last Admin: 04/07/18 09:26 Dose: 40 meq Potassium Chloride (Klor-Con M20) 40 meq PO ONETIME ONE Stop: 04/07/18 12:01 Last Admin: 04/07/18 12:42 Dose: 40 meq Potassium Chloride (Klor-Con M20) 40 meq PO ONETIME ONE Stop: 04/07/18 17:01 Last Admin: 04/07/18 18:05 Dose: 40 meq Potassium Chloride (Klor-Con M20) 40 meq PO ONETIME ONE Stop: 04/08/18 09:01 Last Admin: 04/08/18 08:45 Dose: 40 meq Sodium Chloride (Saline Flush) 10 ml FLUSH ASDIRECTED PRN PRN Reason: Keep Vein Open Last Admin: 04/04/18 18:24 Dose: 10 ml - Exam General: Reports: Alert, Oriented, Cooperative, Mild Distress Lungs: Reports: Clear to Auscultation, Normal Respiratory Effort Cardiovascular: Reports: Regular Rate, Regular Rhythm, No Murmurs GI/Abdominal Exam: Soft, Non-Tender, No Organomegaly, No Distention Extremities: Non-Tender, Pedal Edema (Bilateral lymphedema both lower extremities) *Q Meaningful Use (DIS) - VTE *Q VTE Pharmacological Contraindications *Q: High INR Value
== END 2018-04-08 13:45 | disposition home or self-care (01) | DRG 292 ==
LOC: JP.ED 15:25 → JP.MS 18:43
PROVIDERS: ADMIT Hospitalist; ATTEND Hospitalist
DX: I13.0 Hypertensive heart and chronic kidney disease with heart failure and stage 1 through stage 4 chronic kidney disease, or unspecified chronic kidney disease (principal); I50.32 Chronic diastolic (congestive) heart failure; N18.4 Chronic kidney disease, stage 4 (severe); N39.0 Urinary tract infection, site not specified; Z68.43 Body mass index [BMI] 50.0-59.9, adult; I48.91 Unspecified atrial fibrillation; Z79.01 Long term (current) use of anticoagulants; I89.0 Lymphedema, not elsewhere classified; Z86.718 Personal history of other venous thrombosis and embolism; Z86.711 Personal history of pulmonary embolism; Z99.81 Dependence on supplemental oxygen; E87.6 Hypokalemia; I34.0 Nonrheumatic mitral (valve) insufficiency; G47.30 Sleep apnea, unspecified; K21.9 Gastro-esophageal reflux disease without esophagitis; M19.90 Unspecified osteoarthritis, unspecified site; G47.00 Insomnia, unspecified; Z85.3 Personal history of malignant neoplasm of breast; E66.01 Morbid (severe) obesity due to excess calories; Z87.01 Personal history of pneumonia (recurrent); H54.7 Unspecified visual loss; Z96.653 Presence of artificial knee joint, bilateral; Z90.11 Acquired absence of right breast and nipple; Z88.2 Allergy status to sulfonamides; Z91.048 Other nonmedicinal substance allergy status
CPT/HCPCS: 36415; 80048; 84484; 85025; 96374; 99285; S0171; 83735; 97110-GP; 97163-GP; 97530-GP; A9270-GY; J0696; J3475; J3480; J7030; J7050

== ENCOUNTER 2018-04-12 12:58 | Observation (INO) | payer MEDICARE, BC ==
[2018-04-12] MEDS ORDERED: diphenhydrAMINE 25 MG Cap PO ONE (14:32)
--- NOTE | 2018-04-12 14:38 | EDM.PDOC ---
ED HPI GENERAL MEDICAL PROBLEM - General Chief Complaint: Genitourinary Problem Stated Complaint: NO URINE OUTPUT Time Seen by Provider: 04/12/18 14:26 Source of Information: Reports: Patient, Old Records, RN Notes Reviewed History Limitations: Reports: No Limitations - History of Present Illness INITIAL COMMENTS - FREE TEXT/NARRATIVE: 82-year-old female presents emergency department today complaint of unable to urinate, she states she just had dribbling amounts urine for the past 3 days she does have a known history of diastolic congestive heart failure as well as a chronic renal failure she's also complains of some flushing and redness in the skin covering her entire body and she's not sure this may have started in the hospital and is progressively gotten worse. She was recently discharged discharged from the hospital here for exacerbation of congestive heart failure 2 medications were started Bumex and metolazone Lasix were stopped she has used Bumex in the past however metolazone is new - Related Data Allergies Allergy/AdvReac Type Severity Reaction Status Date / Time nickel Allergy Itching Verified 04/04/18 16:27 Sulfa (Sulfonamide Allergy Swelling Verified 04/04/18 16:27 Antibiotics) Home Meds: Home Meds Apixaban [Eliquis] 2.5 mg PO BID 05/03/16 [History] Ascorbic Acid 500 mg PO DAILY 05/03/16 [History] Cholecalciferol (Vitamin D3) [Vitamin D] 1,000 unit PO DAILY 05/03/16 [History] Garlic 1,000 mg PO DAILY 05/03/16 [History] Metoprolol Tartrate 12.5 mg PO BID 05/03/16 [History] [place]-3 Fatty Acids [Fish Oil] 1,000 mg PO DAILY 05/03/16 [History] Omeprazole 20 mg PO BEDTIME 07/11/16 [History] diphenhydrAMINE [Benadryl] 50 mg PO BEDTIME PRN 11/17/17 [History] Acetaminophen [Tylenol] 650 mg PO Q4H PRN #200 tablet 11/22/17 [Rx] Lactobacillus Rhamnosus GG [Culturelle] 1 cap PO BID #30 cap 11/22/17 [Rx] Zolpidem Tartrate 10 mg PO BEDTIME PRN #30 tablet 11/22/17 [Rx] hydrOXYzine HCl [hydrOXYzine] 1 tab PO ACDINNER PRN 03/12/18 [History] Bumetanide 4 mg PO BID #0 04/08/18 [Rx] Potassium Chloride [K-Tab ER] 20 meq PO DAILY #30 tablet.er 04/08/18 [Rx] metOLazone [Zaroxolyn] 5 mg PO Q48H #15 tab 04/08/18 [Rx] Past Medical History HEENT History: Reports: Impaired Vision, Other (See Below) Other HEENT History: sore throat Cardiovascular History: Reports: Afib, Blood Clots/VTE/DVT, Heart Failure, Hypertension, Other (See Below) Other Cardiovascular History: mitral regurgitation Respiratory History: Reports: Intubation, Previous, PE, Pneumonia, Recurrent, Sleep Apnea, Other (See Below) 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: Musculoskeletal History: Reports: Arthritis, Fracture Other Musculoskeletal History: left arm Psychiatric History: Reports: Depression Other Psychiatric History: insomnia Endocrine/Metabolic History: Reports: Obesity/BMI 30+ Hematologic History: Reports: Blood Transfusion(s) Oncologic (Cancer) History: Reports: Breast Dermatologic History: Reports: Other (See Below) Other Dermatologic History: reddness lower L leg - Infectious Disease History Infectious Disease History: Reports: Chicken Pox, Measles, Mumps - Past Surgical History Head Surgeries/Procedures: Reports: None HEENT Surgical History: Reports: None Musculoskeletal Surgical History: Reports: Carpal Tunnel, Knee Replacement Other Musculoskeletal Surgeries/Procedures:: right and left Oncologic Surgical History: Reports: Mastectomy Other Oncologic Surgeries/Procedures: right Social & Family History - Family History Cardiac: Reports: CAD - Tobacco Use Smoking Status *Q: Never Smoker - Caffeine Use Caffeine Use: Reports: Tea Other Caffeine Use: 2 cups per week ED ROS GENERAL - Review of Systems Review Of Systems: See Below (In) Constitutional: Reports: No Symptoms HEENT: Reports: No Symptoms Respiratory: Reports: No Symptoms Cardiovascular: Reports: No Symptoms GI/Abdominal: Reports: No Symptoms : Reports: Urinary Retention Musculoskeletal: Reports: No Symptoms Skin: Reports: Rash Neurological: Reports: No Symptoms ED EXAM, GENERAL - Physical Exam Exam: See Below Exam Limited By: No Limitations General Appearance: Alert, WD/WN, No Apparent Distress Respiratory/Chest: No Respiratory Distress, Lungs Clear, Normal Breath Sounds, No Accessory Muscle Use Cardiovascular: Regular Rate, Rhythm, No Murmur GI/Abdominal: Soft, Non-Tender Skin Exam: Pallor, Rash Course - Vital Signs Last Recorded V/S: Last Vital Signs Temp 97.2 F 04/12/18 14:09 Pulse 79 04/12/18 14:09 Resp 16 04/12/18 14:09 BP 115/68 04/12/18 14:09 Pulse Ox 95 04/12/18 14:09 - Orders/Labs/Meds Orders: Active Orders 24 hr Category Date Time Status Bladder Scan [RC] ASDIRECTED Care 04/12/18 14:04 Active Peripheral IV Care [RC] . DIRECTED Care 04/12/18 16:04 Active Lactated Ringers [Ringers, Lactated] 1,000 ml Med 04/12/18 16:04 Active IV BOLUS Sodium Chloride 0.9% [Saline Flush] Med 04/12/18 16:04 Active 10 ml FLUSH ASDIRECTED PRN Peripheral IV Insertion Adult [OM.PC] Urgent Oth 04/12/18 16:04 Ordered Medication Orders Lactated Ringer's (Ringers, Lactated) 1,000 mls @ 250 mls/hr IV BOLUS ONE Stop: 04/12/18 20:03 Sodium Chloride (Saline Flush) 10 ml FLUSH ASDIRECTED PRN PRN Reason: Keep Vein Open Labs: Laboratory Tests 04/12/18 04/12/18 Range/Units 14:31 14:31 WBC 11.8 H (4.5-11.0) K/uL RBC 3.24 L (3.30-5.50) M/uL Hgb 9.2 L (12.0-15.0) g/dL Hct 30.3 L (36.0-48.0) % MCV 94 (80-98) fL MCH 28 (27-31) pg MCHC 30 L (32-36) % Plt Count 223 (150-400) K/uL Neut % (Auto) 76 H (36-66) % Lymph % (Auto) 10 L (24-44) % [place] % (Auto) 8 H (2-6) % Eos % (Auto) 6 H (2-4) % Baso % (Auto) 1 (0-1) % Sodium 134 L (140-148) mmol/L Potassium 3.1 L (3.6-5.2) mmol/L Chloride 93 L (100-108) mmol/L Carbon Dioxide 30 (21-32) mmol/L Anion Gap 14.1 H (5.0-14.0) mmol/L BUN 45 H (7-18) mg/dL Creatinine 3.4 H D (0.6-1.0) mg/dL Est Cr Clr Drug Dosing 11.48 mL/min Estimated GFR (MDRD) 13 L (>60) Glucose 126 H (74-106) mg/dL Calcium 9.0 (8.5-10.1) mg/dL Meds: Medications Generic Name Dose Route Start Last Admin Trade Name Freq PRN Reason Stop Dose Admin Lactated Ringer's 1,000 mls @ 250 mls/hr 04/12/18 16:04 Ringers, Lactated IV 04/12/18 20:03 BOLUS ONE Sodium Chloride 10 ml 04/12/18 16:04 Saline Flush FLUSH ASDIRECTED PRN Keep Vein Open Discontinued Medications Generic Name Dose Route Start Last Admin Trade Name Freq PRN Reason Stop Dose Admin Diphenhydramine HCl 25 mg 04/12/18 14:32 04/12/18 14:37 Benadryl PO 04/12/18 14:33 25 mg ONETIME ONE Administration Departure - Departure Time of Disposition: 16:17 Disposition: Refer to Observation Condition: Poor Clinical Impression: Acute kidney injury - Discharge Information Referrals: Franc Skelton MD [Primary Care Provider] - Forms: ED Department Discharge - My Orders Last 24 Hours: My Active Orders 04/12/18 14:04 Bladder Scan [RC] ASDIRECTED 04/12/18 16:04 Peripheral IV Care [RC] . DIRECTED Lactated Ringers [Ringers, Lactated] 1,000 ml IV BOLUS Sodium Chloride 0.9% [Saline Flush] 10 ml FLUSH ASDIRECTED PRN Peripheral IV Insertion Adult [OM.PC] Urgent - Assessment/Plan Last 24 Hours: My Active Orders 04/12/18 14:04 Bladder Scan [RC] ASDIRECTED 04/12/18 16:04 Peripheral IV Care [RC] . DIRECTED Lactated Ringers [Ringers, Lactated] 1,000 ml IV BOLUS Sodium Chloride 0.9% [Saline Flush] 10 ml FLUSH ASDIRECTED PRN Peripheral IV Insertion Adult [OM.PC] Urgent Plan: Assessment Acuity = acute Site and laterality = acute kidney injury complicated patient with known history of chronic renal disease as well as diastolic congestive heart failure Etiology = possibly related to medications of Bumex and metolazone Manifestations = none Location of injury = Home Lab values = hemoglobin low at 9.2 consistent normochromic anemia W BC elevated 11.8 consistent with leukocytosis sodium low at 134 consistent hyponatremia potassium low at 3.1 consistent hyponatremia view and elevated 45 creatinine elevated 2.4 this is up from the baseline of 1.8 consistent with acute kidney injury stage GV Plan Called discussed case with nephrology Dr. Norris at 1600 recommend adjusting the Bumex down stopping the metolazone and gentle fluid hydration recheck kidney function, if kidneys do not respond recommend transfer to [place] for possible dialysis, called discussed case with hospitalist track repair person at 1610 he kindly agreed to come and evaluate the patient emergency department for admission This note was dictated using [employer] voice recognition software please call with any questions on syntax or grammar.
[2018-04-12] MEDS ORDERED: Sodium Chloride 0.9% 10 ML Syringe FLUSH PRN (16:04)
[2018-04-12] MEDS ORDERED: Lactated Ringers 1,000 ML IV ONE (16:04)
--- NOTE | 2018-04-12 17:06 | PCM.HP ---
H&P History of Present Illness - General Date of Service: 04/12/18 Admit Problem/Dx: Admission Diagnosis/Problem Admission Diagnosis/Problem Acute kidney injury Source of Information: Patient, Provider History Limitations: Reports: No Limitations - History of Present Illness Initial Comments - Free Text/Narative: Radha presents to the emergency room today because she is worried about minimal urine output over the past 3 days. She was admitted to the hospital last week for management of diastolic congestive heart failure and was sent home on an increased dose of diuretics. She reports normal urine output on Tuesday and Tuesday but since then has had minimal output. She does not report any shortness of breath and feels that her breathing is excellent at this time. She thinks her lower extremity edema is relatively stable. No complaints of chest pain or abdominal pain. She has not had any fevers. She thinks that her skin is a little bit more red than usual. Workup in the emergency room revealed acute on chronic kidney injury with a elevation of her creatinine from a baseline of around 2 up to 3.4. She also has mild hypokalemia. Case was discussed with her flake miller helper and he recommended gentle hydration and recheck labs in the morning. If kidney function does not improve she may need dialysis. - Related Data Allergies/Adverse Reactions: Allergies Allergy/AdvReac Type Severity Reaction Status Date / Time nickel Allergy Itching Verified 04/04/18 16:27 Sulfa (Sulfonamide Allergy Swelling Verified 04/04/18 16:27 Antibiotics) Home Medications: Home Meds Apixaban [Eliquis] 2.5 mg PO BID 05/03/16 [History] Ascorbic Acid 500 mg PO DAILY 05/03/16 [History] Cholecalciferol (Vitamin D3) [Vitamin D] 1,000 unit PO DAILY 05/03/16 [History] Garlic 1,000 mg PO DAILY 05/03/16 [History] Metoprolol Tartrate 12.5 mg PO BID 05/03/16 [History] [place]-3 Fatty Acids [Fish Oil] 1,000 mg PO DAILY 05/03/16 [History] Omeprazole 20 mg PO BEDTIME 07/11/16 [History] diphenhydrAMINE [Benadryl] 50 mg PO BEDTIME PRN 11/17/17 [History] Acetaminophen [Tylenol] 650 mg PO Q4H PRN #200 tablet 11/22/17 [Rx] Lactobacillus Rhamnosus GG [Culturelle] 1 cap PO BID #30 cap 11/22/17 [Rx] Zolpidem Tartrate 10 mg PO BEDTIME PRN #30 tablet 11/22/17 [Rx] hydrOXYzine HCl [hydrOXYzine] 1 tab PO ACDINNER PRN 03/12/18 [History] Bumetanide 4 mg PO BID #0 04/08/18 [Rx] Potassium Chloride [K-Tab ER] 20 meq PO DAILY #30 tablet.er 04/08/18 [Rx] metOLazone [Zaroxolyn] 5 mg PO Q48H #15 tab 04/08/18 [Rx] Past Medical History HEENT History: Reports: Impaired Vision, Other (See Below) Other HEENT History: sore throat Cardiovascular History: Reports: Afib, Blood Clots/VTE/DVT, Heart Failure, Hypertension, Other (See Below) Other Cardiovascular History: mitral regurgitation Respiratory History: Reports: Intubation, Previous, PE, Pneumonia, Recurrent, Sleep Apnea, Other (See Below) 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: Musculoskeletal History: Reports: Arthritis, Fracture Other Musculoskeletal History: left arm Psychiatric History: Reports: Depression Other Psychiatric History: insomnia Endocrine/Metabolic History: Reports: Obesity/BMI 30+ Hematologic History: Reports: Blood Transfusion(s) Oncologic (Cancer) History: Reports: Breast Dermatologic History: Reports: Other (See Below) Other Dermatologic History: reddness lower L leg - Infectious Disease History Infectious Disease History: Reports: Chicken Pox, Measles, Mumps - Past Surgical History Head Surgeries/Procedures: Reports: None HEENT Surgical History: Reports: None Musculoskeletal Surgical History: Reports: Carpal Tunnel, Knee Replacement Other Musculoskeletal Surgeries/Procedures:: right and left Oncologic Surgical History: Reports: Mastectomy Other Oncologic Surgeries/Procedures: right Social & Family History - Family History Cardiac: Reports: CAD - Tobacco Use Smoking Status *Q: Never Smoker - Caffeine Use Caffeine Use: Reports: Tea Other Caffeine Use: 2 cups per week - Alcohol Use Alcohol Use History: No H&P Review of Systems - Review of Systems: Review Of Systems: See Below Free Text/Narrative: A complete 12 point review of systems was obtained. Pertinent positives and negatives are noted in the history of present illness. All other systems were reviewed and were negative except as noted. Exam - Exam Exam: See Below - Vital Signs Vital Signs: Last Vital Signs Temp 36.2 C 04/12/18 16:28 Pulse 79 04/12/18 16:28 Resp 16 04/12/18 16:28 BP 115/68 04/12/18 16:28 Pulse Ox 95 04/12/18 16:28 Weight: 131.9 kg - Exam Quality Assessment: No: Supplemental Oxygen General: Alert, Oriented, Cooperative. No: Mild Distress HEENT: Conjunctiva Clear. No: Mucosa Moist & [place] (dry), Scleral Icterus Neck: No: Supple, Trachea Midline Lungs: Clear to Auscultation, Normal Respiratory Effort Cardiovascular: Regular Rate, Regular Rhythm, Systolic Murmur. No: Gallop/S3 GI/Abdominal Exam: Normal Bowel Sounds, Soft, No Distention, Tender (mild generalized ) Extremities: Pedal Edema (massive edema of both legs). No: Increased Warmth Skin: Warm, Dry, Rash (mild generalized erythema of cheeks, arms, thighs), Other (sloughing dry skin of both popliteal fossa ) Neuro Extensive - Mental Status: Alert, Oriented x3, Nl Response to Commands Neuro Extensive - Motor, Sensory, Reflexes: CN II-XII Intact. No: Dysarthria, Abnormal Motor, Tremor Psychiatric: Alert, Normal Affect - Patient Data Lab Results Last 24 hrs: Laboratory Results - last 24 hr 04/12/18 04/12/18 Range/Units 14:31 14:31 WBC 11.8 H (4.5-11.0) K/uL RBC 3.24 L (3.30-5.50) M/uL Hgb 9.2 L (12.0-15.0) g/dL Hct 30.3 L (36.0-48.0) % MCV 94 (80-98) fL MCH 28 (27-31) pg MCHC 30 L (32-36) % Plt Count 223 (150-400) K/uL Neut % (Auto) 76 H (36-66) % Lymph % (Auto) 10 L (24-44) % [place] % (Auto) 8 H (2-6) % Eos % (Auto) 6 H (2-4) % Baso % (Auto) 1 (0-1) % Sodium 134 L (140-148) mmol/L Potassium 3.1 L (3.6-5.2) mmol/L Chloride 93 L (100-108) mmol/L Carbon Dioxide 30 (21-32) mmol/L Anion Gap 14.1 H (5.0-14.0) mmol/L BUN 45 H (7-18) mg/dL Creatinine 3.4 H D (0.6-1.0) mg/dL Est Cr Clr Drug Dosing 11.48 mL/min Estimated GFR (MDRD) 13 L (>60) Glucose 126 H (74-106) mg/dL Calcium 9.0 (8.5-10.1) mg/dL Result Diagrams: 04/12/18 14:31 04/12/18 14:31 *Q Meaningful Use (ADM) - VTE Risk Assess *Q Each Risk Factor Represents 1 Point: Swollen Legs, Current, Obesity ( BMI > 25 kg/m2), Congestive heart failure (CHF) Total Score 1 Point Risk Factors: 3 Each Risk Factor Represents 2 Points: Malignancy (present or previous) Total Score 2 Point Risk Factors: 2 Each Risk Factor Represents 3 Points: Age 75 Years or Greater Total Score 3 Point Risk Factors: 3 Each Risk Factor Represents 5 Points: None Total Score 5 Point Risk Factors: 0 Venous Thromboembolism Risk Factor Score *Q: 8 - Problem List (1) Acute kidney injury SNOMED Code(s): 89980742 ICD Code: N17.9 - ACUTE KIDNEY FAILURE, UNSPECIFIED Status: Acute Current Visit: Yes (2) CKD (chronic kidney disease) stage 4, GFR 15-29 ml/min SNOMED Code(s): 390427217 ICD Code: N18.4 - CHRONIC KIDNEY DISEASE, STAGE 4 (SEVERE) Status: Acute Current Visit: No (3) Heart failure with preserved ejection fraction SNOMED Code(s): 798288535 ICD Code: I50.30 - UNSPECIFIED DIASTOLIC (CONGESTIVE) HEART FAILURE Status : Chronic Current Visit: No Qualifiers: Heart failure chronicity: chronic Qualified Code(s): I50.32 - Chronic diastolic (congestive) heart failure (4) Lymphedema of both lower extremities SNOMED Code(s): 61216041696498669 ICD Code: I89.0 - LYMPHEDEMA, NOT ELSEWHERE CLASSIFIED Status: Chronic Current Visit: No (5) Morbid obesity with BMI of 50.0-59.9, adult SNOMED Code(s): 532598053 ICD Code: E66.01 - MORBID (SEVERE) OBESITY DUE TO EXCESS CALORIES; Z68.43 - BODY MASS INDEX (BMI) 50-59.9, ADULT Status: Chronic Current Visit: No Problem List Initiated/Reviewed/Updated: Yes Orders Last 24hrs: Active Orders 24 hr Category Date Time Status Patient Status Manage Transfer [TRANSFER] Routine ADT 04/12/18 16:50 Ordered Bladder Scan [RC] ASDIRECTED Care 04/12/18 14:04 Active Peripheral IV Care [RC] . DIRECTED Care 04/12/18 16:04 Active Lactated Ringers [Ringers, Lactated] 1,000 ml Med 04/12/18 16:04 Active IV BOLUS Sodium Chloride 0.9% [Saline Flush] Med 04/12/18 16:04 Active 10 ml FLUSH ASDIRECTED PRN Peripheral IV Insertion Adult [OM.PC] Urgent Oth 04/12/18 16:04 Ordered Resuscitation Status Routine Resus Stat 04/12/18 16:52 Ordered Medication Orders Lactated Ringer's (Ringers, Lactated) 1,000 mls @ 250 mls/hr IV BOLUS ONE Stop: 04/12/18 20:03 Last Admin: 04/12/18 16:27 Dose: 250 mls/hr Sodium Chloride (Saline Flush) 10 ml FLUSH ASDIRECTED PRN PRN Reason: Keep Vein Open Last Admin: 04/12/18 16:27 Dose: 10 ml Assessment/Plan Comment:: ASSESSMENT AND PLAN - Acute kidney injury superimposed on stage IV kidney disease - creatinine has nearly doubled since hospital discharge last week. Suspicion is that she has intravascular volume depletion and this would fit with examination. Case was discussed with her flake miller helper and gentle hydration was recommended. If labs do not improve she may need transfer for dialysis. -Gentle IV fluids overnight -Recheck labs in the morning -Hold diuretics -Consider discharge home with diuretic adjustment versus transfer depending on change in lab values Heart failure with preserved ejection fraction - no active cardiopulmonary symptoms. No evidence for volume overload with regards to respiratory status. She does have chronic edema which is stable. -Continue medical management other than diuretics Chronic lymphedema - difficult to manage with diastolic heart failure and chronic kidney disease. She currently has lymphedema wraps in place. History of atrial fibrillation - she is chronically anticoagulated with apixaban. -cont metoprolol and apixaban Hypokalemia - this will be supplemented this evening and recheck in the morning. Morbid obesity with BMI greater than 40 Maintenance issues - - DVT prophylaxis - apixaban - GI prophylaxis - PPI - Nutrition - Low sodium - Abdullahi catheter - Not indicated CODE STATUS - Full code Admission justification - Patient will be referred observation status for gentle hydration and repeat laboratory testing. If numbers improve she should be able to go home and if they do not improve she will need transfer for nephrology evaluation Disposition - Anticipate discharge home versus potentially transfer tomorrow morning Primary care physician - Dr Costa Javier M.D.
[2018-04-12] MEDS ORDERED: Ondansetron 4 MG Tab.DIS PO PRN (18:13)
[2018-04-12] MEDS ORDERED: Potassium Chloride 20 MEQ Tab.ER PO ONE (18:13)
[2018-04-12] MEDS ORDERED: Acetaminophen 325 MG Tab PO PRN (18:13)
[2018-04-12] MEDS ORDERED: Polyethylene Glycol 3350 Powder 17 GM Packet PO PRN (18:13)
[2018-04-12] MEDS ORDERED: Zolpidem 5 MG Tab PO PRN (18:43)
[2018-04-12] MEDS ORDERED: diphenhydrAMINE 25 MG Cap PO PRN (18:45)
[2018-04-12] MEDS: Lactated Ringers 1,000 ML IV SCH (20:26)
[2018-04-12] MEDS: Apixaban 2.5 MG Tab PO SCH (20:38)
[2018-04-12] MEDS: Metoprolol Tartrate 25 MG Tab PO SCH (20:39)
[2018-04-12] MEDS: Lactobacillus Rhamnosus GG (Probiotic) Cap PO SCH (20:39)
[2018-04-12] MEDS ORDERED: Pantoprazole 40 MG Tab.CR PO SCH (21:00)
[2018-04-12] MEDS ORDERED: Apixaban 5 MG Tab PO SCH (21:00)
[2018-04-12] MEDS ORDERED: oxyCODONE 5 MG Tab PO PRN (23:54)
[2018-04-13] MEDS: Lactated Ringers 1,000 ML IV SCH (06:36)
[2018-04-13] MEDS: Apixaban 2.5 MG Tab PO SCH (09:37)
[2018-04-13] MEDS: Lactobacillus Rhamnosus GG (Probiotic) Cap PO SCH (09:37)
[2018-04-13] MEDS: Metoprolol Tartrate 25 MG Tab PO SCH (09:41)
--- NOTE | 2018-04-13 10:11 | PCM.DCSUM1 ---
Discharge Summary - Hospital Course Brief History: 82 -year-old female with history of heart failure with preserved ejection fraction, stage IV chronic kidney disease, severe lower extremity lymphedema and morbid obesity who presented with a complaint of minimal urine output. Workup in the emergency room revealed acute on chronic kidney injury. She was admitted for hydration and repeat laboratory testing. Diagnosis: Stroke: No - Discharge Data Discharge Date: 04/13/18 Discharge Disposition: DC/Tfer to [facility] 02 Condition: Stable - Discharge Diagnosis/Problem(s) (1) Acute kidney injury SNOMED Code(s): 75391404 ICD Code: N17.9 - ACUTE KIDNEY FAILURE, UNSPECIFIED Status: Acute Current Visit: Yes (2) CKD (chronic kidney disease) stage 4, GFR 15-29 ml/min SNOMED Code(s): 529711531 ICD Code: N18.4 - CHRONIC KIDNEY DISEASE, STAGE 4 (SEVERE) Status: Acute Current Visit: No (3) Heart failure with preserved ejection fraction SNOMED Code(s): 118986197 ICD Code: I50.30 - UNSPECIFIED DIASTOLIC (CONGESTIVE) HEART FAILURE Status : Chronic Current Visit: No Qualifiers: Heart failure chronicity: chronic Qualified Code(s): I50.32 - Chronic diastolic (congestive) heart failure (4) Lymphedema of both lower extremities SNOMED Code(s): 73773966819755890 ICD Code: I89.0 - LYMPHEDEMA, NOT ELSEWHERE CLASSIFIED Status: Chronic Current Visit: No (5) Morbid obesity with BMI of 50.0-59.9, adult SNOMED Code(s): 102899494 ICD Code: E66.01 - MORBID (SEVERE) OBESITY DUE TO EXCESS CALORIES; Z68.43 - BODY MASS INDEX (BMI) 50-59.9, ADULT Status: Chronic Current Visit: No - Patient Summary/Data Hospital Course: Radha presented to the emergency room with a chief complaint of minimal urine output over the past several days. Workup in the emergency room revealed acute on chronic kidney injury with a creatinine of 3.4 and a baseline around 2. Her GFR had dropped from around 19 to 11. the case was discussed with her retail and restaurant Dr. Jacobson in the emergency room and he recommended admission for gentle hydration and repeat testing. If her creatinine had not improved consideration for transfer to be considered. She received approximately 2.5 L of fluid during the course of the hospital stay. Vitals were stable. Creatinine improved only very slightly to 3.3. She does not have significant uremic symptoms. Potassium is mildly low at 3.4 and she did receive 40 mEq of supplementation this morning. I fear that with additional hydration we may run into trouble with congestive heart failure as we dealt with last week. The case was discussed with the managing consultant hospitalist and the patient will be transferred for nephrology evaluation. She is stable for transfer and the benefits outweigh the risks at this point. She may need dialysis initiated with her very low GFR and complicated medical problems. - Patient Instructions Diet: Low Sodium Activity: As Tolerated Showering/Bathing: May Shower Notify Provider of: Fever, Increased Pain Other/Special Instructions: 1. You were in the hospital for management of acute kidney injury superimposed on stage IV chronic kidney disease. Your kidney function has not improved with hydration as we had hoped. You will be transferred to [facility] for nephrology evaluation. - Discharge Plan *PRESCRIPTION DRUG MONITORING PROGRAM REVIEWED*: Not Applicable *COPY OF PRESCRIPTION DRUG MONITORING REPORT IN PATIENT CROW: Not Applicable Home Medications: Home Meds Apixaban [Eliquis] 2.5 mg PO BID 05/03/16 [History] Ascorbic Acid 500 mg PO DAILY 05/03/16 [History] Cholecalciferol (Vitamin D3) [Vitamin D] 1,000 unit PO DAILY 05/03/16 [History] Garlic 1,000 mg PO DAILY 05/03/16 [History] Metoprolol Tartrate 12.5 mg PO BID 05/03/16 [History] [place]-3 Fatty Acids [Fish Oil] 1,000 mg PO DAILY 05/03/16 [History] Omeprazole 20 mg PO BEDTIME 07/11/16 [History] diphenhydrAMINE [Benadryl] 50 mg PO BEDTIME PRN 11/17/17 [History] Acetaminophen [Tylenol] 650 mg PO Q4H PRN #200 tablet 11/22/17 [Rx] Lactobacillus Rhamnosus GG [Culturelle] 1 cap PO BID #30 cap 11/22/17 [Rx] Zolpidem Tartrate 10 mg PO BEDTIME PRN #30 tablet 11/22/17 [Rx] hydrOXYzine HCl [hydrOXYzine] 1 tab PO ACDINNER PRN 03/12/18 [History] Bumetanide 4 mg PO BID #0 02/09/19 [Rx] Potassium Chloride [K-Tab ER] 20 meq PO DAILY #30 tablet.er 04/08/18 [Rx] metOLazone [Zaroxolyn] 5 mg PO Q48H #15 tab 04/08/18 [Rx] Oxygen Therapy Mode: Nasal Cannula Oxygen Flow Rate (L/min): 2 Patient Handouts: Acute Kidney Injury, Adult Referrals: Franc Skelton MD [Primary Care Provider] - (f/u as needed after the hospital stay ) - Discharge Summary/Plan Comment DC Time >30 min.: Yes (45 - coordinating transfer to [facility]) - Patient Data Vitals - Most Recent: Last Vital Signs Temp 36.9 C 04/13/18 07:28 Pulse 53 L 04/13/18 09:41 Resp 16 04/13/18 07:28 BP 120/44 L 04/13/18 09:41 Pulse Ox 97 04/13/18 07:28 Weight - Most Recent: 131.9 kg I&O - Last 24 hours: Intake & Output 04/12/18 04/13/18 04/13/18 22:59 06:59 14:59 Intake Total 240 1885 Output Total 400 100 200 Balance -160 1785 -200 Lab Results - Last 24 hrs: Laboratory Results - last 24 hr 04/12/18 04/12/18 04/13/18 Range/Units 14:31 14:31 04:10 WBC 11.8 H (4.5-11.0) K/uL RBC 3.24 L (3.30-5.50) M/uL Hgb 9.2 L (12.0-15.0) g/dL Hct 30.3 L (36.0-48.0) % MCV 94 (80-98) fL MCH 28 (27-31) pg MCHC 30 L (32-36) % Plt Count 223 (150-400) K/uL Neut % (Auto) 76 H (36-66) % Lymph % (Auto) 10 L (24-44) % [place] % (Auto) 8 H (2-6) % Eos % (Auto) 6 H (2-4) % Baso % (Auto) 1 (0-1) % Sodium 134 L 134 L (140-148) mmol/L Potassium 3.1 L 3.4 L (3.6-5.2) mmol/L Chloride 93 L 96 L (100-108) mmol/L Carbon Dioxide 30 29 (21-32) mmol/L Anion Gap 14.1 H 12.4 (5.0-14.0) mmol/L BUN 45 H 47 H (7-18) mg/dL Creatinine 3.4 H D 3.3 H (0.6-1.0) mg/dL Est Cr Clr Drug Dosing 11.48 11.83 mL/min Estimated GFR (MDRD) 13 L 13 L (>60) Glucose 126 H 97 (74-106) mg/dL Calcium 9.0 8.7 (8.5-10.1) mg/dL Med Orders - Current: Current Medications Acetaminophen (Tylenol) 650 mg PO Q4H PRN PRN Reason: Pain (Mild 1-3)/fever Last Admin: 04/12/18 20:38 Dose: 650 mg Apixaban (Eliquis) 2.5 mg PO BID [facility] Last Admin: 04/13/18 09:37 Dose: 2.5 mg Diphenhydramine HCl (Benadryl) 50 mg PO BEDTIME PRN PRN Reason: ITCHING Lactated Ringer's (Ringers, Lactated) 1,000 mls @ 100 mls/hr IV ASDIRECTED [facility] Last Admin: 04/13/18 06:36 Dose: 100 mls/hr Lactobacillus Rhamnosus (Culturelle) 1 cap PO BID [facility] Last Admin: 04/13/18 09:37 Dose: 1 cap Metoprolol Tartrate (Lopressor) 12.5 mg PO BID [facility] Last Admin: 04/13/18 09:41 Dose: Not Given Ondansetron HCl (Zofran Odt) 4 mg PO Q6H PRN PRN Reason: Nausea able to take PO Oxycodone HCl (Oxycodone) 5 mg PO Q4H PRN PRN Reason: Pain Last Admin: 04/13/18 01:22 Dose: 5 mg Pantoprazole Sodium (Protonix) 40 mg PO BEDTIME [facility] Last Admin: 04/12/18 20:39 Dose: 40 mg Polyethylene Glycol (Miralax) 17 gm PO DAILY PRN PRN Reason: Constipation Potassium Chloride (Klor-Con M20) 40 meq PO ONETIME ONE Stop: 04/13/18 09:54 Senna/Docusate Sodium (Senna Plus) 1 tab PO BID PRN PRN Reason: Constipation Sodium Chloride (Saline Flush) 10 ml FLUSH ASDIRECTED PRN PRN Reason: Keep Vein Open Last Admin: 04/12/18 16:27 Dose: 10 ml Zolpidem Tartrate (Ambien) 10 mg PO BEDTIME PRN PRN Reason: SLEEP Last Admin: 04/12/18 20:38 Dose: 10 mg Discontinued Medications Apixaban (Eliquis) 2.5 mg PO BID [facility] Diphenhydramine HCl (Benadryl) 25 mg PO ONETIME ONE Stop: 04/12/18 14:33 Last Admin: 04/12/18 14:37 Dose: 25 mg Lactated Ringer's (Ringers, Lactated) 1,000 mls @ 250 mls/hr IV BOLUS ONE Stop: 04/12/18 20:03 Last Admin: 04/12/18 16:27 Dose: 250 mls/hr Potassium Chloride (Klor-Con M20) 40 meq PO ONETIME ONE Stop: 04/12/18 18:14 Last Admin: 04/12/18 19:34 Dose: 40 meq - Exam Quality Assessment: Reports: Supplemental Oxygen General: Reports: Alert, Oriented, Cooperative, No Acute Distress HEENT: Reports: Pupils Equal Lungs: Reports: Normal Respiratory Effort Cardiovascular: Reports: Regular Rate, Regular Rhythm GI/Abdominal Exam: Soft, No Distention, Other (obese) Extremities: Pedal Edema (massive pitting edema of both lower extremities) Skin: Reports: Warm, Dry Psy/Mental Status: Reports: Alert, Normal Affect
[2018-04-13] MEDS ORDERED: Potassium Chloride 20 MEQ Tab.ER PO ONE (10:30)
[2018-04-13 10:36] VITALS: BP 110/48
== END 2018-04-13 11:45 ==
LOC: JP.ED 12:58 → JP.MS 16:50
PROVIDERS: ADMIT Internal Medicine; ATTEND Internal Medicine
DX: N17.9 Acute kidney failure, unspecified (principal); I13.0 Hypertensive heart and chronic kidney disease with heart failure and stage 1 through stage 4 chronic kidney disease, or unspecified chronic kidney disease; I50.32 Chronic diastolic (congestive) heart failure; N18.4 Chronic kidney disease, stage 4 (severe); I89.0 Lymphedema, not elsewhere classified; E66.01 Morbid (severe) obesity due to excess calories; Z68.43 Body mass index [BMI] 50.0-59.9, adult; K21.9 Gastro-esophageal reflux disease without esophagitis; Z79.01 Long term (current) use of anticoagulants; Z79.899 Other long term (current) drug therapy; Z88.2 Allergy status to sulfonamides; Z91.048 Other nonmedicinal substance allergy status
CPT/HCPCS: 36415; 80048; 85025; 96360; 96361; 99284; A9270; J7120; G0378

== ENCOUNTER 2018-06-21 23:30 | Emergency (ER) | payer MEDICARE, BC ==
[2018-06-22] MEDS ORDERED: Sodium Chloride 0.9% 10 ML Syringe FLUSH PRN (00:29)
[2018-06-22] MEDS ORDERED: Lactated Ringers 1,000 ML IV SCH (00:30)
--- NOTE | 2018-06-22 00:37 | EDM.PDOC ---
ED HPI GENERAL MEDICAL PROBLEM - General Chief Complaint: Gastrointestinal Problem Stated Complaint: MEDICAL [facility]IA [facility] Time Seen by Provider: 06/22/18 00:20 Source of Information: Reports: Patient, Family, RN Notes Reviewed History Limitations: Reports: No Limitations - History of Present Illness INITIAL COMMENTS - FREE TEXT/NARRATIVE: 82-year-old female presents emergency department today via EMS services complaint of weakness. She was recently discharged from longterm approximately 8 days prior was in longterm placement for ongoing chest heart failure as well as chronic renal failure had been placed there for transitional care and rehabilitation. Did have services home care PT and OT at home however over the last couple days she has had some nausea vomiting with diarrhea and progressively getting weak. Family members are present states she has had bouts of confusion as well as urinary incontinence. Denies any fever does complain of shortness of breath Treatments FLATBED PRESS OPERATOR: Reports: Other (see below) Other Treatments FLATBED PRESS OPERATOR: none - Related Data Allergies Allergy/AdvReac Type Severity Reaction Status Date / Time cephalexin Allergy Other Verified 06/22/18 00:06 doxycycline Allergy Hives Verified 06/22/18 00:06 nickel Allergy Itching Verified 04/04/18 16:27 Sulfa (Sulfonamide Allergy Swelling Verified 04/04/18 16:27 Antibiotics) zaleplon Allergy Hives Verified 06/22/18 00:06 Home Meds: Home Meds Apixaban [Eliquis] 2.5 mg PO BID 05/03/16 [History] Cholecalciferol (Vitamin D3) [Vitamin D] 1,000 unit PO DAILY 05/03/16 [History] [place]-3 Fatty Acids [Fish Oil] 1,000 mg PO DAILY 05/03/16 [History] Acetaminophen [Tylenol] 650 mg PO Q4H PRN #200 tablet 11/22/17 [Rx] Potassium Chloride [K-Tab ER] 20 meq PO DAILY #30 tablet.er 04/08/18 [Rx] Ammonium Lactate [Amlactin] 57 gm TP BID 06/22/18 [History] Bumetanide 2 mg PO BID 06/22/18 [History] Ferrous Sulfate [Feosol] 325 mg PO DAILY 06/22/18 [History] Folic Acid 1 mg PO DAILY 06/22/18 [History] Magnesium Chloride [Mag-64] 64 mg PO DAILY 06/22/18 [History] Metoprolol Succinate [Toprol XL] 25 mg PO DAILY 06/22/18 [History] Nystatin 1 each MC TID 06/22/18 [History] traZODone HCl [Trazodone HCl] 50 mg PO BEDTIME 06/22/18 [History] Past Medical History HEENT History: Reports: Impaired Vision Cardiovascular History: Reports: Afib, Blood Clots/VTE/DVT, Heart Failure, Hypertension, Other (See Below) Other Cardiovascular History: mitral regurgitation Respiratory History: Reports: Intubation, Previous, PE, Pneumonia, Recurrent, Sleep Apnea, Other (See Below) 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 2L Gastrointestinal History: Reports: GERD Genitourinary History: Reports: Retention, Urinary, Urinary Incontinence Other Genitourinary History: wears depends GUIDANCE SERVICES COORDINATOR History: Reports: Musculoskeletal History: Reports: Arthritis, Fracture, Other (See Below) Other Musculoskeletal History: left arm Psychiatric History: Reports: Depression, Other (See Below) Other Psychiatric History: insomnia Endocrine/Metabolic History: Reports: Obesity/BMI 30+ Hematologic History: Reports: Blood Transfusion(s) Oncologic (Cancer) History: Reports: Breast Dermatologic History: Reports: Other (See Below) Other Dermatologic History: reddness lower L leg. Yeast infection under abdominal roll - Infectious Disease History Infectious Disease History: Reports: Chicken Pox - Past Surgical History Head Surgeries/Procedures: Reports: None HEENT Surgical History: Reports: None Female Surgical History: Reports: Mastectomy, Other (See Below) Other Female Surgeries/Procedures: right mastectomy Musculoskeletal Surgical History: Reports: Carpal Tunnel, Knee Replacement Other Musculoskeletal Surgeries/Procedures:: right and left Oncologic Surgical History: Reports: Mastectomy Other Oncologic Surgeries/Procedures: right Social & Family History - Family History Cardiac: Reports: CAD - Tobacco Use Smoking Status *Q: Unknown Ever Smoked - Caffeine Use Caffeine Use: Reports: Coffee Other Caffeine Use: 2 cups per week - Recreational Drug Use Recreational Drug Use: No ED ROS GENERAL - Review of Systems Review Of Systems: See Below Constitutional: Reports: Weakness, Fatigue. Denies: Fever, Chills HEENT: Reports: No Symptoms Respiratory: Reports: Shortness of Breath, Wheezing. Denies: Cough, Sputum Cardiovascular: Reports: Dyspnea on Exertion GI/Abdominal: Reports: Diarrhea, Nausea, Vomiting : Reports: No Symptoms Musculoskeletal: Reports: No Symptoms Skin: Reports: No Symptoms Neurological: Reports: No Symptoms ED EXAM, GI/ABD - Physical Exam Exam: See Below Text/Narrative:: General: Female, ill-appearing, alert HEENT: head is atraumatic normocephalic, eyes pupils equal round reactive to light, sclera clear no conjunctivitis appreciated. Ears tympanic membranes clear and oh landmarks and light reflex are present bilaterally canals are clear. Nose no septal deviation, nares are clear, no blood present. Mouth mucosa is moist and pink no erythema or exudate noted in soft palate, tongue is midline uvula is midline, dentures in place. Neck: Supple no thyromegaly no tracheal deviation. JVD a +2 Nodes: Cervical nodes subclavicular nodes nontender no palpable lymphadenopathy noted. Lungs: clear to auscultation bilaterally with symmetrical respirations, no adventitious noise appreciated. CV: Irregularly irregular rate and rhythm S1 and S2 appreciated no murmurs rubs or gallops noted. Abdomen: Soft, obese, nontender, no palpable masses or organomegaly appreciated , no distention no guarding bowel sounds are present, Neuro: Cranial nerves II through XII intact, GCS 15 Skin: Warm and dry, intact Extremities: Markedly lower extremity edema secondary lymphadenopathy Course - Vital Signs Last Recorded V/S: Last Vital Signs Temp 95.7 F 06/21/18 23:32 Pulse 61 06/22/18 01:20 Resp 13 06/22/18 01:20 BP 110/45 L 06/22/18 01:20 Pulse Ox 94 L 06/22/18 01:20 - Orders/Labs/Meds Orders: Active Orders 24 hr Category Date Time Status EKG Documentation Completion [RC] ASDIRECTED Care 06/22/18 01:21 Active Peripheral IV Care [RC] . DIRECTED Care 06/22/18 00:30 Active UA W/MICROSCOPIC [URIN] Urgent Lab 06/22/18 00:29 Ordered Calcium Gluconate 1 gm Med 06/22/18 01:34 Active Sodium Chloride 0.9% [Normal Saline] 100 ml IV ONETIME Lactated Ringers [Ringers, Lactated] 1,000 ml Med 06/22/18 00:30 Active IV ASDIRECTED Sodium Chloride 0.9% [Saline Flush] Med 06/22/18 00:29 Active 10 ml FLUSH ASDIRECTED PRN Peripheral IV Insertion Adult [OM.PC] Urgent Oth 06/22/18 00:29 Ordered EKG 12 Lead [EK] Stat Ther 06/22/18 01:21 Ordered Medication Orders Lactated Ringer's (Ringers, Lactated) 1,000 mls @ 125 mls/hr IV ASDIRECTED [facility] Last Admin: 06/22/18 01:04 Dose: 50 mls/hr Calcium Gluconate 1 gm/ Sodium (Chloride) 110 mls @ 100 mls/hr IV ONETIME ONE Stop: 06/22/18 02:39 Sodium Chloride (Saline Flush) 10 ml FLUSH ASDIRECTED PRN PRN Reason: Keep Vein Open Last Admin: 06/22/18 00:55 Dose: 10 ml Labs: Laboratory Tests 06/22/18 06/22/18 06/22/18 Range/Units 00:47 00:47 00:47 WBC 6.7 (4.5-11.0) K/uL RBC 3.17 L (3.30-5.50) M/uL Hgb 9.4 L (12.0-15.0) g/dL Hct 30.7 L (36.0-48.0) % MCV 97 (80-98) fL MCH 30 (27-31) pg MCHC 31 L (32-36) % Plt Count 154 (150-400) K/uL Neut % (Auto) 78 H (36-66) % Lymph % (Auto) 10 L (24-44) % [place] % (Auto) 9 H (2-6) % Eos % (Auto) 3 (2-4) % Baso % (Auto) 0 (0-1) % Sodium 136 L (140-148) mmol/L Potassium 7.1 H* (3.6-5.2) mmol/L Chloride 101 (100-108) mmol/L Carbon Dioxide 24 (21-32) mmol/L Anion Gap 18.1 H (5.0-14.0) mmol/L BUN 87 H* D (7-18) mg/dL Creatinine 5.1 H* D (0.6-1.0) mg/dL Est Cr Clr Drug Dosing 7.64 mL/min Estimated GFR (MDRD) 8 L (>60) Glucose 103 (74-106) mg/dL Lactic Acid 2.1 H (0.4-2.0) mmol/L Calcium 8.9 (8.5-10.1) mg/dL Total Bilirubin 0.5 D (0.2-1.0) mg/dL AST 28 (15-37) U/L ALT 18 (12-78) U/L Alkaline Phosphatase 111 (46-116) U/L Troponin I < 0.017 (0.000-0.056) ng/mL NT-Pro-B Natriuret Pep (5-450) pg/mL Total Protein 7.9 (6.4-8.2) g/dL Albumin 2.9 L (3.4-5.0) g/dL Globulin 5.0 H (2.3-3.5) g/dL Albumin/Globulin Ratio 0.6 L (1.2-2.2) 06/22/18 Range/Units 00:47 WBC (4.5-11.0) K/uL RBC (3.30-5.50) M/uL Hgb (12.0-15.0) g/dL Hct (36.0-48.0) % MCV (80-98) fL MCH (27-31) pg MCHC (32-36) % Plt Count (150-400) K/uL Neut % (Auto) (36-66) % Lymph % (Auto) (24-44) % [place] % (Auto) (2-6) % Eos % (Auto) (2-4) % Baso % (Auto) (0-1) % Sodium (140-148) mmol/L Potassium (3.6-5.2) mmol/L Chloride (100-108) mmol/L Carbon Dioxide (21-32) mmol/L Anion Gap (5.0-14.0) mmol/L BUN (7-18) mg/dL Creatinine (0.6-1.0) mg/dL Est Cr Clr Drug Dosing mL/min Estimated GFR (MDRD) (>60) Glucose (74-106) mg/dL Lactic Acid (0.4-2.0) mmol/L Calcium (8.5-10.1) mg/dL Total Bilirubin (0.2-1.0) mg/dL AST (15-37) U/L ALT (12-78) U/L Alkaline Phosphatase (46-116) U/L Troponin I (0.000-0.056) ng/mL NT-Pro-B Natriuret Pep [address]38 H (5-450) pg/mL Total Protein (6.4-8.2) g/dL Albumin (3.4-5.0) g/dL Globulin (2.3-3.5) g/dL Albumin/Globulin Ratio (1.2-2.2) Meds: Medications Generic Name Dose Route Start Last Admin Trade Name Freq PRN Reason Stop Dose Admin Lactated Ringer's 1,000 mls @ 125 mls/hr 06/22/18 00:30 06/22/18 01:04 Ringers, Lactated IV 50 mls/hr ASDIRECTED [facility] Administration Calcium Gluconate 1 gm/ Sodium 110 mls @ 100 mls/hr 06/22/18 01:34 Chloride IV 06/22/18 02:39 ONETIME ONE Sodium Chloride 10 ml 06/22/18 00:29 06/22/18 00:55 Saline Flush FLUSH 10 ml ASDIRECTED PRN Administration Keep Vein Open Discontinued Medications Generic Name Dose Route Start Last Admin Trade Name Freq PRN Reason Stop Dose Admin Insulin Human Regular 10 unit 06/22/18 01:35 Humulin R IVPUSH 06/22/18 01:36 ONETIME ONE Sodium Bicarbonate 50 meq 06/22/18 01:42 Sodium Bicarbonate 8.4% IVPUSH 06/22/18 01:43 ONETIME ONE Departure - Departure Time of Disposition: 01:50 Disposition: DC/Tfer to Acute Hospital 02 Condition: Poor Clinical Impression: Chronic diastolic CHF (congestive heart failure), Acute kidney injury - Discharge Information Referrals: Chelita Tolliver MD [Primary Care Provider] - Forms: ED Department Discharge - My Orders Last 24 Hours: My Active Orders 06/22/18 00:29 UA W/MICROSCOPIC [URIN] Urgent Sodium Chloride 0.9% [Saline Flush] 10 ml FLUSH ASDIRECTED PRN Peripheral IV Insertion Adult [OM.PC] Urgent 06/22/18 00:30 Peripheral IV Care [RC] . DIRECTED Lactated Ringers [Ringers, Lactated] 1,000 ml IV ASDIRECTED 06/22/18 01:21 EKG Documentation Completion [RC] ASDIRECTED EKG 12 Lead [EK] Stat 06/22/18 01:34 Calcium Gluconate 1 gm Sodium Chloride 0.9% [Normal Saline] 100 ml IV ONETIME - Assessment/Plan Last 24 Hours: My Active Orders 06/22/18 00:29 UA W/MICROSCOPIC [URIN] Urgent Sodium Chloride 0.9% [Saline Flush] 10 ml FLUSH ASDIRECTED PRN Peripheral IV Insertion Adult [OM.PC] Urgent 06/22/18 00:30 Peripheral IV Care [RC] . DIRECTED Lactated Ringers [Ringers, Lactated] 1,000 ml IV ASDIRECTED 06/22/18 01:21 EKG Documentation Completion [RC] ASDIRECTED EKG 12 Lead [EK] Stat 06/22/18 01:34 Calcium Gluconate 1 gm Sodium Chloride 0.9% [Normal Saline] 100 ml IV ONETIME Plan: Assessment Acuity = acute on chronic Site and laterality = renal failure as well as congestive heart failure Etiology = unknown etiology Manifestations = hypoxic, somnolent, uremic Location of injury = Home Lab values = hemoglobin low at 9.4 consistent normochromic anemia potassium elevated 7.1 consistent with severe hyperkalemia creatinine elevated 5.1 consistent with an acute on chronic renal failure stage GV lactic acid elevated 2.1 consistent lactic acidosis troponin is negative BNP markedly elevated 11, 018 consistent with fluid overload type pattern albumin low at 2.9 consistent hypoalbuminemia EKG demonstrates atrial fibrillation minimal T waves appreciated Plan Called discussed case with Dr. Dunbar at 1:30 [facility] kindly accept the patient in transport she has been given 1 g calcium gluconate, 1 amp of D50 followed by 10 units regular insulin she also received 1 ampule of sodium bicarbonate, will be transported via EMS ground This note was dictated using [employer] voice recognition software please call with any questions on syntax or grammar.
--- NOTE | 2018-06-22 01:17 | CRLCR ---
INDICATION: Shortness of breath TECHNIQUE: Chest 1 view. COMPARISON: 04/03/2018 FINDINGS: Cardiovascular and mediastinum: Heart size and vasculature are normal in caliber and appearance. Mediastinum is within normal limits. Lungs and pleural space: Lungs are clear. No sign of infiltrate or mass. Right pleural effusion. No pneumothorax. Bones and soft tissues: No significant findings. IMPRESSION: Right pleural effusion. Dictated by Franc Willingham MD @ Jun 22 2018 1:17AM Signed by Dr. Franc Willingham @ Jun 22 2018 1:17AM
[2018-06-22 01:28] VITALS: BP 110/45
[2018-06-22] MEDS ORDERED: Calcium Gluconate 1 GM in Sodium Chloride 0.9% 100 ML IV ONE (01:34)
[2018-06-22] MEDS ORDERED: Insulin Regular, Human 100 Units/ML 3 ML Vial IVPUSH ONE (01:35)
[2018-06-22] MEDS ORDERED: Sodium Bicarbonate 8.4% 50 MEQ/50 ML Syringe IVPUSH ONE (01:42)
== END 2018-06-22 02:35 ==
LOC: JP.ED 23:30
DX: N17.9 Acute kidney failure, unspecified (principal); I11.0 Hypertensive heart disease with heart failure; I50.9 Heart failure, unspecified; K21.9 Gastro-esophageal reflux disease without esophagitis; Z79.899 Other long term (current) drug therapy; Z88.1 Allergy status to other antibiotic agents; Z88.2 Allergy status to sulfonamides; Z88.8 Allergy status to other drugs, medicaments and biological substances
CPT/HCPCS: 36415; 71045; 80053; 81001; 83605; 83880; 84484; 85025; 93005; 96361; 96374; 96375; 99285; J0610; J1815; J7030; J7120; 93010

== ENCOUNTER 2018-07-30 13:52 | Emergency (ER) | payer MEDICARE, BC ==
--- NOTE | 2018-07-30 14:53 | EDM.PDOC ---
ED HPI GENERAL MEDICAL PROBLEM - General Chief Complaint: Back Pain or Injury Stated Complaint: [facility] Time Seen by Provider: 07/30/18 14:45 Source of Information: Reports: Patient, RN Notes Reviewed History Limitations: Reports: No Limitations - History of Present Illness INITIAL COMMENTS - FREE TEXT/NARRATIVE: 83-year-old female presents emergency department today complaint of low back pain, she has a history of end-stage renal disease currently on dialysis has had difficulty with congestive heart failure as well as a past. Describes no shortness of breath or chest pain states the back pain usually gets worse after her dialysis run which lasts approximately 5 hours has had fever up to 101 yesterday - Related Data Allergies Allergy/AdvReac Type Severity Reaction Status Date / Time cephalexin Allergy Other Verified 06/22/18 00:06 doxycycline Allergy Hives Verified 06/22/18 00:06 nickel Allergy Itching Verified 04/04/18 16:27 Sulfa (Sulfonamide Allergy Swelling Verified 04/04/18 16:27 Antibiotics) zaleplon Allergy Hives Verified 06/22/18 00:06 Home Meds: Home Meds Apixaban [Eliquis] 2.5 mg PO DAILY 05/03/16 [History] Cholecalciferol (Vitamin D3) [Vitamin D] 1,000 unit PO DAILY 05/03/16 [History] [place]-3 Fatty Acids [Fish Oil] 1,000 mg PO DAILY 05/03/16 [History] Acetaminophen [Tylenol] 650 mg PO Q4H PRN #200 tablet 11/22/17 [Rx] Potassium Chloride [K-Tab ER] 20 meq PO DAILY #30 tablet.er 04/08/18 [Rx] Ammonium Lactate [Amlactin] 57 gm TP BID 06/22/18 [History] Bumetanide 2 mg PO BID 06/22/18 [History] Ferrous Sulfate [Feosol] 325 mg PO DAILY 06/22/18 [History] Folic Acid 1 mg PO DAILY 06/22/18 [History] Magnesium Chloride [Mag-64] 64 mg PO DAILY 06/22/18 [History] Metoprolol Succinate [Toprol XL] 25 mg PO DAILY 06/22/18 [History] Nystatin 1 each MC TID 06/22/18 [History] traZODone HCl [Trazodone HCl] 50 mg PO BEDTIME 06/22/18 [History] Hydrocodone/Acetaminophen [Hydrocodon-Acetaminophen 5-325] 1 each PO QID [History] Levothyroxine [Synthroid] 50 mcg PO ACBREAKFAST 07/30/18 [History] Midodrine 12.5 mg PO TIDAC 07/30/18 [History] Past Medical History HEENT History: Reports: Impaired Vision Other HEENT History: sore throat Cardiovascular History: Reports: Afib, Blood Clots/VTE/DVT, Heart Failure, Hypertension, Other (See Below) Other Cardiovascular History: mitral regurgitation Respiratory History: Reports: Intubation, Previous, PE, Pneumonia, Recurrent, Sleep Apnea, Other (See Below) 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 Yeast infection under abdominal roll - Infectious Disease History Infectious Disease History: Reports: Chicken Pox - Past Surgical History Head Surgeries/Procedures: Reports: None HEENT Surgical History: Reports: None Female Surgical History: Reports: Mastectomy, Other (See Below) Other Female Surgeries/Procedures: right mastectomy Musculoskeletal Surgical History: Reports: Carpal Tunnel, Knee Replacement Other Musculoskeletal Surgeries/Procedures:: right and left Oncologic Surgical History: Reports: Mastectomy Other Oncologic Surgeries/Procedures: right Social & Family History - Family History Cardiac: Reports: CAD - Tobacco Use Smoking Status *Q: Never Smoker - Caffeine Use Caffeine Use: Reports: Coffee Other Caffeine Use: 2 cups per week ED ROS GENERAL - Review of Systems Review Of Systems: See Below Constitutional: Reports: Fever HEENT: Reports: No Symptoms Respiratory: Reports: No Symptoms Cardiovascular: Reports: No Symptoms GI/Abdominal: Reports: No Symptoms : Reports: No Symptoms Musculoskeletal: Reports: Back Pain, Muscle Pain Skin: Reports: No Symptoms Neurological: Reports: No Symptoms ED EXAM,LOWER BACK PAIN/INJURY - Physical Exam Exam: See Below Exam Limited By: No Limitations General Appearance: Alert, WD/WN, No Apparent Distress Throat/Mouth: No Airway Compromise Head: Atraumatic Neck: Normal Inspection, Supple, Non-Tender, Full Range of Motion Respiratory/Chest: No Respiratory Distress, Lungs Clear, Normal Breath Sounds, No Accessory Muscle Use, Chest Non-Tender Cardiovascular: Regular Rate, Rhythm, No Murmur GI/Abdominal: Soft, Non-Tender Back Exam: Normal Inspection, Decreased Range of Motion. No: CVA Tenderness (R) , CVA Tenderness (L), Muscle Spasm, Paraspinal Tenderness, Vertebral Tenderness Extremities: Pedal Edema Course - Vital Signs Last Recorded V/S: Last Vital Signs Temp 98.7 F 07/30/18 16:33 Pulse 86 07/30/18 18:23 Resp 16 07/30/18 18:23 BP 87/37 L 07/30/18 19:02 Pulse Ox 100 07/30/18 19:02 - Orders/Labs/Meds Orders: Active Orders 24 hr Category Date Time Status CULTURE BLOOD [BC] Urgent Lab 07/30/18 15:05 Received CULTURE BLOOD [BC] Urgent Lab 07/30/18 15:10 Received Iopamidol [Isovue-300 (61%)] Med 07/30/18 19:00 Active 150 ml IV . DIRECTED Blood Culture x2 Reflex Set [OM.PC] Urgent Oth 07/30/18 14:55 Ordered Medication Orders Iopamidol (Isovue-300 (61%)) 150 ml IV . DIRECTED [facility] Labs: Laboratory Tests 07/30/18 07/30/18 07/30/18 Range/Units 14:50 15:05 15:05 WBC 17.0 H (4.5-11.0) K/uL RBC 4.06 (3.30-5.50) M/uL Hgb 11.7 L D (12.0-15.0) g/dL Hct 38.2 (36.0-48.0) % MCV 94 (80-98) fL MCH 29 (27-31) pg MCHC 31 L (32-36) % Plt Count 334 (150-400) K/uL Neut % (Auto) 77 H (36-66) % Lymph % (Auto) 12 L (24-44) % [place] % (Auto) 11 H (2-6) % Eos % (Auto) 0 L (2-4) % Baso % (Auto) 0 (0-1) % Sodium 129 L (140-148) mmol/L Potassium 3.9 (3.6-5.2) mmol/L Chloride 90 L (100-108) mmol/L Carbon Dioxide 32 (21-32) mmol/L Anion Gap 10.9 (5.0-14.0) mmol/L BUN 46 H (7-18) mg/dL Creatinine 4.5 H* (0.6-1.0) mg/dL Est Cr Clr Drug Dosing 8.52 mL/min Estimated GFR (MDRD) 9 L (>60) Glucose 125 H (74-106) mg/dL Lactic Acid 2.2 H (0.4-2.0) mmol/L Calcium 8.9 (8.5-10.1) mg/dL Total Bilirubin 0.8 D (0.2-1.0) mg/dL AST 18 (15-37) U/L ALT 8 L (12-78) U/L Alkaline Phosphatase 133 H (46-116) U/L Troponin I < 0.017 (0.000-0.056) ng/mL C-Reactive Protein (0.0-0.3) mg/dL Total Protein 7.5 (6.4-8.2) g/dL Albumin 2.3 L (3.4-5.0) g/dL Globulin 5.2 H (2.3-3.5) g/dL Albumin/Globulin Ratio 0.4 L (1.2-2.2) Lipase 92 (73-393) U/L Procalcitonin ng/mL 07/30/18 07/30/18 Range/Units 16:17 16:18 WBC (4.5-11.0) K/uL RBC (3.30-5.50) M/uL Hgb (12.0-15.0) g/dL Hct (36.0-48.0) % MCV (80-98) fL MCH (27-31) pg MCHC (32-36) % Plt Count (150-400) K/uL Neut % (Auto) (36-66) % Lymph % (Auto) (24-44) % [place] % (Auto) (2-6) % Eos % (Auto) (2-4) % Baso % (Auto) (0-1) % Sodium (140-148) mmol/L Potassium (3.6-5.2) mmol/L Chloride (100-108) mmol/L Carbon Dioxide (21-32) mmol/L Anion Gap (5.0-14.0) mmol/L BUN (7-18) mg/dL Creatinine (0.6-1.0) mg/dL Est Cr Clr Drug Dosing mL/min Estimated GFR (MDRD) (>60) Glucose (74-106) mg/dL Lactic Acid (0.4-2.0) mmol/L Calcium (8.5-10.1) mg/dL Total Bilirubin (0.2-1.0) mg/dL AST (15-37) U/L ALT (12-78) U/L Alkaline Phosphatase (46-116) U/L Troponin I (0.000-0.056) ng/mL C-Reactive Protein 17.46 H (0.0-0.3) mg/dL Total Protein (6.4-8.2) g/dL Albumin (3.4-5.0) g/dL Globulin (2.3-3.5) g/dL Albumin/Globulin Ratio (1.2-2.2) Lipase (73-393) U/L Procalcitonin 2.81 H* ng/mL Meds: Medications Generic Name Dose Route Start Last Admin Trade Name Freq PRN Reason Stop Dose Admin Iopamidol 150 ml 07/30/18 19:00 Isovue-300 (61%) IV . DIRECTED [facility] Discontinued Medications Generic Name Dose Route Start Last Admin Trade Name Freq PRN Reason Stop Dose Admin Fentanyl 50 mcg 07/30/18 16:08 07/30/18 16:18 Sublimaze IVPUSH 07/30/18 16:09 50 mcg ONETIME ONE Administration Sodium Chloride 100 mls @ 3 mls/sec 07/30/18 18:59 Normal Saline IV 07/30/18 19:00 ONETIME ONE Departure - Departure Time of Disposition: 19:40 Disposition: DC/Tfer to Acute Hospital 02 Condition: Poor Clinical Impression: End stage renal disease Back pain Qualifiers: Back pain location: low back pain Chronicity: acute Back pain laterality: unspecified Sciatica presence: without sciatica Qualified Code(s): M54.5 - Low back pain - Discharge Information Referrals: Chelita Tolliver MD [Primary Care Provider] - Forms: ED Department Discharge - My Orders Last 24 Hours: My Active Orders 07/30/18 14:55 Blood Culture x2 Reflex Set [OM.PC] Urgent 07/30/18 15:05 CULTURE BLOOD [BC] Urgent 07/30/18 15:10 CULTURE BLOOD [BC] Urgent 07/30/18 19:00 Iopamidol [Isovue-300 (61%)] 150 ml IV . DIRECTED - Assessment/Plan Last 24 Hours: My Active Orders 07/30/18 14:55 Blood Culture x2 Reflex Set [OM.PC] Urgent 07/30/18 15:05 CULTURE BLOOD [BC] Urgent 07/30/18 15:10 CULTURE BLOOD [BC] Urgent 07/30/18 19:00 Iopamidol [Isovue-300 (61%)] 150 ml IV . DIRECTED Plan: Assessment Acuity = acute Site and laterality = back pain complicated in the patient with end-stage renal disease Etiology = unclear etiology Manifestations = remote history of fever Location of injury = Home Lab values = WBC elevated 17.0 consistent leukocytosis, sodium low at 129 consistent hyponatremia creatinine elevated 4.5 consistent with end-stage renal disease G5 lactic acid is slightly elevated 2.2 CRP elevated 17.46 troponin was negative lipase normal at 92 pro calcitonin elevated 2.8 chest x-ray, plain film of abdominal and CT the abdominal pelvis region show no acute process Plan Called discussed case with Dr. Zaman hospitalist on-call [facility] kindly accepted the patient transported she'll be transported via EMS ground spoke with her at 1820 This note was dictated using [employer] voice recognition software please call with any questions on syntax or grammar.
[2018-07-30] MEDS ORDERED: fentaNYL 100 MCG/2 ML SDV IVPUSH ONE (16:08)
--- NOTE | 2018-07-30 17:00 | CRLCR ---
Indication: Fever. Technique: AP views of the abdomen and pelvis were obtained. Comparison: ComparisonNone Findings: No free air is identified. The bowel gas pattern is nonobstructive. The right lower quadrant and pelvis are not included on this study. On the supine view, there is a calculus identified adjacent to the right L2 transverse process, of uncertain significance. Impression: Limited study. No definite evidence of obstruction. No free air Dictated by Nichelle Nichols MD @ Jul 30 2018 4:57PM Signed by Dr. Nichelle Nichols @ Jul 30 2018 4:59PM
--- NOTE | 2018-07-30 18:00 | CRLCR ---
INDICATION: Fever TECHNIQUE: Chest 1 views COMPARISON: June 22, 2018 FINDINGS: Cardiovascular and mediastinum: Heart size and vasculature are normal in caliber and appearance. Right-sided PICC line catheter is present. Lungs and pleural spaces: Lungs are clear. No sign of infiltrate or mass. No sign of pleural effusion. No pneumothorax. Bones and soft tissues: No significant findings. IMPRESSION: No sign of pneumonia or other acute abnormality. Dictated by Guy Garrett MD @ 07/30/2018 5:59:08 PM Dictated by: Guy Garrett MD @ 07/30/2018 17:59:34 (Electronically Signed)
--- NOTE | 2018-07-30 18:58 | CRLCT ---
INDICATION: Low back pain. COMPARISON: None. TECHNIQUE: CT abdomen and pelvis with intravenous contrast; coronal and sagittal reformats. FINDINGS: Small bilateral pleural effusion. No abnormal intra pulmonary nodular densities are identified. Enlarged cardiac silhouette without any evidence of pericardial effusion. Reflux of contrast into the inferior vena cava and hepatic veins indicating possible elevated right heart pressure. The timing of the scanning was too early and I do not see much of contrast either in the liver or spleen. No focal hepatic or splenic pathology. No pancreatic pathology. Gallbladder is unremarkable. No adrenal pathology. No kidney stones or obstructive uropathy. No retroperitoneal lymphadenopathy. Normal appendix. No evidence of abdominal or pelvic ascites. Diverticulosis sigmoid colon without any CT evidence of diverticulitis or abscess. No pneumoperitoneum or intestinal obstruction. Disk degeneration and disc space narrowing throughout the lumbar sacral spine. IMPRESSION: 1. Small bilateral pleural effusion. 2. Diverticulosis sigmoid colon without any CT evidence of diverticulitis or abscess. 3. No kidney stones or obstructive uropathy. 4. Normal appendix. 5. Disk degeneration and disc space narrowing throughout the lumbar sacral spine. Please note that all CT scans at this facility use dose modulation, iterative reconstruction, and/or weight-based dosing when appropriate to reduce radiation dose to as low as reasonably achievable. Dictated by Ashley Hensley MD @ Jul 30 2018 6:40PM Signed by Dr. Ashley Hensley @ Jul 30 2018 6:57PM
[2018-07-30] MEDS ORDERED: Sodium Chloride 0.9% 100 ML IV ONE (18:59)
[2018-07-30] MEDS ORDERED: Iopamidol 612 MG/ML 150 ML Bottle IV SCH (19:00)
[2018-07-30 20:04] VITALS: BP 93/45
== END 2018-07-30 20:54 ==
LOC: JP.ED 13:52
DX: M54.5 Low back pain (principal); I13.2 Hypertensive heart and chronic kidney disease with heart failure and with stage 5 chronic kidney disease, or end stage renal disease; I50.9 Heart failure, unspecified; N18.6 End stage renal disease; M19.90 Unspecified osteoarthritis, unspecified site; E66.9 Obesity, unspecified; Z88.8 Allergy status to other drugs, medicaments and biological substances; Z79.899 Other long term (current) drug therapy; Z99.2 Dependence on renal dialysis; Z88.2 Allergy status to sulfonamides; Z88.1 Allergy status to other antibiotic agents
CPT/HCPCS: 36415; 71045; 74018; 74177; 80053; 83605; 83690; 84145; 84484; 85025; 86140; 87040; 87186; 96374; 99284; J3010

== ENCOUNTER 2018-12-20 00:02 | Emergency (ER) | payer MEDICARE, BC ==
[2018-12-20 00:25] VITALS: BP 149/68; PULSE 77
--- NOTE | 2018-12-20 01:01 | EDM.PDOC ---
ED HPI GENERAL MEDICAL PROBLEM - General Chief Complaint: General Stated Complaint: PORT BLEEDING Time Seen by Provider: 12/20/18 00:57 Source of Information: Reports: Patient, Family History Limitations: Reports: No Limitations - History of Present Illness INITIAL COMMENTS - FREE TEXT/NARRATIVE: pt was at [facility] for dialysis today. She does not think she had any labs done. She is feeling a little lite headed. She has a area on the left arm just above the shumt which looks like a little cut and she is bleeding readily from it. Duration: Hour(s): Location: Reports: Upper Extremity, Left Associated Symptoms: Reports: No Other Symptoms - Related Data Allergies Allergy/AdvReac Type Severity Reaction Status Date / Time cephalexin Allergy Other Verified 12/20/18 00:22 doxycycline Allergy Hives Verified 12/20/18 00:22 nickel Allergy Itching Verified 12/20/18 00:22 Sulfa (Sulfonamide Allergy Swelling Verified 12/20/18 00:22 Antibiotics) zaleplon Allergy Hives Verified 12/20/18 00:22 Home Meds: Home Meds Acetaminophen [Tylenol] 650 mg PO Q4H PRN #200 tablet 11/22/17 [Rx] Ammonium Lactate [Amlactin] 57 gm TP BID 06/22/18 [History] Bumetanide 3 mg PO BID 06/22/18 [History] Folic Acid 1 mg PO DAILY 06/22/18 [History] Magnesium Chloride [Mag-64] 64 mg PO BID 06/22/18 [History] Nystatin 1 each MC TID PRN 06/22/18 [History] traZODone HCl [Trazodone HCl] 50 mg PO BEDTIME 06/22/18 [History] Levothyroxine [Synthroid] 75 mcg PO ACBREAKFAST 07/30/18 [History] Midodrine 10 mg PO TIDAC 07/30/18 [History] Acetaminophen [Tylenol Extra Strength] 2 tab PO ASDIRECTED 12/20/18 [History] Apixaban [Eliquis] 1 tab PO BID 12/20/18 [History] diphenhydrAMINE [Benadryl] 1 tab PO TID 12/20/18 [History] metOLazone [Metolazone] 1 tab PO DAILY 12/20/18 [History] Past Medical History HEENT History: Reports: Impaired Vision Other HEENT History: sore throat Cardiovascular History: Reports: Afib, Blood Clots/VTE/DVT, Heart Failure, Hypertension, Other (See Below) Other Cardiovascular History: mitral regurgitation Respiratory History: Reports: Intubation, Previous, PE, Pneumonia, Recurrent, Sleep Apnea, Other (See Below) Other Respiratory History: ARDS/diffuse alveolar hemorrhage Gastrointestinal History: Reports: GERD Genitourinary History: Reports: Chronic Renal Insuffiency, Dialysis, Retention, Urinary, Urinary Incontinence Other Genitourinary History: wears depends, dialysis 3 times per week 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: Musculoskeletal History: Reports: Arthritis, Fracture, Other (See Below) Other Musculoskeletal History: left arm Psychiatric History: Reports: Depression, Other (See Below) Other Psychiatric History: insomnia Endocrine/Metabolic History: Reports: Obesity/BMI 30+ Hematologic History: Reports: Blood Transfusion(s) Oncologic (Cancer) History: Reports: Breast Dermatologic History: Reports: Other (See Below) Other Dermatologic History: chronic itching - Infectious Disease History Infectious Disease History: Reports: Chicken Pox, Measles, Mumps, Rubella - Past Surgical History Head Surgeries/Procedures: Reports: None HEENT Surgical History: Reports: None Female Surgical History: Reports: Mastectomy, Other (See Below) Other Female Surgeries/Procedures: right mastectomy Musculoskeletal Surgical History: Reports: Carpal Tunnel, Knee Replacement Other Musculoskeletal Surgeries/Procedures:: right and left Oncologic Surgical History: Reports: Mastectomy Other Oncologic Surgeries/Procedures: right Social & Family History - Family History Family Medical History: Noncontributory Cardiac: Reports: CAD - Tobacco Use Smoking Status *Q: Never Smoker - Caffeine Use Caffeine Use: Reports: Coffee Other Caffeine Use: 2 cups per week - Recreational Drug Use Recreational Drug Use: No ED ROS GENERAL - Review of Systems Review Of Systems: See Below Constitutional: Reports: No Symptoms HEENT: Reports: No Symptoms Respiratory: Reports: No Symptoms Endocrine: Reports: No Symptoms GI/Abdominal: Reports: No Symptoms : Reports: No Symptoms Skin: Reports: Other ( bleeding ijn the left upper arm. ) Neurological: Reports: Dizziness ED EXAM, GENERAL - Physical Exam Exam: See Below Free Text/Narrative:: pt arrived with a small cut above the shunt that is bleeding and will not stop. She was at dialysis today. She does not hink she had labs. Her son feels that she would not remember. Exam Limited By: No Limitations General Appearance: Alert, No Apparent Distress, Other (pupils equal and reactive. ) Ears: Normal TMs Nose: Normal Inspection Throat/Mouth: Normal Inspection Head: Atraumatic Neck: Normal Inspection Respiratory/Chest: No Respiratory Distress Cardiovascular: Irregularly Irregular, Other (pt is on eleiquist. ) GI/Abdominal: Soft (Female) Exam: Deferred Rectal (Female) Exam: Deferred Back Exam: Normal Inspection Extremities: Other (pt has a shunt on the left which looks good. She has a small rent in the skin that will not stop bleeding. Pressure dressing was applied and that did stop. ) Neurological: Alert, Oriented, Other (pt does have memory issues) Course - Vital Signs Last Recorded V/S: Last Vital Signs Temp 36.6 C 12/20/18 00:23 Pulse 77 12/20/18 00:23 Resp 16 12/20/18 00:23 BP 149/68 H 12/20/18 00:23 Pulse Ox 98 12/20/18 00:23 Orthostatic Blood Pressure [ 132/51 Standing] Orthostatic Blood Pressure [ 144/94 Sitting] Orthostatic Blood Pressure [ 139/58 Supine] - Orders/Labs/Meds Labs: Laboratory Tests 12/20/18 12/20/18 Range/Units 01:11 01:11 WBC 4.6 (4.5-11.0) K/uL RBC 4.08 (3.30-5.50) M/uL Hgb 12.7 (12.0-15.0) g/dL Hct 41.0 (36.0-48.0) % MCV 101 H (80-98) fL MCH 31 (27-31) pg MCHC 31 L (32-36) % Plt Count 153 (150-400) K/uL Neut % (Auto) 45 (36-66) % Lymph % (Auto) 29 (24-44) % [place] % (Auto) 15 H (2-6) % Eos % (Auto) 11 H (2-4) % Baso % (Auto) 1 (0-1) % Sodium 136 L (140-148) mmol/L Potassium 3.2 L (3.6-5.2) mmol/L Chloride 94 L (100-108) mmol/L Carbon Dioxide 32 (21-32) mmol/L Anion Gap 13.2 (5.0-14.0) mmol/L BUN 17 D (7-18) mg/dL Creatinine 3.2 H (0.6-1.0) mg/dL Est Cr Clr Drug Dosing 12.95 mL/min Estimated GFR (MDRD) 14 L (>60) Glucose 99 (74-106) mg/dL Calcium 9.0 (8.5-10.1) mg/dL Total Bilirubin 0.7 (0.2-1.0) mg/dL AST 21 (15-37) U/L ALT 10 L (12-78) U/L Alkaline Phosphatase 123 H (46-116) U/L Total Protein 7.8 (6.4-8.2) g/dL Albumin 3.2 L (3.4-5.0) g/dL Globulin 4.6 H (2.3-3.5) g/dL Albumin/Globulin Ratio 0.7 L (1.2-2.2) Departure - Departure Time of Disposition: 02:05 Disposition: Home, Self-Care 01 Condition: Fair Clinical Impression: Bleeding from unknown site, Hypokalemia - Discharge Information Instructions: Bleeding Precautions When on Anticoagulant Therapy, Adult, Hypokalemia Referrals: Franc Skelton MD [Primary Care Provider] - Forms: ED Department Discharge Care Plan Goals: increase k in diet, keep pressure on the site on the left upper arm tonight, just use a bandaid in the afternoon tomorrow,
== END 2018-12-20 02:30 | disposition home or self-care (01) ==
LOC: JP.ED 00:02
DX: T82.838A Hemorrhage due to vascular prosthetic devices, implants and grafts, initial encounter (principal); E87.6 Hypokalemia; I13.2 Hypertensive heart and chronic kidney disease with heart failure and with stage 5 chronic kidney disease, or end stage renal disease; N18.6 End stage renal disease; I50.9 Heart failure, unspecified; F32.9 Major depressive disorder, single episode, unspecified; Z88.1 Allergy status to other antibiotic agents; Z91.048 Other nonmedicinal substance allergy status; Z88.2 Allergy status to sulfonamides; Z79.899 Other long term (current) drug therapy; Z99.2 Dependence on renal dialysis; Z86.718 Personal history of other venous thrombosis and embolism; Z86.711 Personal history of pulmonary embolism
CPT/HCPCS: 36415; 80053; 85025; 99283

== ENCOUNTER 2021-03-20 23:11 | Emergency (ER) | payer MEDICARE, MEDICAID ==
[2021-03-20 23:37] VITALS: BP 149/64; PULSE 80
[2021-03-21] MEDS: Bacitracin Oint 1 GM U/D Packet TOP ONE (00:12)
== END 2021-03-21 00:25 | disposition home or self-care (01) ==
LOC: JP.ED 23:11
DX: S41.112A Laceration without foreign body of left upper arm, initial encounter (principal); I13.0 Hypertensive heart and chronic kidney disease with heart failure and stage 1 through stage 4 chronic kidney disease, or unspecified chronic kidney disease; N18.9 Chronic kidney disease, unspecified; I50.9 Heart failure, unspecified; K21.9 Gastro-esophageal reflux disease without esophagitis; E66.9 Obesity, unspecified; Z68.28 Body mass index [BMI] 28.0-28.9, adult; Z88.1 Allergy status to other antibiotic agents; Z88.2 Allergy status to sulfonamides; Z91.048 Other nonmedicinal substance allergy status; Z88.8 Allergy status to other drugs, medicaments and biological substances; Z79.01 Long term (current) use of anticoagulants; Z79.899 Other long term (current) drug therapy; Z99.2 Dependence on renal dialysis; W26.8XXA Contact with other sharp object(s), not elsewhere classified, initial encounter
CPT/HCPCS: 12001; 99282; 99282-25

== ENCOUNTER 2021-09-04 16:41 | Emergency (ER) | payer MEDICARE, MEDICAID ==
[2021-09-04 16:52] VITALS: BP 122/80; PULSE 77
[2021-09-04] MEDS ORDERED: Acetaminophen 325 MG Tab PO ONE (17:10)
[2021-09-04] MEDS ORDERED: Ondansetron 4 MG Tab.DIS PO ONE (17:10)
[2021-09-04 18:05] LABS: ESTIMATED GFR 19 mL/min (>60)
== END 2021-09-04 21:28 | disposition home or self-care (01) ==
LOC: JP.ED 16:41
DX: R53.1 Weakness (principal); I13.0 Hypertensive heart and chronic kidney disease with heart failure and stage 1 through stage 4 chronic kidney disease, or unspecified chronic kidney disease; I50.9 Heart failure, unspecified; N18.9 Chronic kidney disease, unspecified; E66.9 Obesity, unspecified; Z88.2 Allergy status to sulfonamides; Z88.1 Allergy status to other antibiotic agents; Z88.8 Allergy status to other drugs, medicaments and biological substances; Z79.899 Other long term (current) drug therapy; Z68.26 Body mass index [BMI] 26.0-26.9, adult
CPT/HCPCS: 36415; 71045; 73030; 80053; 83605; 84145; 85025; 86140; 99285; A9270; Q0162; 99283

== ENCOUNTER 2022-04-08 06:49 | Day surgery (SDC) | payer MEDICARE, MEDICAID ==
[2022-04-08] MEDS ORDERED: Sodium Chloride 0.9% 10 ML Syringe FLUSH PRN (07:30)
[2022-04-08 08:32] VITALS: BP 160/98; PULSE 78
== END 2022-04-08 09:00 | disposition home or self-care (01) ==
LOC: JP.SDS 06:49
PROVIDERS: ATTEND Ophthalmology
DX: H26.9 Unspecified cataract (principal); E66.9 Obesity, unspecified; N18.9 Chronic kidney disease, unspecified; Z88.2 Allergy status to sulfonamides; Z88.1 Allergy status to other antibiotic agents; Z91.048 Other nonmedicinal substance allergy status; Z88.8 Allergy status to other drugs, medicaments and biological substances
CPT/HCPCS: 66984; J3490